=== PATIENT | female | born 1955 | race Caucasian/White ===

== ENCOUNTER → 2017-09-11 10:02 | Outpatient (CLI) | payer OTHER, SELFPAY ==
--- NOTE | 2017-09-11 10:16 | RAD_ITS ---
STUDY: X-RAY CHEST REASON FOR EXAM: Female, 62 years old. Chronic cough one year. TECHNIQUE: PA and lateral chest COMPARISON: None. FINDINGS: There is generalized pulmonary hyperlucency and hyperinflation in particular the apices in a pattern favoring the presence of underlying COPD/emphysema. Correlate smoking history. The lungs are otherwise clear. There is no infiltrate, effusion, pneumothorax or suspicious focal lesion. There is no apparent peribronchial cuffing. Normal cardiomediastinal silhouette, jai and pleural margins. No acute osseous or upper abdominal process. 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 Electronically Signed: Carlos Alvares, at 10:55 EDT Tel , Service support ,
== END ==
LOC: LAB 10:07 → RAD 10:11
PROVIDERS: Family Provider Internal Medicine; PCP Internal Medicine; Visit Provider Otolaryngology
DX: R05 Cough (principal)
CPT/HCPCS: 71046

== ENCOUNTER → 2017-10-22 07:35 | Outpatient (CLI) | payer OTHER, SELFPAY ==
--- NOTE | 2017-10-22 12:56 | PFT ---
INTRODUCTION: The patient is a 62-year-old female that presents for pulmonary function testing secondary to a diagnosis of cough. Respiratory therapy reports good patient effort. Bronchodilators were used during testing. INTERPRETATION: Forced expiration spirometry demonstrates no evidence of a large airways obstructive ventilatory defect. There was no significant response to aerosolized bronchodilators. Spirograms are of good quality and plateau normally. The respiratory flow volume loop appears normal. Body plethysmography was performed and reveals normal lung volumes. Diffusing capacity by single breath CO is within normal limits at 93% of predicted. IMPRESSION: These pulmonary function studies are essentially within normal limits. Methacholine challenge can be offered, if there is clinical suspicion for underlying asthma. Clinical correlation is recommended.
== END ==
PROVIDERS: Family Provider Internal Medicine; PCP Internal Medicine; Visit Provider Otolaryngology
DX: R05 Cough (principal)
CPT/HCPCS: 94060; 94726; 94729

== ENCOUNTER 2020-04-21 12:09 | Outpatient (RCR) | payer MEDICARE, SELFPAY ==
[2017-10-28 12:07] VITALS: BMI 27.8
[2020-04-21] MEDS: COVID-19 VACC, MRNA(PFIZER)/PF 30 MCG/0.3 ML SYRINGE IM (17:00)
[2020-05-12] MEDS: COVID-19 VACC, MRNA(PFIZER)/PF 30 MCG/0.3 ML SYRINGE IM (16:37)
== END 2020-07-18 23:59 ==
LOC: IMMUN 12:09
PROVIDERS: PCP Internal Medicine; Visit Provider Family Medicine
DX: Z23 Encounter for immunization (principal)
CPT/HCPCS: 0001A; 0002A; 91300

== ENCOUNTER → 2021-08-30 | Outpatient (CLI) | payer MEDICARE, OTHER, SELFPAY ==
--- NOTE | 2021-08-30 17:31 | STRESSREP ---
Stress Test Report Is a myocardial perfusion stress test. 66-year-old lady with a history of chest pain. Resting EKG demonstrates normal sinus rhythm with a rate of 68 bpm normal intervals are noted. The patient exercised according to the regular Len protocol for total duration of 6 minutes and 30 seconds. Patient completed 30 seconds into stage III of the Len protocol the maximum heart rate attained was 190 bpm which was 125% of max impacted heart rate the maximum workload was 8.5 metabolic equivalents. At rest there were no ST or T wave changes noted to suggest ischemia and at peak exercise upsloping ST changes were noted with did not meet the criteria for ischemia. No clinical angina was noted. The test was terminated due to fatigue. The peak blood pressure was 166/64 mmHg. Myocardial perfusion protocol. 11.2 mCi of technetium 99m sestamibi was injected at rest. The patient exercised according to regular Len protocol and at peak exercise 33.9 mCi of technetium 99m sestamibi was injected stress images were obtained stress and rest images were reconstructed and compared in the short axis vertical long and horizontal long axis. Gated images were also obtained to Perfusion SPECT analysis: Review of the stress images demonstrate normal uptake of tracer noted in all areas of the myocardium. The resting images similar demonstrate normal uptake of tracer noted in all areas of the myocardium. No areas of reversibility are noted to suggest ischemia and no previous infarct is noted. Gated SPECT analysis: The gated ejection fraction is 55% plus. Conclusion: Normal exercise myocardial perfusion stress test at a moderate workload. Preserved ejection fraction.
== END | disposition home or self-care (01) ==
LOC: CVS 06:32
PROVIDERS: PCP Internal Medicine; Referring Provider Nurse Practitioner; Visit Provider Nurse Practitioner
DX: R07.9 Chest pain, unspecified (principal)
CPT/HCPCS: 78452; 93017; A9500; A4216

== ENCOUNTER → 2021-11-15 | Outpatient (CLI) | payer MEDICARE, OTHER, SELFPAY ==
--- NOTE | 2021-11-15 08:48 | BI_ITS ---
MAMMOGRAPHY - BILATERAL DIAGNOSTIC REASON FOR EXAM: Female, 66 years old. One month history of a palpable lump in the upper aspect of the left breast. PERTINENT HISTORY: Daughter with breast cancer. Mother with breast cancer. TECHNIQUE: Digital bilateral breast hermes (3D mammographic acquisition) in the CC and MLO projections. 2-D mediolateral oblique (MLO) and craniocaudad (CC) views of both breasts were obtained. CAD: Full Field Digital Mammography with Computer Added Detection was performed. COMPARISON: Comparison is made with prior examination dated 06/29/2020. FINDINGS: Breast Composition: There are scattered areas of fibroglandular density. There are no dominant masses or suspicious calcifications. No other significant abnormalities are identified. There has been no significant change since the prior study. BI/DIAG MAMM W/CAD, BILAT IMPRESSION: Stable bilateral diagnostic mammogram. With the patient''s history of a palpable lump in the left breast, targeted ultrasound correlation is recommended. ASSESSMENT CATEGORY: BIRADS Category 0: Incomplete. Need additional imaging evaluation. A letter regarding these results will be sent to the patient by the facility within 30 days. Approximately 10% of breast cancers are not detected by mammography. A normal mammogram should not delay biopsy of a clinically suspicious abnormality. Electronically Signed: Felipe Thompson MD at 10:01 EDT ,
--- NOTE | 2021-11-15 09:04 | US_ITS ---
STUDY: ULTRASOUND BREAST - LEFT REASON FOR EXAM: Female, 66 years old. Palpable lump left breast. Prior bilateral breast reduction surgery. TECHNIQUE: Axial and longitudinal images of the LEFT breast were performed with a high resolution ultrasound transducer. # OF IMAGES: 16 COMPARISON: Comparison is made with prior mammogram done earlier in the day. FINDINGS: LEFT Breast: The lateral midportion of the left breast was examined with ultrasound. No sonographic abnormalities. The palpable abnormality most likely corresponds to the surgical scar. US/Breast Limited Unilateral IMPRESSION: No sonographic abnormality is seen. ASSESSMENT CATEGORY: BIRADS Category 1: Negative. A letter regarding these results will be sent to the patient by the facility within 30 days. Electronically Signed: Felipe Thompson MD at 14:17 EDT ,
== END | disposition home or self-care (01) ==
PROVIDERS: PCP Internal Medicine; Visit Provider Nurse Practitioner Women's Health
DX: R92.2 Inconclusive mammogram (principal); N64.4 Mastodynia; N63.20 Unspecified lump in the left breast, unspecified quadrant
CPT/HCPCS: 76642; 77062; 77066; G0279

== ENCOUNTER 2022-01-23 07:43 | Day surgery (SDC) | payer MEDICARE, OTHER, SELFPAY ==
[2022-01-23] VITALS (7 sets, daily range): BP systolic 97–135; BP diastolic 43–63; PULSE 57–69; RESP 12–18; TEMP 36.2–36.7; O2SAT 95–100; BMI 26.1
[2022-01-23] MEDS: Lactated Ringers 1,000 ML 15 ML IV (08:13)
--- NOTE | 2022-01-23 08:40 | HP.PCM_ITS ---
History and Physical Date of Admission: 01/23/22 Date of Service:? 01/11/22 MR#: [id number] Acct: [id number] Name:LUIGI SMITH Rep #: [id number] : 1955 ? ? Provider: Dr. Mary Carrasco MD Age/Sex:? 66/F ? ? Location: [facility] Status: Signed Intake Vital Signs ? 01/11/2211:41 Height 5 ft 3 in Weight: 158 lb 5 oz BMI 28.0 BP 129/75 H Blood Pressure Location Rt brachial Position Sitting Respiration 18 Pulse 69 Pulse Source Monitor Temp 96 F L Temp Source Temporal Intake Visit Reasons:?hemorrhoids Chief Complaint: Hemorrhoids Jig Borer Required: No Is patient in pain?: Yes Pain scale (1-10): 2 Allergies cimetidine [From Tagamet] Allergy (Mild, Verified 01/21/22 14:43) itchinghydrocodone [From Vicodin] Allergy (Mild, Verified 01/21/22 14:43) Itchingsulfamethoxazole [From Bactrim] Allergy (Mild, Verified 01/21/22 14:43) Rash and Itchingtrimethoprim [From Bactrim] Allergy (Mild, Verified 01/21/22 14:43) Rash and Itchingnitrofurantoin [From Macrobid] Allergy (Verified 01/21/22 14:43) Rash PFSH Medical History?(Updated 01/21/22 @ 14:59 by Cassandra Crandall) Alcohol use Allergic rhinitis Arthritis Laisha-Danlos disease Former smoker History of colon polyps History of diverticulitis History of irregular heartbeat History of stress test Hypertension Leg cramps Psoriasis Seasonal allergies TIA (transient ischemic attack) Wears glasses Surgical History?(Updated 01/21/22 @ 14:59 by Cassandra Crandall) History of back surgery History of colonoscopy History of hernia repair History of partial colectomy History of surgery on wrist History of toe surgery S/P bilateral breast reduction S/P right rotator cuff repair S/P spinal surgery Status post left foot surgery Family History? Mother Breast cancer Hypertension CVA (cerebral vascular accident)Father Heart disease Myocardial infarctionDaughter Colon cancer Primary colorectal signet ring cell carcinoma Social History? household members:? none number of children:? 2 current occupational status:? 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 No Smoking Status:? Former smoker second hand exposure:? No alcohol intake:? current alcohol intake frequency: a few times a month substance use type:? does not use diet:? low carbohydrate what type of physical activity do you participate in:? walking and weight training frequency:? 3-4 times per week seatbelt use:? always do you feel safe at home:? Yes additional social history:? single HPI HPI HPI: 66 year-old female presents due to 2 pain at her rectum possible hemorrhoids.? Patient states that she does not have really pain with bowel movements mostly afterward and also if she is in the shower and water hits that area there is at stinging pain.? Patient is scheduled for a screening colonoscopy due to family history?daughter with colon cancer-- on 01/23/2022.? Patient last colonoscopy was 5 years ago negative per patient.? Patient states that she does not feel like she can get the anal area cleaned due to the hemorrhoids, so patient does wipe this area quite a bit.? Patient states she has been having dark brown stools denies any blood in her stools.? Patient denies any epigastric pain, nausea, vomiting. ROS General General: No weight change, appetite, fatigue, colon cancer or breast cancer HEENT HEENT: No difficulty swallowing, eye injury, eye surgery, swollen glands or hoarseness Endo Endocrine: No thyroid disease, diabetes mellitus, thyroid cancer, Hair loss, heat intolerance or cold intolerance Skin Skin: No rash or changing moles Musc Musculoskeletal: No back problems, arthritis, rheumatoid arthritis, gout or joint pain Cardio Cardiovascular: No murmur, pacemaker, heart disease, atrial fibrillation, high blood pressure, heart attack, heart stent, palpitations, shortness of breat with exertion or chest pain Psych Psychiatric: No depression, anxiety or hearing voices Resp Respiratory: No shortness of breath, No sleep apnea, No cough, No COPD, No asthma, No emphysema and No wheezing Gastro Gastrointestinal: No abdominal pain, No nausea or vomiting, Yes diarrhea, No constipation, Yes blood in stool, No acid reflux, Yes hemorrhoids, No ulcers, No gallbladder problem and No black,tarry stools Yariel Hematologic: No blood thinners, No blood disorders, No bleeding, No anemia and No blood clots Neuro Neurologic: No numbness and No tingling Exam Const General: cooperative, healthy appearing and no acute distress [facility] Head: normal to inspection Resp Effort & Inspection: normal respiratory effort Cardio Rate: regular rate GI Inspection: non-distended Palpation: soft, no guarding and nontender Other: JUVENAL: Inspection patient does have some thickening of the tissues at 3:00 also at 10:00 has small breaks in the perianal mucosa.? Small internal hemorrhoids on exam no masses or gross bleeding. Skin General: no rashes or lesions noted Neuro General: patient oriented x3 Extrem General: no clubbing, cyanosis or edema Psych Affect: normal affect Assessment and Plan Assessment and Plan (1) Pain of perianal area: ?Status:?Acute Plan She does have some excoriation of her perianal area more so on the left where she does have some small breaks in the skin which I believe are the cause of her pain.? Patient does have a little bit of thickening of the tissue at 3:00 on the right question if this is just internal mucosa which has thickened over time as patient states she does wipe a lot as she feels like she can never get clean.? She also uses the wet wipes as well.? As patient put Neosporin on that area on the left with the breaks in the skin to see if that can help diarrhea and also try to be less aggressive with washing and possibly in the future an bidet may help with less wiping/irritation of the perianal tissue. Patient is scheduled for a colonoscopy due to screening due to family history of colon cancer in her daughter on January 23.? May consider perianal skin biopsy during that appointment.? Patient no further questions this time. I have discussed the above with the patient. I have offered the patient colonoscopy for evaluation. I have explained the risks/benefits of the procedure and described the procedure.? I have discussed the risks with the patient, including but not limited to:? infection, bleeding, perforation of the GI tract requiring emergency surgery, inability to complete the procedure, injury to any internal organs, complications of anesthesia, etc. - the patient understands and agrees to proceed. I have answered all the patient's questions to the patient's satisfaction and the patient has no further questions. The patient has been given instructions for the colon cleansing preparation. Mary Carrasco M.D. Pager: [phone] [facility] [address] [place] [address], [address] [place] [address] Office: [phone] Coding Level of Care Code Off vis,new,level 3 Diagnoses Pain of perianal area? K62.89 01/22/22 0942 <Electronically signed by Mary Carrasco MD> Date Mary Carrasco MD
--- NOTE | 2022-01-23 09:15 | COLBX_PTH ---
PATIENT: LUIGI PRINCE LOC: EN U#:[id number] AGE/SX: 66/F ROOM: RE01/23/[address]: Dr. Mary Carrasco MD : 1955 BED: DIS: 01/23/2022 SPEC #: [id number] RECD: 01/23/22 12:49 STATUS: NYDIA MARLA #: [id number] DIAN: 01/23/22 09:[address]: Mary Carrasco DEPT: SURGICAL PATHOLOGY RECD BY: Vee Giang ENTERED: 01/24/22 08:56 SP TYPE: COLON BX OTHR DR: Dr. Claus Magaña MD Tissues: Anal region Procedures: Surgery Specimen Level IV HEADER OPERATION: Colonoscopy ? open access (MAC), biopsy of perianal tissue PRE-OP DIAGNOSIS: Pain of perianal area TISSUE SUBMITTED: Perianal tissue punch biopsy MICROSCOPIC DIAGNOSIS Perianal tissue, punch biopsy: Consistent with polypoid fragment of skin and dermis with minimal chronic inflammation. AM:campos 01/25/2022 COMMENT This case was discussed with Dr. Carrasco on 01/25/2022. MICROSCOPIC DESCRIPTION Slides are reviewed. GROSS DESCRIPTION Received in fixative is one container labeled with the patient's name and designated perianal tissue biopsy. The specimen consists of two irregular fragments of hidalgo-pink soft tissue that in aggregate measure 0.5 x 0.2 x 0.1 cm. The specimen is totally submitted in one cassette. / SJ:campos 01/24/2022 TC:5 CPT: 02921
--- NOTE | 2022-01-23 09:15 | COLBX_PTH ---
PATIENT: LUIGI PRINCE LOC: EN U#:[id number] AGE/SX: 66/F ROOM: RE01/23/[address]: Dr. Mary Carrasco MD : 1955 BED: DIS: 01/23/2022 SPEC #: [id number] RECD: 01/23/22 12:49 STATUS: NYDIA REOdette #: [id number] DIAN: 01/23/22 09:[address]: Mary Carrasco DEPT: SURGICAL PATHOLOGY RECD BY: Vee Giang ENTERED: 01/24/22 08:56 SP TYPE: COLON BX OTHR DR: Dr. Claus Magaña MD Tissues: Anal region Procedures: Surgery Specimen Level IV HEADER OPERATION: Colonoscopy ? open access (MAC), biopsy of perianal tissue PRE-OP DIAGNOSIS: Pain of perianal area TISSUE SUBMITTED: Perianal tissue biopsy MICROSCOPIC DIAGNOSIS Perianal tissue, biopsy: Consistent with fibroepithelial polyp, mildly inflamed. AM:campos 01/25/2022 MICROSCOPIC DESCRIPTION Slides are reviewed. GROSS DESCRIPTION Received in fixative is one container labeled with the patient's name and designated perianal tissue biopsy. The specimen consists of two irregular fragments of hidalgo-pink soft tissue that in aggregate measure 0.5 x 0.2 x 0.1 cm. The specimen is totally submitted in one cassette. / SJ:campos 01/24/2022 TC:5 CPT: 27741
--- NOTE | 2022-01-23 10:13 | OP.COLON_ITS ---
Patient Name: Lea Barber Procedure Date: 01/23/2022 9:22 AM Date of : 1955 Age: 66 Procedure: Colonoscopy Indications: Screening in patient at increased risk: Colorectal cancer in child before age 60 Providers: Mary Carrasco MD Referring MD: Claus Magaña Medicines: Monitored Anesthesia Care Patient Profile: This is a 66 year old female. Last Colonoscopy: 5 years ago. Complications: No immediate complications. Procedure: Pre-Anesthesia Assessment: - Prior to the procedure, a History and Physical was performed, and patient medications and allergies were reviewed. The patient's tolerance of previous anesthesia was also reviewed. The risks and benefits of the procedure and the sedation options and risks were discussed with the patient. All questions were answered, and informed consent was obtained. Prior Anticoagulants: The patient has taken no previous anticoagulant or antiplatelet agents. ASA Grade Assessment: Per anesthesia. After reviewing the risks and benefits, the patient was deemed in satisfactory condition to undergo the procedure. After I obtained informed consent, the scope was passed under direct vision. Throughout the procedure, the patient's blood pressure, pulse, and oxygen saturations were monitored continuously. The colonoscope was introduced through the anus and advanced to the cecum, identified by appendiceal orifice and ileocecal valve. The colonoscopy was performed without difficulty. The patient tolerated the procedure well. The quality of the bowel preparation was good. Scope In: 9:37:33 AM Scope Withdrawal Time 0 hours 6 minutes 53 seconds Scope Out: 9:55:25 AM Total Procedure Duration Time 0 hours 17 minutes 52 seconds Findings: minimal thickening of the perianal tissue on the right (improved from office appt exam). Area -prepped with betadine, 3mm punch biopsy was done after lidocaine 1% 1 cc infiltrated. biopsy sent to pathology. skin closed with 3-0 chromatic suture. This was biopsied with a 3mm punch for histology. Scattered small-mouthed diverticula were found in the entire colon. The entire examined colon appeared normal on direct and retroflexion views. Impression: - Diverticulosis in the entire examined colon. - The entire examined colon is normal on direct and retroflexion views. Recommendation: - Discharge patient to home. - Resume previous diet. - Continue present medications. - Await pathology results. - Repeat colonoscopy in 5 years for screening purposes. Procedure Code(s): --- Professional --- 59947, PT, Colonoscopy, flexible; diagnostic, including collection of specimen(s) by brushing or washing, when performed (separate procedure) Diagnosis Code(s): --- Professional --- Z80.0, Family history of malignant neoplasm of digestive organs K57.30, Diverticulosis of large intestine without perforation or abscess without bleeding CPT copyright 2017 [employer]. All rights reserved. The codes documented in this report are preliminary and upon ring spinner review may be revised to meet current compliance requirements. MD Mary Leon MD 01/23/2022 10:13:09 AM This report has been signed electronically. Number of Addenda: 0 Note Initiated On: 01/23/2022 9:22 AM
--- NOTE | 2022-01-23 10:14 | OP.CCLET_ITS ---
01/23/2022 Claus Magaña [address] [place] [address] Re : Colonoscopy procedure for Lea Thomasmitt Dear Dr. Magaña This procedure was performed on Sunday, January 23, 2022. My impressions and recommendations are as follows: Impressions : - Diverticulosis in the entire examined colon. - The entire examined colon is normal on direct and retroflexion views. Recommendations : - Discharge patient to home. - Resume previous diet. - Continue present medications. - Await pathology results. - Repeat colonoscopy in 5 years for screening purposes. My findings are described in the full procedure note, which is enclosed. If I can be of further assistance, please feel free to contact me at Doctor phone number(s): , Work: . Sincerely, MD Mary Leon MD 01/23/2022 10:13:09 AM This report has been signed electronically.
== END 2022-01-23 10:53 | disposition home or self-care (01) ==
LOC: EN 07:43 → AC 07:44
PROVIDERS: PCP Internal Medicine; Referring Provider Internal Medicine; Visit Provider Surgery
PROC: 0DJD8ZZ Inspection of Lower Intestinal Tract, Via Natural or Artificial Opening Endoscopic (ICD-10-PCS; CPT 45378; principal; 2022-01-23 09:10)
DX: Z12.11 Encounter for screening for malignant neoplasm of colon (principal); K57.30 Diverticulosis of large intestine without perforation or abscess without bleeding; K64.9 Unspecified hemorrhoids; I10 Essential (primary) hypertension; Z80.0 Family history of malignant neoplasm of digestive organs; Z87.891 Personal history of nicotine dependence; Z86.73 Personal history of transient ischemic attack (TIA), and cerebral infarction without residual deficits; Z79.899 Other long term (current) drug therapy
CPT/HCPCS: 45380; 88305; J7120; J2405

== ENCOUNTER 2022-10-21 16:05 | Outpatient (CLI) | payer MEDICARE, OTHER, SELFPAY ==
[2022-10-21 16:51] LABS: Lipase 38 U/L (13-75)
== END 2022-10-21 23:59 | disposition home or self-care (01) ==
LOC: LABSPEC 16:07
PROVIDERS: PCP Internal Medicine; Referring Provider Nurse Practitioner Family; Visit Provider Nurse Practitioner Family
DX: R10.30 Lower abdominal pain, unspecified (principal)
CPT/HCPCS: 83690

== ENCOUNTER → 2022-11-20 | Outpatient (CLI) | payer MEDICARE, OTHER, SELFPAY ==
--- NOTE | 2022-11-20 12:24 | BI_ITS ---
MAMMOGRAPHY - BILATERAL SCREENING REASON FOR EXAM: Female, 67 years old. Routine annual screening examination. PERTINENT HISTORY: Mother with breast cancer. Bilateral breast reduction surgery. TECHNIQUE: Digital bilateral breast april (3D mammographic acquisition) in the CC and MLO projections. 2-D mediolateral oblique (MLO) and craniocaudad (CC) views of both breasts were obtained. CAD: Full Field Digital Mammography with Computer Added Detection was performed. COMPARISON: Comparison is made with prior study November 15, 2021. FINDINGS: Breast Composition: The breasts are almost entirely fatty. There are no dominant masses or suspicious calcifications. No other significant abnormalities are identified. There has been no significant change since the prior study. BI/SCRN MAMM (CAD)W/APRIL BILAT IMPRESSION: Stable bilateral screening mammogram. Yearly follow-up mammogram recommended. (A) ASSESSMENT CATEGORY: BIRADS Category 1: Negative. A letter regarding these results will be sent to the patient by the facility within 30 days. Approximately 10% of breast cancers are not detected by mammography. A normal mammogram should not delay biopsy of a clinically suspicious abnormality. [id number] Electronically Signed: Felipe Thompson MD at 11:04 EDT ,
== END | disposition home or self-care (01) ==
LOC: OPBI 12:24
PROVIDERS: PCP Internal Medicine; Visit Provider Nurse Practitioner Women's Health
DX: Z12.31 Encounter for screening mammogram for malignant neoplasm of breast (principal)
CPT/HCPCS: 77063; 77067

== ENCOUNTER 2023-02-06 10:45 | Emergency (ER) | payer MEDICARE, OTHER, SELFPAY ==
[2023-02-06 10:47] VITALS: BP 132/83; PULSE 81; RESP 14; TEMP 36.8; O2SAT 98; BMI 28.4
--- NOTE | 2023-02-06 11:21 | CT_ITS ---
STUDY: CT ABDOMEN AND PELVIS WITH CONTRAST - URINARY TRACT REASON FOR EXAM: Female, 67 years old. Diverticulitis RADIATION DOSAGE (If Supplied By Facility): CTDIvol = ( 16.74 ) mGy, DLP = ( 687.38 ) mGycm TECHNIQUE: IV 100mL Isovue-300 was administered. Transaxial images were obtained from the dome of the diaphragm to the symphysis pubis subsequent to intravenous contrast administration. Multiplanar coronal and sagittal images were reformatted. Individualized Dose Optimization Techniques Were Used For This CT. COMPARISON: No relevant prior comparison study available FINDINGS: The visualized lung bases are unremarkable. The visualized portions of the heart are within normal limits. There are scattered too small to characterize low-attenuation foci within the right hepatic lobe which may reflect cysts and/or hemangiomas. Normal gallbladder and extrahepatic biliary system. Normal spleen. Normal pancreas. Normal bilateral adrenal glands. Normal visualized stomach. Normal small intestine. There are multiple colonic diverticula consistent with diverticulosis. There is a moderate amount of stool throughout the colon. There are anastomotic sutures within the sigmoid colon. The appendix is visualized and appears normal. There is diffuse atherosclerotic calcification of the abdominal aorta, without a demonstrated aneurysm. No retroperitoneal adenopathy. There is a too small to characterize low-attenuation focus within the right kidney which may reflect a cyst. Normal left kidney. Normal urinary bladder. Normal abdominal wall. There are diffuse degenerative changes of the visualized lumbar spine. CT/Abdomen/Pelvis W IV Cont ONLY IMPRESSION: Moderate amount of stool throughout the colon. Colonic diverticulosis. Atherosclerosis. Electronically Signed: Mary Wild MD at 12:12 EST ,
--- NOTE | 2023-02-06 11:22 | EX.ED.DYSGE1 ---
HPI History of Present Illness Chief Complaint: Abd Pain Informant: patient Narrative Narrative: 67-year-old female presenting to the emergency room for chief complaint of left lower abdominal pain. Patient states that last week she had small amount of diarrhea followed by some constipation. She states she has been passing hard round small stool. Beginning on Akbar she had had some left lower quadrant abdominal pain. Is worse with movement. No rectal bleeding. No urinary symptoms. No vomiting or anorexia. No fevers. She states that about 20 years ago she had a partial colectomy for recurrent diverticulitis. She states that she has not had a bout since. The patient states that she has had a colonoscopy since then which demonstrated small pockets of diverticulosis. 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 She states that that has not helped the abdominal pain [facility] Medical History Alcohol use Allergic rhinitis Arthritis Laisha-Danlos disease Former smoker History of colon polyps History of diverticulitis History of irregular heartbeat History of stress test Hypertension Leg cramps Psoriasis Seasonal allergies TIA (transient ischemic attack) Wears glasses Home Medications dicyclomine 10 mg capsule 10 mg PO .PRN PRN Diarrhea 10/28/17 [History Last Taken Unknown] naproxen 500 mg tablet 500 mg PO BID 10/28/17 [History Last Taken Unknown] cyclobenzaprine 10 mg tablet 10 mg PO HS 08/10/20 [History Last Taken Unknown] gabapentin 300 mg capsule 600 mg PO TID 08/10/20 [History Last Taken Unknown] tramadol 50 mg tablet 50 mg PO BID 08/10/20 [History Last Taken Unknown] metoprolol succinate 25 mg tablet,extended release 24 hr 25 mg PO QHS 12/05/21 [History Last Taken 01/23/22] Allergy/AdvReac Type Severity Reaction Status Date / Time cimetidine [From Tagamet] Allergy Mild itching Verified 02/06/23 10:45 hydrocodone [From Vicodin] Allergy Mild Itching Verified 02/06/23 10:45 sulfamethoxazole Allergy Mild Rash and Verified 02/06/23 10:45 [From Bactrim] Itching trimethoprim [From Bactrim] Allergy Mild Rash and Verified 02/06/23 10:45 Itching nitrofurantoin Allergy Rash Verified 02/06/23 10:45 [From Macrobid] Family History Mother Breast cancer Hypertension CVA (cerebral vascular accident) Father Heart disease Myocardial infarction Daughter Colon cancer Primary colorectal signet ring cell carcinoma Surgical History History of back surgery History of colonoscopy History of hernia repair History of partial colectomy History of surgery on wrist History of toe surgery S/P bilateral breast reduction S/P right rotator cuff repair S/P spinal surgery Status post left foot surgery Social History household members: none number of children: 2 current occupational status: retired and 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 history of recent travel: No Smoking Status: Former smoker second hand exposure: No alcohol intake: current alcohol intake frequency: a few times a month substance use type: does not use diet: low carbohydrate what type of physical activity do you participate in: walking and weight training frequency: 3-4 times per week seatbelt use: always do you feel safe at home: Yes additional social history: single ROS ROS ED Constitutional Constitutional ED: Denies chills, fever(s) or weight loss Eyes Eyes: Denies change in vision or diplopia ENT ENT ED: Denies ear pain, rhinorrhea or sore throat Cardiovascular Cardiovascular: Denies chest pain, orthopnea, palpitations or racing heartbeat Respiratory/Chest Respiratory/Chest: Denies cough, dyspnea or orthopnea Gastrointestinal Gastrointestinal: Reports abdominal pain and constipation; Denies diarrhea, nausea or vomiting Genitourinary Genitourinary ED: Denies dysuria, hematuria or urinary frequency Musculoskeletal Musculoskeletal: Denies arthralgias or myalgias Integumentary Denies abscess or rash Neurologic Neurologic: Denies headache(s) or weakness Psychiatric Psychiatric: Denies anxiety, depression, suicidal ideation or suicidal thoughts Endocrine Endocrinology: Denies polydipsia, polyphagia or polyuria Allergic/Immunologic Allergic/Immunologic ED: Denies mouth swelling, tongue swelling or urticaria EXAM Physical Exam Const Vital Signs: 02/06/23 10:47 Temperature 98.2 F Temperature Source Temporal Pulse Rate 81 Respiratory Rate 14 Blood Pressure 132/83 H Blood Pressure Mean 99 Pulse Ox 98 Oxygen Delivery Method Room Air Positive well nourished and well developed General Appearance ED: well developed HEENT Reports normocephalic, head/scalp atraumatic and moist mucous membranes Eyes PERRL and EOMs intact bilaterally Neck no lymphadenopathy, supple and no JVD Resp normal respiratory effort and clear to auscultation bilaterally Cardio regular rate, regular rhythm and no murmurs GI Inspection: Negative for abdominal distention Auscultation: normoactive bowel sounds Palpation: soft and tender LLQ; Negative for guarding or rebound tenderness present Back/Spine no CVA tenderness and normal ROM Extremity normal to inspection General Extremety ED: Negative for edema General Extremity: Negative for edema Neuro oriented x3 and CN's II-XII intact bilaterally Sensorium / Orientation: alert Motor Exam: strength 5/5 throughout Psych mental status grossly normal Mood & Affect: Negative for depressed or tearful Skin no rashes or lesions noted and no wounds MDM MDM MDM Narrative Medical decision making narrative: Urinalysis negative. White count 5.6. BMP with a creatinine 1.12. CT of the abdomen pelvis was obtained. This will throughout the colon. There are some areas of diverticulosis but no definitive areas of diverticulitis or colitis. No evidence of perforation or abscess. No obvious hydronephroureter to suggest ureterolithiasis. Patient received a dose of Toradol and Zofran. I think we should use some magnesium citrate to help move the stool through the colon as she is feeling bloated and constipated. The patient and I discussed risk benefits of antibiotics. I will write her for some Augmentin. We talked about different ways to treat diverticulitis. We talked about possible etiologies other than diverticulitis. At this point we will proceed with magnesium citrate and Augmentin. Continue home medications History & Record Review Discussion w/independent historian: Patient Lab Data Attestation: I reviewed the patient's lab results. Labs: Laboratory Results - last 24 hr 02/06/23 02/06/23 11:03 11:10 WBC 5.6 RBC 4.80 Hgb 14.7 Hct 45.9 MCV 95.6 MCH 30.6 MCHC 32.0 RDW Std Deviation 47.1 H RDW Coeff of Yu 13.3 Plt Count 251 MPV 10.1 Immature Gran % (Auto) 0.200 Neut % (Auto) 70.1 H Lymph % (Auto) 20.3 Parker % (Auto) 7.5 Eos % (Auto) 1.4 Baso % (Auto) 0.5 Absolute Neuts (auto) 3.9 Absolute Lymphs (auto) 1.14 Nucleated RBC % 0 Sodium 143 Potassium 4.3 Chloride 108 H Carbon Dioxide 28.0 Anion Gap 7 BUN 15 Creatinine 1.12 H Estim Creat Clear Calc 39.22 Est GFR (MDRD) Af Amer 62 Est GFR (MDRD) Non-Af 51 L BUN/Creatinine Ratio 13.4 Glucose 91 Calcium 9.2 Urine Color Yellow Urine Clarity Sl. Cloudy Urine pH 6.5 Ur Specific [place] 1.010 Urine Protein 15 H Urine Glucose (UA) Normal Urine Ketones Negative Urine Occult Blood Negative Urine Nitrite Negative Urine Bilirubin Negative Urine Urobilinogen Normal Ur Leukocyte Esterase Negative Urine RBC 0 SEEN Urine WBC 0 SEEN Ur Squamous Epith Cells 0-5 SEEN Urine Bacteria 0 SEEN Urine Mucus 0 SEEN Radiography Diagnostic Testing: Clinical Impression(s) from Imaging Studies Abdomen/Pelvis CT 02/06/23 11:21 IMPRESSION: Moderate amount of stool throughout the colon. Colonic diverticulosis. Atherosclerosis. Electronically Signed: Mary Wild MD at 12:12 EST , Discharge Plan Triage Chief Complaint: Abd Pain ED Provider: Kevin Carter Dx/Rx/DC Orders Prescriptions: No Action naproxen 500 mg tablet 500 mg PO BID dicyclomine 10 mg capsule 10 mg PO .PRN PRN (Reason: Diarrhea) cyclobenzaprine 10 mg tablet 10 mg PO HS gabapentin 300 mg capsule 600 mg PO TID tramadol 50 mg tablet 50 mg PO BID metoprolol succinate 25 mg tablet extended release 24 hr 25 mg PO QHS Primary Care Provider: Claus Magaña Referrals: Claus Magaña MD [Primary Care Provider] -
[2023-02-06 11:31] LABS: Absolute Lymphocyte Count 1.14 X10^3/uL (0.83-4.51); Absolute Neutrophil Count 3.9 X10^3/uL (2.0-7.7); Basophil# 0.03 X10^3/uL; Basophil% 0.5 % (0-1); Eosinophil# 0.08 X10^3/uL; Eosinophils% 1.4 % (0-5); Hematocrit 45.9 % (37-47); Hemoglobin 14.7 g/dL (12.0-15.0); Lymphocyte # 1.14 X10^3/ul (0.83-4.51); Lymphocyte % 20.3 % (19-41); Mean Corpuscular Hgb 30.6 pg (27.0-32.0); Mean Corpuscular Volume 95.6 fL (81-99); Mean Platelet Vol. 10.1 fl (6.2-12.0); Monocyte# 0.42 X10^3/uL; Monocyte% 7.5 % (0-10); NRBC Flagged by Analyzer 0 % (0-5); Neutrophil # 3.94 X10^3/uL (2.7-7.7); Neutrophil % 70.1 % (47-70); Platelet Count 251 K/mm3 (150-450); RBC Distribution Width CV 13.3 % (11.6-14.6); RBC Distribution Width SD 47.1 fl (35.1-43.9); White Blood Count 5.6 K/mm3 (4.4-11.0)
[2023-02-06 11:32] LABS: Bacteria 0 SEEN /hpf (None Seen); Mucous, Urine 0 SEEN /hpf (<or=2+); Red Blood Cells-Urine 0 SEEN /hpf (0-5); White Blood Cells 0 SEEN /hpf (0-5)
[2023-02-06 11:43] LABS: Color, Urine Yellow (Yellow); Glucose, Dipstick Normal (Normal); Ketone-Dipstick Negative (Negative); Leukocyte Esterase-Dipstick Negative /ul (Negative); Nitrite-Dipstick Negative (Negative); Occult Blood-Urine Negative /ul (Negative); Protein-Dipstick 15 mg/dl (Negative); Urine Bilirubin Dipstick Negative (Negative); Urine Clarity Sl. Cloudy (Clear); Urine Urobilinogen Normal (Normal); Urine pH 6.5 (5.0 - 8.0)
[2023-02-06 11:44] LABS: Anion Gap 7 (5-15); BUN 15 mg/dL (7-18); BUN/Creat Ratio 13.4 RATIO (10-20); Calcium,Total 9.2 mg/dL (8.5-10.1); Chloride 108 mmol/L (98-107); Creatinine, Serum 1.12 mg/dL (0.55-1.02); EST Glomerular Filtration Rate 51 mL/min (>60); Est Glom Filt Rate - Afr Amer 62 mL/min (>60); Estimated Creatinine Clearance 39.22 ml/min; Glucose 91 mg/dL (74-106); Potassium 4.3 mmol/L (3.5-5.1); Sodium Level 143 mmol/L (136-145)
[2023-02-06 11:50] LABS: Squamous Epithelial Cells - UA 0-5 SEEN /hpf (5-10)
[2023-02-06] MEDS: Ketorolac 15 MG/ML Vial IV (12:36)
[2023-02-06] MEDS: Ondansetron 4 MG/2 ML Vial IV (12:37)
[2023-02-06 13:24] VITALS: BP 127/62; PULSE 76; RESP 15; O2SAT 98
== END 2023-02-06 13:25 | disposition home or self-care (01) ==
PROVIDERS: Emergency Provider Emergency Medicine; PCP Internal Medicine; Visit Provider Emergency Medicine
DX: R10.32 Left lower quadrant pain (principal); Z87.891 Personal history of nicotine dependence; Z90.49 Acquired absence of other specified parts of digestive tract; G57.92 Unspecified mononeuropathy of left lower limb; Z79.899 Other long term (current) drug therapy; Z86.73 Personal history of transient ischemic attack (TIA), and cerebral infarction without residual deficits
CPT/HCPCS: 74177; 80048; 81001; 85025; 96374; 96375; 99283; Q9967; A4216; J2405

== ENCOUNTER → 2023-03-27 | Outpatient (CLI) | payer MEDICARE, OTHER, SELFPAY ==
--- OUTSIDE RECORDS SUMMARY | 2023-03-27 07:34 | XMS RPT_ITS | CCD ---
Author Name Unknown Address [address] [place] [address] Organization [facility] Care Team Providers Care Latin Professor Name Role Phone Gómez CERRATO, Claus Briones Primary Care Provider [phone] JOSEMANUEL RODRIGUEZ Referring Unavailable GÓMEZ, CLAUS Briones Primary Care Unavailable Gómez CERRATO, Claus Briones Primary Care Provider [phone] JOSEMANUEL RODRIGUEZ Admitting Unavailable JOSEMANUEL RODRIGUEZ Attending Unavailable CLAUS MAGAÑA Primary Care Unavailable GÓMEZ, CLAUS Briones Primary Care Unavailable GÓMEZ, CLAUS Briones Referring Unavailable CLAUS MAGAÑA Attending Unavailable LUCIO KITCHEN Attending Unavailable JOSEMANUEL RODRIGUEZ Referring Unavailable CLAUS MAGAAÑ Primary Care Unavailable GÓMEZ, CLAUS Briones Primary Care Unavailable CLAUS MAGAÑA Referring Unavailable JOSEMANUEL RODRIGUEZ Attending Unavailable JOSEMANUEL RODRIGUEZ Referring Unavailable CLAUS MAGAÑA Primary Care Unavailable DEVIN HANNA Attending Unavailable JOSEMANUEL RODRIGUEZ Referring Unavailable CLAUS MAGAÑA Primary Care Unavailable DEVIN HANNA Attending Unavailable CLAUS MAGAÑA Primary Care Unavailable TEMITOPE TROTTER Referring Unavailable GÓMEZ, CLAUS Briones Primary Care Unavailable TEMITOPE TROTTER Referring Unavailable DEVIN HANNA Attending Unavailable CLAUS MAGAÑA Primary Care Unavailable TEMITOPE TROTTER Referring Unavailable MAGAÑA, CLAUS Briones Primary Care Unavailable CLAUS MAGAÑA Attending Unavailable GÓMEZ, CLAUS Briones Primary Care Unavailable MAGAÑA, CLAUS Briones Primary Care Unavailable KELLY VELAZQUEZ Referring Unavailable MAGAÑA, CLAUS Briones Primary Care Unavailable MAGAÑA, CLAUS Briones Primary Care Unavailable DANG JANE Referring Unavailable GÓMEZ, CLAUS Briones Primary Care Unavailable JOSEMANUEL RODRIGUEZ Attending Unavailable GÓMEZ, CLAUS Briones Primary Care Unavailable ROSE MARIE, TEMITOPE M Referring Unavailable JOSEMANUEL RODRIGUEZ Referring Unavailable VETOMENDY SPENCER Attending Unavailable MAGAÑA, DONAVON Primary Care Unavailable JOSEMANUEL RODRIGUEZ Referring Unavailable VETOMENDY SPENCER Attending Unavailable MAGAÑA, DONAVON Primary Care Unavailable VETOVITZ, MENDY Attending Unavailable MAGAÑA, DONAVON Primary Care Unavailable JOSEMANUEL RODRIGUEZ Attending Unavailable JOSEMANUEL RODRIGUEZ Referring Unavailable MAGAÑA, CLAUS Briones Primary Care Unavailable JOSEMANUEL RODRIGUEZ Referring Unavailable MAGAÑA, DONAVON Primary Care Unavailable MAGAÑA, DONAVON Primary Care Unavailable ANICETO BRODERICK Referring Unavailable MAGAÑA, DONAVON Primary Care Unavailable MAGAÑA, DONAVON Referring Unavailable ROSE MARIETEMITOPE Attending Unavailable MAGAÑA, DONAVON Primary Care Unavailable ROSE MARIETEMITOPE Attending Unavailable MAGAÑA, DONAVON Primary Care Unavailable ROSE MARIE, TEMITOPE M Referring Unavailable MAGAÑA, DONAVON Primary Care Unavailable ROSE MARIE, TEMITOPE M Referring Unavailable JOSEMANUEL RODRIGUEZ Referring Unavailable VETOMENDY SPENCER Attending Unavailable MAGAÑA, DONAVON Primary Care Unavailable MAGAÑA, DONAVON Primary Care Unavailable ROSE MARIE, TEMITOPE M Referring Unavailable Allergies Allergy Classification Reported Allergen(s) Allergy Type Date of Onset Reaction(s) Facility (20 sources) Cimetidine; Translations: [CIMETIDINE] Drug Allergy 10-01-2004 Unknown [facility] (20 sources) HYDROcodone; Translations: [HYDROCODONE] Drug Allergy 02-25-2001 Itching [facility] Work Phone: (20 sources) NITROFURANTOIN, MACROCRYSTALS / Nitrofurantoin, Monohydrate; Translations: [NITROFURANTOIN MONOHYD/M-CRYST] Drug Allergy 12-22-2015 Rash [facility] (20 sources) Ragweed pollen; Translations: [RAGWEED POLLEN] Drug Allergy 10-14-2018 Cough [facility] (9 sources) Acetaminophen; Translations: [ACETAMINOPHEN] Drug Allergy 08-10-2020 Itching [facility] (9 sources) Sulfamethoxazole; Translations: [SULFAMETHOXAZOLE] Drug Allergy 08-10-2020 [facility] Medications Current Medications Medication Drug Class(es) Dates Sig (Normalized) Sig (Original) acetaminophen 325 mg / oxyCODONE hydrochloride 5 mg oral tablet (7 sources) Opioid Agonist Start: 07-10-2022 End: 07-17-2022 take 1 tablet by mouth every six hours as needed for pain oxyCODONE-acetami nophen (PERCOCET) 5-325 mg tablet Indications: Acute medial meniscus tear of right knee, subsequent encounter Take 1 tablet by mouth every 6 hours as needed for pain for up to 7 days. 20 tablet 0 07/10/2022 07/17/2022 Active Completed/Discontinued Medications Medication Drug Class(es) Dates Sig (Normalized) Sig (Original) augmented betamethasone 0.5 mg/ml topical cream (20 sources) Corticosteroid Start: 03-05-2022 betamethasone dipropionate, augmented (DIPROLENE) 0.05 % cream APPLY A THIN LAYER OF CREAM TOPICALLY TO AFFECTED AREA OF THE BODY TWICE DAILY FOR 2 WEEKS NEEDED FOR FLARES. 0 03/05/2022 Active Problems Active Problems Problem Classification Problem Date Documented Da te Episodic/Chronic Chronic kidney disease (20 sources) Chronic kidney disease stage 3A ; Translations: [Stage 3a chronic kidney disease] Onset: 1 10-08-2020 Chronic Chronic kidney disease (1 source) Chronic kidney disease; Translations: [Stage 3a chronic kidney disease (HCC)] Onset: 1 Esophageal disorders (19 sources) Gastroesophageal reflux disease; Translations: [Gastro-esophageal reflux disease without esophagitis] Onset: 3 Chronic Essential hypertension (20 sources) Essential hypertension; Translations: [Essential (primary) hypertension] Onset: 0 10-11-2019 Chronic Genitourinary symptoms and ill-defined conditions (2 sources) Urgent desire to urinate; Translations: [Urgency of urination] Episodic Heart valve disorders (20 sources) Mitral valve prolapse; Translations: [Nonrheumatic mitral (valve) prolapse] Onset: 0 05-11-2009 Chronic Joint disorders and dislocations; trauma-related (1 source) Acute tear of medial meniscus of right knee; Translations: [Other tear of medial meniscus, current injury, right knee, subsequent encounter] Episodic Nonspecific chest pain (1 source) Chest pain; Translations: [Chest pain, unspecified] Episodic Other connective tissue disease (2 sources) Pain of right lower leg; Translations: [Pain in right lower leg] Episodic Other gastrointestinal disorders (20 sources) Irritable bowel syndrome; Translations: [Irritable bowel syndrome without diarrhea] Onset: 5 10-01-2004 Chronic Other gastrointestinal disorders (1 source) Mixed irritable bowel syndrome; Translations: [Irritable bowel syndrome with both constipation and diarrhea] Onset: 5 Chronic Other hereditary and degenerative nervous system conditions (8 sources) Essential tremor; Translations: [Essential tremor] Onset: 3 Chronic Other hereditary and degenerative nervous system conditions (1 source) Essential tremor; Translations: [Essential tremor] Onset: 3 Chronic Other inflammatory condition of skin (1 source) Psoriasis vulgaris; Translations: [Psoriasis vulgaris] Onset: 4 Chronic Other nervous system disorders (20 sources) Neuropathy; Translations: [Polyneuropathy, unspecified] Onset: 5 Chronic Other nervous system disorders (20 sources) Bilateral carpal tunnel syndrome; Translations: [Carpal tunnel syndrome, bilateral upper limbs] Onset: 1 04-24-2010 Chronic Other nervous system disorders (1 source) Other chronic pain; Translations: [Chronic pain of right knee] Onset: 3 Chronic Other nervous system disorders (1 source) Polyneuropathy, unspecified; Translations: [Neuropathy] Onset: 7 Chronic Other screening for suspected conditions (not mental disorders or infectious disease) (1 source) Patient encounter status; Translations: [Encounter for screening mammogram for malignant neoplasm of breast] Episodic Other skin disorders (2 sources) Mass of skin of right lower limb; Translations: [Localized swelling, mass and lump, right lower limb] Episodic Other upper respiratory infections (1 source) Viral upper respiratory tract infection; Translations: [Acute upper respiratory infection, unspecified] Episodic Past or Other Problems Problem Classification Problem Date Documented Date Episodic/Chronic Abdominal pain (2 sources) Lower abdominal pain; Translations: [Lower abdominal pain, unspecified] Onset: 10-21-2022 10-21-2022 Episodic Cardiac dysrhythmias (20 sources) Palpitations; Translations: [Palpitations] Onset: 10-11-2019 10-11-2019 Episodic Nausea and vomiting (9 sources) Postoperative nausea and vomiting; Translations: [Nausea with vomiting, unspecified] Onset: 06-24-2022 Episodic Other and unspecified benign neoplasm (20 sources) Adenomatous polyp of colon ; Translations: [Benign neoplasm of colon, unspecified] Onset: 04-08-2016 04-08-2016 Episodic Other connective tissue disease (20 sources) Muscle pain; Translations: [Myalgia, unspecified site] Onset: 10-01-2004 04-08-2016 Episodic Other connective tissue disease (20 sources) Acquired trigger finger; Translations: [Trigger finger, unspecified finger] Onset: 01-30-2017 01-30-2017 Episodic Other connective tissue disease (20 sources) Synovial cyst of right popliteal space; Translations: [Synovial cyst of popliteal space [Alonso], right knee] Onset: 06-19-2022 Episodic Other connective tissue disease (2 sources) Synovial cyst of popliteal space [Alonso], right knee; Translations: [Alonso's cyst of knee, right] Onset: 05-02-2022 Episodic Other connective tissue disease (1 source) Pain in right lower leg; Translations: [Pain in right lower leg] Onset: 05-01-2022 Episodic Other nervous system disorders (20 sources) Tremor; Translations: [Tremor, unspecified] Onset: 04-16-2022 04-16-2022 Episodic Other non-traumatic joint disorders (20 sources) Pain in right knee; Translations: [Pain in joint, lower leg] Onset: 05-02-2022 Episodic Other skin disorders (1 source) Localized swelling, mass and lump, right lower limb; Translations: [Skin lump of leg, right] Onset: 05-30-2022 Episodic Pathological fracture (20 sources) Stress fracture of tibia; Translations: [Pathological fracture, unspecified tibia and fibula, initial encounter for fracture] Onset: 06-19-2022 Episodic Residual codes; unclassified (20 sources) Memory impairment; Translations: [Other amnesia] Onset: 08-17-2020 08-17-2020 Episodic Residual codes; unclassified (1 source) Other amnesia; Translations: [Memory changes] Onset: 08-17-2020 Episodic Residual codes; unclassified (1 source) Other specified postprocedural states; Translations: [PONV (postoperative nausea and vomiting)] Onset: 06-24-2022 Episodic Screening and history of mental health and substance abuse codes (9 sources) Ex-smoker; Translations: [Personal history of nicotine dependence] Onset: 06-24-2022 Episodic Spondylosis; intervertebral disc disorders; other back problems (20 sources) Lumbar disc prolapse with radiculopathy; Translations: [Intervertebral disc disorders with radiculopathy, lumbar region] Onset: 04-20-2014 Episodic Results Test Name Value Interpretation Reference Range Facil ity Vital Signs Date Time Vital Sign Value Performing Clinician Hugh echavarria 10-21-2022 14:47-0400 Body temperature 98.6 [degF] Kelly Velazquez BIT SHARPENER.HOOK UP DRIVER Work Phone: [facility] 10-21-2022 14:47-0400 Body weight 71.76 kg Kelly Velazquez BIT SHARPENER.HOOK UP DRIVER Work Phone: [facility] 10-21-2022 14:47-0400 Diastolic blood pressure 80 mm[Hg] Kelly Velazquez BIT SHARPENER.HOOK UP DRIVER Work Phone: [facility] 10-21-2022 14:47-0400 Heart rate 82 /min Kelly Velazquez BIT SHARPENER.HOOK UP DRIVER Work Phone: [facility] 10-21-2022 14:47-0400 Respiratory rate 18 /min Kelly Velazquez BIT SHARPENER.HOOK UP DRIVER Work Phone: [facility] 10-21-2022 14:47-0400 SaO2% (BldA) [Mass fraction] 97 % Kelly Velazquez BIT SHARPENER.HOOK UP DRIVER Work Phone: [facility] 10-21-2022 14:47-0400 Systolic blood pressure 148 mm[Hg] Kelly Velazquez BIT SHARPENER.HOOK UP DRIVER Work Phone: [facility] 07-10-2022 11:15-0400 Diastolic blood pressure 73 mm[Hg] Josemanuel Rodriguez MD Work Phone: [facility] 07-10-2022 11:15-0400 Heart rate 57 /min Josemanuel Rodriguez MD Work Phone: [facility] 07-10-2022 11:15-0400 Respiratory rate 11 /min Josemanuel Rodriguez MD Work Phone: [facility] 07-10-2022 11:15-0400 SaO2% (BldA) [Mass fraction] 94 % Josemanuel Rodriguez MD Work Phone: [facility] 07-10-2022 11:15-0400 Systolic blood pressure 139 mm[Hg] Josemanuel Rodriguez MD Work Phone: [facility] 07-10-2022 10:33-0400 Body temperature 97.5 [degF] Josemanuel Rodriguez MD Work Phone: [facility] 06-24-2022 10:47-0400 Body height 162.6 cm Pacc 1 Work Phone: [facility] 06-24-2022 10:47-0400 Body temperature 97.9 [degF] Pacc 1 Work Phone: [facility] 06-24-2022 10:47-0400 Body weight 73.48 kg Pacc 1 Work Phone: [facility] 06-24-2022 10:47-0400 Diastolic blood pressure 72 mm[Hg] Pacc 1 Work Phone: [facility] 06-24-2022 10:47-0400 Heart rate 67 /min Pacc 1 Work Phone: [facility] 06-24-2022 10:47-0400 Respiratory rate 14 /min Pacc 1 Work Phone: [facility] 06-24-2022 10:47-0400 SaO2% (BldA) [Mass fraction] 96 % Pacc 1 Work Phone: [facility] 06-24-2022 10:47-0400 Systolic blood pressure 120 mm[Hg] Pacc 1 Work Phone: [facility] 05-30-2022 14:28-0400 Body weight 73.03 kg Claus Magaña MD Work Phone: [facility] 05-30-2022 14:28-0400 Diastolic blood pressure 84 mm[Hg] Claus Magaña MD Work Phone: [facility] 05-30-2022 14:28-0400 Heart rate 84 /min Claus Magaña MD Work Phone: [facility] 05-30-2022 14:28-0400 Respiratory rate 16 /min Claus Magaña MD Work Phone: [facility] 05-30-2022 14:28-0400 Systolic blood pressure 138 mm[Hg] Claus Magaña MD Work Phone: [facility] 04-23-2022 10:26-0400 Body weight 72.58 kg Temitope Older BIT SHARPENER.HOOK UP DRIVER Work Phone: [facility] 04-23-2022 10:26-0400 Diastolic blood pressure 83 mm[Hg] Temitope Older BIT SHARPENER.HOOK UP DRIVER Work Phone: [facility] 04-23-2022 10:26-0400 Heart rate 74 /min Temitope Older BIT SHARPENER.HOOK UP DRIVER Work Phone: [facility] 04-23-2022 10:26-0400 Respiratory rate 14 /min Temitope Older BIT SHARPENER.HOOK UP DRIVER Work Phone: [facility] 04-23-2022 10:26-0400 Systolic blood pressure 134 mm[Hg] Temitope Older BIT SHARPENER.HOOK UP DRIVER Work Phone: [facility] 02-12-2022 10:15-0500 Body temperature 97.3 [degF] Temitope Older BIT SHARPENER.HOOK UP DRIVER Work Phone: [facility] 02-12-2022 10:15-0500 Body weight 70.31 kg Temitope Older BIT SHARPENER.HOOK UP DRIVER Work Phone: [facility] 02-12-2022 10:15-0500 Diastolic blood pressure 74 mm[Hg] Temitope Older BIT SHARPENER.HOOK UP DRIVER Work Phone: [facility] 02-12-2022 10:15-0500 Heart rate 83 /min Temitope Older BIT SHARPENER.HOOK UP DRIVER Work Phone: [facility] 02-12-2022 10:15-0500 Respiratory rate 14 /min Temitope Older BIT SHARPENER.HOOK UP DRIVER Work Phone: [facility] 02-12-2022 10:15-0500 SaO2% (BldA) [Mass fraction] 98 % Temitope Older BIT SHARPENER.HOOK UP DRIVER Work Phone: [facility] 02-12-2022 10:15-0500 Systolic blood pressure 141 mm[Hg] Temitope Older BIT SHARPENER.HOOK UP DRIVER Work Phone: [facility] 10-17-2021 14:03-0400 Body weight 69.85 kg Claus Magaña MD Work Phone: [facility] 10-17-2021 14:03-0400 Diastolic blood pressure 78 mm[Hg] Claus Magaña MD Work Phone: [facility] 10-17-2021 14:03-0400 Heart rate 70 /min Claus Magaña MD Work Phone: [facility] 10-17-2021 14:03-0400 Respiratory rate 12 /min Claus Magaña MD Work Phone: [facility] 10-17-2021 14:03-0400 SaO2% (BldA) [Mass fraction] 99 % Claus Magaña MD Work Phone: [facility] 10-17-2021 14:03-0400 Systolic blood pressure 130 mm[Hg] Claus Magaña MD Work Phone: [facility] 07-17-2021 14:40-0400 Body weight 72.12 kg Temitope Older BIT SHARPENER.HOOK UP DRIVER Work Phone: [facility] 07-17-2021 14:40-0400 Diastolic blood pressure 78 mm[Hg] Temitope Older BIT SHARPENER.HOOK UP DRIVER Work Phone: [facility] 07-17-2021 14:40-0400 Heart rate 64 /min Temitope Older BIT SHARPENER.HOOK UP DRIVER Work Phone: [facility] 07-17-2021 14:40-0400 Respiratory rate 12 /min Temitope Older BIT SHARPENER.HOOK UP DRIVER Work Phone: [facility] 07-17-2021 14:40-0400 Systolic blood pressure 144 mm[Hg] Temitope Older BIT SHARPENER.HOOK UP DRIVER Work Phone: [facility] 06-01-2021 13:18-0400 Body weight 71.22 kg Temitope Older BIT SHARPENER.HOOK UP DRIVER Work Phone: [facility] 06-01-2021 13:18-0400 Diastolic blood pressure 82 mm[Hg] Temitope Older BIT SHARPENER.HOOK UP DRIVER Work Phone: [facility] 06-01-2021 13:18-0400 Heart rate 76 /min Temitope Older BIT SHARPENER.HOOK UP DRIVER Work Phone: [facility] 06-01-2021 13:18-0400 Respiratory rate 16 /min Temitope Older BIT SHARPENER.HOOK UP DRIVER Work Phone: [facility] 06-01-2021 13:18-0400 SaO2% (BldA) [Mass fraction] 97 % Temitope Older BIT SHARPENER.HOOK UP DRIVER Work Phone: [facility] 06-01-2021 13:18-0400 Systolic blood pressure 142 mm[Hg] Temitope Older BIT SHARPENER.HOOK UP DRIVER Work Phone: [facility] 05-27-2021 09:39-0400 Body temperature 97.39 [degF] Tomer Queen BIT SHARPENER.HOOK UP DRIVER Work Phone: [facility] 05-27-2021 09:39-0400 Body weight 73.66 kg Tomer Queen BIT SHARPENER.HOOK UP DRIVER Work Phone: [facility] 05-27-2021 09:39-0400 Diastolic blood pressure 86 mm[Hg] Tomer Bret BIT SHARPENER.HOOK UP DRIVER Work Phone: [facility] 05-27-2021 09:39-0400 Heart rate 88 /min Tomer Queen BIT SHARPENER.HOOK UP DRIVER Work Phone: [facility] 05-27-2021 09:39-0400 Respiratory rate 18 /min Tomer Queen BIT SHARPENER.HOOK UP DRIVER Work Phone: [facility] 05-27-2021 09:39-0400 SaO2% (BldA) [Mass fraction] 97 % Tomer Queen APRN.HOOK UP DRIVER Work Phone: [facility] 05-27-2021 09:39-0400 Systolic blood pressure 154 mm[Hg] Tomer King RAYNEHOOK UP DRIVER Work Phone: [facility] Encounters Encounter Date Encounter Type Care Provider Facility Start: 03-12-2023 End: 03-13-2023 ambulatory DANG JANE Facility:[facility] Start: 02-23-2023 Telephone encounter Miracle Saeed APRN.HOOK UP DRIVER Work Phone: [facility] Procedures Date Procedure Procedure Detail Performing Clinician Start: 10-21-2022 Urnls dip stick/tabl et rgnt auto w/o microscopy Miracle Saeed APRN.HOOK UP DRIVER Work Phone: Start: 10-12-2022 Lipid 1996 panel - S pako or Plasma Claus Magaña MD Work Phone: Start: 08-26-2022 End: 08-26-2022 Arthrocentesis aspir&/inj major jt/bursa w/us Lucio Kitchen MD Work Phone: Start: 05-30-2022 Dup-scan xtr veins unilateral/limited study Claus Magaña MD Work Phone: Start: 05-13-2022 Arthrocentesis aspir &/inj major jt/bursa w/o us Mendy Quinteros PA-C Work Phone: Start: 05-08-2022 Mri any jt lower ext rem w/o contrast matrl Josemanuel Rodriguez MD Work Phone: Start: 01-23-2022 Colonoscopy Claus Calvin MD Work Phone: Start: 11-15-2021 Mammography Claus Calvin MD Work Phone: Start: 10-17-2021 Adult depression scr eening assessment Claus Magaña MD Work Phone: Start: 05-27-2021 Urnls dip stick/tabl et rgnt auto w/o microscopy [facility] Start: 10-04-2020 Adult depression scr eening assessment Claus Magaña MD Work Phone: Start: 06-29-2020 Mammography Claus Calvin MD Work Phone: Start: 01-23-2017 Colonoscopy Claus Calvin MD Work Phone: Plan of Treatment Date Care Activity Detail Author Start: 10-13-2027 Lipid 1996 panel - S pako or Plasma Lipid Screening [facility] Start: 10-13-2027 Lipid panel Lipid Screening [facility] Start: 10-13-2027 LIPID SCREEN LIPID SCREEN [facility] Start: 01-23-2027 Colonoscopy COLONOSCOPY [facility] Start: 01-23-2027 COLORECTAL CANCER SCREENING COLORECTAL CANCER SCREENING [facility] Start: 01-23-2027 Screening for malign ant neoplasm of colon [facility] Start: 10-21-2025 DIABETES SCREEN DIABETES SCREEN [facility] Start: 10-21-2025 Diabetes Screening Diabetes Screenin g [facility] Start: 10-12-2025 DIABETES SCREEN DIABETES SCREEN [facility] Start: 06-24-2025 DIABETES SCREEN DIABETES SCREEN [facility] Start: 10-17-2024 DIABETES SCREEN DIABETES SCREEN [facility] Start: 12-15-2023 Screening for malign ant neoplasm of colon Sigmoidoscopy [facility] Start: 12-15-2023 SIGMOIDOSCOPY SIGMOIDOSCOPY [facility] Start: 11-21-2023 Mammography Mammogram Screening [facility] Start: 11-21-2023 Screening for malign ant neoplasm of breast Mammogram Screening [facility] Start: 10-22-2023 Complete blood count Hemoglobin/Yariel tocrit [facility] Start: 10-22-2023 Creatinine measurement Serum Creatin ine [facility] Start: 10-22-2023 HEMOGLOBIN/HEMATOCRIT HEMOGLOBIN/HEM ATOCRIT [facility] Start: 10-22-2023 SERUM CREATININE SERUM CREATININE Cl [facility] Start: 10-17-2023 ANNUAL PCP TEAM NEWS REEL CAMERAMAN MONTY DISEASE VISIT ANNUAL PCP TEAM CHRONIC DISEASE VISIT [facility] Start: 10-17-2023 BP CONTROLLED (<130/80) BP CONTROLLE D (<130/80) [facility] Start: 10-13-2023 HEMOGLOBIN/HEMATOCRIT HEMOGLOBIN/HEM ATOCRIT [facility] Start: 10-13-2023 SERUM CREATININE SERUM CREATININE Cl [facility] Start: 10-08-2023 LIPID SCREEN LIPID SCREEN [facility] Start: 10-05-2023 DIABETES SCREEN DIABETES SCREEN [facility] Start: 07-16-2023 Urine microalbumin profile [facility] Start: 06-25-2023 BP CONTROLLED (<130/80) BP CONTROLLE D (<130/80) [facility] Start: 06-25-2023 SERUM CREATININE SERUM CREATININE Cl [facility] Start: 05-31-2023 ANNUAL PCP TEAM NEWS REEL CAMERAMAN MONTY DISEASE VISIT ANNUAL PCP TEAM CHRONIC DISEASE VISIT [facility] Start: 04-24-2023 ANNUAL PCP TEAM NEWS REEL CAMERAMAN MONTY DISEASE VISIT ANNUAL PCP TEAM CHRONIC DISEASE VISIT [facility] Start: 04-17-2023 SHINGRIX VACCINE (2 of 3) SHINGRIX V ACCINE (2 of 3) [facility] Immunizations Immunization Date Immunization Notes Care Provider Fa rashidty 01-10-2023 respiratory syncytia l virus (RSV) vaccine, bivalent (ABRYSVO) Miracle Saeed APRN.HOOK UP DRIVER Work Phone: [facility] 12-28-2022 COVID-19 vaccine, ag e 12+ yr, season (MODERNA) Miracle Saeed APRN.HOOK UP DRIVER Work Phone: [facility] 12-28-2022 pneumococcal (PCV20) vaccine, 20 valent (PREVNAR 20) Miracle Saeed APRN.HOOK UP DRIVER Work Phone: [facility] 10-16-2022 influenza (HD-IIV4) vaccine, age 65+ yr, high dose, quadrivalent, PF (FLUZONE HIGH-DOSE) Kamron Hanna DO, DO Work Phone: [facility] 12-17-2021 COVID-19 booster vaccine, age 12+ yr, bivalent (DermaGen) Claus Magaña MD Work Phone: [facility] 12-17-2021 influenza, high dose seasonal, preservative-free Claus Magaña MD Work Phone: [facility] 12-13-2020 COVID-19 vaccine, ag e 12+ yr (PFIZER-BIONTECH - PURPLE TOP) Claus Magaña MD Work Phone: [facility] Work Phone: 11-12-2020 influenza, high dose seasonal, preservative-free Claus Magaña MD Work Phone: [facility] Work Phone: 05-12-2020 COVID-19 vaccine, ag e 12+ yr ([facility]) Claus Magaña MD Work Phone: [facility] Work Phone: 04-21-2020 COVID-19 vaccine, ag e 12+ yr [facility] Claus Magaña MD Work Phone: [facility] Work Phone: 12-10-2019 influenza, high dose seasonal, preservative-free Claus Magaña MD Work Phone: [facility] Work Phone: 12-10-2019 influenza, high-dose , quadrivalent vaccine (FLUZONE HIGH DOSE QUADRIVALENT) Claus Magaña MD Work Phone: [facility] Work Phone: 12-10-2019 pneumococcal polysaccharide vaccine, 23 valent Claus Magaña MD Work Phone: [facility] Work Phone: 11-17-2018 influenza, high dose seasonal, preservative-free Claus Magaña MD Work Phone: [facility] 10-14-2018 pneumococcal conjuga te vaccine, 13 valent Claus Magaña MD Work Phone: [facility] 10-27-2017 influenza, injectabl e, quadrivalent, contains preservative Claus Magaña MD Work Phone: [facility] Work Phone: 02-22-2016 influenza, seasonal, injectable Claus Magaña MD Work Phone: [facility] 02-22-2016 influenza, seasonal, injectable, preservative free Claus Magaña MD Work Phone: [facility] Work Phone: 12-23-2014 influenza, injectabl e, quadrivalent, contains preservative Claus Magaña MD Work Phone: [facility] 12-23-2014 influenza, seasonal, injectable Claus Magaña MD Work Phone: [facility] Work Phone: 11-03-2013 influenza, seasonal, injectable Claus Magaña MD Work Phone: [facility] 10-20-2013 zoster vaccine, live Claus Magaña MD Work Phone: [facility] 07-15-2013 tetanus toxoid, redu nicko diphtheria toxoid, and acellular pertussis vaccine, adsorbed Claus Magaña MD Work Phone: [facility] 12-06-2011 influenza virus vacc ine, unspecified formulation Claus Magaña MD Work Phone: [facility] 11-27-2009 influenza virus vacc ine, whole virus Claus Magaña MD Work Phone: [facility] Work Phone: 10-26-2008 influenza virus vacc ine, whole virus Claus Magaña MD Work Phone: [facility] Work Phone: 12-07-2007 influenza virus vacc ine, whole virus Claus Magaña MD Work Phone: [facility] Work Phone: Payers Date Payer Category Payer Medicare [id number] 2019 Unknown MMO MMO MEDICARE SUPPLEMENT [id number] 2019-Present [phone] [address] [place] [address] Indemnity [id number] 2019 Unknown MMO MMO MEDICARE SUPPLEMENT [id number] 2019-Present [phone] [address] [place] [address] Indemnity [id number] 2018 Medicare MEDICARE MEDICAR E A AND B [id number] 2018-Present [phone] [address] [address] [place] [address] Medicare [id number] 2018 Medicare MEDICARE MEDICAR E A AND B [id number] 2018-Present [phone] [place] [address] Medicare [id number] 2018 Medicare [id number] Social History Date Type Detail Facility Start: 04-17-2012 End: 10-17-2021 Tobacco smoking status NHIS Ex-smoker [facility] End: 02-11-1976 History of tobacco use Current smoker [facility] End: 02-11-1976 History of tobacco use Cigarette Smoker [facility] Start: 04-11-2021 End: 02-21-2023 Alcohol intake Current drinker of alcohol (finding) [facility] Start: 10-04-2020 End: 02-12-2022 History SDOH Alcohol Frequency 4 [facility] Start: 10-04-2020 End: 02-12-2022 History SDOH Alcohol Std Drinks 1 [facility] Start: 04-03-2016 History SDOH Alcohol Comment rarely [facility] Start: 10-04-2020 End: 02-12-2022 History SDOH Social Connections Phone 5 [facility] Start: 10-04-2020 End: 02-12-2022 History SDOH Social Connections Scientology 3 [facility] Start: 10-04-2020 History SDOH Physica l Activity MPS 15 [facility] Start: 10-04-2020 End: 02-12-2022 History SDOH Stress 2 [facility] Start: 08-25-2021 Education 21 [facility] Start: 1955 Sex Assigned At Female C [facility] Start: 03-12-2021 End: 05-27-2021 Exposure to SARS-CoV-2 (event) Not sure [facility] Start: 04-17-2012 End: 06-19-2022 Cigarettes smoked current (pack per day) - Reported 1.5 [facility] Start: 04-17-2012 End: 10-17-2021 Tobacco use and exposure Smokeless tobacco non-user [facility] Start: 02-12-2022 History SDOH Physica l Activity MPS 6 [facility] Start: 02-12-2022 End: 06-19-2022 Social connection and isolation panel [facility] Do you belong to any clubs or organizations such as hindu groups, unions, fraternal or athletic groups, or school groups? Yes [facility] Are you now , , , , never or living with a partner? [facility] How often to you hav e a drink containing alcohol? 2-3 time sa week [facility] How many standard dr inks containing alcohol do you have on a typical day? 1 or 2 [facility] How often do you hav e 6 or more drinks on 1 occasion? Never [facility] How hard is it for y ou to pay for the very basics like food, housing, medical care, and heating Not hard at all [facility] Do you feel stress - tense, restless, nervous, or anxious, or unable to sleep at night because your mind is troubled all the time - these days [OSQ] Not at all [facility] (I/We) worried whekenneth er (my/our) food would run out before (I/we) got money to buy more. Never true [facility] In the past 12 month s, was there a time when you were not able to pay the mortgage or rent on time? No [facility] Start: 02-05-2020 Gender identity Identifies as female gender (finding) [facility] Start: 02-05-2020 Sexual orientation Heterosexual (christopher martini) [facility] Clinical Notes 10-27-2017 to 02-23-2023 Telephone Encounter - Amber Castillo - 02/23/2023 8:24 AM ESTTelephone Encounter - Miracle Saeed APRN.CNP - 02/23/2023 8:19 AM ESTTelephone Encounter - Lexi Mitchell Aidan RN - 11/25/2022 2:05 PM EDT Note Date & Type Note Facility 02-23-2023 Miscellaneous Notes Left detailed message on a secured voicemail. Amber Castillo Please call patient notify her that her urine culture did not grow any significant growth. Please notify her if her symptoms are persistent that she needs to follow-up with primary care thank you documented in this encounter [facility] 02-21-2023 Note HNO ID: [id number] Author: UMANG FRANK PA Service: ? Author Type: Physician Temple Marker Type: Progress Notes Filed: 02/21/2023 11:56 Note Text: This note was created using VR1ter. Subjective Lea Barber is a 67 year old female. HPI 67-year-old female presents for urinary frequency, urgency, suprapubic pressure, low back pain. Patient states that she has been having urgency, suprapubic pressure, dysuria for the past week. She denies any fevers. No blood in the urine. She has history of UTIs in the past. Patient reports some low back pain. She states she injured her back around [place] time and has been seeing a chiropractor for this. No worsening pain. She states the pain radiates from her left low back towards her left leg. She states that she is already prescribed tramadol, Flexeril and gabapentin for unrelated conditions, but they do not seem to be helping her back pain. She has an appointment with orthopedics for her back next week. No bowel or bladder incontinence. No fevers. No numbness in the legs. Patient denies any abdominal pain at this time. She was seen in the ER about 2 weeks ago and had a CT completed. She states she was treated for what they thought was recurrent diverticulitis. She finished all of those antibiotics. She states that pain has not returned. She has no diarrhea. No vomiting. No fever. 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 Osteopenia 12/11/2007 Stage 3a chronic kidney disease (HCC) 10/08/2020 Ulnar neuropathy of left upper extremity 04/18/2016 PAST SURGICAL HISTORY Procedure Laterality Date ARTHRS KNE SURG W/MENISCECTOMY MED/LAT W/SHVG Right 07/10/2022 Right knee arthroscopy medial and PF chondroplasty, medial plicae excision COLECTOMY PARTIAL W/ANASTOMOSIS 05/19/2000 sigmoid colon due to diverticulitis COLONOSCOPY 10/26/2014 COLONOSCOPY FLX DX W/COLLJ SPEC WHEN PFRMD 01/23/2017 repeat in 5 years d/t fam Hx LAMINECTOMY W/O FFD > 2 VERT SEG LUMBAR 11/2014 NEUROPLASTY AND/TRANSPOS MEDIAN NRV CARPAL TUNNE Left 04/10/2016 Left carpal tunnel release NEUROPLASTY AND/TRANSPOSITION ULNAR NERVE ELBOW Left 04/10/2016 Left ulnar nerve decompression at elbow with transposition subcutaneous PAST SURGICAL HISTORY OF 06/2004 Colonoscopy PAST SURGICAL HISTORY OF Left 1993 Joint replacement in thumb PAST SURGICAL HISTORY OF Right 09/2009 Rotator Cuff Repair PAST SURGICAL HISTORY OF Bilateral 05/2009 Breast Reduction PAST SURGICAL HISTORY OF Left 2010 foot surgery, joint removed from 2nd toe due to fracture PAST SURGICAL HISTORY OF Bilateral 2012 trigger thumbs REPAIR FIRST ABDOMINAL WALL HERNIA 10/2000 Hernia repair, incisional ALLERGIES Hydrocodone, Macrobid [Nitrofurantoin Monohyd/M-Cryst], Ragweed Pollen, Tagamet [Cimetidine], Acetaminophen, and Sulfamethoxazole MEDICATIONS traMADol (ULTRAM) 50 mg tablet Take 2 tablets by mouth two times a day for 90 days. gabapentin (NEURONTIN) 300 mg capsule TAKE 2 CAPSULES TWICE A DAY AND 3 CAPSULES AT BEDTIME naproxen (NAPROSYN) 500 mg tablet Take 1 tablet by mouth twice daily with meals. Take with food. metoprolol succinate ER (TOPROL XL) 25 mg 24 hr tablet Take 1 tablet by mouth every evening. naproxen (NAPROSYN) 500 mg tablet TAKE 1 TABLET TWICE A DAY WITH MEALS/FOOD betamethasone dipropionate, augmented (DIPROLENE) 0.05 % cream APPLY A THIN LAYER OF CREAM TOPICALLY TO AFFECTED AREA OF THE BODY TWICE DAILY FOR 2 WEEKS NEEDED FOR FLARES. cyclobenzaprine (FLEXERIL) 10 mg tablet Take 1 tablet by mouth at bedtime as needed. AT BEDTIME. dicyclomine (BENTYL) 10 mg capsule Take 1 capsule by mouth before meals and at bedtime. FAMILY HISTORY Problem Relation Age of Onset Stroke Mother Hypertension Mother Diabetes Mother Breast Cancer Mother Dx in 40's Heart Father mi Hypertension Father Colon Cancer Daughter Dx at 21 other ([facility] [place]) Daughter Social History Tobacco Use Smoking status: Former Packs/day: 1.50 Years: 4.00 Additional pack years: 0.00 Total pack years: 6.00 Types: Cigarettes Quit date: 02/11/1976 Years since quittin.0 Smokeless tobacco: Never Vaping Use Vaping Use: Never used Substance Use Topics Alcohol use: Yes Comment: rarely Drug use: No Review of Systems Constitutional: Negative for chills and f (more content not included)... [facility] 02-06-2023 Note HNO ID: [id number] Author: Redd Joseph APRN.HOOK UP DRIVER Service: ? Author Type: Nurse Practitioner Type: Progress Notes Filed: 02/06/2023 10:18 AM Note Text: Nontoxic female presents urgent care chief plaint abdominal pain. Duration of symptoms ongoing for the past 3 to 4 days. Associated symptoms left lower abdominal pain worsening. Feels like she is having some flank pain. Consistent 5-6 out of 10. At times have 8-9 out of 10 sharp pain. Has noticed some change in her bowel pattern. Presents today for evaluation. Has taken OTC medications as well as her tramadol gabapentin this has not helped with the discomfort. Risk Factors history of diverticulitis and colorectal surgery. With patient stating symptoms recommend patient be seen ED for further evaluation and imaging. Patient verbalized understand agrees with plan of care. Will be seen at [facility]. Redd Joseph APRN.CNP [facility] 11-27-2022 Miscellaneous Notes Mammogram results reviewed Temitope Castellano APRN.CNP Received fax from [facility] that patients annual screening Mammogram was completed on 11/20/22. Updated in health maintenance and results scanned to patient chart for provider review. Please see at link below. Thank you. DEMETRIA [place] [facility] - 11/20/22 from [facility] [ID [id number]] documented in this encounter [facility] 11-25-2022 Miscellaneous Notes Monty, pharmacist- Agatha Sweeney. Reports gabapentin was received with 2 sets of instructions. Asking Rigoberto Linn, which set do you want them to use. Please advise Agatha pharmacist- [phone] documented in this encounter [facility] 11-25-2022 Miscellaneous Notes See refill request dated 11/23/22 documented in this encounter [facility] 10-30-2022 Miscellaneous Notes Addended by: RIZWANA CLARKE LPN on: 10/30/2022 03:39 PM Modules accepted: Orders She may need a short term supply sent to local [facility] Patient is calling back stating she spoke with the pharmacy and due to not hearing back from PCP office in regards to questions that had with script sent on 10/16 they have cancelled this script and request a new script be sent to them. Patient states she is almost out of this medication Left msg on identified vm, RX for Gabapentin was sent to [facility] mail-order pharmacy 10/16/2022, 540 capsules, 1 refills. Patient needs to check with pharmacy. Rizwana Clarke LPN Patient has been identified by name and date of : Yes Last office visit in this department: Visit date not found RX INSTRUCTIONS: Patient aware RX will be sent to pharmacy. No need to notify patient. Patient phones requesting refills as follows: Requested Prescriptions Pending Prescriptions Disp Refills gabapentin (NEURONTIN) 300 mg capsule 540 capsule 1 Sig: Take 2 capsules by mouth three times daily for 180 days. TAKE 2 CAPSULES TWICE A DAY AND 3 CAPSULES AT BEDTIME Please review and advise. Ayse Nino documented in this encounter [facility] 10-21-2022 Miscellaneous Notes CBC normal CMP with mild abnormality, but better than prior results. Lipase normal Patient aware. She will follow up with PCP documented in this encounter [facility] 10-21-2022 Note HNO ID: [id number] Author: Kelly Velazquez APRN.ASA Service: ? Author Type: Nurse Practitioner Type: Progress Notes Filed: 10/21/2022 3:51 PM Note Text: This note was created using VR1ter. Subjective Lea Barber is a 67 year old female. 67 year old female with PMH MVP, HTN, GERD, CKD, presents for illness. Acute onset yesterday. States she woke up with a headache. +lower back pain +chills. Endorses she started to feel nauseous. Lower abdominal pain. Denies sx. Denies vaginal bleeding Denies vaginal discharge. Denies emesis. Denies diarrhea Denies fever Endorses history of diverticulitis and this feels a little like it States that it was 22 years ago. Endorses it required surgery. Denies similar history occurring since. The history is provided by the patient. No high school foreign language teacher was used. Abdominal Pain This is a new problem. The current episode started yesterday. The problem occurs constantly. The problem has not changed since onset.The pain is associated with an unknown factor. The pain is located in the LLQ and RLQ. The quality of the pain is sharp and cramping. The pain is at a severity of 5/10. The pain is moderate. Associated symptoms include nausea. Pertinent negatives include anorexia, fever, belching, diarrhea, flatus, hematochezia, melena, vomiting, constipation, dysuria, frequency, hematuria, headaches, arthralgias and myalgias. Nothing aggravates the symptoms. Nothing relieves the symptoms. Past workup includes surgery. Past workup does not include GI consult, CT scan, ultrasound or barium enema. Her past medical history does not include PUD, gallstones, GERD, ulcerative colitis, Crohn's disease or irritable bowel syndrome. 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 Osteopenia 12/11/2007 Stage 3a chronic kidney disease (HCC) 10/08/2020 Ulnar neuropathy of left upper extremity 04/18/2016 PAST SURGICAL HISTORY Procedure Laterality Date ARTHRS KNE SURG W/MENISCECTOMY MED/LAT W/SHVG Right 07/10/2022 Right knee arthroscopy medial and PF chondroplasty, medial plicae excision COLECTOMY PARTIAL W/ANASTOMOSIS 05/19/2000 sigmoid colon due to diverticulitis COLONOSCOPY 10/26/2014 COLONOSCOPY FLX DX W/COLLJ SPEC WHEN PFRMD 01/23/2017 repeat in 5 years d/t fam Hx LAMINECTOMY W/O FFD > 2 VERT SEG LUMBAR 11/2014 NEUROPLASTY AND/TRANSPOS MEDIAN NRV CARPAL TUNNE Left 04/10/2016 Left carpal tunnel release NEUROPLASTY AND/TRANSPOSITION ULNAR NERVE ELBOW Left 04/10/2016 Left ulnar nerve decompression at elbow with transposition subcutaneous PAST SURGICAL HISTORY OF 06/2004 Colonoscopy PAST SURGICAL HISTORY OF Left 1993 Joint replacement in thumb PAST SURGICAL HISTORY OF Right 09/2009 Rotator Cuff Repair PAST SURGICAL HISTORY OF Bilateral 05/2009 Breast Reduction PAST SURGICAL HISTORY OF Left 2010 foot surgery, joint removed from 2nd toe due to fracture PAST SURGICAL HISTORY OF Bilateral 2012 trigger thumbs REPAIR FIRST ABDOMINAL WALL HERNIA 10/2000 Hernia repair, incisional ALLERGIES Hydrocodone, Macrobid [Nitrofurantoin Monohyd/M-Cryst], Ragweed Pollen, Tagamet [Cimetidine], Acetaminophen, and Sulfamethoxazole MEDICATIONS naproxen (NAPROSYN) 500 mg tablet Take 1 tablet by mouth twice daily with meals. Take with food. amoxicillin-clavulanic acid (AUGMENTIN) 875-125 mg per tablet Take 1 tablet by mouth twice daily for 10 days. metoprolol succinate ER (TOPROL XL) 25 mg 24 hr tablet Take 1 tablet by mouth every evening. gabapentin (NEURONTIN) 300 mg capsule Take 2 capsules by mouth three times daily for 180 days. TAKE 2 CAPSULES TWICE A DAY AND 3 CAPSULES AT BEDTIME naproxen (NAPROSYN) 500 mg tablet TAKE 1 TABLET TWICE A DAY WITH MEALS/FOOD traMADol (ULTRAM) 50 mg tablet Take 2 tablets by mouth twice daily for 90 days. Do not start before October 21, 2022. betamethasone dipropionate, augmented (DIPROLENE) 0.05 % cream APPLY A THIN LAYER OF CREAM TOPICALLY TO AFFECTED AREA OF THE BODY TWICE DAILY FOR 2 WEEKS NEEDED FOR FLARES. cyclobenzaprine (FLEXERIL) 10 mg tablet Take 1 tablet by mouth at bedtime as needed. AT BEDTIME. dicyclomine (BENTYL) 10 mg capsule Take 1 capsule by mouth before meals and at bedtime. FAMILY HISTORY Problem Relation Age of Onset Stroke Mother Hypertension Mother Diabete (more content not included)... [facility] 10-21-2022 Miscellaneous Notes [facility]. Kacie Rush RN If patient calls back I agree that she needs an appointment or [facility] to [facility] Temitope Castellano APRN.ASA Patient calling with request for antibiotic. She states she is either having a UTI or a divericulitis flare due to having symptoms of lower abdominal pain. Declined triage. Advised appointment needed. She states she is too busy for appointment . Says an antibiotic would take care of either problem. Again advised appointment or [facility] visit. She said never mind and ended call. Kacie Rush RN documented in this encounter [facility] 10-21-2022 Instructions Kelly Velazquez APRN.CNP - 10/21/2022 3:01 PM EDT ABDOMINAL PAIN GENERAL INFORMATION: Many medical conditions can cause abdominal pain. Often, the cause cannot be found. INSTRUCTIONS: 1. Your doctor did not find any evidence of a serious disease that could be causing your pain. However, you should return immediately if you develop any of the symptoms listed below. These could be signs of serious diseases that need immediate medical care. 2. You should follow up with your regular physician or with the doctor recommended to you by the emergency department. 3. Rest in bed until you feel better. 4. Take your temperature every 4 hours. 5. Do not take any medications not prescribed by the physician including laxatives and pain killers. 6. As long as you still have pain, do not eat solid foods or drink large amounts of fluids. You may take small sips of clear liquids or suck on ice. CONTACT YOUR DOCTOR OR RETURN TO THE EMERGENCY DEPARTMENT IF: 1. Your pain gets worse or concentrates in only one area. 2. You vomit blood or find blood in your stool or urine. 3. You are dizzy or faint. 4. Your abdomen becomes swollen or your bowel movements stop. 5. You have a temperature over 102 F (39 C). 6. You have trouble passing urine. 7. You feel short of breath. documented in this encounter [facility] 10-21-2022 History of Presen t illness Narrative This note was created using Mindedriter. Subjective Lea Barber is a 67 year old female. 67 year old female with PMH MVP, HTN, GERD, CKD, presents for illness. Acute onset yesterday. States she woke up with a headache. +lower back pain +chills. Endorses she started to feel nauseous. Lower abdominal pain. Denies sx. Denies vaginal bleeding Denies vaginal discharge. Denies emesis. Denies diarrhea Denies fever Endorses history of diverticulitis and this feels a little like it States that it was 22 years ago. Endorses it required surgery. Denies similar history occurring since. The history is provided by the patient. No high school foreign language teacher was used. Abdominal Pain This is a new problem. The current episode started yesterday. The problem occurs constantly. The problem has not changed since onset.The pain is associated with an unknown factor. The pain is located in the LLQ and RLQ. The quality of the pain is sharp and cramping. The pain is at a severity of 5/10. The pain is moderate. Associated symptoms include nausea. Pertinent negatives include anorexia, fever, belching, diarrhea, flatus, hematochezia, melena, vomiting, constipation, dysuria, frequency, hematuria, headaches, arthralgias and myalgias. Nothing aggravates the symptoms. Nothing relieves the symptoms. Past workup includes surgery. Past workup does not include GI consult, CT scan, ultrasound or barium enema. Her past medical history does not include PUD, gallstones, GERD, ulcerative colitis, Crohn's disease or irritable bowel syndrome. 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 Osteopenia 12/11/2007 Stage 3a chronic kidney disease (HCC) 10/08/2020 Ulnar neuropathy of left upper extremity 04/18/2016 PAST SURGICAL HISTORY Procedure Laterality Date ARTHRS KNE SURG W/MENISCECTOMY MED/LAT W/SHVG Right 07/10/2022 Right knee arthroscopy medial and PF chondroplasty, medial plicae excision COLECTOMY PARTIAL W/ANASTOMOSIS 05/19/2000 sigmoid colon due to diverticulitis COLONOSCOPY 10/26/2014 COLONOSCOPY FLX DX W/COLLJ SPEC WHEN PFRMD 01/23/2017 repeat in 5 years d/t fam Hx LAMINECTOMY W/O FFD > 2 VERT SEG LUMBAR 11/2014 NEUROPLASTY &/TRANSPOS MEDIAN NRV CARPAL TUNNE Left 04/10/2016 Left carpal tunnel release NEUROPLASTY &/TRANSPOSITION ULNAR NERVE ELBOW Left 04/10/2016 Left ulnar nerve decompression at elbow with transposition subcutaneous PAST SURGICAL HISTORY OF 06/2004 Colonoscopy PAST SURGICAL HISTORY OF Left 1993 Joint replacement in thumb PAST SURGICAL HISTORY OF Right 09/2009 Rotator Cuff Repair PAST SURGICAL HISTORY OF Bilateral 05/2009 Breast Reduction PAST SURGICAL HISTORY OF Left 2010 foot surgery, joint removed from 2nd toe due to fracture PAST SURGICAL HISTORY OF Bilateral 2012 trigger thumbs REPAIR FIRST ABDOMINAL WALL HERNIA 10/2000 Hernia repair, incisional ALLERGIES Hydrocodone, Macrobid [Nitrofurantoin Monohyd/M-Cryst], Ragweed Pollen, Tagamet [Cimetidine], Acetaminophen, and Sulfamethoxazole MEDICATIONS naproxen (NAPROSYN) 500 mg tablet Take 1 tablet by mouth twice daily with meals. Take with food. amoxicillin-clavulanic acid (AUGMENTIN) 875-125 mg per tablet Take 1 tablet by mouth twice daily for 10 days. metoprolol succinate ER (TOPROL XL) 25 mg 24 hr tablet Take 1 tablet by mouth every evening. gabapentin (NEURONTIN) 300 mg capsule Take 2 capsules by mouth three times daily for 180 days. TAKE 2 CAPSULES TWICE A DAY AND 3 CAPSULES AT BEDTIME naproxen (NAPROSYN) 500 mg tablet TAKE 1 TABLET TWICE A DAY WITH MEALS/FOOD traMADol (ULTRAM) 50 mg tablet Take 2 tablets by mouth twice daily for 90 days. Do not start before October 21, 2022. betamethasone dipropionate, augmented (DIPROLENE) 0.05 % cream APPLY A THIN LAYER OF CREAM TOPICALLY TO AFFECTED AREA OF THE BODY TWICE DAILY FOR 2 WEEKS NEEDED FOR FLARES. cyclobenzaprine (FLEXERIL) 10 mg tablet Take 1 tablet by mouth at bedtime as needed. AT BEDTIME. dicyclomine (BENTYL) 10 mg capsule Take 1 capsule by mouth before meals and at bedtime. FAMILY HISTORY Problem Relation Age of Onset Stroke Mother Hypertension Mother Diabetes Mother Breast Cancer Mother Dx in 40's Heart Father mi Hypertension Father Colon Cancer Daughter Dx at 21 other ([facility]) Daughter Social History Tobacco Use Smoking status: Former Packs/day: 1.50 Years: 4.00 Additional pack years: 0.00 Total pack years: 6.00 Types: Cigarettes Quit date: 02/11/1976 Years since quittin.7 Smokeless tobacco: Never Vaping Use Vaping Use: Never used Substance Use Topics Alcohol use: Yes Comment: rarely Drug use: No Review of Systems Constitutional: Negative for activity change, appetite change, chills and fever. Eyes: Negative for pain, discharge and itching. Respiratory: Negative for apnea, cough, choking and chest tightness. Cardiovascular: Negative for chest pain, palpitations and leg swelling. Gastrointestinal: Positive for abdominal pain and nausea. Negative for anorexia, constipation, diarrhea, flatus, hematochezia, melena and vomiting. Genitourinary: Negative for dysuria, frequency and hematuria. Musculoskeletal: Positive for back pain. Negative for arthralgias and myalgias. Skin: Negative for color change, pallor, rash and wound. Allergic/Immunologic: Negative for environmental allergies, food allergies and immunocompromised state. Neurological: Negative for dizziness, facial asymmetry and headaches. Hematological: Negative for adenopathy. Does not bruise/bleed easily. Psychiatric/Behavioral: Negative for agitation and behavioral problems. Objective BP 148/80 Pulse 82 Temp 37 C (98.6 F) Resp 18 Wt 71.8 kg (158 lb 3.2 oz) SpO2 97% BMI 27.15 kg/m Physical Exam Vitals and nursing note reviewed. Constitutional: General: She is not in acute distress. Appearance: Normal appearance. She is normal weight. She is not ill-appearing, toxic-appearing or diaphoretic. HENT: Head: Normocephalic and atraumatic. Right Ear: Ear canal and external ear normal. Left Ear: Ear canal and external ear normal. Nose: Nose normal. No congestion or rhinorrhea. Mouth/Throat: Mouth: Mucous membranes are moist. Pharynx: No oropharyngeal exudate or posterior oropharyngeal erythema. Eyes: General: Right eye: No discharge. Left eye: No discharge. Extraocular Movements: Extraocular movements intact. Conjunctiva/sclera: Conjunctivae normal. Pupils: Pupils are equal, round, and reactive to light. Cardiovascular: Rate and Rhythm: Normal rate and regular rhythm. Pulses: Normal pulses. Heart sounds: Normal heart sounds. No murmur heard. No friction rub. Pulmonary: Effort: Pulmonary effort is normal. No respiratory distress. Breath sounds: Normal breath sounds. No stridor. No wheezing, rhonchi or rales. Chest: Chest wall: No tenderness. Abdominal: General: Abdomen is flat. There is no distension. Palpations: Abdomen is soft. There is no mass. Tenderness: There is abdominal tenderness (mild lower abdominal tenderness). There is no right CVA tenderness, left CVA tenderness, guarding or rebound. Hernia: No hernia is present. Musculoskeletal: General: No swelling, tenderness, deformity or signs of injury. Normal range of motion. Cervical back: Normal range of motion and neck supple. No rigidity. Right lower leg: No edema. Left lower leg: No edema. Lymphadenopathy: Cervical: No cervical adenopathy. Skin: General: Skin is warm and dry. Capillary Refill: Capillary refill takes less than 2 seconds. Coloration: Skin is not jaundiced or pale. Findings: No bruising, erythema, lesion or rash. Neurological: General: No focal deficit present. Mental Status: She is alert and oriented to person, place, and time. Cranial Nerves: No cranial nerve deficit. Sensory: No sensory deficit. Motor: No weakness. Coordination: Coordination normal. Gait: Gait normal. Psychiatric: Mood and Affect: Mood normal. Behavior: Behavior normal. Thought Content: Thought content normal. Judgment: Judgment normal. Assessment and Plan ASSESSMENT/PLAN: 1. Lower abdominal pain, unspecified - ICD9: 789.09, ICD10: R10.30 Etiology unclear Differential Diagnosis includes GERD, Gastritis, Gall bladder colic/cholelithiasis, Diverticulitis, Appendicitis, Ovarian cyst, and Cystitis - Begin treatment with Augmentin - Labs of CBC with Diff, CMP, and Lipase Will call patient with results. Urine dip negative. Urine culture sent - [place] low residue diet - Follow up in 2 days or sooner if worsening of symptoms - UA DIP, URINE (POC) - URINE CULTURE - CBC + DIFF - COMP METABOLIC PANEL - LIPASE BLD Kelly Velazquez APRN.[employer] documented in this encounter [facility] 10-21-2022 Miscellaneous Notes [facility] pharmacy calls to state they received 90 day rx of naproxen 500mg but they will not ship out soon enough for pt. Pt will need 14 day rx sent to [facility]. Rx pending. Please review and file. George Levin LPN documented in this encounter [facility] 10-17-2022 Miscellaneous Notes CD READY FOR HEALTH AND SAFETY MANAGER AT [facility] Pt is aware.. I gave her phone number to call for the [facility] to get the other us on a disc Dr. Magaña submitter referral to [facility] per patient request. She is in need of the images. 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 XR 04/23 US 05/01 MRI 05/08 US 05/30 Call patient when they are available or let me know and I can contact the patient. Thank you, Stormy Concepcion MA documented in this encounter [facility] 10-16-2022 Note HNO ID: [id number] Author: Claus Magaña MD Service: ? Author Type: Physician Type: Progress Notes Filed: 10/16/2022 5:19 PM Note Text: This note was created using Minded[employer]. Subjective Lea Babrer is a 67 year old female. Chronic pain on chronic opioid treatment was stable. Adapted from CDC guidelines: Opioids can provide short term benefits for moderate to severe pain. Scientific evidence is lacking for benefits to treat chronic pain. Before prescribing or adjusting dose 1. Assess PAIN AND FUNCTION with validated pain scale. (PEG scale where 30% improvement from baseline is clinically significant) Q1: What number from 0-10 best describes your PAIN in the past week? (0=no pain, 10=worst you can imagine) Answer: 2 Q2: What number from 0-10 best describes how, during the past week, pain has interfered with your ENJOYMENT OF LIFE? (0=not at all, 10=complete interference) Answer: 0 Q3: What number from 0-10 best describes how, during the past week, pain has interfered with your GENERAL ACTIVITY? (0=not at all, 10=complete interference) Answer: 2 Total score=4. Previous score= 2. Consider if NON OPIOID therapies are appropriate. (NSAIDs, TCAs, SNRI, anti-convulsants, exercise or physical therapy, cognitive behavioral therapy) Yes. 3. Talk about the TREATMENT PLAN. - Annual OPIOID AGREEMENT current. Yes. - Realistic goals for pain and function discussed. Yes. Specific goals: ADLs - Benefits, side effects, and risks (e.g. Addiction, overdose) discussed. Yes. - Criteria for stopping or continuing opioid discussed. Yes. - Criteria for regular assessment every 2 to <3 months discussed. Yes. - Referral to specialist(s); 50 MED or more. N/A. - 4. Evaluate RISK of HARM or MISUSE. - Risk factors reviewed. Yes - OARRS checked. Yes - UDS ordered. No Last reported dose. - Medication interactions checked. Yes. - Concern for OPIOID USE DISORDER, aberrant behavior. No. What was more bothersome was persistent right knee pain despite right knee arthroscopy and aspiration and injection of the Alonso's cyst. She was interested in a 2nd opinion, referral with the local orthopedics group. Diclofenac did not help much, so she resumed naproxen and needed a refill She had also reduced and simplified gabapentin to 600 mg TID a few months ago, and this was working as well for neuropathy. Review of Systems Constitutional: Negative. Respiratory: Negative. Cardiovascular: Negative. Musculoskeletal: Positive for arthralgias. ACTIVE PROBLEM LIST Irritable Bowel Syndrome Myalgia Mvp (Mitral Valve Prolapse) Neuropathy Lumbar Disc Herniation With Radiculopathy Adenomatous Colon Polyp Acquired Trigger Finger Essential Hypertension Palpitations Memory Changes Stage 3a Chronic Kidney Disease (Hcc) Tremor Acute Pain of Right Knee Insufficiency Fracture of Tibia Synovial Cyst of Right Popliteal Space Gerd (Gastroesophageal Reflux Disease) Social History Tobacco Use Smoking status: Former Packs/day: 1.50 Years: 4.00 Additional pack years: 0.00 Total pack years: 6.00 Types: Cigarettes Quit date: 02/11/1976 Years since quittin.7 Smokeless tobacco: Never Vaping Use Vaping Use: Never used Substance Use Topics Alcohol use: Yes Comment: rarely Drug use: No Current Outpatient Medications Medication Sig diclofenac, EC, (VOLTAREN) 75 mg EC tablet Take 1 tablet by mouth twice daily. for pain. diclofenac sodium (VOLTAREN ORAL) Take by mouth. gabapentin (NEURONTIN) 300 mg capsule TAKE 2 CAPSULES TWICE A DAY AND 3 CAPSULES AT BEDTIME betamethasone dipropionate, augmented (DIPROLENE) 0.05 % cream APPLY A THIN LAYER OF CREAM TOPICALLY TO AFFECTED AREA OF THE BODY TWICE DAILY FOR 2 WEEKS NEEDED FOR FLARES. cyclobenzaprine (FLEXERIL) 10 mg tablet Take 1 tablet by mouth at bedtime as needed. AT BEDTIME. metoprolol succinate ER (TOPROL XL) 25 mg 24 hr tablet Take 1 tablet by mouth every evening. dicyclomine (BENTYL) 10 mg capsule Take 1 capsule by mouth before meals and at bedtime. No current facility-administered medications for this visit. Objective BP (P) 128/76 (BP Site: Left Arm, BP Position: Sitting, BP Cuff Size: Regular Adult) Pulse (P) 84 Wt (P) 70.3 kg (155 lb) BMI (P) 26.61 kg/m? Physical Exam Constitutional: General: She is not in acute distress. Appearance: She is not ill-appearing. Cardiovascular: Rate and Rhythm: Normal rate and regular rhythm. Heart sounds: No murmur heard. No gallop. Pulmonary: Effort: Pulmonary effort is normal. Breath sounds: Normal breath sounds. Abdominal: Palpations: Abdomen is soft. Tenderness: There is no abdominal tenderness. Musculoskeletal: Lumbar back: No spasms or tenderness. Right knee: Swelling present. No effusion. Normal alignment. Right lower leg: No edema. Left lower leg: No edema. Neurological: Mental Status: She is alert. Gait (more content not included)... [facility] 09-06-2022 Note HNO ID: [id number] Author: Mendy Quinteros PA-C Service: ? Author Type: Physician [place] Marker Type: Progress Notes Filed: 09/06/2022 9:10 AM Note Text: Mendy Quinteros PA-C Department of Orthopaedics Orthopaedics [address] [facility] [address] Dept: [phone] Dept September 06, 2022 CHIEF COMPLAINT: Follow Up and Knee Pain of the Right Knee and 2 weeks 4 days post visit with BP Alonso's cyst right knee (Saw Lucio Krishnas @ [facility] 08/26/22 with injection given/). ASSESSMENT: M71.21 Alonso's cyst of knee, right (primary encounter diagnosis) M84.469A Insufficiency fracture of tibia, initial encounter M25.561 Acute pain of right knee SUMMARY/PLAN: Patient presents with continued right knee pain. She is just about 2 weeks out from a right knee arthroscopy. She had a Alonso's cyst drained at [facility] a little over 2 weeks ago, she is not sure that the procedure was helpful. She continues to have knee pain especially when putting weight on the knee, pain is worse when first getting out of bed in the morning. She does admit that she has had some days where the pain feels like it is subsiding a bit but otherwise she feels things are not improving. She would like to try a right knee corticosteroid injection today, she is leaving for [facility] next week on vacation. Large Joint Arthro/Inj: R knee joint Informed Consent Consent Obtained: Verbal [place] Protocol A moment to CARE was completed. SIGN IN Sign in communication not applicable due to emergent procedure. Personnel directly involved with the procedure wore the appropriate PPE. Special Equipment: N/A Patient/Surrogate Stated/Verified: Patient name, Date of , Relevant allergies and Intended procedure TIME OUT Intended patient and procedure match the source document(s). Consent documented and matches the intended procedure. Relevant labs, photos, and/or imaging studies have been reviewed. Correct side/site marked and visible. Medications required for procedure verified. No fire risk assessment and interventions applicable. No implant(s) inserted. 09/06/2022 9:10 AM The procedure site was prepped in the usual sterile fashion. Site: R knee joint Medications: 6 mg betamethasone acetate-betamethasone sodium phosphate 6 mg/mL Anesthetics: 5 mL lidocaine (PF) 10 mg/mL (1 %) Outcome: Tolerated well, no immediate complications Post-injection instructions were reviewed with the patient and the patient voiced understanding of these instructions. SIGN OUT All instruments, equipment, possible retained foreign bodies accounted for. Ms. Lea Barber was advised as to contrast therapies and/or to take analgesics/anti-inflammatories as needed and all contraindications were reviewed. Supporting Information Below: Medications: Current Outpatient Medications Medication Sig traMADol (ULTRAM) 50 mg tablet Take 2 tablets by mouth twice daily for 90 days. diclofenac sodium (VOLTAREN ORAL) Take by mouth. gabapentin (NEURONTIN) 300 mg capsule TAKE 2 CAPSULES TWICE A DAY AND 3 CAPSULES AT BEDTIME betamethasone dipropionate, augmented (DIPROLENE) 0.05 % cream APPLY A THIN LAYER OF CREAM TOPICALLY TO AFFECTED AREA OF THE BODY TWICE DAILY FOR 2 WEEKS NEEDED FOR FLARES. cyclobenzaprine (FLEXERIL) 10 mg tablet Take 1 tablet by mouth at bedtime as needed. AT BEDTIME. metoprolol succinate ER (TOPROL XL) 25 mg 24 hr tablet Take 1 tablet by mouth every evening. dicyclomine (BENTYL) 10 mg capsule Take 1 capsule by mouth before meals and at bedtime. diclofenac, EC, (VOLTAREN) 75 mg EC tablet Take 1 tablet by mouth twice daily. for pain. No current facility-administered medications for this visit. Allergies: Hydrocodone, Macrobid [Nitrofurantoin Monohyd/M-Cryst], Ragweed Pollen, and Tagamet [Cimetidine] This note was partially generated using [employer] voice recognition system, and there may be some incorrect words, spellings, and punctuation that were not noted in checking the note before saving. Mendy Quinteros PA-C [facility] 09-06-2022 Note HNO ID: [id number] Author: Tabitha Bardales Ma Service: ? Author Type: ? Type: Progress Notes Filed: 09/06/2022 9:10 AM Note Text: Patient presents with: Right Knee - Follow Up, Knee Pain 2 weeks 4 days post visit with BP Alonso's cyst right knee: Saw Lucio Kitchen @ [facility] 08/26/22 with injection given AMB ROOMING INTAKE FLOWSHEET DATA Pain Pain Level: 4 Pain Location: Knee-Right Description: Sharp Duration Amount of Time: (Ongoing) Frequency: Intermittent Intervention/Comfort measure: Medication Patient states her alonso's cyst was drained last week at [facility]. States she was unable to bend her knee. Taking Tramadol for the pain and only takes the edge off. Injection done in May by Dr. Rodriguez did not help. Patient is asking for an injection today. [facility] 08-26-2022 Note HNO ID: [id number] Author: Lucio Kitchen MD Service: ? Author Type: Physician Type: Progress Notes Filed: 08/26/2022 6:11 PM Note Text: [facility] Office Visit Documentation Note Orthopaedics AND Sports Medicine REASON FOR VISIT / CHIEF COMPLAINT Lea Braber is here today at request of Dr. Josemanuel Rodriguez specifically for consultation of my opinion in regards to the chief complaint listed below. Correspondence will be shared today via the [employer] electronic health record or through regular mail, where applicable. CHIEF COMPLAINT: Lea Barber is a 67 year old female who presents today for a new evaluation of following complaint: Patient presents with: Right Knee - Pain HISTORY OF PRESENT ILLNESS (HPI) Patient referred for US injection RIGHT knee alonso's cyst with referral back to provider for further management. Anesthetic only per request. PHYSICAL EXAMINATION Vitals: There were no vitals taken for this visit. Body Habitus:no acute distress and alert and oriented Orientation: Normal: Oriented to person, place and time Psych: normal Sensation: sensation to light touch is grossly normal bilaterally Skin: Color, texture, turgor normal. No rashes or lesions Ortho Exam R KNEE: Mild effusion Swelling and tenderness to palpation on posterior aspect of knee 2+ DP pulse, SILT ASSESSMENT / PLAN DIAGNOSIS: (M71.21) Alonso's cyst of knee, right Plan: PROCEDURE REQUEST - CJ ULTRASOUND-GUIDED INJECTION, US KNEE-INJECTION RT (POC) CJ USE ONLY 67 y/o female receiving R knee Alonso's cyst draining and steroid injection with consult from Josemanuel Rodriguez MD. The aspiration and injection were completed as described below. Patient verbalizes understanding and agrees with the treatment plan as detailed above. Lucio Kitchen MD Sports Medicine Physician Department of Orthopaedic Surgery [facility] I,Lucio Kitchen MD, personally performed the services described in this documentation. All medical record entries made by the scribe were at my direction and in my presence. I have reviewed the chart and discharge instructions (if applicable) and agree that the record reflects my personal performance and is accurate and complete. Electronically Signed: Lucio Kitchen MD August 26, 2022 6:07 PM Attending Note: Gregorio findings confirmed. Patient examined. Discussed with the fellow and the patient. Procedure was completed by Dr. Crespo with my direct supervision. Lucio Kitchen MD By signing my name below, INay, attest that this documentation has been prepared under the direction and in the presence of Dr. Kitchen Electronically signed, Narendra Bah August 26, 2022 3:04 PM Large Joint Arthro/Inj: R Alonso Cyst Informed Consent Consent Obtained: Verbal [place] Protocol A moment to CARE was completed. SIGN IN Personnel directly involved with the procedure wore the appropriate PPE. Special Equipment: N/A Patient/Surrogate Stated/Verified: Patient name, Date of , Relevant allergies and Intended procedure TIME OUT Intended patient and procedure match the source document(s). Consent documented and matches the intended procedure. Relevant labs, photos, and/or imaging studies have been reviewed. Correct side/site marked and visible. Medications required for procedure verified. Fire risk assessed and interventions discussed. No implant(s) inserted. 08/26/2022 2:57 PM The procedure site was prepped in the usual sterile fashion. Site: R Alonso Cyst Aspirate: 20 mL serous and blood-tinged Details:Musculoskeletal ultrasound was utilized to successfully localize placement of the injection needle at the appropriate site. Ultrasound images demonstrating local vasculature and demonstrating injection of solution were saved. Medications: 40 mg triamcinolone acetonide 40 mg/mL Anesthetics: 2 mL ROPivacaine (PF) 5 mg/mL (0.5 %) Outcome: Tolerated well, no immediate complications Post-injection instructions were reviewed with the patient and the patient voiced understanding of these instructions. SIGN OUT All instruments, equipment, possible retained foreign bodies accounted for. [facility] 08-26-2022 Instructions Nay Montejo - 08/26/2022 3:23 PM EDT POST INJECTION HOME CARE Your physician has elected to inject your right knee today with Kenalog and lidocaine. Ropivacaine 0.5% is a numbing medicine that only lasts for a few hours. Kenalog is a steroid medicine that slowly over days to weeks can help with pain and inflammation. During the time between the injection and the point that the kenalog begins to work, you may have a slight worsening of your pain. This is called an injection flare. In some cases it may take up to two weeks for the kenalog to begin working. The following measures can be used to limit the severity of any possible injection flare: Use an ice bag on the affected area 3 times a day for 30 minutes at each session. No more than one time per an hour. Consider the use of over the counter anti-inflammatory medications such as Advil, or Aleve, if your medical condition allows you to take these medications. If your physician has prescribed a prescription anti-inflammatory medication then continue taking this medication, as prescribed. Do NOT take a bath, swim, or sit in a jacuzzi or hot tub for the next 48 hours. Showers are okay. If you have a history of diabetes, you should check your blood glucose levels between two and three times per day for the next three days, and adjust your insulin accordingly. Occasionally, a steroid can raise your blood sugar to dangerous levels. If you can not control your glucose at home, notify your primary care physician immediately. These measures should limit any injection flare that may occur. Should these measures not adequately control the pain please contact the office documented in this encounter [facility] 08-26-2022 History of Presen t illness Narrative Associated Order(s): Large Joint Arthro/Inj: R Alonso Cyst Post-Procedure Diagnose(s): Alonso's cyst of knee, right [facility] Office Visit Documentation Note Orthopaedics & Sports Medicine REASON FOR VISIT / CHIEF COMPLAINT Lea Barber is here today at request of Dr. Josemanuel Rodriguez specifically for consultation of my opinion in regards to the chief complaint listed below. Correspondence will be shared today via the [employer] electronic health record or through regular mail, where applicable. CHIEF COMPLAINT: Lea Barber is a 67 year old female who presents today for a new evaluation of following complaint: Patient presents with: Right Knee - Pain HISTORY OF PRESENT ILLNESS (HPI) Patient referred for US injection RIGHT knee alonso's cyst with referral back to provider for further management. Anesthetic only per request. PHYSICAL EXAMINATION Vitals: There were no vitals taken for this visit. Body Habitus:no acute distress and alert and oriented Orientation: Normal: Oriented to person, place and time Psych: normal Sensation: sensation to light touch is grossly normal bilaterally Skin: Color, texture, turgor normal. No rashes or lesions Ortho Exam R KNEE: Mild effusion Swelling and tenderness to palpation on posterior aspect of knee 2+ DP pulse, SILT ASSESSMENT / PLAN DIAGNOSIS: (M71.21) Alonso's cyst of knee, right Plan: PROCEDURE REQUEST - CJ ULTRASOUND-GUIDED INJECTION, US KNEE-INJECTION RT (POC) CJ USE ONLY 67 y/o female receiving R knee Alonso's cyst draining and steroid injection with consult from Josemanuel Rodriguez MD. The aspiration and injection were completed as described below. Patient verbalizes understanding and agrees with the treatment plan as detailed above. Lucio Kitchen MD Sports Medicine Physician Department of Orthopaedic Surgery [facility] I,Lucio Kitchen MD, personally performed the services described in this documentation. All medical record entries made by the scribe were at my direction and in my presence. I have reviewed the chart and discharge instructions (if applicable) and agree that the record reflects my personal performance and is accurate and complete. Electronically Signed: Lucio Kitchen MD August 26, 2022 6:07 PM Attending Note: Gregorio findings confirmed. Patient examined. Discussed with the fellow and the patient. Procedure was completed by Dr. Crespo with my direct supervision. Lucio Kitchen MD By signing my name below, I, Nay Montejo, attest that this documentation has been prepared under the direction and in the presence of Dr. Kitchen Electronically signed, Nay Nikia Narendra August 26, 2022 3:04 PM Large Joint Arthro/Inj: R Alonso Cyst Informed Consent Consent Obtained: Verbal [place] Protocol A moment to CARE was completed. SIGN IN Personnel directly involved with the procedure wore the appropriate PPE. Special Equipment: N/A Patient/Surrogate Stated/Verified: Patient name, Date of , Relevant allergies and Intended procedure TIME OUT Intended patient and procedure match the source document(s). Consent documented and matches the intended procedure. Relevant labs, photos, and/or imaging studies have been reviewed. Correct side/site marked and visible. Medications required for procedure verified. Fire risk assessed and interventions discussed. No implant(s) inserted. 08/26/2022 2:57 PM The procedure site was prepped in the usual sterile fashion. Site: R Alonso Cyst Aspirate: 20 mL serous and blood-tinged Details:Musculoskeletal ultrasound was utilized to successfully localize placement of the injection needle at the appropriate site. Ultrasound images demonstrating local vasculature and demonstrating injection of solution were saved. Medications: 40 mg triamcinolone acetonide 40 mg/mL Anesthetics: 2 mL ROPivacaine (PF) 5 mg/mL (0.5 %) Outcome: Tolerated well, no immediate complications Post-injection instructions were reviewed with the patient and the patient voiced understanding of these instructions. SIGN OUT All instruments, equipment, possible retained foreign bodies accounted for. documented in this encounter [facility] 08-19-2022 Note HNO ID: [id number] Author: Josemanuel Rodriguez MD Service: ? Author Type: Physician Type: Progress Notes Filed: 09/23/2022 5:03 PM Note Text: Josemanuel Rodriguez MD Department of Orthopaedics Orthopaedics [address] [facility] [address] Dept: [phone] Dept August 19, 2022 CHIEF COMPLAINT: Established Patient and Post Op of the Right Knee. HPI Patient is 6 weeks 4 days post op right knee arthroscopic medial menisectomy. Medial and PF chondroplasties and medial plicae excision. Patient states the knee does not feel any better. She reports the knee feels warm and she can feel a cyst behind the knee which makes it hard to bend. She has vacation to the beach scheduled in September and is concerned about the amount of walking she will need to do. 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 The unfortunate reality is that her knee may be further along with OA and still symptomatic from her insufficiency fracture which wouldn't improve immediately after knee scope. She has had an US showing a alonso's cyst. We'll get her an US guided aspiration, however I still believe this is related to OA. Needless to say, she is frustrated, and in many ways still doesn't understand why her knee defervesced. Exam: Healed incisions. Palpable Alonso's cyst. Good ROM post op. Imaging: deferred Supporting Information Below: Medications: Current Outpatient Medications Medication Sig diclofenac, EC, (VOLTAREN) 75 mg EC tablet Take 1 tablet by mouth twice daily. for pain. traMADol (ULTRAM) 50 mg tablet Take 2 tablets by mouth twice daily for 90 days. gabapentin (NEURONTIN) 300 mg capsule TAKE 2 CAPSULES TWICE A DAY AND 3 CAPSULES AT BEDTIME cyclobenzaprine (FLEXERIL) 10 mg tablet Take 1 tablet by mouth at bedtime as needed. AT BEDTIME. metoprolol succinate ER (TOPROL XL) 25 mg 24 hr tablet Take 1 tablet by mouth every evening. diclofenac sodium (VOLTAREN ORAL) Take by mouth. (Patient not taking: Reported on 07/30/2022) betamethasone dipropionate, augmented (DIPROLENE) 0.05 % cream APPLY A THIN LAYER OF CREAM TOPICALLY TO AFFECTED AREA OF THE BODY TWICE DAILY FOR 2 WEEKS NEEDED FOR FLARES. dicyclomine (BENTYL) 10 mg capsule Take 1 capsule by mouth before meals and at bedtime. (Patient not taking: No sig reported) No current facility-administered medications for this visit. Allergies: Hydrocodone, Macrobid [Nitrofurantoin Monohyd/M-Cryst], Ragweed Pollen, and Tagamet [Cimetidine] Josemanuel Rodriguez MD [facility] 07-30-2022 Note HNO ID: [id number] Author: Mendy Quinteros PA-C Service: ? Author Type: Physician Temple Marker Type: Progress Notes Filed: 07/30/2022 4:28 PM Note Text: Mendy Quinteros PA-C Department of Orthopaedics Orthopaedics [address] [place] [address] Dept: [phone] July 30, 2022 CHIEF COMPLAINT: Post Op, Knee Pain, and Swelling of the Right Knee. ASSESSMENT: M84.469A Insufficiency fracture of tibia, initial encounter (primary encounter diagnosis) M71.21 Synovial cyst of right popliteal space SUMMARY/PLAN: Patient presents for an intermediate postop, she is just about 3 weeks status post right knee arthroscopy. Initially was doing very well but started having some increased swelling and pain in the posterior aspect of the right knee. We did try an oral steroid taper which was not beneficial and caused the patient to be emotional . She has been taking naproxen, icing, elevating and offloading her weight. She is very frustrated and feels as though she should already be back to work at this time. She has a Alonso's cyst, we discussed trying some Voltaren instead of the naproxen every found to be more helpful in the past. Would like her to try some gentle compression, she was provided with an Gerson wrap. We will have her follow-up as planned. Exam: Incision sites are well-healed, there is a mild to moderate right knee joint effusion and a palpable Alonso's cyst. Patient's motion is limited by the cyst. The calf is nontender and soft on palpation. Imaging: Deferred today Ms. Lea aBrber was advised as to contrast therapies and/or to take analgesics/anti-inflammatories as needed and all contraindications were reviewed. Supporting Information Below: Medications: Current Outpatient Medications Medication Sig traMADol (ULTRAM) 50 mg tablet Take 2 tablets by mouth twice daily for 90 days. gabapentin (NEURONTIN) 300 mg capsule TAKE 2 CAPSULES TWICE A DAY AND 3 CAPSULES AT BEDTIME betamethasone dipropionate, augmented (DIPROLENE) 0.05 % cream APPLY A THIN LAYER OF CREAM TOPICALLY TO AFFECTED AREA OF THE BODY TWICE DAILY FOR 2 WEEKS NEEDED FOR FLARES. cyclobenzaprine (FLEXERIL) 10 mg tablet Take 1 tablet by mouth at bedtime as needed. AT BEDTIME. metoprolol succinate ER (TOPROL XL) 25 mg 24 hr tablet Take 1 tablet by mouth every evening. diclofenac, EC, (VOLTAREN) 75 mg EC tablet Take 1 tablet by mouth twice daily. for pain. diclofenac sodium (VOLTAREN ORAL) Take by mouth. (Patient not taking: Reported on 07/30/2022) dicyclomine (BENTYL) 10 mg capsule Take 1 capsule by mouth before meals and at bedtime. (Patient not taking: No sig reported) No current facility-administered medications for this visit. Allergies: Hydrocodone, Macrobid [Nitrofurantoin Monohyd/M-Cryst], Ragweed Pollen, and Tagamet [Cimetidine] This note was partially generated using [employer] voice recognition system, and there may be some incorrect words, spellings, and punctuation that were not noted in checking the note before saving. Mendy Quinteros PA-C [facility] 07-30-2022 History of Presen t illness Narrative Mendy Quinteros PA-C Department of Orthopaedics Orthopaedics [address] [place] [id number] Dept: [phone] July 30, 2022 CHIEF COMPLAINT: Post Op, Knee Pain, and Swelling of the Right Knee. ASSESSMENT: M84.469A Insufficiency fracture of tibia, initial encounter (primary encounter diagnosis) M71.21 Synovial cyst of right popliteal space SUMMARY/PLAN: Patient presents for an intermediate postop, she is just about 3 weeks status post right knee arthroscopy. Initially was doing very well but started having some increased swelling and pain in the posterior aspect of the right knee. We did try an oral steroid taper which was not beneficial and caused the patient to be emotional . She has been taking naproxen, icing, elevating and offloading her weight. She is very frustrated and feels as though she should already be back to work at this time. She has a Alonso's cyst, we discussed trying some Voltaren instead of the naproxen every found to be more helpful in the past. Would like her to try some gentle compression, she was provided with an Gerson wrap. We will have her follow-up as planned. Exam: Incision sites are well-healed, there is a mild to moderate right knee joint effusion and a palpable Alonso's cyst. Patient's motion is limited by the cyst. The calf is nontender and soft on palpation. Imaging: Deferred today Ms. Lea Barber was advised as to contrast therapies and/or to take analgesics/anti-inflammatories as needed and all contraindications were reviewed. Supporting Information Below: Medications: Current Outpatient Medications Medication Sig traMADol (ULTRAM) 50 mg tablet Take 2 tablets by mouth twice daily for 90 days. gabapentin (NEURONTIN) 300 mg capsule TAKE 2 CAPSULES TWICE A DAY AND 3 CAPSULES AT BEDTIME betamethasone dipropionate, augmented (DIPROLENE) 0.05 % cream APPLY A THIN LAYER OF CREAM TOPICALLY TO AFFECTED AREA OF THE BODY TWICE DAILY FOR 2 WEEKS NEEDED FOR FLARES. cyclobenzaprine (FLEXERIL) 10 mg tablet Take 1 tablet by mouth at bedtime as needed. AT BEDTIME. metoprolol succinate ER (TOPROL XL) 25 mg 24 hr tablet Take 1 tablet by mouth every evening. diclofenac, EC, (VOLTAREN) 75 mg EC tablet Take 1 tablet by mouth twice daily. for pain. diclofenac sodium (VOLTAREN ORAL) Take by mouth. (Patient not taking: Reported on 07/30/2022) dicyclomine (BENTYL) 10 mg capsule Take 1 capsule by mouth before meals and at bedtime. (Patient not taking: No sig reported) No current facility-administered medications for this visit. Allergies: Hydrocodone, Macrobid [Nitrofurantoin Monohyd/M-Cryst], Ragweed Pollen, and Tagamet [Cimetidine] This note was partially generated using [employer] voice recognition system, and there may be some incorrect words, spellings, and punctuation that were not noted in checking the note before saving. Mendy Quinteros PA-C documented in this encounter [facility] 07-30-2022 Miscellaneous Notes Spoke to pt , she is scheduled for today 07/30/22 at 3:30 documented in this encounter [facility] 07-22-2022 Note HNO ID: [id number] Author: Mendy Quinteros PA-C Service: ? Author Type: Physician Temple Marker Type: Progress Notes Filed: 07/22/2022 9:20 AM Note Text: Mendy Quinteros PA-C Department of Orthopaedics Orthopaedics [address] [facility] [address] Dept: [phone] Dept July 22, 2022 CHIEF COMPLAINT: Post Op of the Right Knee and 1 week 5 days post op right knee arthroscopy (medial and PF chondroplasty, medial plicae excison). ASSESSMENT: M25.561 Acute pain of right knee (primary encounter diagnosis) SUMMARY/PLAN: Patient presents 1 week and 5 days status post right knee arthroscopy with medial and patellofemoral chondroplasty. She is doing well, still having some 5 out of 10 aching pain especially with weightbearing. She tells me initially after surgery she was doing much better, now having medial pain with weightbearing. We discussed continuing to work on gentle range of motion and continuing activities as tolerated. We also discussed scar massage. She will follow-up in 1 month as planned. Exam: Incision sites are all well approximated, there is minimal edema of the knee and no ecchymosis is noted. Patient has full extension of the knee with flexion to 130 degrees. Imaging: Deferred today. Ms. Lae Barber was advised as to contrast therapies and/or to take analgesics/anti-inflammatories as needed and all contraindications were reviewed. Supporting Information Below: Medications: Current Outpatient Medications Medication Sig traMADol (ULTRAM) 50 mg tablet Take 2 tablets by mouth twice daily for 90 days. diclofenac sodium (VOLTAREN ORAL) Take by mouth. gabapentin (NEURONTIN) 300 mg capsule TAKE 2 CAPSULES TWICE A DAY AND 3 CAPSULES AT BEDTIME betamethasone dipropionate, augmented (DIPROLENE) 0.05 % cream APPLY A THIN LAYER OF CREAM TOPICALLY TO AFFECTED AREA OF THE BODY TWICE DAILY FOR 2 WEEKS NEEDED FOR FLARES. cyclobenzaprine (FLEXERIL) 10 mg tablet Take 1 tablet by mouth at bedtime as needed. AT BEDTIME. metoprolol succinate ER (TOPROL XL) 25 mg 24 hr tablet Take 1 tablet by mouth every evening. dicyclomine (BENTYL) 10 mg capsule Take 1 capsule by mouth before meals and at bedtime. (Patient not taking: Reported on 07/22/2022) No current facility-administered medications for this visit. Allergies: Hydrocodone, Macrobid [Nitrofurantoin Monohyd/M-Cryst], Ragweed Pollen, and Tagamet [Cimetidine] This note was partially generated using [employer] voice recognition system, and there may be some incorrect words, spellings, and punctuation that were not noted in checking the note before saving. Mendy Quinteros PA-C [facility] 07-22-2022 Note HNO ID: [id number] Author: Tabitha Bardales Ma Service: ? Author Type: ? Type: Progress Notes Filed: 07/22/2022 9:20 AM Note Text: Patient presents with: Right Knee - Post Op 1 week 5 days post op right knee arthroscopy: medial and PF chondroplasty, medial plicae excison AMB ROOMING INTAKE FLOWSHEET DATA Pain Pain Level: 3 Pain Location: Knee-Right Description: Sharp Duration Amount of Time: (Post op) Frequency: Intermittent (Occurs with weight bearing) Intervention/Comfort measure: Medication Patient states she is having pain with weight bearing. States it started yesterday. After surgery she only had pain in the mornings. No redness or drainage at portal sites. Taking Gabapentin and Tramadol for the pain she takes for her back and only helps take the edge off. [facility] 07-16-2022 Miscellaneous Notes Patient has been identified by name and date of : Yes Patient phones for refill(s): Requested Prescriptions Pending Prescriptions Disp Refills traMADol (ULTRAM) 50 mg tablet 42 tablet 0 Sig: Take 2 tablets by mouth three times daily as needed for pain for up to 7 days. Date of last office visit in primary care: 05/30/2022 6 month follow-up: 10/16/2022 Last 2 Encounter Wt Readings: Date: Wt: 06/24/2022 73.5 kg (162 lb) 05/30/2022 73 kg (161 lb) Previous labs/tests for medication: Not applicable Please advise. Thank you. Rizwana Clarke LPN Patient has been identified by name and date of : Yes Last office visit in this department: 05/30/2022 RX INSTRUCTIONS: Patient aware RX will be sent to pharmacy. No need to notify patient. Patient phones requesting refills as follows: Requested Prescriptions Pending Prescriptions Disp Refills traMADol (ULTRAM) 50 mg tablet 42 tablet 0 Sig: Take 2 tablets by mouth three times daily as needed for pain for up to 7 days. Please review and advise. Kajal Lynne documented in this encounter [facility] 07-10-2022 Note HNO ID: [id number] Author: Beverly Romero APRN.SENIOR RESEARCH ENGINEER Service: Anesthesiology Author Type: Nurse Special Deputy Sheriff Type: Anesthesia Procedure Notes Filed: 07/10/2022 9:45 AM Note Text: ANESTHESIOLOGY PROCEDURE NOTE Airway General Information Procedure Start Time/Medication Administration: 07/10/2022 9:35 AM Patient location during procedure: OR Timeout Performed Pre-procedure: timeout performed Consent Obtained: Yes Patient identity confirmed: arm band and patient Staffing SENIOR RESEARCH ENGINEER: Beverly Romero APRN.SENIOR RESEARCH ENGINEER Performed by: DONNIE Indications and Patient Condition Indications for airway management: anesthesia Preoxygenated: yes anesthesia circuit Patient position: sniffing Method: asleep Cricoid Pressure: No Manual In-Line Stabilization: No Difficult Mask: No Final Airway Details Final airway type: supraglottic airway Number of attempts at approach: 1 Ventilation between attempts: none Final Supraglottic Airway: i-gel Size 4 Seal Adequate: yes Failed airway: no Unrecognized esophageal intubation: no Airway not difficult SIGNATURE: Beverly Romero APRN.SENIOR RESEARCH ENGINEER PATIENT NAME: Lea Barber DATE: July 10, 2022 TIME: 9:44 AM CSN: [id number] [facility] 07-10-2022 Surgical operatio n note OPERATIVE/PROCEDURE REPORT LOG ID: [id number] Surgery/Procedure Date: 07/10/2022 Incision/Procedure Start Time: 9:49 AM Incision Close/Procedure End Time: 10:19 AM Surgeon(s)/Proceduralist(s) and Temple Marker(s): Surgeon(s) and Role: * Josemanuel Rodriguez MD - Primary Physician Temple Marker: Mendy Quinteros PA-C Registered Nurse Health And Safety Manager: Lulú Duran RN Procedure(s): right knee arthroscopic medial meniscectomy, medial and patellofemoral chondroplasty; medial plicae excision. Anesthesia: General with Intraarticular analgesia. OPERATIVE INDICATIONS: This is a pleasant 67 year old year-old female, who had an injury to the knee causing mechanical symptoms, recurrent swelling and pain. Patient attempted conservative management with activity modification, medications, and an MRI reported a meniscus tear medially, some diffuse OA and a small tibial sided insufficiency fracture. I discussed with her multiple options including the risks, benefits, alternatives, and potential complications involving surgery and she wished to pursue surgical intervention. Procedure Details: On 07/10/2022, the patient was clearly identified in the preoperative area and marked accordingly on the right knee by myself. She received 2g of Ancef in the IV within 1 hour incision or tourniquet. Patient was taken to the operative suite and placed in the supine position. Anesthesia assumed care of the head and neck for the remainder of the case and began a general anesthetic. All other bony landmarks were appropriately padded in standard fashion. The well lower extremity was placed in a semi-lithotomy position, again with neurovascular bundles appropriately padded. The surgical lower extremity had a well-padded upper thigh tourniquet placed with Webril padding and set at 250 mmHg, but not yet inflated. After a betadine swab, the patient was provided a intra-articular injection with 25 mL of 0.5% ropivacaine plain and 2 mg of morphine sulfate at the superior lateral knee joint. Patient was then placed in a well-padded arthroscopic leg arnold. Patient was sterilely prepped and draped in standard fashion. Appropriate time-out was conducted and all in the room were in agreement, signed consent form was on the chart and images were available for viewing. The lower extremity was then exsanguinated with an Esmarch bandage and the tourniquet was applied at 250 mmHg. Next, the portal incisions were injected with 1% lidocaine plain and 0.5% ropivacaine for total of 10 mL. A stab incision was then made with an #11 blade at the inferolateral, parapatellar area and I entered into the joint atraumatically with 1 pass with blunt trocar and camera. A stab incision was made at the superomedial joint for placement of an outflow cannulae. Arthroscopic diagnostic exam was completed that showed Grade II chondrosis on the undersurface of the both medial and lateral patellar facets as well as grade III in the trochlea. I came down in the medial and lateral gutters, which were free of any debris. I entered into the medial joint line and under spinal needle identification, made my standard working portal at the inferomedial, parapatellar tendon location. I entered in with a hooked probe and explored the joint. The medial distal femoral condyle was showing Grade II chondrosis. The medial tibial plateau surface appeared with Grade II chondrosis. The ACL and PCL were found to be intact and rather zhou. The lateral joint line showed Pristine cartilage of the lateral distal femoral condyle. The lateral tibial plateau surface appeared with Pristine cartilage. I next identified a tear of the medial meniscus; characterized as medial, degenerative , complex, and posterior. I worked my way with both arthroscopic biter tools as well as the 4.5mm resector shaver and made a stable rim in the meniscus, without any fragments or flaps noted. Again, the entire meniscus was taken to a stable base without any further concerns. I did an appropriate chondroplasty of the medial and patellofemoral compartment(s) to smoothen out any areas of fibrillation and smaller flaps which appeared unstable. I then explored the three compartments one last time for any loose debris and suction irrigated. The arthroscopic fluid was suctioned out through the outflow cannula and the arthroscopic portals were closed with 4-0 monocryl suture in buried fashion. Steri-Strips were applied to all 3 incision sites. Xeroform gauze, sterile 4 x 4 gauze, ABD and a thigh-high CHAD hose was applied for final bandage. Tourniquet was taken down. There were no complications during the procedure. The patient was safely awoken and transferred to the Postanesthetic Care Unit in stable condition. Pre-Op/Pre-Procedure Diagnosis: right knee, medial meniscus tear, medial and patellofemoral chondrosis. Post-Op/Post-Procedure Diagnosis: same Estimated Blood Loss: None. Specimens: None Implantable Devices: None Drains: None Complications: None I performed the entire procedure. SIGNATURE: Josemanuel Rodriguez MD PATIENT NAME: Lea Barber DATE: July 10, 2022 TIME: 10:50 AM PAGER/CONTACT #: documented in this encounter [facility] 07-05-2022 Note HNO ID: [id number] Author: Devin Hanna PT Service: ? Author Type: Physical Therapist Type: Progress Notes Filed: 07/05/2022 3:06 PM Note Text: Episode Visit Count: 4 Therapist That Will Accept/Oversee The Plan Of Care: Devin Hanna Start of Care Date: 06/19/22 Onset Date: 04/20/22 Plan of Care Certification Date: 06/19/22 Next Certification Due Date: 08/19/22 REHABILITATION AND SPORTS THERAPY PHYSICAL THERAPY DISCONTINUANCE OF CARE PLAN OF CARE UPDATE: Assessment: Lea Barber is discontinued from Physical Therapy services due to maximal benefit.. Patient was seen for 4 visits from Start of Care Date: 06/19/22 to 07/05/2022 and treatment included: Therapeutic exercise and Self-longterm management. Patient has not made progress with therapy and is opting for surgery. Goals updated on 07/04/2022. Goals for Episode of Care: created on 06/19/22 through 07/20/22 [place] in home exercise program. Met Patient will decrease pain rating by 2 points to meet minimal clinical important difference for numeric pain rating scale. Not met Patient will demonstrate increase in RLE strength to 5/5 during manual muscle testing in order to improve function for home management tasks, leisure / recreation skills, moderate to heavy functional tasks, and prior functional tasks. Not met Perform stairs and hills with decreased report of symptoms/pain in 6 Weeks. Not met Perform all ADLs without pain. Not met SUBJECTIVE: Patient Reason for Visit: Pt continues to have severe pain that is not improving. She was initially seeing progress, but that has ceased. Function remains painful and limited. Pain: Pain Pain Level: 6 Pain Location: Knee - Right Description: Sharp, Sore, Throbbing Frequency: Continuous PROMIS Scales Higher is Better 06/28/2022 Phys Func - Score 39 (moderate dysfunction) Phys Func - Percentile 14 % Self-Eff Symptom - Score 46 (Average) Self-Eff Symptom - Percentile 34 % T-scores: mean of general population = 50. 5 points is clinically meaningfully difference Percentiles provide an indication of how the patient's score ranks in relation to the general population. Higher percentile rankings indicate better function/quality of life. 50th percentile is the average of the general population and indicates half of respondents had a worse score. OBJECTIVE MEASURES WITH LEVEL OF FUNCTION: LE AROM R Knee Extension: -3 Degrees R Knee Flexion: 133 Degrees LE Strength R LE Strength: 4/5 grossly TREATMENT: Therapeutic Exercise: 1: Seated scifit stepper x 6 minutes, seat #11 (sunjective taken at this time) 2: SLR 3x10 3: Heel slides in gentle, pain free ROM 3x10 4: Clamshells 3x10 5: SL hip abduction 3x10 Skilled Intervention: Patient was educated in proper exercise technique and purpose for exercises. Skilled judgment was provided in selection of appropriate interventions. Provided written instruction for home exercise program to facilitate proper performance and compliance. Correct performance of therapeutic exercises was facilitated with verbal, visual, and tactile cuing. Billing Therapeutic Exercise Treatment Minutes: 25 Total Treatment Time Minutes (timed/untimed): [address] [facility] 06-28-2022 Note HNO ID: [id number] Author: Devin Hanna PT Service: ? Author Type: Physical Therapist Type: Progress Notes Filed: 06/28/2022 10:49 AM Note Text: Episode Visit Count: 3 Therapist That Will Accept/Oversee The Plan Of Care: Devin Hanna Start of Care Date: 06/19/22 Onset Date: 04/20/22 Plan of Care Certification Date: 06/19/22 Next Certification Due Date: 08/19/22 Patient Identified by Name and Date of : Yes REHABILITATION AND SPORTS THERAPY PHYSICAL THERAPY TREATMENT NOTE ASSESSMENT: Lea Barber tolerated the session with fatigue and expected muscle soreness. She demonstrated improvements in R knee flexion compared to last session. The patient will continue to benefit from ongoing skilled physical therapy to progress toward set goals. PLAN FOR NEXT VISIT: Continue with gentle ROM exercises SUBJECTIVE: Patient Reason for Visit: Pt reports that she has instances when her knee is feeling better, but then one wrong step and the pain is back. Pt stats now having difficulty sleeping and doesn't know where to put her leg. Pain: Pain Pain Level: 2 Pain Location: Knee - Right Description: Sharp, Aching, Throbbing Frequency: Continuous Post Treatment Pain Post Treatment Pain Level: No Change Post Treatment Pain Location: Knee - Right OBJECTIVE MEASURES WITH LEVEL OF FUNCTION: LE AROM R Knee Flexion: 134 Degrees TREATMENT: Therapeutic Exercise: 1: Seated scifit stepper x 6 minutes, seat #11. (subjective collected) 2: SLR 3x10 3: Heel slides in gentle, pain free ROM 3x10 4: Clamshells 3x10 5: SL hip abduction 3x10 6: Seated heel slides 2x10 Skilled Intervention: Patient was educated in proper exercise technique and purpose for exercises. Skilled judgment was provided in selection of appropriate interventions. Correct performance of therapeutic exercises was facilitated with verbal and visual cuing. Self-Shelter Management: 1: Education on using pillows with sleeping to decrease tension on medial knee Skilled Intervention: Skilled judgment in the selection of proper modification for activity of daily living/home management based on clinical presentation, deficits, and needs. Billing Therapeutic Exercise Treatment Minutes: 38 Self-Care/Home Management Treatment Minutes: 2 Total Treatment Time Minutes (timed/untimed): 40 Felicia Chawla, HEDIS ABSTRACTOR Devin Hanna, PT [facility] 06-26-2022 Note HNO ID: [id number] Author: Devin Hanna PT Service: ? Author Type: Physical Therapist Type: Progress Notes Filed: 06/26/2022 12:12 PM Note Text: Episode Visit Count: 2 Therapist That Will Accept/Oversee The Plan Of Care: Devin Hanna Start of Care Date: 06/19/22 Onset Date: 04/20/22 Plan of Care Certification Date: 06/19/22 Next Certification Due Date: 08/19/22 REHABILITATION AND SPORTS THERAPY PHYSICAL THERAPY TREATMENT NOTE ASSESSMENT: Lea Barber tolerated the session with no change in symptoms. She demonstrated difficulty with walking, standing, and any WB activities. The patient will continue to benefit from ongoing skilled physical therapy to progress toward set goals. PLAN FOR NEXT VISIT: Continue with exercises with less joint forces SUBJECTIVE: Patient Reason for Visit: Pt is miserable today. Notes about Friday of last week she woke up with intense pain and it has stayed ever since. Pain: Pain Pain Level: 8 Pain Location: Knee - Right Description: Sharp, Aching, Throbbing Frequency: Continuous OBJECTIVE MEASURES WITH LEVEL OF FUNCTION: LE AROM R Knee Extension: -3 Degrees R Knee Flexion: 132 Degrees TREATMENT: Therapeutic Exercise: 1: SLR 3x10 2: SL hip abduction 3x10 3: Heel slides in gentle, pain free ROM 3x10 4: Clamshells 3x10 5: SKC 3x30 sec on R Skilled Intervention: Patient was educated in proper exercise technique and purpose for exercises. Skilled judgment was provided in selection of appropriate interventions. Provided written instruction for home exercise program to facilitate proper performance and compliance. Correct performance of therapeutic exercises was facilitated with verbal, visual, and tactile cuing. Self-Shelter Management: 1: Reviewed imaging and discussed implications for rehab and conservative measures. Also discussed activity modifications to help decrease pain and symptoms Skilled Intervention: Skilled judgment in the selection of proper modification for activity of daily living/home management based on clinical presentation, deficits, and needs. Reviewed patient specific diagnosis in relation to activities of daily living/home management. Activity progression based on professional judgement. Billing Therapeutic Exercise Treatment Minutes: 20 Self-Care/Home Management Treatment Minutes: 25 Total Treatment Time Minutes (timed/untimed): [address] [facility] documented as of this encounter (statuses as of 10/18/2022) [facility]05-15-2023 History of Past illness Narrative* Problem Noted Date Diagnosed Date Resolved Date Former smoker 06/24/2022 10/16/2022 Last Assessment & Plan: Assessment: 0.5ppd/5 years, denies asthma or COPD Essential tremor 06/24/2022 10/16/2022 Last Assessment & Plan: Assessment: on rx PONV (postoperative nausea and vomiting) 06/24/2022 10/16/2022 Last Assessment & Plan: Assessment: hx Acute right-sided low back p ain without sciatica 07/30/2021 09/11/2021 Elevated blood pressure reading 10/27/2017 01/17/2020 Kidney insufficiency 04/24/2017 022 Ulnar neuropathy of left upper extremity 04/18/2016 10/27/2017 Left carpal tunnel syndrome 04/18/2016 10/27/2017 Pain of left hip joint 11/17/201504/08 Chronic bilateral low back p ain with right-sided sciatica 11/17/2015 04/24/2017 Chronic pain syndrome 07/08/20152017 Chronic midline low back pain 07/08/2015 04/24/2017 History of lumbar laminectomy 06/26/2015 04/08/2016 Hip pain 05/25/2014 11/17/2015 Low back pain 05/25/2014 11/17/2015 Mononeuritis of unspecified site 04/01/2014 04/08/2016 Enthesopathy of hip region 04/01/2014 0 04/08/2016 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 Cyst of breast, left, diffuse fibrocystic 03/09/2013 04/24/2017 Left leg paresthesias 12/07/20112016 Carpal tunnel syndrome on both sides 04/24/2010 06/24/2022 Meralgia paraesthetica 04/24/201004/08 Diverticulitis of colon (wit hout mention of hemorrhage) 10/01/2004 04/08/2016 Arthropathy, unspecified, site unspecified 10/01/2004 06/07/2015 Neuralgia, neuritis, and rad iculitis, unspecified 06/07/2015 Family history of malignant neoplasm of gastrointestinal tract 04/08/2016 Overview: daughter Macromastia 05/04/2013 documented as of this encounter (statuses as of 10/21/2022) [facility]05-15-2023 History of Past illness Narrative* Problem Noted Date Diagnosed Date Resolved Date Former smoker 06/24/2022 10/16/2022 Last Assessment & Plan: Assessment: 0.5ppd/5 years, denies asthma or COPD Essential tremor 06/24/2022 10/16/2022 Last Assessment & Plan: Assessment: on rx PONV (postoperative nausea and vomiting) 06/24/2022 10/16/2022 Last Assessment & Plan: Assessment: hx Acute right-sided low back p ain without sciatica 07/30/2021 09/11/2021 Elevated blood pressure reading 10/27/2017 01/17/2020 Kidney insufficiency 04/24/2017 022 Ulnar neuropathy of left upper extremity 04/18/2016 10/27/2017 Left carpal tunnel syndrome 04/18/2016 10/27/2017 Pain of left hip joint 11/17/201504/08 Chronic bilateral low back p ain with right-sided sciatica 11/17/2015 04/24/2017 Chronic pain syndrome 07/08/20152017 Chronic midline low back pain 07/08/2015 04/24/2017 History of lumbar laminectomy 06/26/2015 04/08/2016 Hip pain 05/25/2014 11/17/2015 Low back pain 05/25/2014 11/17/2015 Mononeuritis of unspecified site 04/01/2014 04/08/2016 Enthesopathy of hip region 04/01/2014 0 04/08/2016 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 Cyst of breast, left, diffuse fibrocystic 03/09/2013 04/24/2017 Left leg paresthesias 12/07/20112016 Carpal tunnel syndrome on both sides 04/24/2010 06/24/2022 Meralgia paraesthetica 04/24/201004/08 Diverticulitis of colon (wit hout mention of hemorrhage) 10/01/2004 04/08/2016 Arthropathy, unspecified, site unspecified 10/01/2004 06/07/2015 Neuralgia, neuritis, and rad iculitis, unspecified 06/07/2015 Family history of malignant neoplasm of gastrointestinal tract 04/08/2016 Overview: daughter Macromastia 05/04/2013 documented as of this encounter (statuses as of 10/22/2022) [facility]05-15-2023 History of Past illness Narrative* Problem Noted Date Diagnosed Date Resolved Date Former smoker 06/24/2022 10/16/2022 Last Assessment & Plan: Assessment: 0.5ppd/5 years, denies asthma or COPD Essential tremor 06/24/2022 10/16/2022 Last Assessment & Plan: Assessment: on rx PONV (postoperative nausea and vomiting) 06/24/2022 10/16/2022 Last Assessment & Plan: Assessment: hx Acute right-sided low back p ain without sciatica 07/30/2021 09/11/2021 Elevated blood pressure reading 10/27/2017 01/17/2020 Kidney insufficiency 04/24/2017 022 Ulnar neuropathy of left upper extremity 04/18/2016 10/27/2017 Left carpal tunnel syndrome 04/18/2016 10/27/2017 Pain of left hip joint 11/17/201504/08 Chronic bilateral low back p ain with right-sided sciatica 11/17/2015 04/24/2017 Chronic pain syndrome 07/08/20152017 Chronic midline low back pain 07/08/2015 04/24/2017 History of lumbar laminectomy 06/26/2015 04/08/2016 Hip pain 05/25/2014 11/17/2015 Low back pain 05/25/2014 11/17/2015 Mononeuritis of unspecified site 04/01/2014 04/08/2016 Enthesopathy of hip region 04/01/2014 0 04/08/2016 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 Cyst of breast, left, diffuse fibrocystic 03/09/2013 04/24/2017 Left leg paresthesias 12/07/20112016 Carpal tunnel syndrome on both sides 04/24/2010 06/24/2022 Meralgia paraesthetica 04/24/201004/08 Diverticulitis of colon (wit hout mention of hemorrhage) 10/01/2004 04/08/2016 Arthropathy, unspecified, site unspecified 10/01/2004 06/07/2015 Neuralgia, neuritis, and rad iculitis, unspecified 06/07/2015 Family history of malignant neoplasm of gastrointestinal tract 04/08/2016 Overview: daughter Macromastia 05/04/2013 documented as of this encounter (statuses as of 10/22/2022) [facility]05-15-20[facility] History of Past illness Narrative* Problem Noted Date Diagnosed Date Resolved Date Former smoker 06/24/2022 10/16/2022 Last Assessment & Plan: Assessment: 0.5ppd/5 years, denies asthma or COPD Essential tremor 06/24/2022 10/16/2022 Last Assessment & Plan: Assessment: on rx PONV (postoperative nausea and vomiting) 06/24/2022 10/16/2022 Last Assessment & Plan: Assessment: hx Acute right-sided low back p ain without sciatica 07/30/2021 09/11/2021 Elevated blood pressure reading 10/27/2017 01/17/2020 Kidney insufficiency 04/24/2017 022 Ulnar neuropathy of left upper extremity 04/18/2016 10/27/2017 Left carpal tunnel syndrome 04/18/2016 10/27/2017 Pain of left hip joint 11/17/201504/08 Chronic bilateral low back p ain with right-sided sciatica 11/17/2015 04/24/2017 Chronic pain syndrome 07/08/20152017 Chronic midline low back pain 07/08/2015 04/24/2017 History of lumbar laminectomy 06/26/2015 04/08/2016 Hip pain 05/25/2014 11/17/2015 Low back pain 05/25/2014 11/17/2015 Mononeuritis of unspecified site 04/01/2014 04/08/2016 Enthesopathy of hip region 04/01/2014 0 04/08/2016 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 Cyst of breast, left, diffuse fibrocystic 03/09/2013 04/24/2017 Left leg paresthesias 12/07/20112016 Carpal tunnel syndrome on both sides 04/24/2010 06/24/2022 Meralgia paraesthetica 04/24/201004/08 Diverticulitis of colon (wit hout mention of hemorrhage) 10/01/2004 04/08/2016 Arthropathy, unspecified, site unspecified 10/01/2004 06/07/2015 Neuralgia, neuritis, and rad iculitis, unspecified 06/07/2015 Family history of malignant neoplasm of gastrointestinal tract 04/08/2016 Overview: daughter Macromastia 05/04/2013 documented as of this encounter (statuses as of 10/22/2022) [facility]05-15-[facility] History of Past illness Narrative* Problem Noted Date Diagnosed Date Resolved Date Former smoker 06/24/2022 10/16/2022 Last Assessment & Plan: Assessment: 0.5ppd/5 years, denies asthma or COPD Essential tremor 06/24/2022 10/16/2022 Last Assessment & Plan: Assessment: on rx PONV (postoperative nausea and vomiting) 06/24/2022 10/16/2022 Last Assessment & Plan: Assessment: hx Acute right-sided low back p ain without sciatica 07/30/2021 09/11/2021 Elevated blood pressure reading 10/27/2017 01/17/2020 Kidney insufficiency 04/24/2017 022 Ulnar neuropathy of left upper extremity 04/18/2016 10/27/2017 Left carpal tunnel syndrome 04/18/2016 10/27/2017 Pain of left hip joint 11/17/201504/08 Chronic bilateral low back p ain with right-sided sciatica 11/17/2015 04/24/2017 Chronic pain syndrome 07/08/20152017 Chronic midline low back pain 07/08/2015 04/24/2017 History of lumbar laminectomy 06/26/2015 04/08/2016 Hip pain 05/25/2014 11/17/2015 Low back pain 05/25/2014 11/17/2015 Mononeuritis of unspecified site 04/01/2014 04/08/2016 Enthesopathy of hip region 04/01/2014 0 04/08/2016 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 Cyst of breast, left, diffuse fibrocystic 03/09/2013 04/24/2017 Left leg paresthesias 12/07/20112016 Carpal tunnel syndrome on both sides 04/24/2010 06/24/2022 Meralgia paraesthetica 04/24/201004/08 Diverticulitis of colon (wit hout mention of hemorrhage) 10/01/2004 04/08/2016 Arthropathy, unspecified, site unspecified 10/01/2004 06/07/2015 Neuralgia, neuritis, and rad iculitis, unspecified 06/07/2015 Family history of malignant neoplasm of gastrointestinal tract 04/08/2016 Overview: daughter Macromastia 05/04/2013 documented as of this encounter (statuses as of 10/30/2022) [facility]05-[facility] History of Past illness Narrative* Problem Noted Date Diagnosed Date Resolved Date Former smoker 06/24/2022 10/16/2022 Last Assessment & Plan: Assessment: 0.5ppd/5 years, denies asthma or COPD Essential tremor 06/24/2022 10/16/2022 Last Assessment & Plan: Assessment: on rx PONV (postoperative nausea and vomiting) 06/24/2022 10/16/2022 Last Assessment & Plan: Assessment: hx Acute right-sided low back p ain without sciatica 07/30/2021 09/11/2021 Elevated blood pressure reading 10/27/2017 01/17/2020 Kidney insufficiency 04/24/2017 022 Ulnar neuropathy of left upper extremity 04/18/2016 10/27/2017 Left carpal tunnel syndrome 04/18/2016 10/27/2017 Pain of left hip joint 11/17/201504/08 Chronic bilateral low back p ain with right-sided sciatica 11/17/2015 04/24/2017 Chronic pain syndrome 07/08/20152017 Chronic midline low back pain 07/08/2015 04/24/2017 History of lumbar laminectomy 06/26/2015 04/08/2016 Hip pain 05/25/2014 11/17/2015 Low back pain 05/25/2014 11/17/2015 Mononeuritis of unspecified site 04/01/2014 04/08/2016 Enthesopathy of hip region 04/01/2014 0 04/08/2016 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 Cyst of breast, left, diffuse fibrocystic 03/09/2013 04/24/2017 Left leg paresthesias 12/07/20112016 Carpal tunnel syndrome on both sides 04/24/2010 06/24/2022 Meralgia paraesthetica 04/24/201004/08 Diverticulitis of colon (wit hout mention of hemorrhage) 10/01/2004 04/08/2016 Arthropathy, unspecified, site unspecified 10/01/2004 06/07/2015 Neuralgia, neuritis, and rad iculitis, unspecified 06/07/2015 Family history of malignant neoplasm of gastrointestinal tract 04/08/2016 Overview: daughter Macromastia 05/04/2013 documented as of this encounter (statuses as of 11/25/2022) [facility]05-[facility] History of Past illness Narrative* Problem Noted Date Diagnosed Date Resolved Date Former smoker 06/24/2022 10/16/2022 Last Assessment & Plan: Assessment: 0.5ppd/5 years, denies asthma or COPD Essential tremor 06/24/2022 10/16/2022 Last Assessment & Plan: Assessment: on rx PONV (postoperative nausea and vomiting) 06/24/2022 10/16/2022 Last Assessment & Plan: Assessment: hx Acute right-sided low back p ain without sciatica 07/30/2021 09/11/2021 Elevated blood pressure reading 10/27/2017 01/17/2020 Kidney insufficiency 04/24/2017 022 Ulnar neuropathy of left upper extremity 04/18/2016 10/27/2017 Left carpal tunnel syndrome 04/18/2016 10/27/2017 Pain of left hip joint 11/17/201504/08 Chronic bilateral low back p ain with right-sided sciatica 11/17/2015 04/24/2017 Chronic pain syndrome 07/08/20152017 Chronic midline low back pain 07/08/2015 04/24/2017 History of lumbar laminectomy 06/26/2015 04/08/2016 Hip pain 05/25/2014 11/17/2015 Low back pain 05/25/2014 11/17/2015 Mononeuritis of unspecified site 04/01/2014 04/08/2016 Enthesopathy of hip region 04/01/2014 0 04/08/2016 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 Cyst of breast, left, diffuse fibrocystic 03/09/2013 04/24/2017 Left leg paresthesias 12/07/20112016 Carpal tunnel syndrome on both sides 04/24/2010 06/24/2022 Meralgia paraesthetica 04/24/201004/08 Diverticulitis of colon (wit hout mention of hemorrhage) 10/01/2004 04/08/2016 Arthropathy, unspecified, site unspecified 10/01/2004 06/07/2015 Neuralgia, neuritis, and rad iculitis, unspecified 06/07/2015 Family history of malignant neoplasm of gastrointestinal tract 04/08/2016 Overview: daughter Macromastia 05/04/2013 documented as of this encounter (statuses as of 11/26/2022) [facility]05-[facility] History of Past illness Narrative* Problem Noted Date Diagnosed Date Resolved Date Former smoker 06/24/2022 10/16/2022 Last Assessment & Plan: Assessment: 0.5ppd/5 years, denies asthma or COPD Essential tremor 06/24/2022 10/16/2022 Last Assessment & Plan: Assessment: on rx PONV (postoperative nausea and vomiting) 06/24/2022 10/16/2022 Last Assessment & Plan: Assessment: hx Acute right-sided low back p ain without sciatica 07/30/2021 09/11/2021 Elevated blood pressure reading 10/27/2017 01/17/2020 Kidney insufficiency 04/24/2017 022 Ulnar neuropathy of left upper extremity 04/18/2016 10/27/2017 Left carpal tunnel syndrome 04/18/2016 10/27/2017 Pain of left hip joint 11/17/201504/08 Chronic bilateral low back p ain with right-sided sciatica 11/17/2015 04/24/2017 Chronic pain syndrome 07/08/20152017 Chronic midline low back pain 07/08/2015 04/24/2017 History of lumbar laminectomy 06/26/2015 04/08/2016 Hip pain 05/25/2014 11/17/2015 Low back pain 05/25/2014 11/17/2015 Mononeuritis of unspecified site 04/01/2014 04/08/2016 Enthesopathy of hip region 04/01/2014 0 04/08/2016 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 Cyst of breast, left, diffuse fibrocystic 03/09/2013 04/24/2017 Left leg paresthesias 12/07/20112016 Carpal tunnel syndrome on both sides 04/24/2010 06/24/2022 Meralgia paraesthetica 04/24/201004/08 Diverticulitis of colon (wit hout mention of hemorrhage) 10/01/2004 04/08/2016 Arthropathy, unspecified, site unspecified 10/01/2004 06/07/2015 Neuralgia, neuritis, and rad iculitis, unspecified 06/07/2015 Family history of malignant neoplasm of gastrointestinal tract 04/08/2016 Overview: daughter Macromastia 05/04/2013 documented as of this encounter (statuses as of 11/27/2022) [facility]05-[facility] History of Past illness Narrative* Problem Noted Date Diagnosed Date Resolved Date Former smoker 06/24/2022 10/16/2022 Last Assessment & Plan: Assessment: 0.5ppd/5 years, denies asthma or COPD Essential tremor 06/24/2022 10/16/2022 Last Assessment & Plan: Assessment: on rx PONV (postoperative nausea and vomiting) 06/24/2022 10/16/2022 Last Assessment & Plan: Assessment: hx Acute right-sided low back p ain without sciatica 07/30/2021 09/11/2021 Elevated blood pressure reading 10/27/2017 01/17/2020 Kidney insufficiency 04/24/2017 022 Ulnar neuropathy of left upper extremity 04/18/2016 10/27/2017 Left carpal tunnel syndrome 04/18/2016 10/27/2017 Pain of left hip joint 11/17/201504/08 Chronic bilateral low back p ain with right-sided sciatica 11/17/2015 04/24/2017 Chronic pain syndrome 07/08/20152017 Chronic midline low back pain 07/08/2015 04/24/2017 History of lumbar laminectomy 06/26/2015 04/08/2016 Hip pain 05/25/2014 11/17/2015 Low back pain 05/25/2014 11/17/2015 Mononeuritis of unspecified site 04/01/2014 04/08/2016 Enthesopathy of hip region 04/01/2014 0 04/08/2016 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 Cyst of breast, left, diffuse fibrocystic 03/09/2013 04/24/2017 Left leg paresthesias 12/07/20112016 Carpal tunnel syndrome on both sides 04/24/2010 06/24/2022 Meralgia paraesthetica 04/24/201004/08 Diverticulitis of colon (wit hout mention of hemorrhage) 10/01/2004 04/08/2016 Arthropathy, unspecified, site unspecified 10/01/2004 06/07/2015 Neuralgia, neuritis, and rad iculitis, unspecified 06/07/2015 Family history of malignant neoplasm of gastrointestinal tract 04/08/2016 Overview: daughter Macromastia 05/04/2013 documented as of this encounter (statuses as of 02/23/2023) [facility]05-[facility]23 History and physical note* Aniceto Broderick APRN.[employer] - 06/24/2022 10:56 AM EDT HISTORY AND PHYSICAL EXAMINATION SERVICE DATE: 06/24/2022 SERVICE TIME: 11:26 AM PRIMARY CARE PHYSICIAN: Claus Magaña MD REASON FOR VISIT: Lea Barber is a 67 year old female who is scheduled for Procedure(s): ARTHROSCOPY KNEE MENISCECTOMY MEDIAL OR LATERAL (Right) at the request of Dr. Josemanuel Rodriguez for consultation. My final recommendation will be communicated back to the requesting physician by way of shared medical record or letter. Subjective The patient has the following: ACTIVE PROBLEM LIST Irritable Bowel Syndrome Myalgia Mvp (Mitral Valve Prolapse) Neuropathy Lumbar Disc Herniation With Radiculopathy Adenomatous Colon Polyp Acquired Trigger Finger Essential Hypertension Palpitations Memory Changes Stage 3a Chronic Kidney Disease (Hcc) Tremor Acute Pain of Right Knee Insufficiency Fracture of Tibia Synovial Cyst of Right Popliteal Space Gerd (Gastroesophageal Reflux Disease) Former Smoker Essential Tremor Ponv (Postoperative Nausea and Vomiting) COVID-19 Immunization Status COVID-19 VACCINE (Series Information) Completed 12/17/2021 Imm Admin: COVID-19 booster vaccine, age 12+ yr, bivalent (DermaGen) 10/17/2021 Postponed until 10/17/2022 by Mode Bolden Ma (Declined at this time) 12/13/2020 Imm Admin: COVID-19 vaccine, age 12+ yr (PFIZER-BIONTECH - PURPLE TOP) Only the first 3 history entries have been loaded, but more history exists. CHIEF COMPLAINT: Pre-op exam HPI: Lea Barber is a 67 year old seen for PAC due to scheduled above surgery because of rightknee pain. 06/11/2011, Dr. Josemanuel Rodriguez HPI Patient here for follow up right knee pain. Patient states she is continuing to have knee pain. Feels her knee pain is better. Patient is concerned she is not going to be able to mow her lawn due to being on a [place] When she walks her dog she has to walk up the hill. Taking Voltaren for the pain. Wears the Reaction knee brace when walking long distances. REVIEW OF SYSTEMS: General: No weight loss, malaise or fevers. Neurological: +essential tremor. No history of TIA's, stroke, DIGITAL PERFORMANCE ANALYST tumor, impaired sensorium, hemiplegia, paraplegia or quadraplegia. No neurological symptoms or problems. Respiratory: +former smoker. No history of current cough or dyspnea, or pneumonia in the past 6 weeks. No history of respiratory/pulmonary symptoms or problems. Cardiovascular: Positive for: arrhythmia (+palpitations, on rx) and hypertension Negative for: atrial fibrillation, CAD, chest pain, CHF, congenital heart defect, DVT/PE, hyperlipidemia, recent DC, murmur/valvular heart disease, open heart surgery and valve surgery. GI: Positive for: GERD (otc rx as needed), irritable bowel syndrome and history of polyps Negative for: abdominal pain, dysphagia, hepatitis, inflammatory bowel disease, liver disease, nausea, pancreatitis, vomiting and ETOH >2 drinks/day. : Positive for: renal failure. Patient's renal failure is chronic. Negative for: urinary incontinence, nephrolithiasis and urinary tract infection. MEDICAL REGISTRAR: Negative for abnormal vaginal bleeding, abnormal vaginal discharge. Endocrine: No history of diabetes. Has not taken steroids within the past 30 days. No history of endocrinological symptoms or problems. Hematology: No history of bleeding or clotting disorder. Patient is not taking anti-coagulation or platelet medications. No history of hematological symptoms or problems. Oncology: No history of CA metastasis, chemo within 30 days, or radiotherapy within 90 days. No history of oncological symptoms or problems. Psych: No history of psychiatric symptoms or problems. Musculoskeletal: See HPI. Skin: +hx psorasis rx as needed PAST MEDICAL HISTORY Diagnosis Date Adenomatous colon polyp 04/08/2016 Arthropathy, unspecified, site unspecified 10/01/2004 Chronic bilateral low back pain with right-sided sciatica 11/17/2015 Constipation Cyst of breast, left, diffuse fibrocystic 03/09/2013 Diverticulitis of colon (without mention of hemorrhage)(562.11) 10/01/2004 Laisha-Danlos disease 06/29/2013 Family history of malignant neoplasm of gastrointestinal tract daughter Irritable bowel syndrome 10/01/2004 Meralgia paraesthetica 04/24/2010 MVP (mitral valve prolapse) 08/2010 echo wnl Myalgia and myositis, unspecified 10/01/2004 Neuropathy 03/28/2014 Left leg neuritis. Osteopenia 12/11/2007 Stage 3a chronic kidney disease (HCC) 10/08/2020 Ulnar neuropathy of left upper extremity 04/18/2016 PAST SURGICAL HISTORY Procedure Laterality Date COLECTOMY PARTIAL W/ANASTOMOSIS 05/19/2000 sigmoid colon due to diverticulitis COLONOSCOPY 10/26/2014 COLONOSCOPY FLX DX W/COLLJ SPEC WHEN PFRMD 01/23/2017 repeat in 5 years d/t fam Hx LAMINECTOMY W/O FFD > 2 VERT SEG LUMBAR 11/2014 NEUROPLASTY &/TRANSPOS MEDIAN NRV CARPAL TUNNE Left 04/10/2016 Left carpal tunnel release NEUROPLASTY &/TRANSPOSITION ULNAR NERVE ELBOW Left 04/10/2016 Left ulnar nerve decompression at elbow with transposition subcutaneous PAST SURGICAL HISTORY OF 06/2004 Colonoscopy PAST SURGICAL HISTORY OF Left 1993 Joint replacement in thumb PAST SURGICAL HISTORY OF Right 09/2009 Rotator Cuff Repair PAST SURGICAL HISTORY OF Bilateral 05/2009 Breast Reduction PAST SURGICAL HISTORY OF Left 2010 foot surgery, joint removed from 2nd toe due to fracture PAST SURGICAL HISTORY OF Bilateral 2012 trigger thumbs REPAIR FIRST ABDOMINAL WALL HERNIA 10/2000 Hernia repair, incisional FAMILY HISTORY Problem Relation Age of Onset Stroke Mother Hypertension Mother Diabetes Mother Breast Cancer Mother Dx in 40's Heart Father mi Hypertension Father Colon Cancer D[facility] at 21 [facility] Daughter Social History Tobacco Use Smoking status: Former Packs/day: 1.50 Years: 4.00 Pack years: 6.00 Types: Cigarettes Quit date: 02/11/1976 Years since quittin.3 Smokeless tobacco: Never Vaping Use Vaping Use: Never used Substance Use Topics Alcohol use: Yes Comment: rarely Drug use: No Prior to Admission medications as of 06/24/22 1118 Medication Sig Last Dose Taking diclofenac, EC, (VOLTAREN) 75 mg EC tablet Take 1 tablet by mouth twice daily. for pain. Taking Yes betamethasone dipropionate, augmented (DIPROLENE) 0.05 % cream APPLY A THIN LAYER OF CREAM TOPICALLY TO AFFECTED AREA OF THE BODY TWICE DAILY FOR 2 WEEKS NEEDED FOR FLARES. Taking Yes traMADol (ULTRAM) 50 mg tablet Take 2 tablets by mouth twice daily for 90 days. Taking Yes cyclobenzaprine (FLEXERIL) 10 mg tablet Take 1 tablet by mouth at bedtime as needed. AT BEDTIME. Taking Yes metoprolol succinate ER (TOPROL XL) 25 mg 24 hr tablet Take 1 tablet by mouth every evening. TakingYes gabapentin (NEURONTIN) 300 mg capsule TAKE 2 CAPSULES TWICE A DAY AND 3 CAPSULES AT BEDTIME Yes dicyclomine (BENTYL) 10 mg capsule Take 1 capsule by mouth before meals and at bedtime. Patient taking differently: Take 10 mg by mouth before meals and at bedtime. Patient taking PRN Taking Yes traMADol (ULTRAM) 50 mg tablet Take 2 tablets by mouth three times daily as needed for pain for up to 7 days. No medication comments found. ALLERGIES Allergen Reactions Hydrocodone Itching Macrobid [Nitrofura* Rash Drug rash scalp, face, hands, intense pruritis. Ragweed Pollen Cough Tagamet [Cimetidine] Unknown Objective PHYSICAL EXAM: General: alert and oriented (x3) and healthy appearance. Pertinent negatives noted - not distressed. Skin: normal color, no rash or lesions. HEENT: EOM intact and pupils equal round. Pertinent negatives noted - no carotid bruit. Cardiovascular: regular rate and rhythm, normal S1 and S2, no rub, murmurs, or gallop. Respiratory: normal breath sounds, no wheezes or crackles. No chest wall deformity or tenderness. Abdomen: soft. Pertinent negatives noted - not tender. Extremities: no deformity, no edema or tenderness, no joint swelling or clubbing. Neurological: normal cognition and motor skills. Gait normal. No weakness or sensory deficit. PAIN ASSESSMENT: Pain Pain Level: 7 Pain Location: Knee-Right Description: Sharp, Aching Duration Amount of Time: 4 Duration Units: Months Frequency: Continuous Intervention/Comfort measure: Cold, Medication (physical therapy, brace) VITALS: BP 120/72 Pulse 67 Temp (Src) 97.9 (Temporal) Resp 14 Ht 5' 4 (1.63m) Wt 162 lb (73.5kg) SpO2 96% BMI 27.79 kg/(m^2). Diagnostic tests reviewed for today's visit: Lab Value Units Date High Low HB No results within date range. HCT No results within date range. WBC No results within date range. PLT No results within date range. NA No results within date range. K No results within date range. GLUC No results within date range. BUN No results within date range. CREAT No results within date range. PTSEC No results within date range. INR No results within date range. APTT No results within date range. ALT No results within date range. AST No results within date range. TBILI No results within date range. TSH No results within date range. Lab Value Units Date High Low HCGQT No results within date range. UHCG No results within date range. HCG, BODY* No results within date range. Lab Value Units Date High Low ABORHD No results within date range. ABSCREEN No results within date range. No results found for: HBA1C Recent Results (from the past 8760 hour(s)) ECG COMPLETE Collection Time: 07/17/21 3:09 PM Result Value Ventricular Rate 60 Atrial Rate 60 P-R Interval 176 QRS Duration 78 QT Interval 440 QTC Calculation (Bazett) 440 Calculated P [place] -4 Calculated R [place] 9 Calculated T [place] 17 Impression NORMAL SINUS RHYTHM LOW VOLTAGE QRS, CONSIDER PULMONARY DISEASE, PERICARDIAL EFFUSION, OR NORMAL VARIANT , AGE UNDETERMINED ABNORMAL ECG No results found for this or any previous visit (from the past 63683 hour(s)). Assessment Patient has the following medical conditions which may affect jimy-operative course: IRRITABLE COLON Assessment: rx as needed MVP (Mitral Valve Prolapse) Assessment: hx 2010 Echo on file no mention of MVP but does have 1+ MR CONCLUSIONS: - The left ventricle is normal in size. Left ventricular systolic function is normal. EF = 65 5% (visual est.) - The right ventricle is normal in size. Right ventricular systolic function is normal. - Normal diastolic function. - Mildly thickened mitral valve leaflets with 1+ MR. No MVP. - Trivial-1+ TR. RVSP 21mmHg. - No valvular stenosis. - Trivial PI. - There is no previous echo for comparison. Neuropathy (HCC) Assessment: left left distal peroneal/tibial neuropathy, controlled on rx Lumbar disc herniation with radiculopathy Assessment: rx as needed Palpitations Assessment: controlled on rx, asymptomatic currently, PCP managing Essential hypertension Assessment: controlled on rx Last 14 BP Last 14 Encounter BP Readings: Date: BP: 06/24/2022 120/72 05/30/2022 138/84 04/23/2022 134/83 04/16/2022 134/84 02/12/2022 141/74 10/17/2021 130/78 07/17/2021 144/78 06/01/2021 142/82 05/27/2021 154/86 04/11/2021 151/78 08/17/2020 134/80 07/17/2020 124/82 05/14/2020 132/82 05/11/2020 140/88 Memory changes Assessment: pt denies any acute issues, A&Ox3, answered all questions appropriately Stage 3a chronic kidney disease (HCC) Assessment: hx, new labs pending Creatinine Date Value Ref Range Status 10/17/2021 1.00 (H) 0.58 - 0.96 mg/dL Final 10/04/2020 0.99 (H) 0.58 - 0.96 mg/dL Final 01/17/2020 1.00 (H) 0.58 - 0.96 mg/dL Final 10/07/2018 1.08 (H) 0.58 - 0.96 mg/dL Final GERD (gastroesophageal reflux disease) Assessment: otc rx as needed Former smoker Assessment: 0.5ppd/5 years, denies asthma or COPD Essential tremor Assessment: on rx PONV (postoperative nausea and vomiting) Assessment: hx Beckman Activity Status Index: METS: Climb a flight of stairs or walk up a hill (5.50 METs) DASI Score: 5.5 Patient denies any chest pain or undue shortness of breath with the above physical activity. Clinical Frailty Scale: 3. Well, with treated comorbid disease STOP-Bang Score: Has or is being treated for high blood pressure Patient over 50 years old Denies snoring loudly Denies feeling tired, fatigued, or sleepy during the daytime Has not been observed to stop breathing or choking/gasping during sleep BMI less than or equal to 35 kg/m^2 Does not have a large neck Non-male patient STOP-Bang Score: 2 [id number] Score: Age: 65-74 Sex: female CHF history: No Hypertension history: Yes Stroke/TIA/thromboembolism history: No Vascular disease history: No Diabetes history: No [id number] Score: 3 ARISCAT Score: Age: 51-80 Preoperative SpO2: >=96% Respiratory infection in the last month: No Preoperative anemia: Yes Surgical incision: peripheral Duration of surgery: <2 hrs Emergency procedure: No ARISCAT Score: 14 ASA Class: 3 ANESTHESIA FINDINGS: Intubation History: No history of difficult intubation Significant Anesthesia Considerations: potential postop nausea/vomiting Airway History: No history of difficult airway I - PHYSICAL EVALUATION AIRWAY Patient intubated: No. Tracheostomy tube not present Mallampati: II. TM distance: >3 FB. Neck ROM: full ROM without neurological symptoms. Mouth opening: adequate. Short neck: no. Thick neck: no Garcia present: no Lip Bite Test: II Microretrognathia/Micronagthia/Recessed Chin: No DENTAL Dental findings: teeth intact. Additional comments: Crowns/back. II - ANESTHESIA PLAN ASA Score: 3 Anesthetic Plan: other Anesthetic plan additional comments: *PACC/TCI - anesthesia choice. Beta Sudhir Monitoring Plan Post Procedure Analgesic Plan Informed Consent Anesthetic risks, benefits, alternatives, personnel and consent discussed: yes. Patient / Responsible Libertarian agrees to proceed: yes Patient / Surrogate agrees to blood products: blood products not planned Discussed the possibility of lip / dental damage: yes Prepared for Surgery: optimally prepared for surgery. CONSULTS: Patient does not require consults for optimization at this time Planned Anesthetic: other anesthesia choice The Following Tests/Procedures Have Been Initiated: Orders Placed This Encounter >BMP Standing Status: Future Number of Occurrences: 1 Standing Expiration Date: 08/24/2022 Instructions Given to Patient: Instructions located in the after visit summary. Patient given verbal and written preop instructions and voices comprehension and compliance. SIGNATURE: Aniceto Broderick APRN.CNP PATIENT NAME: Lea Barber DATE: June 24, 2022 TIME: 10:56 AM PAGER/CONTACT #: documented in [facility] Instructions* Patient Instructions* Aniceto Broderick APRN.CNP - 06/24/2022 10:55 AM EDT PATIENT PREOPERATIVE INSTRUCTIONS Josemanuel Rodriguez MD has scheduled you for your procedure at this surgery center: [facility]: [phone] -- [address] [address]. Please read below carefully for your personalized instructions. Dietary Restrictions: - No solid food after midnight. - You may have 12 ounces of clear liquids (water, clear juices such as apple juice or gatorade, carbonated beverages, clear tea, black coffee, jello) until 2 hours before scheduled arrival at facility. No red/purple coloring and no creamer/sugar Medications: Unless instructed differently below, stay on all of your medications until your surgery. Approved medications to take the morning of surgery with a sip of water: gabapentin (NEURONTIN), metoprolol tartrate, (LOPRESSOR) If you start any new medications after today's visit, please contact the surgeon's office. Blood Thinning Medications: - Stop NSAIDS (Ibuprofen, Advil, Aleve, Motrin, Celebrex, Mobic, Diclofenac etc.) 7 days before surgery, as directed by your surgeon. - Stop Aspirin 7 days before surgery, as directed by your surgeon. - Stop Vitamin E, ALL multi-vitamins, herbals and dietary supplements 7 days before surgery. - You may take Tylenol (Acetaminophen) or any of your pain medications that do not contain aspirin or NSAIDS as needed. Important Reminders: - Candy, mints, gum and tobacco products are NOT permitted the morning of surgery. - Hearing aids, dentures and glasses may be worn the morning of surgery. - NO jewelry, body piercings, makeup, hairpins or contacts are to be worn the day of surgery. If you develop symptoms such as a fever, cold, or flu, or have other changes to your health within TWO DAYS of scheduled surgery or the morning of surgery, please contact the surgery center above. Personal Belongings: -Please have photo ID and insurance cards. -If you do not have a copy of advance directives on file with us, please bring a copy with you on the day of surgery. - Leave ALL valuables and money at home or with family members. For Outpatient Procedures: - YOU MUST HAVE A RESPONSIBLE COMPUTER APPLICATION DEVELOPER TAKE YOU HOME. A CANNERY TENDER ENGINEER OR CRIMP SETTER CANNOT BE MADE A RESPONSIBLE COMPUTER APPLICATION DEVELOPER. - We recommend that a responsible person stays with you overnight to take care of you. - You cannot stay in a hotel alone after outpatient surgery. You will not be permitted to have yoursurgery, if you do not have someone to take care of you. Arrival Time for Surgery: - The Surgery Center or hospital where you are having surgery will call the afternoon before surgery (or Friday for Friday surgery) with a scheduled arrival time. - If you have not heard by 4 pm, please contact the surgery center above. Please be aware that emergency situations arise, which may delay or change your surgical time. If this happens, we will notify you as soon as possible and regret any inconvenience. If you already have an Advance Directive, please fax a copy to [phone] or email to for it to be added to your chart. If you do not have an Advance Directive, you can find the appropriate form and more information at [email or web address]. We recommend that youcomplete the Advance Directive form found on the website and bring it with you the day of your surgery. It can be witnessed and scanned into your chart that day. Aniceto Broderick APRN.CNP documented in this encounterS[facility] NoteHNO ID: [id number] Author: Devin Hanna PT Service: ? Author Type: Physical Therapist Type: Progress Notes Filed: 06/20/2022 1:03 PM Note Text: Episode Visit Count: 1 Therapist That Will Accept/Oversee The Plan Of Care: Devin Hanna Start of Care Date: 06/19/22 Onset Date: 04/29/21 Plan of Care Certification Date: 06/19/22 Next Certification Due Date: 08/19/22 Patient Identified by Name and Date of : Yes REHABILITATION AND SPORTS THERAPY PHYSICAL THERAPY EVALUATION PLAN OF CARE: Assessment: Lea Barber presents with chief complaint of R knee pain that interferes with standing, sitting, rising from a chair, walking, stair negotiation, bending, heavy exertion, lifting, physical activities, recreational activities, working . She presents with impairments in ADL's, overall function, strength, symptom management, and tissue tenderness. Patient did not complete the PROMIS? (Patient Reported Outcome Measures Information System). Prognosis for therapy is Good due to: current objective clinical presentation, good overall health status, positive past response to therapy, good support system/ coping skills . She will benefit from skilled therapy services to meet the goals established for this plan of care as noted below. Goals for Episode of Care: created on 06/19/22 through 07/20/22 Yancey in home exercise program. Patient will decrease pain rating by 2 points to meet minimal clinical important difference for numeric pain rating scale. Patient will demonstrate increase in RLE strength to 5/5 during manual muscle testing in order to improve function for home management tasks, leisure / recreation skills, moderate to heavy functional tasks, and prior functional tasks. Perform stairs and hills with decreased report of symptoms/pain in 6 weeks. Perform all ADLs without pain. Planned Interventions, Frequency, and Duration: Current Frequency: 2x/week Duration: 4 weeks Total Number of Visits Planned: 8 Planned Treatment Interventions: Therapeutic exercise (26169), Neuromuscular re-education (91376), Manual therapy (01427), Therapeutic activities (12373), Self-longterm management (01740), Patient/Family/Caregiver Education, Body Mechanics Training PLAN FOR NEXT VISIT: Knee and hip strengthening. may try gentle motion on scifit or bike Patient demonstrates good understanding of plan of care and treatment. The above goals and plan of care were discussed and agreed upon by patient/family. SUBJECTIVE: Lea Barber is a 67 year old female seen today for R knee pain for 2 months now. She was stepping down into her garage and had a terrible sharp pain shoot through her knee that left her unable to bear weight for a bit after. Knee had been irritated prior to that, but that pain has now left her mostly off work for a month. Sensations of instability, but reports no episodes of giivng way so far. Functional Limitations: standing, sitting, rising from a chair, walking, stair negotiation, bending, heavy exertion, lifting, physical activities, recreational activities, working Prior Level of Function: Independent without limitations Intake Information: Prescription present Pain: Pain Pain Level: 5 Pain Location: Knee - Right Description: Aching, Sore, Tightness Frequency: Intermittent Post Treatment Pain Post Treatment Pain Level: No Change PROMIS Scales T-scores: mean of general population = 50. 5 points is clinically meaningfully difference Percentiles provide an indication of how the patient's score ranks in relation to the general population. Higher percentile rankings indicate better function/quality of life. 50th percentile is the average of the general population and indicates half of respondents had a worse score. OBJECTIVE MEASURES WITH LEVEL OF FUNCTION: LE AROM R Knee Extension: 3 Degrees R Knee Flexion: 145 Degrees L Knee Extension: 6 Degrees L Knee Flexion: 150 Degrees Special Tests - Knee Knee Special Tests: Donna's Test, Valgus stress at 0 degrees, Valgus stress at 30 degrees, Varus stress at 0 degrees, Varus stress at 30 degrees Donna's Test: Right Positive Valgus stress at 0 degrees: Right Negative (pain) Valgus stress at 30 degrees: Right Negative (pain) Varus stress at 0 degrees: Right Negative (pain) Varus stress at 30 degrees: Right Negative (pain) Education: Education Learning/educational needs: Home exercise program, Plan of Care, Changes in Plan of Care, Body Mechanics TREATMENT: PT Treatment Interventions: Therapeutic Exercise Evaluation Therapeutic Exercise: 1: *Heel slides in sitting or lying 3x10 2: *Gastroc stretch 3x30 sec on R 3: *SLR 3x20 4: *SL hip abduction 3x20 5: *Prone hip extension 3x20 6: *STS 3x20 from chair Skilled Intervention: Patient was educated in proper exercise technique and purpose for exercises. Skilled judgment was provided in selection of approp (more content not included)...[facility]05-11-2023 History of Present illness Narrative* Devin Hanna, PT - 06/20/2022 12:56 PM EDT Episode Visit Count: 1 Therapist That Will Accept/Oversee The Plan Of Care: Devin Hanna Start of Care Date: 06/19/22 Onset Date: 04/29/21 Plan of Care Certification Date: 06/19/22 Next Certification Due Date: 08/19/22 Patient Identified by Name and Date of : Yes REHABILITATION AND SPORTS THERAPY PHYSICAL THERAPY EVALUATION PLAN OF CARE: Assessment: Lea Barber presents with chief complaint of R knee pain that interferes with standing, sitting, rising from a chair, walking, stair negotiation, bending, heavy exertion, lifting, physical activities, recreational activities, working . She presents with impairments in ADL's, overall function, strength, symptom management, and tissue tenderness. Patient did not complete the PROMIS(Patient Reported Outcome Measures Information System). Prognosis for therapy is Good due to: current objective clinical presentation, good overall health status, positive past response to therapy, good support system/ coping skills . She will benefit from skilled therapy services to meet the goals established for this plan of care as noted below. Goals for Episode of Care: created on 06/19/22 through 07/20/22 Yancey in home exercise program. Patient will decrease pain rating by 2 points to meet minimal clinical important difference for numeric pain rating scale. Patient will demonstrate increase in RLE strength to 5/5 during manual muscle testing in order to improve function for home management tasks, leisure / recreation skills, moderate to heavy functionaltasks, and prior functional tasks. Perform stairs and hills with decreased report of symptoms/pain in 6 weeks. Perform all ADLs without pain. Planned Interventions, Frequency, and Duration: Current Frequency: 2x/week Duration: 4 weeks Total Number of Visits Planned: 8 Planned Treatment Interventions: Therapeutic exercise (12681), Neuromuscular re- education (68930), Manual therapy (52594), Therapeutic activities (19858), Self- longterm management (10463), Patient/Family/Caregiver Education, Body Mechanics Training PLAN FOR NEXT VISIT: Knee and hip strengthening. may try gentle motion on scifit or bike Patient demonstrates good understanding of plan of care and treatment. The above goals and plan of care were discussed and agreed upon by patient/family. SUBJECTIVE: Lea Barber is a 67 year old female seen today for R knee pain for 2 months now. She was stepping down into her garage and had a terrible sharp pain shoot through her knee that left her unable to bear weight for a bit after. Knee had been irritated prior to that, but that pain has now left her mostly off work for a month. Sensations of instability, but reports no episodes of giivng way so far. Functional Limitations: standing, sitting, rising from a chair, walking, stair negotiation, bending, heavy exertion, lifting, physical activities, recreational activities, working Prior Level of Function: Independent without limitations Intake Information: Prescription present Pain: Pain Pain Level: 5 Pain Location: Knee - Right Description: Aching, Sore, Tightness Frequency: Intermittent Post Treatment Pain Post Treatment Pain Level: No Change PROMIS Scales T-scores: mean of general population = 50. 5 points is clinically meaningfully difference Percentiles provide an indication of how the patient's score ranks in relation to the general population. Higher percentile rankings indicate better function/quality of life. 50th percentile is the average of the general population and indicates half of respondents had a worse score. OBJECTIVE MEASURES WITH LEVEL OF FUNCTION: LE AROM R Knee Extension: 3 Degrees R Knee Flexion: 145 Degrees L Knee Extension: 6 Degrees L Knee Flexion: 150 Degrees Special Tests - Knee Knee Special Tests: Donna's Test, Valgus stress at 0 degrees, Valgus stress at 30 degrees, Varusstress at 0 degrees, Varus stress at 30 degrees Donna's Test: Right Positive Valgus stress at 0 degrees: Right Negative (pain) Valgus stress at 30 degrees: Right Negative (pain) Varus stress at 0 degrees: Right Negative (pain) Varus stress at 30 degrees: Right Negative (pain) Education: Education Learning/educational needs: Home exercise program, Plan of Care, Changes in Plan of Care, Body Mechanics TREATMENT: PT Treatment Interventions: Therapeutic Exercise Evaluation Therapeutic Exercise: 1: *Heel slides in sitting or lying 3x10 2: *Gastroc stretch 3x30 sec on R 3: *SLR 3x20 4: *SL hip abduction 3x20 5: *Prone hip extension 3x20 6: *STS 3x20 from chair Skilled Intervention: Patient was educated in proper exercise technique and purpose for exercises. Skilled judgment was provided in selection of appropriate interventions. Provided written instruction for home exercise program to facilitate proper performance and compliance. Correct performance of therapeutic exercises was facilitated with verbal, visual, and tactile cuing. Billing * Evaluation Low Complexity: 1 Unit Therapeutic Exercise Treatment Minutes: 25 Total Treatment Time Minutes (timed/untimed): 48 Devin Hanna PT [facility] NoteHNO ID: [id number] Author: Josemanuel Rodriguez MD Service: ? Author Type: Physician Type: Progress Notes Filed: 07/11/2022 9:30 AM Note Text: Josemanuel Rodriguez MD Department of Orthopaedics Orthopaedics [address] [facility] [address] Dept: [phone] Dept June 10, 2022 CHIEF COMPLAINT: Follow Up and Knee Pain of the Right Knee and 4 weeks post visit Right knee pain with Mendy (With injection given/) HPI Patient here for follow up right knee pain. Patient states she is continuing to have knee pain. Feels her knee pain is better. Patient is concerned she is not going to be able to mow her lawn due to being on a [place] When she walks her dog she has to walk up the hill. Taking Voltaren for the pain. Wears the Reaction knee brace when walking long distances. ASSESSMENT: M25.561 Acute pain of right knee (primary encounter diagnosis) M84.469A Insufficiency fracture of tibia, initial encounter M71.21 Synovial cyst of right popliteal space PLAN: We will get her in with some physical therapy. We may have to consider arthroscopic intervention if she continues to have trouble. Ms. Lea Barber was advised as to contrast therapies and/or to take analgesics/anti-inflammatories as needed and all contraindications were reviewed. OBJECTIVE: Ms. Lea Barber is a pleasant 67 year old in no apparent distress. Gen:There were no vitals taken for this visit. nl development, non obese, no deformities ENT: Normocephalic, normal hearing, moist mucosa CV: Pulses:DP/PT= 2+ and symmetric, capillary refill < 2 secs, no peripheral edema/varicosities Skin: no rash, bruising or lesions. Good turgor. Psych: cooperative and appropriate, alert and oriented x 3, good mood and affect. Musculoskeletal: She remains with popliteal fullness. Tender to palpation along the medial joint line and proximal tibia tenderness. Motion is 5-120 degrees. Imaging: IMPRESSION: 1. Extensive complex tearing is present throughout the posterior horn of the medial meniscus including a large radial tear thought to be full-thickness in nature and high-grade partial tearing at the root ligament attachment. 2. Small subcortical insufficiency fracture at the medial tibial plateau. 3. Tricompartmental degenerative change, most pronounced at the medial compartment and at the inferior trochlear groove. 4. Alonso's cyst. 5. Mild quadriceps tendinosis. Nurse Prn: BRISA Transcribe Date/Time: May 09 2022 7:13A Dictated by : МАРИЯ CEDENO MD This examination was interpreted and the report reviewed and electronically signed by: МАРИЯ CEDENO MD on May 09 2022 7:23AM EST Results-Findings * * *Final Report* * * DATE OF EXAM: May 08 2022 4:50PM LDM 0213 - MRI KNEE WO IVCON RT / PROCEDURE REASON: multiple diagnoses * * * * Physician Interpretation * * * * EXAM TITLE: MRI KNEE WO IVCON RT DATE:05/08/2022 COMPARISON: Radiograph 04/23/2022 CLINICAL INDICATION/HISTORY: Right knee pain TECHNIQUE: MRI of the knee performed as per routine protocol. FINDINGS: There is extensive tearing throughout the posterior horn of the medial meniscus. This includes a large radial tear which appears to extend through the entire AP thickness of the posterior horn. Tearing continues both medially and laterally from the radial tear with a high-grade partial tear far laterally at the root ligament attachment as seen on sagittal images 17 and 18. There is also posterior meniscal capsular separation. There is no tear of the lateral meniscus. The collateral and cruciate ligaments are intact. Normal patellar tendon. There is mild quadriceps tendinosis. There is severe loss of articular cartilage throughout the medial compartment. Regions of exposed bone are present, most pronounced at the tibial plateau. There is mild marginal osteophytosis. There is also full-thickness cartilaginous loss at the inferior portion of the trochlear groove with exposed bone. There is cortical irregularity and subcortical degenerative change. There is moderate chondral loss throughout the remainder of the compartment. Regions of full-thickness fissuring are seen at the patella. There is moderate loss of cartilage at the lateral compartment of the knee. As seen on sagittal image 22 and coronal image 17, there appears to be a very small subcortical insufficiency fracture at the medial tibial plateau. No joint effusion. 9 cm Alonso's cyst. Supporting Subjective Information Below: Past Surgical History: PAST SURGICAL HISTORY Procedure Laterality Date COLECTOMY PARTIAL W/ANASTOMOSIS 05/19/2000 sigmoid colon due to diverticulitis COLONOSCOPY 10/26/2014 COLONOSCOPY FLX DX W/COLLJ SPEC WHEN PFRMD 01/23/2017 repeat in 5 years d/t fam Hx LAMINECTOMY W/O FFD > 2 VERT SEG LUMBAR 11/2014 NEUROPLASTY AND/TRANSPOS MEDIAN NRV CARPAL TUNNE Left (more content not included)...[facility]05-01-2023 History of Present illness Narrative* Josemanuel Rodriguez MD - 06/10/2022 8:53 AM EDT Josemanuel Rodriguez MD Department of Orthopaedics Orthopaedics [address] [facility] [address] Dept: [phone] Dept June 10, 2022 CHIEF COMPLAINT: Follow Up and Knee Pain of the Right Knee and 4 weeks post visit Right knee pain with Mendy (With injection given/) HPI Patient here for follow up right knee pain. Patient states she is continuing to have knee pain. Feels her knee pain is better. Patient is concerned she is not going to be able to mow her lawn due to being [place] a [place] When she walks her dog she has to walk up the hill. Taking Voltaren for the pain. Wears the Reaction knee brace when walking long distances. ASSESSMENT: M25.561 Acute pain of right knee (primary encounter diagnosis) M84.469A Insufficiency fracture of tibia, initial encounter M71.21 Synovial cyst of right popliteal space PLAN: We will get her in with some physical therapy. We may have to consider arthroscopic intervention ifshe continues to have trouble. Ms. Lea Barber was advised as to contrast therapies and/or to take analgesics/anti-inflammatories as needed and all contraindications were reviewed. OBJECTIVE: Ms. Lea Barber is a pleasant 67 year old in no apparent distress. Gen:There were no vitals taken for this visit. nl development, non obese, no deformities ENT: Normocephalic, normal hearing, moist mucosa CV: Pulses:DP/PT= 2+ and symmetric, capillary refill < 2 secs, no peripheral edema/varicosities Skin: no rash, bruising or lesions. Good turgor. Psych: cooperative and appropriate, alert and oriented x 3, good mood and affect. Musculoskeletal: She remains with popliteal fullness. Tender to palpation along the medial joint line and proximal tibia tenderness. Motion is 5-120 degrees. Imaging: IMPRESSION: 1. Extensive complex tearing is present throughout the posterior horn of the medial meniscus including a large radial tear thought to be full-thickness in nature and high-grade partial tearing at the root ligament attachment. 2. Small subcortical insufficiency fracture at the medial tibial plateau. 3. Tricompartmental degenerative change, most pronounced at the medial compartment and at the inferior trochlear groove. 4. Alonso's cyst. 5. Mild quadriceps tendinosis. Nurse Prn: BRISA Transcribe Date/Time: May 09 2022 7:13A Dictated by : МАРИЯ CEDENO MD This examination was interpreted and the report reviewed and electronically signed by: МАРИЯ CEDENO MD on May 09 2022 7:23AM EST Results-Findings * * *Final Report* * * DATE OF EXAM: May 08 2022 4:50PM LDM 0213 - MRI KNEE WO IVCON RT / PROCEDURE REASON: multiple diagnoses * * * * Physician Interpretation * * * * EXAM TITLE: MRI KNEE WO IVCON RT DATE:05/08/2022 COMPARISON: Radiograph 04/23/2022 CLINICAL INDICATION/HISTORY: Right knee pain TECHNIQUE: MRI of the knee performed as per routine protocol. FINDINGS: There is extensive tearing throughout the posterior horn of the medial meniscus. This includes a large radial tear which appears to extend through the entire AP thickness of the posterior horn. Tearing continues both medially and laterally from the radial tear with a high-grade partial tear far laterally at the root ligament attachment as seen on sagittal images 17 and 18. There is also posterior meniscal capsular separation. There is no tear of the lateral meniscus. The collateral and cruciate ligaments are intact. Normal patellar tendon. There is mild quadriceps tendinosis. There is severe loss of articular cartilage throughout the medial compartment. Regions of exposed bone are present, most pronounced at the tibial plateau. There is mild marginal osteophytosis. There is also full-thickness cartilaginous loss at the inferior portion of the trochlear groove with exposed bone. There is cortical irregularity and subcortical degenerative change. There is moderate chondral loss throughout the remainder of the compartment. Regions of full-thickness fissuring are seen at the patella. There is moderate loss of cartilage at the lateral compartment of the knee. As seen on sagittal image 22 and coronal image 17, there appears to be a very small subcortical insufficiency fracture at the medial tibial plateau. No joint effusion. 9 cm Alonso's cyst. Supporting Subjective Information Below: Past Surgical History: PAST SURGICAL HISTORY Procedure Laterality Date COLECTOMY PARTIAL W/ANASTOMOSIS 05/19/2000 sigmoid colon due to diverticulitis COLONOSCOPY 10/26/2014 COLONOSCOPY FLX DX W/COLLJ SPEC WHEN PFRMD 01/23/2017 repeat in 5 years d/t fam Hx LAMINECTOMY W/O FFD > 2 VERT SEG LUMBAR 11/2014 NEUROPLASTY &/TRANSPOS MEDIAN NRV CARPAL TUNNE Left 04/10/2016 Left carpal tunnel release NEUROPLASTY &/TRANSPOSITION ULNAR NERVE ELBOW Left 04/10/2016 Left ulnar nerve decompression at elbow with transposition subcutaneous PAST SURGICAL HISTORY OF 06/2004 Colonoscopy PAST SURGICAL HISTORY OF Left 1993 Joint replacement in thumb PAST SURGICAL HISTORY OF Right 09/2009 Rotator Cuff Repair PAST SURGICAL HISTORY OF Bilateral 05/2009 Breast Reduction PAST SURGICAL HISTORY OF Left 2010 foot surgery, joint removed from 2nd toe due to fracture PAST SURGICAL HISTORY OF Bilateral 2012 trigger thumbs REPAIR FIRST ABDOMINAL WALL HERNIA 10/2000 Hernia repair, incisional Medications: Current Outpatient Medications Medication Sig traMADol (ULTRAM) 50 mg tablet Take 2 tablets by mouth three times daily as needed for pain for up to 7 days. diclofenac, EC, (VOLTAREN) 75 mg EC tablet Take 1 tablet by mouth twice daily. for pain. betamethasone dipropionate, augmented (DIPROLENE) 0.05 % cream APPLY A THIN LAYER OF CREAM TOPICALLY TO AFFECTED AREA OF THE BODY TWICE DAILY FOR 2 WEEKS NEEDED FOR FLARES. cyclobenzaprine (FLEXERIL) 10 mg tablet Take 1 tablet by mouth at bedtime as needed. AT BEDTIME. metoprolol succinate ER (TOPROL XL) 25 mg 24 hr tablet Take 1 tablet by mouth every evening. gabapentin (NEURONTIN) 300 mg capsule TAKE 2 CAPSULES TWICE A DAY AND 3 CAPSULES AT BEDTIME traMADol (ULTRAM) 50 mg tablet Take 2 tablets by mouth twice daily for 90 days. dicyclomine (BENTYL) 10 mg capsule Take 1 capsule by mouth before meals and at bedtime. (Patient taking differently: Take 10 mg by mouth before meals and at bedtime. Patient taking PRN) No current facility-administered medications for this visit. Allergies: Hydrocodone, Macrobid [Nitrofurantoin Monohyd/M-Cryst], Ragweed Pollen, and Tagamet [Cimetidine] ROS: General (negative for fatigue, malaise, weight loss/gain) HEENT (negative for headache, earache, recent vision changes, sinus pain, sore throat) Respiratory (no recent shortness of breath, hemoptysis) CV (negative for chest tightness, palpitations) Musculoskeletal (see HPI) Psych (no depression, anxiety) Josemanuel Rodriguez MD [facility] Miscellaneous Notes* Telephone Encounter - Mendy Quinteros PA-C - 06/10/2022 8:34 AM EDT Office notes completed. * Telephone Encounter - Tabitha Bardales Ma - 06/06/2022 4:49 PM EDT Please complete and close note. Danae from [facility] completed for billing. documented in this [facility]04-28-2023 Miscellaneous Notes* Result Encounter Note - Claus Magaña MD - 06/07/2022 9:58 AM EDT Negative for DVT. Patient was notified. documented in this [facility]23 NoteHNO ID: [id number] Author: Claus Magaña MD Service: ? Author Type: Physician Type: Progress Notes Filed: 05/30/2022 4:34 PM Note Text: This note was created using Hailo. Subjective Lea Barber is a 67 year old female. She noted a lump of her right calf this afternoon. She had been dealing with right knee pain and had been applying a brace. She was concerned about a DVT, before she flies to [place] in a few hours, and she had to drive out in 45 minutes. She had no prior history of DVT. Review of Systems Constitutional: Negative for fatigue and fever. Respiratory: Negative for shortness of breath. Cardiovascular: Negative for chest pain and leg swelling. ACTIVE PROBLEM LIST Irritable Bowel Syndrome Myalgia Mvp (Mitral Valve Prolapse) Carpal Tunnel Syndrome On Both Sides Neuropathy Lumbar Disc Herniation With Radiculopathy Adenomatous Colon Polyp Acquired Trigger Finger Essential Hypertension Palpitations Memory Changes Stage 3a Chronic Kidney Disease (Hcc) Tremor Current Outpatient Medications Medication Sig traMADol (ULTRAM) 50 mg tablet Take 2 tablets by mouth three times daily as needed for pain for up to 7 days. diclofenac, EC, (VOLTAREN) 75 mg EC tablet Take 1 tablet by mouth twice daily. for pain. betamethasone dipropionate, augmented (DIPROLENE) 0.05 % cream APPLY A THIN LAYER OF CREAM TOPICALLY TO AFFECTED AREA OF THE BODY TWICE DAILY FOR 2 WEEKS NEEDED FOR FLARES. traMADol (ULTRAM) 50 mg tablet Take 2 tablets by mouth twice daily for 90 days. cyclobenzaprine (FLEXERIL) 10 mg tablet Take 1 tablet by mouth at bedtime as needed. AT BEDTIME. metoprolol succinate ER (TOPROL XL) 25 mg 24 hr tablet Take 1 tablet by mouth every evening. gabapentin (NEURONTIN) 300 mg capsule TAKE 2 CAPSULES TWICE A DAY AND 3 CAPSULES AT BEDTIME dicyclomine (BENTYL) 10 mg capsule Take 1 capsule by mouth before meals and at bedtime. (Patient taking differently: Take 10 mg by mouth before meals and at bedtime. Patient taking PRN) No current facility-administered medications for this visit. Objective BP 138/84 (BP Site: Left Arm, BP Position: Sitting, BP Cuff Size: Large Adult) Pulse 84 Resp 16 Wt 73 kg (161 lb) BMI 28.75 kg/m? Physical Exam Constitutional: General: She is not in acute distress. Cardiovascular: Rate and Rhythm: Normal rate. Pulmonary: Effort: Pulmonary effort is normal. Musculoskeletal: Right lower leg: Swelling and tenderness present. No edema. Left lower leg: No edema. Comments: Medial calf swelling mild bruising, mild tenderness, Lisa's positive. Neurological: Mental Status: She is alert. Assessment and Plan 1. Skin lump of leg, right - ICD9: 782.2, ICD10: R22.41 STAT. Further recommendations with result. - US DVT LOWER RIGHT - US LEG VEIN DVT [facility] LAB-- Result negative. Patient discharged from vascular lab. Claus Magaña [facility]04-20-2023 History of Present illness Narrative* Claus Magaña MD - 05/30/2022 2:45 PM EDT This note was created using Mindedriter. Subjective Lea Barber is a 67 year old female. She noted a lump of her right calf this afternoon. She had been dealing with right knee pain and had been applying a brace. She was concerned about a DVT, before she flies to [place] in a few hours, and she had to drive out in 45 minutes. She had no prior history of DVT. Review of Systems Constitutional: Negative for fatigue and fever. Respiratory: Negative for shortness of breath. Cardiovascular: Negative for chest pain and leg swelling. ACTIVE PROBLEM LIST Irritable Bowel Syndrome Myalgia Mvp (Mitral Valve Prolapse) Carpal Tunnel Syndrome On Both Sides Neuropathy Lumbar Disc Herniation With Radiculopathy Adenomatous Colon Polyp Acquired Trigger Finger Essential Hypertension Palpitations Memory Changes Stage 3a Chronic Kidney Disease (Hcc) Tremor Current Outpatient Medications Medication Sig traMADol (ULTRAM) 50 mg tablet Take 2 tablets by mouth three times daily as needed for pain for up to 7 days. diclofenac, EC, (VOLTAREN) 75 mg EC tablet Take 1 tablet by mouth twice daily. for pain. betamethasone dipropionate, augmented (DIPROLENE) 0.05 % cream APPLY A THIN LAYER OF CREAM TOPICALLY TO AFFECTED AREA OF THE BODY TWICE DAILY FOR 2 WEEKS NEEDED FOR FLARES. traMADol (ULTRAM) 50 mg tablet Take 2 tablets by mouth twice daily for 90 days. cyclobenzaprine (FLEXERIL) 10 mg tablet Take 1 tablet by mouth at bedtime as needed. AT BEDTIME. metoprolol succinate ER (TOPROL XL) 25 mg 24 hr tablet Take 1 tablet by mouth every evening. gabapentin (NEURONTIN) 300 mg capsule TAKE 2 CAPSULES TWICE A DAY AND 3 CAPSULES AT BEDTIME dicyclomine (BENTYL) 10 mg capsule Take 1 capsule by mouth before meals and at bedtime. (Patient taking differently: Take 10 mg by mouth before meals and at bedtime. Patient taking PRN) No current facility-administered medications for this visit. Objective BP 138/84 (BP Site: Left Arm, BP Position: Sitting, BP Cuff Size: Large Adult) Pulse 84 Resp 16 Wt 73 kg (161 lb) BMI 28.75 kg/m Physical Exam Constitutional: General: She is not in acute distress. Cardiovascular: Rate and Rhythm: Normal rate. Pulmonary: Effort: Pulmonary effort is normal. Musculoskeletal: Right lower leg: Swelling and tenderness present. No edema. Left lower leg: No edema. Comments: Medial calf swelling mild bruising, mild tenderness, Lisa's positive. Neurological: Mental Status: She is alert. Assessment and Plan 1. Skin lump of leg, right - ICD9: 782.2, ICD10: R22.41 STAT. Further recommendations with result. - US DVT LOWER RIGHT - US LEG VEIN DVT [facility]-- Result negative. Patient discharged from vascular lab. Claus Magaña MD documented in this [facility]23 NoteHNO ID: [id number] Author: Mendy Quinteros PA-C Service: ? Author Type: Physician Temple Marker Type: Progress Notes Filed: 05/13/2022 2:51 PM Note Text: Large Joint Arthro/Inj: R knee joint Informed Consent Consent Obtained: Verbal [place] Protocol A moment to CARE was completed. SIGN IN Sign in communication not applicable due to emergent procedure. Personnel directly involved with the procedure wore the appropriate PPE. Special Equipment: N/A Patient/Surrogate Stated/Verified: Patient name, Date of , Relevant allergies and Intended procedure TIME OUT Intended patient and procedure match the source document(s). Consent documented and matches the intended procedure. Relevant labs, photos, and/or imaging studies have been reviewed. Correct side/site marked and visible. Medications required for procedure verified. No fire risk assessment and interventions applicable. No implant(s) inserted. 05/13/2022 2:22 PM The procedure site was prepped in the usual sterile fashion. Site: R knee joint Medications: 6 mg betamethasone acetate-betamethasone sodium phosphate 6 mg/mL Anesthetics: 5 mL lidocaine (PF) 10 mg/mL (1 %) Outcome: Tolerated well, no immediate complications Post-injection instructions were reviewed with the patient and the patient voiced understanding of these instructions.[facility]04-03-2023 NoteHNO ID: [id number] Author: Amarilys Kraft RN Service: ? Author Type: ? Type: Progress Notes Filed: 05/13/2022 2:51 PM Note Text: AMB ROOMING INTAKE FLOWSHEET DATA Pain Pain Level: 5 Pain Location: Knee-Right Description: Dull, Aching, Sharp Duration Amount of Time: 1 Duration Units: Months Frequency: Intermittent Intervention/Comfort measure: Medication, Reposition, Relaxation, Other: See comment (reaction brace, naproxen) Patient presents with: Right Knee - Follow Up, Knee Pain Patient is here to follow up on R knee pain. Requesting cortisone injection.[facility]04[facility] History of Present illness Narrative* Mendy Quinteros PA-C - 05/13/2022 2:21 PM EDTAssociated Order(s): Large Joint Arthro/Inj: R knee joint Post-Procedure Diagnose(s): Synovial cyst of right popliteal space Large Joint Arthro/Inj: R knee joint Informed Consent Consent Obtained: Verbal [place] Protocol A moment to CARE was completed. SIGN IN Sign in communication not applicable due to emergent procedure. Personnel directly involved with the procedure wore the appropriate PPE. Special Equipment: N/A Patient/Surrogate Stated/Verified: Patient name, Date of , Relevant allergies and Intended procedure TIME OUT Intended patient and procedure match the source document(s). Consent documented and matches the intended procedure. Relevant labs, photos, and/or imaging studies have been reviewed. Correct side/site marked and visible. Medications required for procedure verified. No fire risk assessment and interventions applicable. No implant(s) inserted. 05/13/2022 2:22 PM The procedure site was prepped in the usual sterile fashion. Site: R knee joint Medications: 6 mg betamethasone acetate-betamethasone sodium phosphate 6 mg/mL Anesthetics: 5 mL lidocaine (PF) 10 mg/mL (1 %) Outcome: Tolerated well, no immediate complications Post-injection instructions were reviewed with the patient and the patient voiced understanding of these instructions. * Amarilys Kraft RN - 05/13/2022 1:54 PM EDT AMB ROOMING INTAKE FLOWSHEET DATA Pain Pain Level: 5 Pain Location: Knee-Right Description: Dull, Aching, Sharp Duration Amount of Time: 1 Duration Units: Months Frequency: Intermittent Intervention/Comfort measure: Medication, Reposition, Relaxation, Other: See comment (reaction brace, naproxen) Patient presents with: Right Knee - Follow Up, Knee Pain Patient is here to follow up on R knee pain. Requesting cortisone injection. documented in this [facility]03[facility]23 Miscellaneous Notes* Telephone Encounter - Michelle Rodriguez Ma - 05/10/2022 2:15 PM EDT I spoke to patient on the phone. Appointment changed to Friday at 2 pm. documented in this encounterS[facility]03-[facility]-2023 Miscellaneous Notes* Telephone Encounter - Michelle Rodriguez Ma - 05/10/2022 1:38 PM EDT I called and spoke with patient. Message from Dr. Rodriguez given. Patient wants 1st available appointment. Patient has been scheduled for injection with Mendy Quinteros PA-C on 05/17/2022 at 9 am. 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 All of this likely was present, but the new injury made the situation worse. This cannot be fixed before her trip, but she can certainly get a cortisone injection prior to her trip that might be helpful. After that, if her knee isn't feeling better with normal modalities/treament options, we would haveto discuss a knee arthroscopy procedure to see if that is something she feels necessary. * Telephone Encounter - Stormy Concepcion - 05/09/2022 8:39 AM EDT Pt calling for results of MRI done yesterday at [place]. She is still in a lot of pain. She is tearful. States she has had a trip planned for a long time the week of May 30 and was very hopeful something could be done prior to that due to the pain. Please review and advise. Stormy Concepcion MA documented in this encounterShelby [facility]03-29-2023 NoteHNO ID: [id number] Author: RT Sabino(R) Service: ? Author Type: Technologist Type: Progress Notes Filed: 05/08/2022 4:32 PM Note Text: Radiology Service Progress Note PATIENT NAME: Lea Barber DATE OF SERVICE: May 08, 2022 TIME: 4:31 PM PATIENT IDENTITY VERIFICATION COMPLETED USING TWO (2) IDENTIFIERS: Name and Date of confirmed by patient verbally. FALL SCREENING: Has the patient had 2 falls in the last year or 1 fall with injury or currently using an Ambulatory Assistive Device (Walker, Cane, Wheelchair, Crutches, etc.)? No PATIENT GENDER DATA: Female. status: status: NO. PATIENT RELEVANT IMPLANT DATA REVIEWED: Not Applicable RADIOLOGY DEPARTMENT: MR; Exam(s) Completed: Lower MSK: Knee, right PERIPHERAL IV DATA: Not applicable SIGNED BY: RT Sabino(R) May 08, 2022 4:31 [facility]03-29-2023 History of Present illness Narrative* RT Sabino(R) - 05/08/2022 4:30 PM EDT Radiology Service Progress Note PATIENT NAME: Lea Barber DATE OF SERVICE: May 08, 2022 TIME: 4:31 PM PATIENT IDENTITY VERIFICATION COMPLETED USING TWO (2) IDENTIFIERS: Name and Date of confirmedby patient verbally. FALL SCREENING: Has the patient had 2 falls in the last year or 1 fall with injury or currently using an Ambulatory Assistive Device (Walker, Cane, Wheelchair, Crutches, etc.)? No PATIENT GENDER DATA: Female. status: status: NO. PATIENT RELEVANT IMPLANT DATA REVIEWED: Not Applicable RADIOLOGY DEPARTMENT: MR; Exam(s) Completed: Lower MSK: Knee, right PERIPHERAL IV DATA: Not applicable SIGNED BY: RT Sabino(R) May 08, 2022 4:31 PM documented in this encounterShelby [facility] Hospital03-28-2023 Miscellaneous Notes* Telephone Encounter - Mode Bolden Ma - 05/07/2022 3:34 PM EDT Patient notified, verbalized understanding. Mode Bolden Ma * Telephone Encounter - Temitope Castellano APRN.CNP - 05/07/2022 3:05 PM EDT PDMP website checked and validated. All prescriptions have been APPROPRIATELY filled. No suspiciousactivity was identified. 05/07/2022 by Temitope Castellano APRN.CNP * Telephone Encounter - Soo Lal Pss - 05/07/2022 9:11 AM EDT Patient is calling in today stating that the knee pain is not getting any better and wanted to see if another prescription for pain medication can be sent to pharmacy; at least a few days until she gets her MRI. [facility] in [place]. Contact patient at [phone]. Ms. alarcon documented in this encounterShelby [facility] Hospital2023 NoteHNO ID: [id number] Author: Michelle Rodriguez Ma Service: ? Author Type: ? Type: Progress Notes Filed: 06/09/2022 9:27 PM Note Text: PT ASSESSMENT - CASTING ROOM [facility] presents for Application of brace. Applied m/l reaction knee brace to Right knee. Patient electronically signed Jose LONG. Patient has been instructed in Care and proper application of brace. Michelle Rodriguez [facility]2023 NoteHNO ID: [id number] Author: Josemanuel Rodriguez MD Service: ? Author Type: Physician Type: Progress Notes Filed: 06/09/2022 9:27 PM Note Text: Josemanuel Rodriguez MD Department of Orthopaedics Orthopaedics [address] [facility] [address] Dept: [phone] Dept May 02, 2022 CHIEF COMPLAINT: New and Pain of the Right Knee HPI Patient here today for right knee pain x 2 weeks. States pain started after using exercise bands. 1 week ago she went to take out the trash and stepped down 1 step into her garage and felt sharp shooting pain. She laid on the jordan of her car and cried. She contacted PCP office and was seen . She had x-ray and ultrasound completed at [facility]. 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 She has been using crutches when out of her home. ASSESSMENT: M84.469A Insufficiency fracture of tibia, initial encounter (primary encounter diagnosis) M71.21 Synovial cyst of right popliteal space M25.561 Acute pain of right knee PLAN: Though she does appear to have some very minor arthritic changes on the knee, the degree of her discomfort and the rapid downward course of the knee has been concerned about possibly an insufficiency fracture. Certainly there is a possibility of a meniscus tear, however I would not think she would be having this much level of discomfort with just a simple meniscus. Thus I would like to get an MRI to evaluate the bony structures. We will also get her into a protective brace. FOLLOW UP INSTRUCTIONS: After imaging Ms. Lea Barber was advised as to contrast therapies and/or to take analgesics/anti-inflammatories as needed and all contraindications were reviewed. OBJECTIVE: Ms. Lea Barber is a pleasant 67 year old in no apparent distress. Gen:There were no vitals taken for this visit. nl development, non obese, no deformities ENT: Normocephalic, normal hearing, moist mucosa CV: Pulses:DP/PT= 2+ and symmetric, capillary refill < 2 secs, no peripheral edema/varicosities Skin: no rash, bruising or lesions. Good turgor. Psych: cooperative and appropriate, alert and oriented x 3, good mood and affect. Musculoskeletal: Large Alonso's cyst palpated. She has limited motion lacking 20 degrees and 120 degrees of flexion limited secondary to some swelling and pain. She has medial sided joint space tenderness both over the proximal tibia and in the location of the meniscus. She has a painful Donna's without any mechanical click. She has a positiveThesally's. Neurovascular exam is intact through the lower extremity. IMAGING: IMPRESSION: No acute radiographic abnormalities seen in the right knee. Nurse Prn: PSCB Transcribe Date/Time: Apr 23 2022 11:32A Dictated by : CHER HOUSE MD This examination was interpreted and the report reviewed and electronically signed by: CHER HOUSE MD on Apr 23 2022 11:33AM EST Results-Findings * * *Final Report* * * DATE OF EXAM: Apr 23 2022 11:28AM WOX 5203 - XR KNEE 4V AP/PA BOTH+LAT/ALETA RT / PROCEDURE REASON: Acute pain of right knee * * * * Physician Interpretation * * * * EXAM TITLE: XR KNEE 4V AP/PA BOTH+LAT/ALETA RT EXAM DATE/TIME: 04/23/2022 11:28 AM COMPARISON: None. CLINICAL INDICATION/HISTORY: Acute knee pain. TECHNIQUE: AP/PA, lateral and sunrise views of the right knee are presented. FINDINGS: No acute fractures or subluxations are noted. No obvious osteophyte formation. The joint spaces are well preserved. There is no evidence of joint effusion. The mineralization of the bones is normal. There is no significant soft tissue swelling. 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 Osteopenia 12/11/2007 Stage 3a chronic kidney disease (HCC) 10/08/2020 Ulnar neuropathy of left upper extremity 04/18/2016 Past Surgical History: PAST SURGICAL HISTORY Procedure Laterality Date COLECTOMY PARTIAL W/ANASTOMOSIS 05/19/2000 sigmoid colon due to diverticulitis COLONOSCOPY 10/26/2014 COLONOSCOPY FLX DX W/COLLJ SPEC WHEN PFRMD 01/23/2017 repeat in 5 years d/t fam Hx LAMINECTOMY W/O FFD > 2 VERT SEG LUMBAR 11/2014 NEUROPLASTY AND/TRANSPOS MEDIAN NRV CARPAL TUNNE Left 04/10/2016 Left carpal tunnel release NEUROPLASTY AN (more content not included)...[facility] 05-02-2022 History of Present illness Narrative* Michelle Rodriguez Ma - 05/02/2022 4:36 PM EDT PT ASSESSMENT - CASTING ROOM Lea presents for Application of brace. Applied m/l reaction knee brace to Right knee. Patient electronically signed Jose LONG. Patient has been instructed in Care and proper application of brace. Michelle Rodriguez Ma * Josemanuel Rodriguez MD - 05/02/2022 3:32 PM EDT Josemanuel Rodriguez MD Department of Orthopaedics Orthopaedics [address] [facility] [address] Dept: [phone] Dept May 02, 2022 CHIEF COMPLAINT: New and Pain of the Right Knee HPI Patient here today for right knee pain x 2 weeks. States pain started after using exercise bands. 1 week ago she went to take out the trash and stepped down 1 step into her garage and felt sharp shooting pain. She laid on the jordan of her car and cried. She contacted PCP office and was seen . She had x-ray and ultrasound completed at [facility]. 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 She has been using crutches when out of her home. ASSESSMENT: M84.469A Insufficiency fracture of tibia, initial encounter (primary encounter diagnosis) M71.21 Synovial cyst of right popliteal space M25.561 Acute pain of right knee PLAN: Though she does appear to have some very minor arthritic changes on the knee, the degree of her discomfort and the rapid downward course of the knee has been concerned about possibly an insufficiencyfracture. Certainly there is a possibility of a meniscus tear, however I would not think she would be having this much level of discomfort with just a simple meniscus. Thus I would like to get an MRIto evaluate the bony structures. We will also get her into a protective brace. FOLLOW UP INSTRUCTIONS: After imaging Ms. Lea Barber was advised as to contrast therapies and/or to take analgesics/anti-inflammatories as needed and all contraindications were reviewed. OBJECTIVE: Ms. Lea Barber is a pleasant 67 year old in no apparent distress. Gen:There were no vitals taken for this visit. nl development, non obese, no deformities ENT: Normocephalic, normal hearing, moist mucosa CV: Pulses:DP/PT= 2+ and symmetric, capillary refill < 2 secs, no peripheral edema/varicosities Skin: no rash, bruising or lesions. Good turgor. Psych: cooperative and appropriate, alert and oriented x 3, good mood and affect. Musculoskeletal: Large Alonso's cyst palpated. She has limited motion lacking 20 degrees and 120 degrees of flexion limited secondary to some swelling and pain. She has medial sided joint space tenderness both over the proximal tibia and in the location of the meniscus. She has a painful Donna's without any mechanical click. She has a positiveThesally's. Neurovascular exam is intact through the lower extremity. IMAGING: IMPRESSION: No acute radiographic abnormalities seen in the right knee. [facility] Pr[facility] Transcribe Date/Time: Apr 23 2022 11:32A Dictated by : CHER HOUSE MD This examination was interpreted and the report reviewed and electronically signed by: CHER HOUSE MD on Apr 23 2022 11:33AM EST Results-Findings * * *Final Report* * * DATE OF EXAM: Apr 23 2022 11:28AM WOX 5203 - XR KNEE 4V AP/PA BOTH+LAT/ALETA RT / PROCEDURE REASON: Acute pain of right knee * * * * Physician Interpretation * * * * EXAM TITLE: XR KNEE 4V AP/PA BOTH+LAT/ALETA RT EXAM DATE/TIME: 04/23/2022 11:28 AM COMPARISON: None. CLINICAL INDICATION/HISTORY: Acute knee pain. TECHNIQUE: AP/PA, lateral and sunrise views of the right knee are presented. FINDINGS: No acute fractures or subluxations are noted. No obvious osteophyte formation. The joint spaces are well preserved. There is no evidence of joint effusion. The mineralization of the bones is normal. There is no significant soft tissue swelling. 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 Osteopenia 12/11/2007 Stage 3a chronic kidney disease (HCC) 10/08/2020 Ulnar neuropathy of left upper extremity 04/18/2016 Past Surgical History: PAST SURGICAL HISTORY Procedure Laterality Date COLECTOMY PARTIAL W/ANASTOMOSIS 05/19/2000 sigmoid colon due to diverticulitis COLONOSCOPY 10/26/2014 COLONOSCOPY FLX DX W/COLLJ SPEC WHEN PFRMD 01/23/2017 repeat in 5 years d/t fam Hx LAMINECTOMY W/O FFD > 2 VERT SEG LUMBAR 11/2014 NEUROPLASTY &/TRANSPOS MEDIAN NRV CARPAL TUNNE Left 04/10/2016 Left carpal tunnel release NEUROPLASTY &/TRANSPOSITION ULNAR NERVE ELBOW Left 04/10/2016 Left ulnar nerve decompression at elbow with transposition subcutaneous PAST SURGICAL HISTORY OF 06/2004 Colonoscopy PAST SURGICAL HISTORY OF Left 1993 Joint replacement in thumb PAST SURGICAL HISTORY OF Right 09/2009 Rotator Cuff Repair PAST SURGICAL HISTORY OF Bilateral 05/2009 Breast Reduction PAST SURGICAL HISTORY OF Left 2010 foot surgery, joint removed from 2nd toe due to fracture PAST SURGICAL HISTORY OF Bilateral 2012 trigger thumbs REPAIR FIRST ABDOMINAL WALL HERNIA 10/2000 Hernia repair, incisional Family History: FAMILY HISTORY Problem Relation Age of Onset Stroke Mother Hypertension Mother Diabetes Mother Breast Cancer Mother Dx in 40's Heart Father mi Hypertension Father Colon Cancer Daughter Dx at 21 other ([facility]) Daughter Social History: Social History Tobacco Use Smoking status: Former Packs/day: 1.50 Years: 4.00 Pack years: 6.00 Types: Cigarettes Quit date: 02/11/1976 Years since quittin.2 Smokeless tobacco: Never Vaping Use Vaping Use: Never used Substance Use Topics Alcohol use: Yes Comment: rarely Drug use: No Medications: Current Outpatient Medications Medication Sig oxyCODONE-acetaminophen (PERCOCET) 5-325 mg tablet Take 1 tablet by mouth every 8 hours as needed for pain for up to 3 days. betamethasone dipropionate, augmented (DIPROLENE) 0.05 % cream APPLY A THIN LAYER OF CREAM TOPICALLY TO AFFECTED AREA OF THE BODY TWICE DAILY FOR 2 WEEKS NEEDED FOR FLARES. cyclobenzaprine (FLEXERIL) 10 mg tablet Take 1 tablet by mouth at bedtime as needed. AT BEDTIME. naproxen (NAPROSYN) 500 mg tablet TAKE 1 TABLET TWICE A DAY WITH MEALS/FOOD metoprolol succinate ER (TOPROL XL) 25 mg 24 hr tablet Take 1 tablet by mouth every evening. gabapentin (NEURONTIN) 300 mg capsule TAKE 2 CAPSULES TWICE A DAY AND 3 CAPSULES AT BEDTIME traMADol (ULTRAM) 50 mg tablet Take 2 tablets by mouth twice daily for 90 days. (Patient not taking: Reported on 05/02/2022) dicyclomine (BENTYL) 10 mg capsule Take 1 capsule by mouth before meals and at bedtime. (Patient taking differently: Take 10 mg by mouth before meals and at bedtime. Patient taking PRN ) No current facility-administered medications for this visit. Allergies: Hydrocodone, Macrobid [Nitrofurantoin Monohyd/M-Cryst], Ragweed Pollen, and Tagamet [Cimetidine] ROS: General (negative for fatigue, malaise, weight loss/gain) HEENT (negative for headache, earache, recent vision changes, sinus pain, sore throat) Respiratory (no recent shortness of breath, hemoptysis) CV (negative for chest tightness, palpitations) Musculoskeletal (see HPI) Psych (no depression, anxiety) REFERRING PHYSICIAN: Consultation requested by Temitope Castellano for an opinion regarding knee pain. My final recommendations will be communicated back to the requesting physician by way of shared Medical record or letter to requesting physician via US mail. Temitope Castellano [address] [facility] [id number] Claus Magaña MD [address] [facility] [id number] Josemanuel Rodriguez MD documented in this encounterShelby [facility] Hospital03-22-2023 Miscellaneous Notes* Telephone Encounter - Mode Bolden Ma - 05/01/2022 11:17 AM EDT Patient notified, verbalized understanding. * Telephone Encounter - Temitope Castellano APRN.CNP - 05/01/2022 7:48 AM EDT PDMP website checked and validated. All prescriptions have been APPROPRIATELY filled. No suspiciousactivity was identified. 05/01/2022 by Temitope Castellano APRN.CNP * Telephone Encounter - Mode Bolden Ma - 04/30/2022 4:06 PM EDT TC to Radiology dept. Spoke with PSS. Patient has been scheduled for tomorrow 05/01/2022 @ 4:00 pm. Patient notified and advised to check for any instructions pertaining to this visit under appointments in her mychart.. * Telephone Encounter - Kajal Lynne - 04/30/2022 3:51 PM EDT Nothing avaible here until May 10. [facility] is booking out just as far. Pt doesn't want to drive far. Could we fax order to [facility] or what would her other options be? Please advise pt. * Telephone Encounter - Mode Bolden Ma - 04/30/2022 3:34 PM EDT Patient notified, verbalized understanding and transferred to schedulers. Patient states that she would like to try something stronger than Tramadol - please send to [facility] * Telephone Encounter - Temitope Castellano APRN.CNP - 04/30/2022 3:05 PM EDT Recommend checking stat ultrasound to rule out DVT, okay to do tomorrow. I can give her something stronger than Tramadol for the pain if she would like Temitope Castellano APRN.CNP * Telephone Encounter - Viky Crocker LPN - 04/30/2022 2:54 PM EDT Pt had appt 04/23 for right knee pain. Pt reports her knee hurts worse now. Pt reports on 04/26 she went to take her trash out into the garage and stepped down wrong with right leg and pain shot up through knee. Pt reports pain is an 8 when walking. Pt reports she has been laying around on getting upwhen she has to. Pt reports she cannot use crutches because left leg has neuropathy and it is not secure enough to put weight on it. Pt is asking what she can do next. Viky Crocker LPN documented in this encounterShelby [facility] Hospital03-14-2023 NoteHNO ID: [id number] Author: RT Jam(R) Service: ? Author Type: Rehabilitation Consultant Type: Progress Notes Filed: 04/23/2022 11:28 AM Note Text: Radiology Service Progress Note PATIENT NAME: Lea Barber DATE OF SERVICE: April 23, 2022 TIME: 11:08 AM PATIENT IDENTITY VERIFICATION COMPLETED USING TWO (2) IDENTIFIERS: Name and Date of confirmed by patient verbally. FALL SCREENING: Has the patient had 2 falls in the last year or 1 fall with injury or currently using an Ambulatory Assistive Device (Walker, Cane, Wheelchair, Crutches, etc.)? No PATIENT GENDER DATA: Female. status: : No status: NO. PATIENT RELEVANT IMPLANT DATA REVIEWED: Yes RADIOLOGY DEPARTMENT: General X-ray: Exam(s) Completed: Lower Extremity X-Ray(s): Knee, AP / Lat / Tunne / Merchant Right PERIPHERAL IV DATA: Not applicable SIGNED BY: RT Jam(R) April 23, 2022 11:08 [facility]03-14-2023 NoteHNO ID: [id number] Author: Temitope Castellano APRN.ASA Service: ? Author Type: Nurse Practitioner Type: Progress Notes Filed: 04/23/2022 11:24 AM Note Text: CC: Patient presents with: RIGHT KNEE PAIN X 5 DAYS HPI Lea Barber is a 67 year old female who presents today for right knee pain starting about five days ago after doing her usual daily leg stretching exercises with bands. Located: behind the knee and now also medial side. Described as constant sharp pain except when she is sitting. Aggravated by: any weight bearing Denies swelling/redness Knee popping or clicking with movement? No Knee locking or feel like is giving-out? 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 Osteopenia 12/11/2007 Stage 3a chronic kidney disease (HCC) 10/08/2020 Ulnar neuropathy of left upper extremity 04/18/2016 PAST SURGICAL HISTORY Procedure Laterality Date COLECTOMY PARTIAL W/ANASTOMOSIS 05/19/2000 sigmoid colon due to diverticulitis COLONOSCOPY 10/26/2014 COLONOSCOPY FLX DX W/COLLJ SPEC WHEN PFRMD 01/23/2017 repeat in 5 years d/t fam Hx LAMINECTOMY W/O FFD > 2 VERT SEG LUMBAR 11/2014 NEUROPLASTY AND/TRANSPOS MEDIAN NRV CARPAL TUNNE Left 04/10/2016 Left carpal tunnel release NEUROPLASTY AND/TRANSPOSITION ULNAR NERVE ELBOW Left 04/10/2016 Left ulnar nerve decompression at elbow with transposition subcutaneous PAST SURGICAL HISTORY OF 06/2004 Colonoscopy PAST SURGICAL HISTORY OF Left 1993 Joint replacement in thumb PAST SURGICAL HISTORY OF Right 09/2009 Rotator Cuff Repair PAST SURGICAL HISTORY OF Bilateral 05/2009 Breast Reduction PAST SURGICAL HISTORY OF Left 2010 foot surgery, joint removed from 2nd toe due to fracture PAST SURGICAL HISTORY OF Bilateral 2012 trigger thumbs REPAIR FIRST ABDOMINAL WALL HERNIA 10/2000 Hernia repair, incisional ALLERGIES Hydrocodone, Macrobid [Nitrofurantoin Monohyd/M-Cryst], Ragweed Pollen, and Tagamet [Cimetidine] MEDICATIONS betamethasone dipropionate, augmented (DIPROLENE) 0.05 % cream APPLY A THIN LAYER OF CREAM TOPICALLY TO AFFECTED AREA OF THE BODY TWICE DAILY FOR 2 WEEKS NEEDED FOR FLARES. traMADol (ULTRAM) 50 mg tablet Take 2 tablets by mouth twice daily for 90 days. cyclobenzaprine (FLEXERIL) 10 mg tablet Take 1 tablet by mouth at bedtime as needed. AT BEDTIME. naproxen (NAPROSYN) 500 mg tablet TAKE 1 TABLET TWICE A DAY WITH MEALS/FOOD metoprolol succinate ER (TOPROL XL) 25 mg 24 hr tablet Take 1 tablet by mouth every evening. gabapentin (NEURONTIN) 300 mg capsule TAKE 2 CAPSULES TWICE A DAY AND 3 CAPSULES AT BEDTIME dicyclomine (BENTYL) 10 mg capsule Take 1 capsule by mouth before meals and at bedtime. (Patient taking differently: Take 10 mg by mouth before meals and at bedtime. Patient taking PRN ) FAMILY HISTORY Problem Relation Age of Onset Stroke Mother Hypertension Mother Diabetes Mother Breast Cancer Mother Dx in 40's Heart Father mi Hypertension Father Colon Cancer Daughter Dx at 21 other ([facility]) Daughter Social History Tobacco Use Smoking status: Former Packs/day: 1.50 Years: 4.00 Pack years: 6.00 Types: Cigarettes Quit date: 02/11/1976 Years since quittin.2 Smokeless tobacco: Never Vaping Use Vaping Use: Never used Substance Use Topics Alcohol use: Yes Comment: rarely Drug use: No PHYSICAL EXAM BP 134/83 Pulse 74 Resp 14 Wt 72.6 kg (160 lb) BMI 28.57 kg/m? General Appearance: well appearing, in no acute distress, alert Musculoskeletal: Right knee- No swelling, redness of bruising. Tenderness with palpation of entire anterior and posterior knee. Flexion:Limitation: No, Pain:Yes; Extension:Limitation:No, Pain:No. Laxity: No Lower extremities: no edema in LE bilaterally, good distal pulses. Muscle strength- 5/5 bilaterally ASSESSMENT/PLAN: 1. Acute pain of right knee - ICD9: 719.46, ICD10: M25.561 Differentials include osteoarthritis, muscle strain, tendinopathy - XR KNEE GENERAL 4V AP BOTH/PA BOTH/LAT/MERC RIGHT - increase Naproxen to three times a day with meals x 1 week. Can also use topical Voltaren OTC - cont (more content not included)...[facility]03-14-2023 Miscellaneous Notes* Telephone Encounter - Rizwana Clarke LPN - 04/23/2022 12:03 PM EDT Patient notified, verbalized understanding. Rizwana Clarke LPN * Telephone Encounter - Rizwana Clarke LPN - 04/23/2022 12:02 PM EDT ----- Message from Temitope Castellano APRN.CNP sent at 04/23/2022 11:40 AM EDT ----- Please let the patient know the x-ray of her knee was normal and no signs of osteoarthritis. Pain likely due to tendon or muscle strain. documented in this encounterS[facility]23 Instructions* Patient Instructions* Temitope Castellano APRN.CNP - 04/23/2022 10:47 AM EDT Recommend neoprene knee sleeve for compression Increase Naproxen to three times a day with meals for one week only. Continue with ice, can alternate with heat. Can also try a topical medication called Voltaren gel, follow package directions. Use crutches to limit weight bearing activity for the next few days. documented in this encounterShel[facility]03-14-[facility]23 History of Present illness Narrative* Temitope Castellano APRN.CNP - 04/23/2022 10:34 AM EDT CC: Patient presents with: RIGHT KNEE PAIN X 5 DAYS HPI Lea Barber is a 67 year old female who presents today for right knee pain starting about fivedays ago after doing her usual daily leg stretching exercises with bands. Located: behind the knee and now also medial side. Described as constant sharp pain except when sheis sitting. Aggravated by: any weight bearing Denies swelling/redness Knee popping or clicking with movement? No Knee locking or feel like is giving-out? 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 Osteopenia 12/11/2007 Stage 3a chronic kidney disease (HCC) 10/08/2020 Ulnar neuropathy of left upper extremity 04/18/2016 PAST SURGICAL HISTORY Procedure Laterality Date COLECTOMY PARTIAL W/ANASTOMOSIS 05/19/2000 sigmoid colon due to diverticulitis COLONOSCOPY 10/26/2014 COLONOSCOPY FLX DX W/COLLJ SPEC WHEN PFRMD 01/23/2017 repeat in 5 years d/t fam Hx LAMINECTOMY W/O FFD > 2 VERT SEG LUMBAR 11/2014 NEUROPLASTY &/TRANSPOS MEDIAN NRV CARPAL TUNNE Left 04/10/2016 Left carpal tunnel release NEUROPLASTY &/TRANSPOSITION ULNAR NERVE ELBOW Left 04/10/2016 Left ulnar nerve decompression at elbow with transposition subcutaneous PAST SURGICAL HISTORY OF 06/2004 Colonoscopy PAST SURGICAL HISTORY OF Left 1993 Joint replacement in thumb PAST SURGICAL HISTORY OF Right 09/2009 Rotator Cuff Repair PAST SURGICAL HISTORY OF Bilateral 05/2009 Breast Reduction PAST SURGICAL HISTORY OF Left 2010 foot surgery, joint removed from 2nd toe due to fracture PAST SURGICAL HISTORY OF Bilateral 2012 trigger thumbs REPAIR FIRST ABDOMINAL WALL HERNIA 10/2000 Hernia repair, incisional ALLERGIES Hydrocodone, Macrobid [Nitrofurantoin Monohyd/M-Cryst], Ragweed Pollen, and Tagamet [Cimetidine] MEDICATIONS betamethasone dipropionate, augmented (DIPROLENE) 0.05 % cream APPLY A THIN LAYER OF CREAM TOPICALLY TO AFFECTED AREA OF THE BODY TWICE DAILY FOR 2 WEEKS NEEDED FOR FLARES. traMADol (ULTRAM) 50 mg tablet Take 2 tablets by mouth twice daily for 90 days. cyclobenzaprine (FLEXERIL) 10 mg tablet Take 1 tablet by mouth at bedtime as needed. AT BEDTIME. naproxen (NAPROSYN) 500 mg tablet TAKE 1 TABLET TWICE A DAY WITH MEALS/FOOD metoprolol succinate ER (TOPROL XL) 25 mg 24 hr tablet Take 1 tablet by mouth every evening. gabapentin (NEURONTIN) 300 mg capsule TAKE 2 CAPSULES TWICE A DAY AND 3 CAPSULES AT BEDTIME dicyclomine (BENTYL) 10 mg capsule Take 1 capsule by mouth before meals and at bedtime. (Patient taking differently: Take 10 mg by mouth before meals and at bedtime. Patient taking PRN ) FAMILY HISTORY Problem Relation Age of Onset Stroke Mother Hypertension Mother Diabetes Mother Breast Cancer Mother Dx in 40's Heart Father mi Hypertension Father Colon Cancer Daughter Dx at 21 other ([facility]) Daughter Social History Tobacco Use Smoking status: Former Packs/day: 1.50 Years: 4.00 Pack years: 6.00 Types: Cigarettes Quit date: 02/11/1976 Years since quittin.2 Smokeless tobacco: Never Vaping Use Vaping Use: Never used Substance Use Topics Alcohol use: Yes Comment: rarely Drug use: No PHYSICAL EXAM BP 134/83 Pulse 74 Resp 14 Wt 72.6 kg (160 lb) BMI 28.57 kg/m General Appearance: well appearing, in no acute distress, alert Musculoskeletal: Right knee- No swelling, redness of bruising. Tenderness with palpation of entire anterior and posterior knee. Flexion:Limitation: No, Pain:Yes; Extension:Limitation:No, Pain:No. Laxity: No Lower extremities: no edema in LE bilaterally, good distal pulses. Muscle strength- 5/5 bilaterally ASSESSMENT/PLAN: 1. Acute pain of right knee - ICD9: 719.46, ICD10: M25.561 Differentials include osteoarthritis, muscle strain, tendinopathy - XR KNEE GENERAL 4V AP BOTH/PA BOTH/LAT/MERC RIGHT - increase Naproxen to three times a day with meals x 1 week. Can also use topical Voltaren OTC - continue with ice and heat - wear knee sleeve and limit weight bearing on the right for a few days. Given crutches. - reviewed gentle stretching exercises - follow-up in 1-2 weeks if no improvement or sooner if worsening Prescription instructions reviewed with patient as applicable. Potential red flag symptoms discussed with the patient. Reviewed appropriate action plan to take if red flag symptoms occur. Patient agreeable to treatment plan. Temitope Castellano APRN.CNP documented in this encounterS[facility]03-07-[facility]23 NoteHNO ID: [id number] Author: Temitope Castellano APRN.CNP Service: ? Author Type: Nurse Practitioner Type: Progress Notes Filed: 04/16/2022 11:15 AM Note Text: urinCC: Patient presents with: F/U 6 months HPI Lea Barber is a 67 year old female who presents today for above. Patient reports concerns about intermittent tremors, sometimes just the hands but occasionally her entire body. These have been present for years, gradually worsening. Does not affect gait or ADL's. HTN-Medication changes:No Taking all medications as prescribed: Yes Side effects: No Home BP's: No Reports chronic, intermittent palpitations that are stable Denies: headache, chest pain, dyspnea, and peripheral edema. Last 3 Encounter BP Readings: Date: BP: 04/16/2022 134/84 02/12/2022 141/74 10/17/2021 130/78 IBS: occasional diarrhea and cramping, takes Bentyl as needed with complete relief. PAIN ASSESSMENT DOCUMENTATION TOOL (PADT TM) She is taking Tramadol and Gabapentin along with Flexeril and Naproxen as needed for chronic pain secondary to neuropathy. Symptoms are manageable with medication regimen. Is the amount of pain relief you are now obtaining from your current pain reliever(s) enough to make a real difference in your life? yes Activities of Daily Living since the patient's last assessment 1. Physical functioning. same 2. Family relationships. same 3. Social relationships. same 4. Mood. same 5. Sleep patterns. same 6. Overall functioning. same Adverse Events 1. Is patient experiencing any side effects from current pain reliever? 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 Osteopenia 12/11/2007 Stage 3a chronic kidney disease (HCC) 10/08/2020 Ulnar neuropathy of left upper extremity 04/18/2016 PAST SURGICAL HISTORY Procedure Laterality Date COLECTOMY PARTIAL W/ANASTOMOSIS 05/19/2000 sigmoid colon due to diverticulitis COLONOSCOPY 10/26/2014 COLONOSCOPY FLX DX W/COLLJ SPEC WHEN PFRMD 01/23/2017 repeat in 5 years d/t fam Hx LAMINECTOMY W/O FFD > 2 VERT SEG LUMBAR 11/2014 NEUROPLASTY AND/TRANSPOS MEDIAN NRV CARPAL TUNNE Left 04/10/2016 Left carpal tunnel release NEUROPLASTY AND/TRANSPOSITION ULNAR NERVE ELBOW Left 04/10/2016 Left ulnar nerve decompression at elbow with transposition subcutaneous PAST SURGICAL HISTORY OF 06/2004 Colonoscopy PAST SURGICAL HISTORY OF Left 1993 Joint replacement in thumb PAST SURGICAL HISTORY OF Right 09/2009 Rotator Cuff Repair PAST SURGICAL HISTORY OF Bilateral 05/2009 Breast Reduction PAST SURGICAL HISTORY OF Left 2010 foot surgery, joint removed from 2nd toe due to fracture PAST SURGICAL HISTORY OF Bilateral 2012 trigger thumbs REPAIR FIRST ABDOMINAL WALL HERNIA 10/2000 Hernia repair, incisional ALLERGIES Hydrocodone, Macrobid [Nitrofurantoin Monohyd/M-Cryst], Ragweed Pollen, and Tagamet [Cimetidine] MEDICATIONS betamethasone dipropionate, augmented (DIPROLENE) 0.05 % cream APPLY A THIN LAYER OF CREAM TOPICALLY TO AFFECTED AREA OF THE BODY TWICE DAILY FOR 2 WEEKS NEEDED FOR FLARES. cyclobenzaprine (FLEXERIL) 10 mg tablet Take 1 tablet by mouth at bedtime as needed. AT BEDTIME. naproxen (NAPROSYN) 500 mg tablet TAKE 1 TABLET TWICE A DAY WITH MEALS/FOOD traMADol (ULTRAM) 50 mg tablet Take 2 tablets by mouth twice daily for 90 days. gabapentin (NEURONTIN) 300 mg capsule TAKE 2 CAPSULES TWICE A DAY AND 3 CAPSULES AT BEDTIME metoprolol succinate ER (TOPROL XL) 25 mg 24 hr tablet Take 1 tablet by mouth every evening. pumpkin seed extract-soy germ (AZO BLADDER CONTROL) 300 mg cap Take by mouth. DULoxetine (CYMBALTA) 20 mg capsule Take 1 capsule by mouth once daily. gabapentin (NEURONTIN) 300 mg capsule TAKE 2 CAPSULES TWICE A DAY AND 3 CAPSULES AT BEDTIME dicyclomine (BENTYL) 10 mg capsule Take 1 capsule by mouth before meals and at bedtime. (Patient taking differently: Take 10 mg by mouth before meals and at bedtime. Patient taking PRN ) FAMILY HISTORY Problem Relation Age of Onset Stroke Mother Hypertension Mother Diabetes Mother Breast Cancer Mother Dx in 40's Heart Father mi Hypertension Father Co (more content not included)...[facility]01-03-[facility]23 Miscellaneous Notes* Telephone Encounter - Rizwana Clarke LPN - 02/12/2022 3:57 PM EST Patient has been identified by name and date of : Yes Patient phones for refill(s): Requested Prescriptions Pending Prescriptions Disp Refills naproxen (NAPROSYN) 500 mg tablet 180 tablet 1 Sig: TAKE 1 TABLET TWICE A DAY WITH MEALS/FOOD Date of last office visit in primary care: 02/12/2022 6 month follow-up: 04/16/2022 Last 2 Encounter Wt Readings: Date: Wt: 02/12/2022 70.3 kg (155 lb) 10/17/2021 69.9 kg (154 lb) Previous labs/tests for medication: Not applicable Please advise. Thank you. Rizwana Clarke LPN documented in this encounterShel[facility]01-03-2023 Instructions* Patient Instructions* Temitope Castellano APRN.CNP - 02/12/2022 10:31 AM EST Mucinex DM extended release 12 hour, follow package directions Run a cool mist humidifier in your bedroom on high with the door closed. This is a natural way to decongest, and it helps lessen scratchy throats, nasal stuffiness and coughs. General information: * Green or yellow color does not mean you need an antibiotic; secretions can be green or yellow with viruses, such as the common cold * The average cold lasts 6-12 days. Follow-up in 3 to 5 days if symptoms persist or sooner if worsen documented in this encounterShel[facility]01-03-2023 History of Present illness Narrative* Temitope Castellano APRN.CNP - 02/12/2022 10:18 AM EST CC: Patient presents with: ear pain , cough, drainage HPI: Lea Barber is a 66 year old female who presents to the office with above complaint Symptoms began five days ago and include: Fever (?100.4F): No or Chills: Yes Cough: Yes Shortness of breath: No or Difficulty breathing: No Fatigue: No Muscle aches: No Headache: Yes New loss of smell or taste: No Sore throat: Yes Nasal congestion: Yes or Rhinorrhea: Yes Nausea: No or Vomiting: No Diarrhea: No Other Associated symptoms: both ears tickle and maxillary sinus pressure. OTC meds/remedies that patient has tried: Vicks chest rub, Advil cold and sinus. Exposures: Sick contacts? unsure Family or close contacts with confirmed/probable COVID-19 in last 14 days? No COVID vaccine: yes and influenza The ROS is otherwise negative. The patient's pmh, medications, allergies, and past visits are reviewed. PHYSICAL EXAM: BP 141/74 Pulse 83 Temp 36.3 C (97.3 F) (Temporal) Resp 14 Wt 70.3 kg (155 lb) SpO2 98% BMI 27.68 kg/m General appearance: tired/ill appearing, alert, cooperative, pleasant, in no acute distress Head: Normocephalic Eyes: conjunctiva pink and moist, no icterus, sclera white, non-injected Ears: Right ear: External ear/canal- Normal, TM - clear with good landmarks. Left ear: External ear/canal- Normal, TM - clear with good landmarks Nose: mucosa erythematous and swollen. Oropharynx:No erythema, exudates or tonsillar hypertrophy. Neck:supple and no adenopathy Heart: Negative. RRR without obvious murmur, gallop, or rubs. No ectopy. Lungs: clear to auscultation, without rales or wheeze, good air exchange ASSESSMENT/PLAN: 1. Viral URI with cough - ICD9: 465.9, ICD10: J06.9 Patient declined COVID/influenza testing - Discussed viral etiology and rationale for treatment. - Symptomatic treatment with prn analgesia - Supportive care with fluids and rest - The patient may also use OTC cough and cold meds as needed. - Follow up in 3-5 days if symptoms persist or sooner if worsening of symptoms Prescription instructions reviewed with patient as applicable. Potential red flag symptoms discussed with the patient. Reviewed appropriate action plan to take if red flag symptoms occur. Patient agreeable to treatment plan. Temitope Castellano APRN.ASA documented in this encounterShelby [facility]01-03-2023 Miscellaneous Notes* Telephone Encounter - Rizwana Clarke LPN - 02/12/2022 8:58 AM EST Patient scheduled for VV today. Rizwana Clarke LPN * Telephone Encounter - Clarisse Barber - 02/12/2022 8:48 AM EST Lea Barber is calling Claus Magaña MD today with concern regarding cough, ear pain, nasal drainage Patient has been identified by name and birthdate. Duration of symptoms: 5 days Person calling: self Call patient at: on cell [phone] (home) [phone] (cell) Was an appointment scheduled: No Closing statement: Symptom Call: Thank you for calling [facility], your call is very important. A nurse will call in approximately 2-4 hours during business hours. If this is an emergency, please contact 911. Clarisse Barber documented in this encounterShelby [facility]11-30-2022 Miscellaneous Notes* Telephone Encounter - Temitope Castellano APRN.CNP - 01/09/2022 10:20 AM EST PDMP website checked and validated. All prescriptions have been APPROPRIATELY filled. No suspiciousactivity was identified. 01/09/2022 by Temitope Castellano APRN.CNP * Telephone Encounter - Rizwana Clarke LPN - 01/09/2022 9:36 AM EST Patient has been identified by name and date of : Yes Patient phones for refill(s): Requested Prescriptions Pending Prescriptions Disp Refills traMADol (ULTRAM) 50 mg tablet 120 tablet 2 Sig: Take 2 tablets by mouth twice daily for 90 days. Date of last office visit in primary care: 10/17/2021 6 month follow-up: 04/16/2022 Last 2 Encounter Wt Readings: Date: Wt: 10/17/2021 69.9 kg (154 lb) 07/17/2021 72.1 kg (159 lb) Previous labs/tests for medication: Not applicable Please advise. Thank you. Rizwana Clarke LPN * Telephone Encounter - Roxane Ramirez - 01/09/2022 9:35 AM EST Patient has been identified by name and date of : Yes Last office visit in this department: 10/17/2021 RX INSTRUCTIONS: Patient aware RX will be sent to pharmacy. No need to notify patient. Patient phones requesting refills as follows: Requested Prescriptions Pending Prescriptions Disp Refills traMADol (ULTRAM) 50 mg tablet 120 tablet 2 Sig: Take 2 tablets by mouth twice daily for 90 days. Please review and advise. Roxane Ramirez documented in this encounterShelby [facility] Hospital11-07-2022 Miscellaneous Notes* Telephone Encounter - Esthela Bazan LPN - 12/17/2021 1:01 PM EST PATIENT NOTIFIED OF SAME. * Telephone Encounter - Rizwana Aida Tricia ARTIS - 12/17/2021 12:29 PM EST Patient has been identified by name and date of : Yes Patient phones for refill(s): Requested Prescriptions Pending Prescriptions Disp Refills gabapentin (NEURONTIN) 300 mg capsule 30 capsule 0 Sig: TAKE 2 CAPSULES TWICE A DAY AND 3 CAPSULES AT BEDTIME Date of last office visit in primary care: 10/17/2021 6 month follow-up: 04/16/2022 Last 2 Encounter Wt Readings: Date: Wt: 10/17/2021 69.9 kg (154 lb) 07/17/2021 72.1 kg (159 lb) Previous labs/tests for medication: Not applicable Please advise. Thank you. Rizwana Clarke LPN * Telephone Encounter - Alyce Boyd Pss - 12/17/2021 11:34 AM EST Patient has been identified by name and date of : Yes Requested Prescriptions Pending Prescriptions Disp Refills gabapentin (NEURONTIN) 300 mg capsule 30 capsule 0 Sig: TAKE 2 CAPSULES TWICE A DAY AND 3 CAPSULES AT BEDTIME RX INSTRUCTIONS: Per Patient, she only needs a short term supply to [facility]. She requested 30 pills, stated she only takes 6 pills per day. She is out of medication and the mail order pharmacy told her about 5 days to arrive. Patient requesting a call when RX is approved and sent to the pharmacy. Please call patient at: [phone] Alyce Boyd Pss documented in this encounterShelby [facility] Hospital09-07-2022 Instructions* Patient Instructions* Claus Magaña MD - 10/17/2021 2:54 PM EDT Recombinant shingles vaccine (Shingrix) is recommended; 2 doses 2-6 months apart. Please read information, check with your insurance, and schedule vaccination at your local pharmacy. A prescription is not required. If you are certain you have coverage to receive this vaccine in the office, we can schedule this for you. documented in this encounterShelby [facility] Hospital09-07-2022 History of Present illness Narrative* Claus Magaña MD - 10/17/2021 2:45 PM EDT This note was created using Mindedriter. Subjective Patient presents with: F/U 6 months Lea Barber is a 66 year old female. She was doing well. Neuropathy and low back pain were controlled. She was on correction tramadol and naproxen. Tramadol use was consistent, and we updated heropioid agreement today. Hypertension was fair. She was seen recently for chest pains which have resolved and her stress test was negative. Review of Systems Constitutional: Negative. Respiratory: Negative. Cardiovascular: Negative. Gastrointestinal: Negative. Musculoskeletal: See HPI ACTIVE PROBLEM LIST Irritable Bowel Syndrome Myalgia Mvp (Mitral Valve Prolapse) Carpal Tunnel Syndrome On Both Sides Neuropathy Lumbar Disc Herniation With Radiculopathy Adenomatous Colon Polyp Acquired Trigger Finger Essential Hypertension Palpitations Memory Changes Stage 3a Chronic Kidney Disease (Hcc) Social History Tobacco Use Smoking status: Former Packs/day: 1.50 Years: 4.00 Pack years: 6.00 Types: Cigarettes Quit date: 02/11/1976 Years since quittin.7 Smokeless tobacco: Never Vaping Use Vaping Use: Never used Substance Use Topics Alcohol use: Yes Comment: rarely Drug use: No Current Outpatient Medications Medication Sig traMADol (ULTRAM) 50 mg tablet Take 2 tablets by mouth twice daily for 90 days. naproxen (NAPROSYN) 500 mg tablet TAKE 1 TABLET TWICE A DAY WITH MEALS/FOOD pumpkin seed extract-soy germ (AZO BLADDER CONTROL) 300 mg cap Take by mouth. DULoxetine (CYMBALTA) 20 mg capsule Take 1 capsule by mouth once daily. gabapentin (NEURONTIN) 300 mg capsule TAKE 2 CAPSULES TWICE A DAY AND 3 CAPSULES AT BEDTIME cyclobenzaprine (FLEXERIL) 10 mg tablet Take 1 tablet by mouth at bedtime as needed. AT BEDTIME. metoprolol succinate ER (TOPROL XL) 25 mg 24 hr tablet Take 1 tablet by mouth every evening. dicyclomine (BENTYL) 10 mg capsule Take 1 capsule by mouth before meals and at bedtime. (Patient taking differently: Take 10 mg by mouth before meals and at bedtime. Patient taking PRN ) No current facility-administered medications for this visit. Objective BP 130/78 Pulse 70 Resp 12 Wt 69.9 kg (154 lb) SpO2 99% BMI 27.50 kg/m Physical Exam Constitutional: Appearance: Normal appearance. Cardiovascular: Rate and Rhythm: Normal rate and regular rhythm. Heart sounds: No murmur heard. Pulmonary: Breath sounds: Normal breath sounds. Musculoskeletal: Right lower leg: No edema. Left lower leg: No edema. Neurological: General: No focal deficit present. Mental Status: She is alert. Gait: Gait normal. Psychiatric: Mood and Affect: Mood normal. Assessment and Plan 1. Lumbar disc herniation with radiculopathy - ICD9: 722.10, 724.4, ICD10: M51.16 (primary diagnosis) Stable on termite technician tramadol. Use consistent. 2. Essential hypertension - ICD9: 401.9, ICD10: I10 - good control - Continue current medication(s) - Recommended regular aerobic exercise. - Discussed need and benefit for weight loss. - Goal of BP <130/80 - METOPROLOL SUCCINATE ER 25 MG TABLET,EXTENDED RELEASE 24 HR - CBC - COMP METABOLIC PANEL 3. Palpitations - ICD9: 785.1, ICD10: R00.2 Controlled. - METOPROLOL SUCCINATE ER 25 MG TABLET,EXTENDED RELEASE 24 HR 4. Neuropathy - ICD9: 355.9, ICD10: G62.9 Left leg pain controlled. Opioid agreement reviewed and updated. Claus Magaña MD documented in this encounterShelby [facility] Hospital08-29-2022 Miscellaneous Notes* Telephone Encounter - Temitope Castellano APRN.CNP - 10/08/2021 4:17 PM EDT PDMP website checked and validated. All prescriptions have been APPROPRIATELY filled. No suspiciousactivity was identified. 10/08/2021 by Temitope Castellano APRN.CNP * Telephone Encounter - Rizwana Clarke LPN - 10/08/2021 3:51 PM EDT Patient has been identified by name and date of : Yes Patient phones for refill(s): Requested Prescriptions Pending Prescriptions Disp Refills traMADol (ULTRAM) 50 mg tablet 120 tablet 2 Sig: Take 2 tablets by mouth twice daily for 90 days. Date of last office visit in primary care: 07/17/2021 6 month follow-up: 10/17/2021 Last 2 Encounter Wt Readings: Date: Wt: 07/17/2021 72.1 kg (159 lb) 06/01/2021 71.2 kg (157 lb) Previous labs/tests for medication: Not applicable Please advise. Thank you. Rizwana Clarke LPN * Telephone Encounter - Rachael Graham Pss - 10/08/2021 3:50 PM EDT Patient has been identified by name and date of : Yes Requested Prescriptions Pending Prescriptions Disp Refills traMADol (ULTRAM) 50 mg tablet 120 tablet 2 Sig: Take 2 tablets by mouth twice daily for 90 days. RX INSTRUCTIONS: Patient aware RX will be sent to pharmacy. No need to nofity patient. Controlled medication - must be call in. Rachael Graham Pss [facility] Miscellaneous Notes* Telephone Encounter - Viky Crocker LPN - 08/21/2021 3:25 PM EDT Pt notified of message below. Pt aware [facility] scheduling will contact her for appt. Viky Crocker LPN * Telephone Encounter - Mode Bolden Ma - 08/21/2021 3:05 PM EDT Unable to reach patient - Left message to call office. 08/21/2021 3:05 PM Spoke with [facility] - they are able to do stress test next week if approved by insurance - order and patient information faxed to [facility] , they will contact patient to schedule. Please notified patient if returns call. * Telephone Encounter - Temitope Castellano APRN.CNP - 08/21/2021 1:50 PM EDT Patient not scheduled for stress test until September, please see if she can have done sooner. If not here than possibly [facility] or Ashley Castellano APRN.CNP documented in this encounterS[facility] History of Past illness Narrative* Problem Noted Date Resolved Date Acute right-sided low back pain without sciatica 07/30/2021 09/11/2021 Elevated blood pressure reading 10/27/2017 01/17/2020 Kidney insufficiency 04/24/2017 04/11/2021 Ulnar neuropathy of left upper extremity 017 10/27/2017 Left carpal tunnel syndrome 04/18/201610/11 Pain of left hip joint 11/17/2015 7 Chronic bilateral low back pain with right-sided sciatica 11/17/2015 04/24/2017 Chronic pain syndrome 07/08/2015 04/24/2017 Chronic midline low back pain 07/08/2015 History of lumbar laminectomy 06/26/2015 Hip pain 05/25/2014 11/17/2015 Low back pain 05/25/2014 11/17/2015 Mononeuritis of unspecified site 04/01/2014 04/08/2016 Enthesopathy of hip region 04/01/201404/08 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 04/25/2017 Cyst of breast, left, diffuse fibrocystic 201304/24/2017 Left leg paresthesias 12/07/2011 04/08/2016 Meralgia paraesthetica 04/24/2010 7 Diverticulitis of colon (without mention of hemo rrhage) 10/01/2004 04/08/2016 Arthropathy, unspecified, site unspecified 10/0106/07/2015 Neuralgia, neuritis, and radiculitis, unspecifie d 06/07/2015 Family history of malignant neoplasm of gastrointestinal tract 04/08/2016 Overview: daughter Macromastia 05/04/2013 documented as of this encounter (statuses as of 10/08/2021) [facility] of Past illness Narrative* Problem Noted Date Resolved Date Acute right-sided low back pain without sciatica 07/30/2021 09/11/2021 Elevated blood pressure reading 10/27/2017 01/17/2020 Kidney insufficiency 04/24/2017 04/11/2021 Ulnar neuropathy of left upper extremity 017 10/27/2017 Left carpal tunnel syndrome 04/18/201610/11 Pain of left hip joint 11/17/2015 7 Chronic bilateral low back pain with right-sided sciatica 11/17/2015 04/24/2017 Chronic pain syndrome 07/08/2015 04/24/2017 Chronic midline low back pain 07/08/2015 History of lumbar laminectomy 06/26/2015 Hip pain 05/25/2014 11/17/2015 Low back pain 05/25/2014 11/17/2015 Mononeuritis of unspecified site 04/01/2014 04/08/2016 Enthesopathy of hip region 04/01/201404/08 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 04/25/2017 Cyst of breast, left, diffuse fibrocystic 201304/24/2017 Left leg paresthesias 12/07/2011 04/08/2016 Meralgia paraesthetica 04/24/2010 7 Diverticulitis of colon (without mention of hemo rrhage) 10/01/2004 04/08/2016 Arthropathy, unspecified, site unspecified 10/0106/07/2015 Neuralgia, neuritis, and radiculitis, unspecifie d 06/07/2015 Family history of malignant neoplasm of gastrointestinal tract 04/08/2016 Overview: daughter Macromastia 05/04/2013 documented as of this encounter (statuses as of 10/18/2021) [facility] of Past illness Narrative* Problem Noted Date Resolved Date Acute right-sided low back pain without sciatica 07/30/2021 09/11/2021 Elevated blood pressure reading 10/27/2017 01/17/2020 Kidney insufficiency 04/24/2017 04/11/2021 Ulnar neuropathy of left upper extremity 017 10/27/2017 Left carpal tunnel syndrome 04/18/201610/11 Pain of left hip joint 11/17/2015 7 Chronic bilateral low back pain with right-sided sciatica 11/17/2015 04/24/2017 Chronic pain syndrome 07/08/2015 04/24/2017 Chronic midline low back pain 07/08/2015 History of lumbar laminectomy 06/26/2015 Hip pain 05/25/2014 11/17/2015 Low back pain 05/25/2014 11/17/2015 Mononeuritis of unspecified site 04/01/2014 04/08/2016 Enthesopathy of hip region 04/01/201404/08 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 04/25/2017 Cyst of breast, left, diffuse fibrocystic 201304/24/2017 Left leg paresthesias 12/07/2011 04/08/2016 Meralgia paraesthetica 04/24/2010 7 Diverticulitis of colon (without mention of hemo rrhage) 10/01/2004 04/08/2016 Arthropathy, unspecified, site unspecified 10/0106/07/2015 Neuralgia, neuritis, and radiculitis, unspecifie d 06/07/2015 Family history of malignant neoplasm of gastrointestinal tract 04/08/2016 Overview: daughter Wilver 05/04/2013 documented as of this encounter (statuses as of 12/17/2021) [facility] illness Narrative* Problem Noted Date Resolved Date Acute right-sided low back pain without sciatica 07/30/2021 09/11/2021 Elevated blood pressure reading 10/27/2017 01/17/2020 Kidney insufficiency 04/24/2017 04/11/2021 Ulnar neuropathy of left upper extremity 017 10/27/2017 Left carpal tunnel syndrome 04/18/201610/11 Pain of left hip joint 11/17/2015 7 Chronic bilateral low back pain with right-sided sciatica 11/17/2015 04/24/2017 Chronic pain syndrome 07/08/2015 04/24/2017 Chronic midline low back pain 07/08/2015 History of lumbar laminectomy 06/26/2015 Hip pain 05/25/2014 11/17/2015 Low back pain 05/25/2014 11/17/2015 Mononeuritis of unspecified site 04/01/2014 04/08/2016 Enthesopathy of hip region 04/01/201404/08 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 04/25/2017 Cyst of breast, left, diffuse fibrocystic 201304/24/2017 Left leg paresthesias 12/07/2011 04/08/2016 Meralgia paraesthetica 04/24/2010 7 Diverticulitis of colon (without mention of hemo rrhage) 10/01/2004 04/08/2016 Arthropathy, unspecified, site unspecified 10/0106/07/2015 Neuralgia, neuritis, and radiculitis, unspecifie d 06/07/2015 Family history of malignant neoplasm of gastrointestinal tract 04/08/2016 Overview: daughter Wilver 05/04/2013 documented as of this encounter (statuses as of 01/09/2022) [facility] Narrative* Problem Noted Date Resolved Date Acute right-sided low back pain without sciatica 07/30/2021 09/11/2021 Elevated blood pressure reading 10/27/2017 01/17/2020 Kidney insufficiency 04/24/2017 04/11/2021 Ulnar neuropathy of left upper extremity 017 10/27/2017 Left carpal tunnel syndrome 04/18/201610/11 Pain of left hip joint 11/17/2015 7 Chronic bilateral low back pain with right-sided sciatica 11/17/2015 04/24/2017 Chronic pain syndrome 07/08/2015 04/24/2017 Chronic midline low back pain 07/08/2015 History of lumbar laminectomy 06/26/2015 Hip pain 05/25/2014 11/17/2015 Low back pain 05/25/2014 11/17/2015 Mononeuritis of unspecified site 04/01/2014 04/08/2016 Enthesopathy of hip region 04/01/201404/08 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 04/25/2017 Cyst of breast, left, diffuse fibrocystic 201304/24/2017 Left leg paresthesias 12/07/2011 04/08/2016 Meralgia paraesthetica 04/24/2010 7 Diverticulitis of colon (without mention of hemo rrhage) 10/01/2004 04/08/2016 Arthropathy, unspecified, site unspecified 10/0106/07/2015 Neuralgia, neuritis, and radiculitis, unspecifie d 06/07/2015 Family history of malignant neoplasm of gastrointestinal tract 04/08/2016 Overview: daughter Macromastia 05/04/2013 documented as of this encounter (statuses as of 02/14/2022) [facility] Narrative* Problem Noted Date Resolved Date Acute right-sided low back pain without sciatica 07/30/2021 09/11/2021 Elevated blood pressure reading 10/27/2017 01/17/2020 Kidney insufficiency 04/24/2017 04/11/2021 Ulnar neuropathy of left upper extremity 017 10/27/2017 Left carpal tunnel syndrome 04/18/201610/11 Pain of left hip joint 11/17/2015 7 Chronic bilateral low back pain with right-sided sciatica 11/17/2015 04/24/2017 Chronic pain syndrome 07/08/2015 04/24/2017 Chronic midline low back pain 07/08/2015 History of lumbar laminectomy 06/26/2015 Hip pain 05/25/2014 11/17/2015 Low back pain 05/25/2014 11/17/2015 Mononeuritis of unspecified site 04/01/2014 04/08/2016 Enthesopathy of hip region 04/01/201404/08 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 04/25/2017 Cyst of breast, left, diffuse fibrocystic 201304/24/2017 Left leg paresthesias 12/07/2011 04/08/2016 Meralgia paraesthetica 04/24/2010 7 Diverticulitis of colon (without mention of hemo rrhage) 10/01/2004 04/08/2016 Arthropathy, unspecified, site unspecified 10/0106/07/2015 Neuralgia, neuritis, and radiculitis, unspecifie d 06/07/2015 Family history of malignant neoplasm of gastrointestinal tract 04/08/2016 Overview: daughter Macromastia 05/04/2013 documented as of this encounter (statuses as of 02/14/2022) [facility] Narrative* Problem Noted Date Resolved Date Acute right-sided low back pain without sciatica 07/30/2021 09/11/2021 Elevated blood pressure reading 10/27/2017 01/17/2020 Kidney insufficiency 04/24/2017 04/11/2021 Ulnar neuropathy of left upper extremity 017 10/27/2017 Left carpal tunnel syndrome 04/18/201610/11 Pain of left hip joint 11/17/2015 7 Chronic bilateral low back pain with right-sided sciatica 11/17/2015 04/24/2017 Chronic pain syndrome 07/08/2015 04/24/2017 Chronic midline low back pain 07/08/2015 History of lumbar laminectomy 06/26/2015 Hip pain 05/25/2014 11/17/2015 Low back pain 05/25/2014 11/17/2015 Mononeuritis of unspecified site 04/01/2014 04/08/2016 Enthesopathy of hip region 04/01/201404/08 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 04/25/2017 Cyst of breast, left, diffuse fibrocystic 201304/24/2017 Left leg paresthesias 12/07/2011 04/08/2016 Meralgia paraesthetica 04/24/2010 7 Diverticulitis of colon (without mention of hemo rrhage) 10/01/2004 04/08/2016 Arthropathy, unspecified, site unspecified 10/0106/07/2015 Neuralgia, neuritis, and radiculitis, unspecifie d 06/07/2015 Family history of malignant neoplasm of gastrointestinal tract 04/08/2016 Overview: daughter Macromastia 05/04/2013 documented as of this encounter (statuses as of 02/16/2022) [facility] Narrative* Problem Noted Date Resolved Date Acute right-sided low back pain without sciatica 07/30/2021 09/11/2021 Elevated blood pressure reading 10/27/2017 01/17/2020 Kidney insufficiency 04/24/2017 04/11/2021 Ulnar neuropathy of left upper extremity 017 10/27/2017 Left carpal tunnel syndrome 04/18/201610/11 Pain of left hip joint 11/17/2015 7 Chronic bilateral low back pain with right-sided sciatica 11/17/2015 04/24/2017 Chronic pain syndrome 07/08/2015 04/24/2017 Chronic midline low back pain 07/08/2015 History of lumbar laminectomy 06/26/2015 Hip pain 05/25/2014 11/17/2015 Low back pain 05/25/2014 11/17/2015 Mononeuritis of unspecified site 04/01/2014 04/08/2016 Enthesopathy of hip region 04/01/201404/08 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 04/25/2017 Cyst of breast, left, diffuse fibrocystic 201304/24/2017 Left leg paresthesias 12/07/2011 04/08/2016 Meralgia paraesthetica 04/24/2010 7 Diverticulitis of colon (without mention of hemo rrhage) 10/01/2004 04/08/2016 Arthropathy, unspecified, site unspecified 10/0106/07/2015 Neuralgia, neuritis, and radiculitis, unspecifie d 06/07/2015 Family history of malignant neoplasm of gastrointestinal tract 04/08/2016 Overview: daughter Macromastia 05/04/2013 documented as of this encounter (statuses as of 04/23/2022) [facility] Narrative* Problem Noted Date Resolved Date Acute right-sided low back pain without sciatica 07/30/2021 09/11/2021 Elevated blood pressure reading 10/27/2017 01/17/2020 Kidney insufficiency 04/24/2017 04/11/2021 Ulnar neuropathy of left upper extremity 017 10/27/2017 Left carpal tunnel syndrome 04/18/201610/11 Pain of left hip joint 11/17/2015 7 Chronic bilateral low back pain with right-sided sciatica 11/17/2015 04/24/2017 Chronic pain syndrome 07/08/2015 04/24/2017 Chronic midline low back pain 07/08/2015 History of lumbar laminectomy 06/26/2015 Hip pain 05/25/2014 11/17/2015 Low back pain 05/25/2014 11/17/2015 Mononeuritis of unspecified site 04/01/2014 04/08/2016 Enthesopathy of hip region 04/01/201404/08 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 04/25/2017 Cyst of breast, left, diffuse fibrocystic 201304/24/2017 Left leg paresthesias 12/07/2011 04/08/2016 Meralgia paraesthetica 04/24/2010 7 Diverticulitis of colon (without mention of hemo rrhage) 10/01/2004 04/08/2016 Arthropathy, unspecified, site unspecified 10/0106/07/2015 Neuralgia, neuritis, and radiculitis, unspecifie d 06/07/2015 Family history of malignant neoplasm of gastrointestinal tract 04/08/2016 Overview: daughter Macromastia 05/04/2013 documented as of this encounter (statuses as of 04/23/2022) [facility] Narrative* Problem Noted Date Resolved Date Acute right-sided low back pain without sciatica 07/30/2021 09/11/2021 Elevated blood pressure reading 10/27/2017 01/17/2020 Kidney insufficiency 04/24/2017 04/11/2021 Ulnar neuropathy of left upper extremity 017 10/27/2017 Left carpal tunnel syndrome 04/18/201610/11 Pain of left hip joint 11/17/2015 7 Chronic bilateral low back pain with right-sided sciatica 11/17/2015 04/24/2017 Chronic pain syndrome 07/08/2015 04/24/2017 Chronic midline low back pain 07/08/2015 History of lumbar laminectomy 06/26/2015 Hip pain 05/25/2014 11/17/2015 Low back pain 05/25/2014 11/17/2015 Mononeuritis of unspecified site 04/01/2014 04/08/2016 Enthesopathy of hip region 04/01/201404/08 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 04/25/2017 Cyst of breast, left, diffuse fibrocystic 201304/24/2017 Left leg paresthesias 12/07/2011 04/08/2016 Meralgia paraesthetica 04/24/2010 7 Diverticulitis of colon (without mention of hemo rrhage) 10/01/2004 04/08/2016 Arthropathy, unspecified, site unspecified 10/0106/07/2015 Neuralgia, neuritis, and radiculitis, unspecifie d 06/07/2015 Family history of malignant neoplasm of gastrointestinal tract 04/08/2016 Overview: daughter Wilver 05/04/2013 documented as of this encounter (statuses as of 05/01/2022) [facility] Narrative* Problem Noted Date Resolved Date Acute right-sided low back pain without sciatica 07/30/2021 09/11/2021 Elevated blood pressure reading 10/27/2017 01/17/2020 Kidney insufficiency 04/24/2017 04/11/2021 Ulnar neuropathy of left upper extremity 017 10/27/2017 Left carpal tunnel syndrome 04/18/201610/11 Pain of left hip joint 11/17/2015 7 Chronic bilateral low back pain with right-sided sciatica 11/17/2015 04/24/2017 Chronic pain syndrome 07/08/2015 04/24/2017 Chronic midline low back pain 07/08/2015 History of lumbar laminectomy 06/26/2015 Hip pain 05/25/2014 11/17/2015 Low back pain 05/25/2014 11/17/2015 Mononeuritis of unspecified site 04/01/2014 04/08/2016 Enthesopathy of hip region 04/01/201404/08 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 04/25/2017 Cyst of breast, left, diffuse fibrocystic 201304/24/2017 Left leg paresthesias 12/07/2011 04/08/2016 Meralgia paraesthetica 04/24/2010 7 Diverticulitis of colon (without mention of hemo rrhage) 10/01/2004 04/08/2016 Arthropathy, unspecified, site unspecified 10/0106/07/2015 Neuralgia, neuritis, and radiculitis, unspecifie d 06/07/2015 Family history of malignant neoplasm of gastrointestinal tract 04/08/2016 Overview: daughter Wilver 05/04/2013 documented as of this encounter (statuses as of 05/07/2022) [facility] Narrative* Problem Noted Date Resolved Date Acute right-sided low back pain without sciatica 07/30/2021 09/11/2021 Elevated blood pressure reading 10/27/2017 01/17/2020 Kidney insufficiency 04/24/2017 04/11/2021 Ulnar neuropathy of left upper extremity 017 10/27/2017 Left carpal tunnel syndrome 04/18/201610/11 Pain of left hip joint 11/17/2015 7 Chronic bilateral low back pain with right-sided sciatica 11/17/2015 04/24/2017 Chronic pain syndrome 07/08/2015 04/24/2017 Chronic midline low back pain 07/08/2015 History of lumbar laminectomy 06/26/2015 Hip pain 05/25/2014 11/17/2015 Low back pain 05/25/2014 11/17/2015 Mononeuritis of unspecified site 04/01/2014 04/08/2016 Enthesopathy of hip region 04/01/201404/08 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 04/25/2017 Cyst of breast, left, diffuse fibrocystic 201304/24/2017 Left leg paresthesias 12/07/2011 04/08/2016 Meralgia paraesthetica 04/24/2010 7 Diverticulitis of colon (without mention of hemo rrhage) 10/01/2004 04/08/2016 Arthropathy, unspecified, site unspecified 10/0106/07/2015 Neuralgia, neuritis, and radiculitis, unspecifie d 06/07/2015 Family history of malignant neoplasm of gastrointestinal tract 04/08/2016 Overview: daughter Macromastia 05/04/2013 documented as of this encounter (statuses as of 05/09/2022) [facility] Narrative* Problem Noted Date Resolved Date Acute right-sided low back pain without sciatica 07/30/2021 09/11/2021 Elevated blood pressure reading 10/27/2017 01/17/2020 Kidney insufficiency 04/24/2017 04/11/2021 Ulnar neuropathy of left upper extremity 017 10/27/2017 Left carpal tunnel syndrome 04/18/201610/11 Pain of left hip joint 11/17/2015 7 Chronic bilateral low back pain with right-sided sciatica 11/17/2015 04/24/2017 Chronic pain syndrome 07/08/2015 04/24/2017 Chronic midline low back pain 07/08/2015 History of lumbar laminectomy 06/26/2015 Hip pain 05/25/2014 11/17/2015 Low back pain 05/25/2014 11/17/2015 Mononeuritis of unspecified site 04/01/2014 04/08/2016 Enthesopathy of hip region 04/01/201404/08 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 04/25/2017 Cyst of breast, left, diffuse fibrocystic 201304/24/2017 Left leg paresthesias 12/07/2011 04/08/2016 Meralgia paraesthetica 04/24/2010 7 Diverticulitis of colon (without mention of hemo rrhage) 10/01/2004 04/08/2016 Arthropathy, unspecified, site unspecified 10/0106/07/2015 Neuralgia, neuritis, and radiculitis, unspecifie d 06/07/2015 Family history of malignant neoplasm of gastrointestinal tract 04/08/2016 Overview: daughter Macromastia 05/04/2013 documented as of this encounter (statuses as of 05/10/2022) [facility] Narrative* Problem Noted Date Resolved Date Acute right-sided low back pain without sciatica 07/30/2021 09/11/2021 Elevated blood pressure reading 10/27/2017 01/17/2020 Kidney insufficiency 04/24/2017 04/11/2021 Ulnar neuropathy of left upper extremity 017 10/27/2017 Left carpal tunnel syndrome 04/18/201610/11 Pain of left hip joint 11/17/2015 7 Chronic bilateral low back pain with right-sided sciatica 11/17/2015 04/24/2017 Chronic pain syndrome 07/08/2015 04/24/2017 Chronic midline low back pain 07/08/2015 History of lumbar laminectomy 06/26/2015 Hip pain 05/25/2014 11/17/2015 Low back pain 05/25/2014 11/17/2015 Mononeuritis of unspecified site 04/01/2014 04/08/2016 Enthesopathy of hip region 04/01/201404/08 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 04/25/2017 Cyst of breast, left, diffuse fibrocystic 201304/24/2017 Left leg paresthesias 12/07/2011 04/08/2016 Meralgia paraesthetica 04/24/2010 7 Diverticulitis of colon (without mention of hemo rrhage) 10/01/2004 04/08/2016 Arthropathy, unspecified, site unspecified 10/0106/07/2015 Neuralgia, neuritis, and radiculitis, unspecifie d 06/07/2015 Family history of malignant neoplasm of gastrointestinal tract 04/08/2016 Overview: daughter Macromastia 05/04/2013 documented as of this encounter (statuses as of 05/14/2022) [facility] Narrative* Problem Noted Date Resolved Date Acute right-sided low back pain without sciatica 07/30/2021 09/11/2021 Elevated blood pressure reading 10/27/2017 01/17/2020 Kidney insufficiency 04/24/2017 04/11/2021 Ulnar neuropathy of left upper extremity 017 10/27/2017 Left carpal tunnel syndrome 04/18/201610/11 Pain of left hip joint 11/17/2015 7 Chronic bilateral low back pain with right-sided sciatica 11/17/2015 04/24/2017 Chronic pain syndrome 07/08/2015 04/24/2017 Chronic midline low back pain 07/08/2015 History of lumbar laminectomy 06/26/2015 Hip pain 05/25/2014 11/17/2015 Low back pain 05/25/2014 11/17/2015 Mononeuritis of unspecified site 04/01/2014 04/08/2016 Enthesopathy of hip region 04/01/201404/08 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 04/25/2017 Cyst of breast, left, diffuse fibrocystic 201304/24/2017 Left leg paresthesias 12/07/2011 04/08/2016 Meralgia paraesthetica 04/24/2010 7 Diverticulitis of colon (without mention of hemo rrhage) 10/01/2004 04/08/2016 Arthropathy, unspecified, site unspecified 10/0106/07/2015 Neuralgia, neuritis, and radiculitis, unspecifie d 06/07/2015 Family history of malignant neoplasm of gastrointestinal tract 04/08/2016 Overview: daughter Macromastia 05/04/2013 documented as of this encounter (statuses as of 05/31/2022) [facility] Narrative* Problem Noted Date Resolved Date Acute right-sided low back pain without sciatica 07/30/2021 09/11/2021 Elevated blood pressure reading 10/27/2017 01/17/2020 Kidney insufficiency 04/24/2017 04/11/2021 Ulnar neuropathy of left upper extremity 017 10/27/2017 Left carpal tunnel syndrome 04/18/201610/11 Pain of left hip joint 11/17/2015 7 Chronic bilateral low back pain with right-sided sciatica 11/17/2015 04/24/2017 Chronic pain syndrome 07/08/2015 04/24/2017 Chronic midline low back pain 07/08/2015 History of lumbar laminectomy 06/26/2015 Hip pain 05/25/2014 11/17/2015 Low back pain 05/25/2014 11/17/2015 Mononeuritis of unspecified site 04/01/2014 04/08/2016 Enthesopathy of hip region 04/01/201404/08 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 04/25/2017 Cyst of breast, left, diffuse fibrocystic 201304/24/2017 Left leg paresthesias 12/07/2011 04/08/2016 Meralgia paraesthetica 04/24/2010 7 Diverticulitis of colon (without mention of hemo rrhage) 10/01/2004 04/08/2016 Arthropathy, unspecified, site unspecified 10/0106/07/2015 Neuralgia, neuritis, and radiculitis, unspecifie d 06/07/2015 Family history of malignant neoplasm of gastrointestinal tract 04/08/2016 Overview: daughter Macromastia 05/04/2013 documented as of this encounter (statuses as of 06/10/2022) [facility] Narrative* Problem Noted Date Resolved Date Acute right-sided low back pain without sciatica 07/30/2021 09/11/2021 Elevated blood pressure reading 10/27/2017 01/17/2020 Kidney insufficiency 04/24/2017 04/11/2021 Ulnar neuropathy of left upper extremity 017 10/27/2017 Left carpal tunnel syndrome 04/18/201610/11 Pain of left hip joint 11/17/2015 7 Chronic bilateral low back pain with right-sided sciatica 11/17/2015 04/24/2017 Chronic pain syndrome 07/08/2015 04/24/2017 Chronic midline low back pain 07/08/2015 History of lumbar laminectomy 06/26/2015 Hip pain 05/25/2014 11/17/2015 Low back pain 05/25/2014 11/17/2015 Mononeuritis of unspecified site 04/01/2014 04/08/2016 Enthesopathy of hip region 04/01/201404/08 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 04/25/2017 Cyst of breast, left, diffuse fibrocystic 201304/24/2017 Left leg paresthesias 12/07/2011 04/08/2016 Meralgia paraesthetica 04/24/2010 7 Diverticulitis of colon (without mention of hemo rrhage) 10/01/2004 04/08/2016 Arthropathy, unspecified, site unspecified 10/0106/07/2015 Neuralgia, neuritis, and radiculitis, unspecifie d 06/07/2015 Family history of malignant neoplasm of gastrointestinal tract 04/08/2016 Overview: daughter Wilver 05/04/2013 documented as of this encounter (statuses as of 06/10/2022) [facility] of Past illness Narrative* Problem Noted Date Resolved Date Acute right-sided low back pain without sciatica 07/30/2021 09/11/2021 Elevated blood pressure reading 10/27/2017 01/17/2020 Kidney insufficiency 04/24/2017 04/11/2021 Ulnar neuropathy of left upper extremity 017 10/27/2017 Left carpal tunnel syndrome 04/18/201610/11 Pain of left hip joint 11/17/2015 7 Chronic bilateral low back pain with right-sided sciatica 11/17/2015 04/24/2017 Chronic pain syndrome 07/08/2015 04/24/2017 Chronic midline low back pain 07/08/2015 History of lumbar laminectomy 06/26/2015 Hip pain 05/25/2014 11/17/2015 Low back pain 05/25/2014 11/17/2015 Mononeuritis of unspecified site 04/01/2014 04/08/2016 Enthesopathy of hip region 04/01/201404/08 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 04/25/2017 Cyst of breast, left, diffuse fibrocystic 201304/24/2017 Left leg paresthesias 12/07/2011 04/08/2016 Meralgia paraesthetica 04/24/2010 7 Diverticulitis of colon (without mention of hemo rrhage) 10/01/2004 04/08/2016 Arthropathy, unspecified, site unspecified 10/0106/07/2015 Neuralgia, neuritis, and radiculitis, unspecifie d 06/07/2015 Family history of malignant neoplasm of gastrointestinal tract 04/08/2016 Overview: daughter Wilver 05/04/2013 documented as of this encounter (statuses as of 06/16/2022) [facility] History of Past illness Narrative* Problem Noted Date Resolved Date Acute right-sided low back pain without sciatica 07/30/2021 09/11/2021 Elevated blood pressure reading 10/27/2017 01/17/2020 Kidney insufficiency 04/24/2017 04/11/2021 Ulnar neuropathy of left upper extremity 017 10/27/2017 Left carpal tunnel syndrome 04/18/201610/11 Pain of left hip joint 11/17/2015 7 Chronic bilateral low back pain with right-sided sciatica 11/17/2015 04/24/2017 Chronic pain syndrome 07/08/2015 04/24/2017 Chronic midline low back pain 07/08/2015 History of lumbar laminectomy 06/26/2015 Hip pain 05/25/2014 11/17/2015 Low back pain 05/25/2014 11/17/2015 Mononeuritis of unspecified site 04/01/2014 04/08/2016 Enthesopathy of hip region 04/01/201404/08 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 04/25/2017 Cyst of breast, left, diffuse fibrocystic 201304/24/2017 Left leg paresthesias 12/07/2011 04/08/2016 Meralgia paraesthetica 04/24/2010 7 Diverticulitis of colon (without mention of hemo rrhage) 10/01/2004 04/08/2016 Arthropathy, unspecified, site unspecified 10/0106/07/2015 Neuralgia, neuritis, and radiculitis, unspecifie d 06/07/2015 Family history of malignant neoplasm of gastrointestinal tract 04/08/2016 Overview: daughter Macromastia 05/04/2013 documented as of this encounter (statuses as of 06/20/2022) [facility] History of Past illness Narrative* Problem Noted Date Resolved Date Acute right-sided low back pain without sciatica 07/30/2021 09/11/2021 Elevated blood pressure reading 10/27/2017 01/17/2020 Kidney insufficiency 04/24/2017 04/11/2021 Ulnar neuropathy of left upper extremity 017 10/27/2017 Left carpal tunnel syndrome 04/18/201610/11 Pain of left hip joint 11/17/2015 7 Chronic bilateral low back pain with right-sided sciatica 11/17/2015 04/24/2017 Chronic pain syndrome 07/08/2015 04/24/2017 Chronic midline low back pain 07/08/2015 History of lumbar laminectomy 06/26/2015 Hip pain 05/25/2014 11/17/2015 Low back pain 05/25/2014 11/17/2015 Mononeuritis of unspecified site 04/01/2014 04/08/2016 Enthesopathy of hip region 04/01/201404/08 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 04/25/2017 Cyst of breast, left, diffuse fibrocystic 201304/24/2017 Left leg paresthesias 12/07/2011 04/08/2016 Carpal tunnel syndrome on both sides 04/24/2010 06/24/2022 Meralgia paraesthetica 04/24/2010 7 Diverticulitis of colon (without mention of hemo rrhage) 10/01/2004 04/08/2016 Arthropathy, unspecified, site unspecified 10/0106/07/2015 Neuralgia, neuritis, and radiculitis, unspecifie d 06/07/2015 Family history of malignant neoplasm of gastrointestinal tract 04/08/2016 Overview: daughter Macromastia 05/04/2013 documented as of this encounter (statuses as of 06/24/2022) [facility] History of Past illness Narrative* Problem Noted Date Resolved Date Acute right-sided low back pain without sciatica 07/30/2021 09/11/2021 Elevated blood pressure reading 10/27/2017 01/17/2020 Kidney insufficiency 04/24/2017 04/11/2021 Ulnar neuropathy of left upper extremity 017 10/27/2017 Left carpal tunnel syndrome 04/18/201610/11 Pain of left hip joint 11/17/2015 7 Chronic bilateral low back pain with right-sided sciatica 11/17/2015 04/24/2017 Chronic pain syndrome 07/08/2015 04/24/2017 Chronic midline low back pain 07/08/2015 History of lumbar laminectomy 06/26/2015 Hip pain 05/25/2014 11/17/2015 Low back pain 05/25/2014 11/17/2015 Mononeuritis of unspecified site 04/01/2014 04/08/2016 Enthesopathy of hip region 04/01/201404/08 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 04/25/2017 Cyst of breast, left, diffuse fibrocystic 201304/24/2017 Left leg paresthesias 12/07/2011 04/08/2016 Carpal tunnel syndrome on both sides 04/24/2010 06/24/2022 Meralgia paraesthetica 04/24/2010 7 Diverticulitis of colon (without mention of hemo rrhage) 10/01/2004 04/08/2016 Arthropathy, unspecified, site unspecified 10/0106/07/2015 Neuralgia, neuritis, and radiculitis, unspecifie d 06/07/2015 Family history of malignant neoplasm of gastrointestinal tract 04/08/2016 Overview: daughter Macromastia 05/04/2013 documented as of this encounter (statuses as of 07/11/2022) [facility] History of Past illness Narrative* Problem Noted Date Resolved Date Acute right-sided low back pain without sciatica 07/30/2021 09/11/2021 Elevated blood pressure reading 10/27/2017 01/17/2020 Kidney insufficiency 04/24/2017 04/11/2021 Ulnar neuropathy of left upper extremity 017 10/27/2017 Left carpal tunnel syndrome 04/18/201610/11 Pain of left hip joint 11/17/2015 7 Chronic bilateral low back pain with right-sided sciatica 11/17/2015 04/24/2017 Chronic pain syndrome 07/08/2015 04/24/2017 Chronic midline low back pain 07/08/2015 History of lumbar laminectomy 06/26/2015 Hip pain 05/25/2014 11/17/2015 Low back pain 05/25/2014 11/17/2015 Mononeuritis of unspecified site 04/01/2014 04/08/2016 Enthesopathy of hip region 04/01/201404/08 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 04/25/2017 Cyst of breast, left, diffuse fibrocystic 201304/24/2017 Left leg paresthesias 12/07/2011 04/08/2016 Carpal tunnel syndrome on both sides 04/24/2010 06/24/2022 Meralgia paraesthetica 04/24/2010 7 Diverticulitis of colon (without mention of hemo rrhage) 10/01/2004 04/08/2016 Arthropathy, unspecified, site unspecified 10/0106/07/2015 Neuralgia, neuritis, and radiculitis, unspecifie d 06/07/2015 Family history of malignant neoplasm of gastrointestinal tract 04/08/2016 Overview: daughter Macromastia 05/04/2013 documented as of this encounter (statuses as of 07/11/2022) [facility] History of Past illness Narrative* Problem Noted Date Resolved Date Acute right-sided low back pain without sciatica 07/30/2021 09/11/2021 Elevated blood pressure reading 10/27/2017 01/17/2020 Kidney insufficiency 04/24/2017 04/11/2021 Ulnar neuropathy of left upper extremity 017 10/27/2017 Left carpal tunnel syndrome 04/18/201610/11 Pain of left hip joint 11/17/2015 7 Chronic bilateral low back pain with right-sided sciatica 11/17/2015 04/24/2017 Chronic pain syndrome 07/08/2015 04/24/2017 Chronic midline low back pain 07/08/2015 History of lumbar laminectomy 06/26/2015 Hip pain 05/25/2014 11/17/2015 Low back pain 05/25/2014 11/17/2015 Mononeuritis of unspecified site 04/01/2014 04/08/2016 Enthesopathy of hip region 04/01/201404/08 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 04/25/2017 Cyst of breast, left, diffuse fibrocystic 201304/24/2017 Left leg paresthesias 12/07/2011 04/08/2016 Carpal tunnel syndrome on both sides 04/24/2010 06/24/2022 Meralgia paraesthetica 04/24/2010 7 Diverticulitis of colon (without mention of hemo rrhage) 10/01/2004 04/08/2016 Arthropathy, unspecified, site unspecified 10/0106/07/2015 Neuralgia, neuritis, and radiculitis, unspecifie d 06/07/2015 Family history of malignant neoplasm of gastrointestinal tract 04/08/2016 Overview: daughter Macromastia 05/04/2013 documented as of this encounter (statuses as of 07/17/2022) [facility] History of Past illness Narrative* Problem Noted Date Resolved Date Acute right-sided low back pain without sciatica 07/30/2021 09/11/2021 Elevated blood pressure reading 10/27/2017 01/17/2020 Kidney insufficiency 04/24/2017 04/11/2021 Ulnar neuropathy of left upper extremity 017 10/27/2017 Left carpal tunnel syndrome 04/18/201610/11 Pain of left hip joint 11/17/2015 7 Chronic bilateral low back pain with right-sided sciatica 11/17/2015 04/24/2017 Chronic pain syndrome 07/08/2015 04/24/2017 Chronic midline low back pain 07/08/2015 History of lumbar laminectomy 06/26/2015 Hip pain 05/25/2014 11/17/2015 Low back pain 05/25/2014 11/17/2015 Mononeuritis of unspecified site 04/01/2014 04/08/2016 Enthesopathy of hip region 04/01/201404/08 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 04/25/2017 Cyst of breast, left, diffuse fibrocystic 201304/24/2017 Left leg paresthesias 12/07/2011 04/08/2016 Carpal tunnel syndrome on both sides 04/24/2010 06/24/2022 Meralgia paraesthetica 04/24/2010 7 Diverticulitis of colon (without mention of hemo rrhage) 10/01/2004 04/08/2016 Arthropathy, unspecified, site unspecified 10/0106/07/2015 Neuralgia, neuritis, and radiculitis, unspecifie d 06/07/2015 Family history of malignant neoplasm of gastrointestinal tract 04/08/2016 Overview: daughter Macromastia 05/04/2013 documented as of this encounter (statuses as of 07/30/2022) [facility] History of Past illness Narrative* Problem Noted Date Resolved Date Acute right-sided low back pain without sciatica 07/30/2021 09/11/2021 Elevated blood pressure reading 10/27/2017 01/17/2020 Kidney insufficiency 04/24/2017 04/11/2021 Ulnar neuropathy of left upper extremity 017 10/27/2017 Left carpal tunnel syndrome 04/18/201610/11 Pain of left hip joint 11/17/2015 7 Chronic bilateral low back pain with right-sided sciatica 11/17/2015 04/24/2017 Chronic pain syndrome 07/08/2015 04/24/2017 Chronic midline low back pain 07/08/2015 History of lumbar laminectomy 06/26/2015 Hip pain 05/25/2014 11/17/2015 Low back pain 05/25/2014 11/17/2015 Mononeuritis of unspecified site 04/01/2014 04/08/2016 Enthesopathy of hip region 04/01/201404/08 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 04/25/2017 Cyst of breast, left, diffuse fibrocystic 201304/24/2017 Left leg paresthesias 12/07/2011 04/08/2016 Carpal tunnel syndrome on both sides 04/24/2010 06/24/2022 Meralgia paraesthetica 04/24/2010 7 Diverticulitis of colon (without mention of hemo rrhage) 10/01/2004 04/08/2016 Arthropathy, unspecified, site unspecified 10/0106/07/2015 Neuralgia, neuritis, and radiculitis, unspecifie d 06/07/2015 Family history of malignant neoplasm of gastrointestinal tract 04/08/2016 Overview: daughter Bentleyastmatt 05/04/2013 documented as of this encounter (statuses as of 07/31/2022) [facility] History of Past illness Narrative* Problem Noted Date Diagnosed Date Resolved Date Acute right-sided low back p ain without sciatica 07/30/2021 09/11/2021 Elevated blood pressure reading 10/27/2017 01/17/2020 Kidney insufficiency 04/24/2017 022 Ulnar neuropathy of left upper extremity 04/18/2016 10/27/2017 Left carpal tunnel syndrome 04/18/2016 10/27/2017 Pain of left hip joint 11/17/201504/08 Chronic bilateral low back p ain with right-sided sciatica 11/17/2015 04/24/2017 Chronic pain syndrome 07/08/20152017 Chronic midline low back pain 07/08/2015 04/24/2017 History of lumbar laminectomy 06/26/2015 04/08/2016 Hip pain 05/25/2014 11/17/2015 Low back pain 05/25/2014 11/17/2015 Mononeuritis of unspecified site 04/01/2014 04/08/2016 Enthesopathy of hip region 04/01/2014 0 04/08/2016 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 Cyst of breast, left, diffuse fibrocystic 03/09/2013 04/24/2017 Left leg paresthesias 12/07/20112016 Carpal tunnel syndrome on both sides 04/24/2010 06/24/2022 Meralgia paraesthetica 04/24/201004/08 Diverticulitis of colon (wit hout mention of hemorrhage) 10/01/2004 04/08/2016 Arthropathy, unspecified, site unspecified 10/01/2004 06/07/2015 Neuralgia, neuritis, and rad iculitis, unspecified 06/07/2015 Family history of malignant neoplasm of gastrointestinal tract 04/08/2016 Overview: daughter Wilver 05/04/2013 documented as of this encounter (statuses as of 08/27/2022) [facility] History of Present illness Narrative* Demetrice Gong, PT - 07/30/2021 11:59 AM EDT Episode Visit Count: 1 Therapist That Will Oversee The Plan Of Care: Demetrice Gong PT Start of Care Date: 07/30/21 Onset Date: 04/29/21 Plan of Care Certification Date: 07/30/21 Next Certification Due Date: 09/10/21 Patient Identified by Name and Date of : Yes REHABILITATION AND SPORTS THERAPY PHYSICAL THERAPY EVALUATION PLAN OF CARE: Assessment: Lea Barber presents with diagnosis of right low back pain that interferes with walking in the community;lifting;physical activities . She presents with impairments in ADL's, independence in exercise and overall function. . Prognosis for therapy is Good due to: current objective clinical presentation . She will benefit from skilled therapy services to meet the goals established for this plan of care as noted below. Classification Low Back Pain Subgroup Classification: Specific exercise subgroup: recommended visits 8. Specific Exercies Subgroup Classification based on: directional preference (flexion bias) Goals for Episode of Care: created on 07/30/21 through 09/10/21 Independent in home exercises. Patient will decrease pain to 2/10 in the morning to allow patient to improve ambulation and standing tolerance for ADLs. Stand / Walk without pain/symptoms. increasing Patient will be able to tolerate work activities for 3 jhours without increased symptoms. Knowledgeable regarding prophylaxis. Patient will increase strength of core to 4+/5 to allow for improve ability to complete ADLs. Patient Goals: alleviate pain Planned Interventions, Frequency, and Duration: Current Frequency: 1x/week Duration: 4 weeks Total Number of Visits Planned: 4 Planned Treatment Interventions: Therapeutic exercise (42338);Manual therapy (56297);Self-care homemanagement (65236);Patient/Family/Caregiver Education;Body Mechanics Training PLAN FOR NEXT VISIT: Will assess response to flexion bias exs. Advance core strenthening Patient demonstrates good understanding of plan of care and treatment. The above goals and plan of care were discussed and agreed upon by patient/family. SUBJECTIVE: Lea Barber is a 66 year old female seen today for Pt notes that she had back surgery about 10 years ago for herniated disc. Has been working out for a couple of years. Pain is on right side of low back low and goes into buttock Pain worse in the morning. 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 Recreation / Current Exercise: 3x/week Hobbies / Interests: pickleball , walking Home Environment Patient Lives With: Self/Alone Intake Information: Prescription present Previous Treatment: Exercises per physician;Self prescribed exercises Red Flags Vertebral Fracture Red Flags: Female Spine History Symptoms Location at Onset: Back Symptoms Since Onset: Unchanging Pain is Worse Always: AM;Standing Pain is Better Always: On the Move Sleeping Position: Side lying left Sleep Affected by Pain: Not affected by pain Pain: Pain Pain Level: 3 (09/19) Pain Location: Low Back/Lumbar Spine - Right Description: Sharp Frequency: Intermittent Post Treatment Pain Post Treatment Pain Level: No Change Post Treatment Pain Location: Low Back/Lumbar Spine - Right Post Treatment Pain Description: Sharp PROMIS Scales Higher is Better 11/20/2015 08/06/2019 10/04/2020 GH Physical - Score - 50.8 57.7 (Very Good) GH Physical - Percentile 15 % 53 % 78 % GH Mental - Score - 50.8 59 (Excellent) GH Mental - Percentile 53 % 53 % 82 % T-scores: mean of general population = 50. 5 points is clinically meaningfully difference Percentiles provide an indication of how the patient's score ranks in relation to the general population. Higher percentile rankings indicate better function/quality of life. 50th percentile is the average of the general population and indicates half of respondents had a worse score. T-scores: mean of general population = 50. 5 points is clinically meaningfully difference Percentiles provide an indication of how the patient's score ranks in relation to the general population. Higher percentile rankings indicate better function/quality of life. 50th percentile is the average of the general population and indicates half of respondents had a worse score. OBJECTIVE MEASURES WITH LEVEL OF FUNCTION: Posture / Alignment Posture: Hip asymmetry Hip asymmetry comment: left iliac crest high Sitting Posture: Good Spine Observations R Lumbar Spine Palpation Tenderness: PSIS (posterior superior iliac spine) Lumbar Spine AROM Lumbar Flexion: Normal;Decreased pain Lumbar Extension: Minimal limitation;End range pain Lumbar R Side-Bend: Normal Lumbar L Side-Bend: Normal Static Testing - Lumbar Lumbar Static Pretest Symptoms: (SKC supine right with no pain during) LE Flexibility Flexibility: Hamstring Flexibility R Hamstring Flexibility: 80 L Hamstring Flexibility: 80 LE Strength Trunk Strength: 4/5 R Hip Flexion (L2): 5/5 R Knee Extension (L3): 5/5 R Knee Flexion: 5/5 R Ankle Dorsiflexion (L4): 5/5 L Hip Flexion (L2): 5/5 L Knee Extension (L3): 5/5 L Knee Flexion: 5/5 L Ankle Dorsiflexion (L4): 5/5 Functional Strength Functional Strength: Pain with standing extended periods of time Special Tests - Hip and Spine Hip and Spine Special Tests: SLR Test;KETAN Test;SI Tests SLR Test: Right Negative SI Compression Test: Right Positive Supine to Long Sit Test : righ short both positions Gait Weight Bearing Status: FWB Education: Education Learning Preferences: Demonstration;Explanation;Performance;Printed Materials Barriers: None Learning/educational needs: Home exercise program;Plan of Care Education Provided: Yes, see treatment interventions for education provided Education Provided To: Patient Education Mode/Type: Demonstration;Explanation/Discussion;Literature/Printed Materials;Performance Response to Education/Teach Back: States/Identifies;Return Demonstration TREATMENT: PT Treatment Interventions: Therapeutic Exercise;Self-Shelter Management Evaluation Therapeutic Exercise: 1: SKC right 10 sec hold x5 2: TA 1x10 3: TA iwth arm lifts 1x10 4: TA with bent knee fall outs 1x10 5: TA with marches 1x10 Skilled Intervention: Patient was educated in proper exercise technique and purpose for exercises. Skilled judgment was provided in selection of appropriate interventions. Provided written instruction for home exercise program to facilitate proper performance and compliance. Correct performance of therapeutic exercises was facilitated with verbal and visual cuing. Patient education as noted. Self-Shelter Management: 1: education on taking frequent breaks from standing to including walking or sitting to do SKC . Also education on trial of pillow between the knees for sleeping on left side. Skilled Intervention: Skilled judgment in the selection of proper modification for activity of daily living/home management based on clinical presentation, deficits, and needs. Educated the patient regarding recommendations and provided written instruction to facilitate compliance. Home Exercise Program Assigned: 1: as outlined above Billing * Evaluation Low Complexity: 1 Unit Therapeutic Exercise Treatment Minutes: 20 Self-Care/Home Management Treatment Minutes: 10 Total Treatment Time Minutes (timed/untimed): 45 Demetrice Gong PT [facility] of Present illness Narrative* Temitope Older, BIT SHARPENER.HOOK UP DRIVER - 07/17/2021 3:01 PM EDT CC: Patient presents with: follow up - back pain HPI Lea Barber is a 66 year old female who presents today for above. Initially presented with back pain on 06/01 that began about 6 months ago. Urine testing was negative. X-ray lumbar spine showing lumbar dextroscoliosis and degenerative changes. She had declined treatment with prednisone and has been taking NSAID's and doing home exercises given to her at last appointment. There has been little to no improvement in back pain. Aggravated by gardening and inactivity and alleviated by exercise. No new or worsening symptoms associated with back pain. Her other concern today is chest pain x 10 days. Location: anterior chest Quality: pressure/pressing and tightness Radiates: none Pain is triggered/aggravated by: nothing she is aware of. Associated symptoms are SOB with chest pain only. Denies: exertional, palpitations, diaphoresis, numbness, tingling, dizziness, nausea/vomiting, releived by rest, inspiratory pain. Patient's cardiac risk factors are postmenopausal female not on hormone replacement therapy. Last EKG was 2016 Cardiac testing history: Echo: normal and holter monitor REVIEW OF SYSTEMS General: no fevers, no chills, no night sweats, no change in energy and no significant changes in weight Respiratory: no cough, no wheezing, no shortness of breath, no hemoptysis Cardiovascular: no PND, no orthopnea, no swelling and no decrease in exercise tolerance GI: No heartburn or reflux symptoms Psych: no anxiety or increase in stress PAST MEDICAL HISTORY Diagnosis Date Adenomatous colon polyp 04/08/2016 Arthropathy, unspecified, site unspecified 10/01/2004 Chronic bilateral low back pain with right-sided sciatica 11/17/2015 Constipation Cyst of breast, left, diffuse fibrocystic 03/09/2013 Diverticulitis of colon (without mention of hemorrhage)(562.11) 10/01/2004 Laisha-Danlos disease 06/29/2013 Family history of malignant neoplasm of gastrointestinal tract daughter Irritable bowel syndrome 10/01/2004 Meralgia paraesthetica 04/24/2010 MVP (mitral valve prolapse) 08/2010 echo wnl Myalgia and myositis, unspecified 10/01/2004 Neuropathy 03/28/2014 Left leg neuritis. Osteopenia 12/11/2007 Stage 3a chronic kidney disease (HCC) 10/08/2020 Ulnar neuropathy of left upper extremity 04/18/2016 PAST SURGICAL HISTORY Procedure Laterality Date COLECTOMY PARTIAL W/ANASTOMOSIS 05/19/2000 sigmoid colon due to diverticulitis COLONOSCOPY 10/26/2014 COLONOSCOPY FLX DX W/COLLJ SPEC WHEN PFRMD 01/23/2017 repeat in 5 years d/t fam Hx LAMINECTOMY W/O FFD > 2 VERT SEG LUMBAR 11/2014 NEUROPLASTY &/TRANSPOS MEDIAN NRV CARPAL TUNNE Left 04/10/2016 Left carpal tunnel release NEUROPLASTY &/TRANSPOSITION ULNAR NERVE ELBOW Left 04/10/2016 Left ulnar nerve decompression at elbow with transposition subcutaneous PAST SURGICAL HISTORY OF 06/2004 Colonoscopy PAST SURGICAL HISTORY OF Left 1993 Joint replacement in thumb PAST SURGICAL HISTORY OF Right 09/2009 Rotator Cuff Repair PAST SURGICAL HISTORY OF Bilateral 05/2009 Breast Reduction PAST SURGICAL HISTORY OF Left 2010 foot surgery, joint removed from 2nd toe due to fracture PAST SURGICAL HISTORY OF Bilateral 2012 trigger thumbs REPAIR FIRST ABDOMINAL WALL HERNIA 10/2000 Hernia repair, incisional ALLERGIES Hydrocodone, Macrobid [Nitrofurantoin Monohyd/M-Cryst], Ragweed Pollen, and Tagamet [Cimetidine] MEDICATIONS traMADol (ULTRAM) 50 mg tablet Take 2 tablets by mouth twice daily for 90 days. pumpkin seed extract-soy germ (AZO BLADDER CONTROL) 300 mg cap Take by mouth. DULoxetine (CYMBALTA) 20 mg capsule Take 1 capsule by mouth once daily. gabapentin (NEURONTIN) 300 mg capsule TAKE 2 CAPSULES TWICE A DAY AND 3 CAPSULES AT BEDTIME cyclobenzaprine (FLEXERIL) 10 mg tablet Take 1 tablet by mouth at bedtime as needed. AT BEDTIME. naproxen (NAPROSYN) 500 mg tablet TAKE 1 TABLET TWICE A DAY WITH MEALS/FOOD metoprolol succinate ER (TOPROL XL) 25 mg 24 hr tablet Take 1 tablet by mouth every evening. dicyclomine (BENTYL) 10 mg capsule Take 1 capsule by mouth before meals and at bedtime. FAMILY HISTORY Problem Relation Age of Onset Stroke Mother Hypertension Mother Diabetes Mother Breast Cancer Mother Dx in 40's Heart Father mi Hypertension Father Colon Cancer D[facility] at 21 [facility] Daughter Social History Tobacco Use Smoking status: Former Smoker Packs/day: 1.50 Years: 4.00 Pack years: 6.00 Types: Cigarettes Quit date: 02/11/1976 Years since quittin.4 Smokeless tobacco: Never Used Vaping Use Vaping Use: Never used Substance Use Topics Alcohol use: Yes Comment: rarely Drug use: No PHYSICAL EXAM BP 144/78 Pulse 64 Resp 12 Wt 72.1 kg (159 lb) BMI 28.39 kg/m General Appearance: well appearing, in no acute distress, alert Pysch: affect is anxious Lungs: Lungs clear to auscultation. No wheezing, rhonchi, rales. Heart: RRR without murmur, gallop, or rubs. No ectopy Musculoskeletal: no chest wall tenderness, pain is not reproducible Health maintenance reviewed with patient: BP CONTROLLED (<130/80) Never done SHINGRIX VACCINE(2 of 3) due on 12/15/2013 COVID-19 VACCINE(4 - Booster for Pfizer series) due on 04/12/2021 MAMMOGRAM due on 06/29/2021 SERUM CREATININE due on 10/04/2021 HEMOGLOBIN/HEMATOCRIT due on 10/04/2021 DEPRESSION SCREENING due on 10/04/2021 COLORECTAL CANCER SCREENING due on 01/23/2022 ANNUAL PCP TEAM CHRONIC DISEASE VISIT due on 06/01/2022 DTAP,TDAP,TD(2 - Td or Tdap) due on 07/16/2023 DIABETES SCREEN due on 10/05/2023 LIPID SCREEN due on 10/08/2023 BONE DENSITY Completed INFLUENZA Completed PNEUMOCOCCAL: 65+ Completed HEPATITIS C SCREENING Addressed ADVANCE DIRECTIVE DISCUSSION Discontinued DATA REVIEWED: most recent cardiac testing ASSESSMENT/PLAN: 1. Chest pain, unspecified type - ICD9: 786.50, ICD10: R07.9 (primary diagnosis) Atypical chest pain in low risk patient, symptoms are not consistent with cardiac ischemia due to nonexertional nature of symptoms. Etiology unclear - ECG COMPLETE normal sinus rhythm, septal infarct age undetermined; no significant changes from previous EKG Further evaluation with: - NM CARDIAC PERF STRESS/EXERCISE - XR CHEST 2V FRONTAL/LAT Follow-up pending results 2. Acute right-sided low back pain without sciatica - ICD9: 724.2, ICD10: M54.50 Persistent low back pain. No alarm symptoms or exam findings. - CONSULT TO PHYSICAL THERAPY Prescription instructions reviewed with patient as applicable. Potential red flag symptoms discussed with the patient. Reviewed appropriate action plan to take if red flag symptoms occur. Patient agreeable to treatment plan. Temitope Castellano APRN.CNP documented in this encounterS[facility]06-[facility]22 Miscellaneous Notes* Telephone Encounter - Temitope Castellano APRN.CNP - 07/13/2021 9:06 AM EDT PDMP website checked and validated. All prescriptions have been APPROPRIATELY filled. No suspiciousactivity was identified. 07/13/2021 by Temitope Castellano APRN.CNP * Telephone Encounter - Rizwana Clarke LPN - 07/11/2021 4:18 PM EDT Patient has been identified by name and date of : Yes Patient phones for refill(s): Pending Prescriptions Disp Refills TRAMADOL 50 MG TABLET 120 tablet 2 Sig: Take 2 tablets by mouth twice daily for 90 days. [place] Class: C-IV ZAK: No Date of last office visit in primary care: 06/01/2021 Appt: 07/17/2021 Last 2 Encounter Wt Readings: Date: Wt: 06/01/2021 71.2 kg (157 lb) 05/27/2021 73.7 kg (162 lb 6.4 oz) Previous labs/tests for medication: Not applicable Please advise. Thank you. Rizwana Clarke LPN * Telephone Encounter - Roxane Nino - 07/11/2021 3:58 PM EDT Patient is nearly out. Did not realize script was . * Telephone Encounter - Roxane Nino - 07/11/2021 3:58 PM EDT Pharmacy verified in [facility] Patient has been identified by name and date of : Yes Patient aware RX will be sent to pharmacy. No need to notify patient. Patient phones for refill(s): Pending Prescriptions Disp Refills TRAMADOL 50 MG TABLET 120 tablet 2 Sig: Take 2 tablets by mouth twice daily for 90 days. [place] Class: C-IV ZAK: No Date of last office visit : 06/01/2021 Date of next office visit : 07/17/2021 Last 2 Encounter Wt Readings: Date: Wt: 06/01/2021 71.2 kg (157 lb) 05/27/2021 73.7 kg (162 lb 6.4 oz) Please advise. Roxane Nino documented in this encounterShelby [facility]04-22-2022 History of Present illness Narrative* Temitope Castellano APRN.HOOK UP DRIVER - 06/01/2021 1:40 PM EDT CC: Patient presents with: UC follow up HPI Lea Barber is a 66 year old female who presents today for above. Patient was seen in urgent care on 05/27 for one week history of dysuria, urgency, frequency, pressure. Urine dip positive for nitrites and she was treated presumptively with Keflex. Urine culture wasnegative. Today patient reports urinary symptoms have mostly resolved. Her main concern today is low back pain x 2-3 months. Located in lower lumbar region on the right without radiation. Described as sharp Cause: The back pain is not related to a known injury. Pain is aggravated by standing, walking and first thing in the morning. Denies: weakness, numbness, tingling, morning stiffness, leg pain, leg weakness, loss of bowel or bladder control, foot drop and gait disturbance Treatments tried: NSAIDs, massage and exercise with temporary relief. Past medical history is significant for lumbar disc herniation with radiculopathy and lumbar laminectomy in 2014. 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 Osteopenia 12/11/2007 Stage 3a chronic kidney disease (HCC) 10/08/2020 Ulnar neuropathy of left upper extremity 04/18/2016 PAST SURGICAL HISTORY Procedure Laterality Date COLECTOMY PARTIAL W/ANASTOMOSIS 05/19/2000 sigmoid colon due to diverticulitis COLONOSCOPY 10/26/2014 COLONOSCOPY FLX DX W/COLLJ SPEC WHEN PFRMD 01/23/2017 repeat in 5 years d/t fam Hx LAMINECTOMY W/O FFD > 2 VERT SEG LUMBAR 11/2014 NEUROPLASTY &/TRANSPOS MEDIAN NRV CARPAL TUNNE Left 04/10/2016 Left carpal tunnel release NEUROPLASTY &/TRANSPOSITION ULNAR NERVE ELBOW Left 04/10/2016 Left ulnar nerve decompression at elbow with transposition subcutaneous PAST SURGICAL HISTORY OF 06/2004 Colonoscopy PAST SURGICAL HISTORY OF Left 1993 Joint replacement in thumb PAST SURGICAL HISTORY OF Right 09/2009 Rotator Cuff Repair PAST SURGICAL HISTORY OF Bilateral 05/2009 Breast Reduction PAST SURGICAL HISTORY OF Left 2010 foot surgery, joint removed from 2nd toe due to fracture PAST SURGICAL HISTORY OF Bilateral 2012 trigger thumbs REPAIR FIRST ABDOMINAL WALL HERNIA 10/2000 Hernia repair, incisional ALLERGIES Hydrocodone, Macrobid [Nitrofurantoin Monohyd/M-Cryst], Ragweed Pollen, and Tagamet [Cimetidine] MEDICATIONS pumpkin seed extract-soy germ (AZO BLADDER CONTROL) 300 mg cap Take by mouth. cephALEXin (KEFLEX) 500 mg capsule Take 1 capsule by mouth twice daily for 7 days. DULoxetine (CYMBALTA) 20 mg capsule Take 1 capsule by mouth once daily. gabapentin (NEURONTIN) 300 mg capsule TAKE 2 CAPSULES TWICE A DAY AND 3 CAPSULES AT BEDTIME traMADol (ULTRAM) 50 mg tablet Take 2 tablets by mouth twice daily for 90 days. cyclobenzaprine (FLEXERIL) 10 mg tablet Take 1 tablet by mouth at bedtime as needed. AT BEDTIME. naproxen (NAPROSYN) 500 mg tablet TAKE 1 TABLET TWICE A DAY WITH MEALS/FOOD metoprolol succinate ER (TOPROL XL) 25 mg 24 hr tablet Take 1 tablet by mouth every evening. dicyclomine (BENTYL) 10 mg capsule Take 1 capsule by mouth before meals and at bedtime. FAMILY HISTORY Problem Relation Age of Onset Stroke Mother Hypertension Mother Diabetes Mother Breast Cancer Mother Dx in 40's Heart Father mi Hypertension Father Colon Cancer Daughter Dx at 21 other ([facility]) Daughter Social History Tobacco Use Smoking status: Former Smoker Packs/day: 1.50 Years: 4.00 Pack years: 6.00 Types: Cigarettes Quit date: 02/11/1976 Years since quittin.3 Smokeless tobacco: Never Used Vaping Use Vaping Use: Never used Substance Use Topics Alcohol use: Yes Comment: rarely Drug use: No PHYSICAL EXAM BP 142/82 Pulse 76 Resp 16 Wt 71.2 kg (157 lb) SpO2 97% BMI 28.03 kg/m General Appearance: well appearing, in no acute distress, alert Back: Normal to inspection. Moderate tenderness right lumbar paraspinals. No spinal tenderness. ROM: Full but painful. Gait normal. Lungs: Lungs clear to auscultation. No wheezing, rhonchi, rales. Heart: RRR without murmur, gallop, or rubs. No ectopy ASSESSMENT/PLAN: 1. Acute right-sided low back pain without sciatica - ICD9: 724.2, ICD10: M54.50 (primary diagnosis) No alarm symptoms or exam findings. Symptomatic treatment with: NSAID's and topical medications. Patient declined prescription for prednisone/Medrol Given handout from [email or web address] for spine rehab exercises Also discussed non-medication measures with ice, heat, stretching; see patient instructions Follow-up: 4 weeks if symptoms persist or sooner if worsening - XR LUMBAR GENERAL 3V AP/LAT/L5-S1 today 2. Dysuria - ICD9: 788.1, ICD10: R30.0 Symptoms resolving. Follow-up if persist or worsen Prescription instructions reviewed with patient as applicable. Potential red flag symptoms discussed with the patient. Reviewed appropriate action plan to take if red flag symptoms occur. Patient agreeable to treatment plan. Temitope Castellano APRN.CNP documented in this encounterShelby [facility]04-22-2022 Nurse Note* Mdoe Bolden Ma - 06/01/2021 1:20 PM EDT 06/01/2021: Home BP Cuff Validated. Home BP: 160/92 Office BP: 142/82 documented in this encounterShelby [facility] Hospital04-18-2022 Miscellaneous Notes* Telephone Encounter - Amber Castillo - 05/28/2021 5:32 PM EDT Patient given results and verbalized understanding of instructions given. Amber Castillo * Telephone Encounter - Olga Nickerson PA-C - 05/28/2021 2:35 PM EDT Let patient know her urine culture did not show an infection. Recommend following up with PCP if symptoms are not improving. documented in this encounterShelby [facility] Hospital04-17-2022 History of Present illness Narrative* Tomer Queen APRN.CNP - 05/27/2021 10:18 AM EDT Subjective HPI HPI Lea Barber is a 66 year old female who presents today for CC of bladder pressure, urgency, burning, frequency. This started 1 week ago. Has tried otc medication with relief/azo. Symptoms are worsened by nothing. Risk factors hx of uti. bilat low back pain with intermittent radiation/tingling of lower legs. Hx of surgery on left leg, resulted in chronic pain/tingling. Takes naproxen, tramadol, neurontin for pain. 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 Osteopenia 12/11/2007 Stage 3a chronic kidney disease (HCC) 10/08/2020 Ulnar neuropathy of left upper extremity 04/18/2016 PAST SURGICAL HISTORY Procedure Laterality Date COLECTOMY PARTIAL W/ANASTOMOSIS 05/19/2000 sigmoid colon due to diverticulitis COLONOSCOPY 10/26/2014 COLONOSCOPY FLX DX W/COLLJ SPEC WHEN PFRMD 01/23/2017 repeat in 5 years d/t fam Hx LAMINECTOMY W/O FFD > 2 VERT SEG LUMBAR 11/2014 NEUROPLASTY &/TRANSPOS MEDIAN NRV CARPAL TUNNE Left 04/10/2016 Left carpal tunnel release NEUROPLASTY &/TRANSPOSITION ULNAR NERVE ELBOW Left 04/10/2016 Left ulnar nerve decompression at elbow with transposition subcutaneous PAST SURGICAL HISTORY OF 06/2004 Colonoscopy PAST SURGICAL HISTORY OF Left 1993 Joint replacement in thumb PAST SURGICAL HISTORY OF Right 09/2009 Rotator Cuff Repair PAST SURGICAL HISTORY OF Bilateral 05/2009 Breast Reduction PAST SURGICAL HISTORY OF Left 2010 foot surgery, joint removed from 2nd toe due to fracture PAST SURGICAL HISTORY OF Bilateral 2012 trigger thumbs REPAIR FIRST ABDOMINAL WALL HERNIA 10/2000 Hernia repair, incisional ALLERGIES Hydrocodone, Macrobid [Nitrofurantoin Monohyd/M-Cryst], Ragweed Pollen, and Tagamet [Cimetidine] MEDICATIONS pumpkin seed extract-soy germ (AZO BLADDER CONTROL) 300 mg cap Take by mouth. DULoxetine (CYMBALTA) 20 mg capsule Take 1 capsule by mouth once daily. gabapentin (NEURONTIN) 300 mg capsule TAKE 2 CAPSULES TWICE A DAY AND 3 CAPSULES AT BEDTIME traMADol (ULTRAM) 50 mg tablet Take 2 tablets by mouth twice daily for 90 days. cyclobenzaprine (FLEXERIL) 10 mg tablet Take 1 tablet by mouth at bedtime as needed. AT BEDTIME. naproxen (NAPROSYN) 500 mg tablet TAKE 1 TABLET TWICE A DAY WITH MEALS/FOOD metoprolol succinate ER (TOPROL XL) 25 mg 24 hr tablet Take 1 tablet by mouth every evening. cephALEXin (KEFLEX) 500 mg capsule Take 1 capsule by mouth twice daily for 7 days. dicyclomine (BENTYL) 10 mg capsule Take 1 capsule by mouth before meals and at bedtime. FAMILY HISTORY Problem Relation Age of Onset Stroke Mother Hypertension Mother Diabetes Mother Breast Cancer Mother Dx in 40's Heart Father mi Hypertension Father Colon Cancer Daughter Dx at 21 other ([facility] [place] [facility]) Daughter Social History Tobacco Use Smoking status: Former Smoker Packs/day: 1.50 Years: 4.00 Pack years: 6.00 Types: Cigarettes Quit date: 02/11/1976 Years since quittin.3 Smokeless tobacco: Never Used Vaping Use Vaping Use: Never used Substance Use Topics Alcohol use: Yes Comment: rarely Drug use: No Review of Systems Constitutional: Negative for chills, fever and weight loss. Respiratory: Negative for cough, shortness of breath and wheezing. Cardiovascular: Negative for chest pain and palpitations. Gastrointestinal: Positive for constipation and diarrhea. Negative for abdominal pain, blood in stool, heartburn, melena, nausea and vomiting. Genitourinary: Positive for dysuria, frequency and urgency. Negative for flank pain and hematuria. Musculoskeletal: Positive for back pain. Objective Blood pressure 154/86, pulse 88, temperature 36.3 C (97.4 F), resp. rate 18, weight 73.7 kg (162 lb6.4 oz), SpO2 97 %. bp recheck manual by provider 170/90. Physical Exam Constitutional: General: She is not in acute distress. Appearance: Normal appearance. She is not toxic-appearing. Cardiovascular: Rate and Rhythm: Normal rate and regular rhythm. Heart sounds: Normal heart sounds. Pulmonary: Effort: Pulmonary effort is normal. Breath sounds: Normal breath sounds. Abdominal: General: Bowel sounds are normal. Palpations: Abdomen is soft. There is no hepatomegaly or splenomegaly. Tenderness: There is abdominal tenderness in the suprapubic area. Skin: General: Skin is warm and dry. Neurological: Deep Tendon Reflexes: Reflex Scores: Patellar reflexes are 1+ on the right side and 1+ on the left side. ASSESSMENT/PLAN: 1. Urgency of urination - ICD9: 788.63, ICD10: R39.15 (primary diagnosis) Nitrates on ua. Treat with cephalexin today Call only if culture negative or atb needs changed. - UA DIP, URINE (POC) - CEPHALEXIN 500 MG CAPSULE 2. Back pain, unspecified back location, unspecified back pain laterality, unspecified chronicity -ICD9: 724.5, ICD10: M54.9 Chronic issues, will schedule recheck with pcp -If you experience chest pain/shortness of breath go to ER bp elevated today, will schedule recheck with [facility]. Reports bp normal at home. Advised to bring cuff in to be calibrated. Agrees to plan Tomer Queen APRN.CNP documented in this encounterShelby [facility] Hospital03-29-2022 Miscellaneous Notes* Telephone Encounter - Claus Magaña MD - 05/08/2021 9:57 AM EDT Patient's request for medication is as follows Signed Prescriptions Disp Refills DULoxetine (CYMBALTA) 20 mg capsule 30 capsule 0 Sig: Take 1 capsule by mouth once daily. ZAK: No Authorizing Provider: CLAUS MAGAÑA gabapentin (NEURONTIN) 300 mg capsule 630 capsule 3 Sig: TAKE 2 CAPSULES TWICE A DAY AND 3 CAPSULES AT BEDTIME ZAK: No Authorizing Provider: CLAUS MAGAÑA Order entered - please phone pharmacy and notify patient. Claus Magaña MD * Telephone Encounter - Rizwana Clarke LPN - 05/07/2021 4:37 PM EDT Patient was weaning off, but hurt her back while working out at the gym. Did not seek medical attention, knows it has helped in the past. Back is better, starting to wean off again. Rizwana Clarke LPN * Telephone Encounter - Temitope Castellano APRN.CNP - 05/07/2021 4:24 PM EDT Patient was weaning off Cymbalta per 01/09/21 phone encounter? Temitope Castellano APRN.CNP * Telephone Encounter - Mode Bolden Ma - 05/07/2021 4:21 PM EDT AMADOR: 04/11/2021 NOV: 10/17/2021 * Telephone Encounter - Tarsha Weaver - 05/07/2021 3:52 PM EDT Patient has been identified by name and date of : Yes Pending Prescriptions Disp Refills DULOXETINE 20 MG CAPSULE,DELAYED RELEASE 30 capsule 0 Sig: Take 1 capsule by mouth once daily. ZAK: No GABAPENTIN 300 MG CAPSULE 630 capsule 2 Sig: TAKE 2 CAPSULES TWICE A DAY AND 3 CAPSULES AT BEDTIME ZAK: No RX INSTRUCTIONS: Patient aware RX will be sent to pharmacy. No need to notify patient. Tarsha Weaver documented in this encounterShelby [facility] Hospital09-17-2018 History of Past illness Narrative* Problem Noted Date Resolved Date Elevated blood pressure reading 10/27/2017 01/17/2020 Kidney insufficiency 04/24/2017 04/11/2021 Ulnar neuropathy of left upper extremity 017 10/27/2017 Left carpal tunnel syndrome 04/18/201610/11 Pain of left hip joint 11/17/2015 7 Chronic bilateral low back pain with right-sided sciatica 11/17/2015 04/24/2017 Chronic pain syndrome 07/08/2015 04/24/2017 Chronic midline low back pain 07/08/2015 History of lumbar laminectomy 06/26/2015 Hip pain 05/25/2014 11/17/2015 Low back pain 05/25/2014 11/17/2015 Mononeuritis of unspecified site 04/01/2014 04/08/2016 Enthesopathy of hip region 04/01/201404/08 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 04/25/2017 Cyst of breast, left, diffuse fibrocystic 201304/24/2017 Left leg paresthesias 12/07/2011 04/08/2016 Meralgia paraesthetica 04/24/2010 7 Diverticulitis of colon (without mention of hemo rrhage) 10/01/2004 04/08/2016 Arthropathy, unspecified, site unspecified 10/0106/07/2015 Neuralgia, neuritis, and radiculitis, unspecifie d 06/07/2015 Family history of malignant neoplasm of gastrointestinal tract 04/08/2016 Overview: daughter Macromastia 05/04/2013 documented as of this encounter (statuses as of 05/08/2021) [facility] of Past illness Narrative* Problem Noted Date Resolved Date Elevated blood pressure reading 10/27/2017 01/17/2020 Kidney insufficiency 04/24/2017 04/11/2021 Ulnar neuropathy of left upper extremity 017 10/27/2017 Left carpal tunnel syndrome 04/18/201610/11 Pain of left hip joint 11/17/2015 7 Chronic bilateral low back pain with right-sided sciatica 11/17/2015 04/24/2017 Chronic pain syndrome 07/08/2015 04/24/2017 Chronic midline low back pain 07/08/2015 History of lumbar laminectomy 06/26/2015 Hip pain 05/25/2014 11/17/2015 Low back pain 05/25/2014 11/17/2015 Mononeuritis of unspecified site 04/01/2014 04/08/2016 Enthesopathy of hip region 04/01/201404/08 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 04/25/2017 Cyst of breast, left, diffuse fibrocystic 201304/24/2017 Left leg paresthesias 12/07/2011 04/08/2016 Meralgia paraesthetica 04/24/2010 7 Diverticulitis of colon (without mention of hemo rrhage) 10/01/2004 04/08/2016 Arthropathy, unspecified, site unspecified 10/0106/07/2015 Neuralgia, neuritis, and radiculitis, unspecifie d 06/07/2015 Family history of malignant neoplasm of gastrointestinal tract 04/08/2016 Overview: daughter Macromastia 05/04/2013 documented as of this encounter (statuses as of 05/27/2021) [facility] of Past illness Narrative* Problem Noted Date Resolved Date Elevated blood pressure reading 10/27/2017 01/17/2020 Kidney insufficiency 04/24/2017 04/11/2021 Ulnar neuropathy of left upper extremity 017 10/27/2017 Left carpal tunnel syndrome 04/18/201610/11 Pain of left hip joint 11/17/2015 7 Chronic bilateral low back pain with right-sided sciatica 11/17/2015 04/24/2017 Chronic pain syndrome 07/08/2015 04/24/2017 Chronic midline low back pain 07/08/2015 History of lumbar laminectomy 06/26/2015 Hip pain 05/25/2014 11/17/2015 Low back pain 05/25/2014 11/17/2015 Mononeuritis of unspecified site 04/01/2014 04/08/2016 Enthesopathy of hip region 04/01/201404/08 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 04/25/2017 Cyst of breast, left, diffuse fibrocystic 201304/24/2017 Left leg paresthesias 12/07/2011 04/08/2016 Meralgia paraesthetica 04/24/2010 7 Diverticulitis of colon (without mention of hemo rrhage) 10/01/2004 04/08/2016 Arthropathy, unspecified, site unspecified 10/0106/07/2015 Neuralgia, neuritis, and radiculitis, unspecifie d 06/07/2015 Family history of malignant neoplasm of gastrointestinal tract 04/08/2016 Overview: daughter Bentleyastia 05/04/2013 documented as of this encounter (statuses as of 05/28/2021) [facility] illness Narrative* Problem Noted Date Resolved Date Elevated blood pressure reading 10/27/2017 01/17/2020 Kidney insufficiency 04/24/2017 04/11/2021 Ulnar neuropathy of left upper extremity 017 10/27/2017 Left carpal tunnel syndrome 04/18/201610/11 Pain of left hip joint 11/17/2015 7 Chronic bilateral low back pain with right-sided sciatica 11/17/2015 04/24/2017 Chronic pain syndrome 07/08/2015 04/24/2017 Chronic midline low back pain 07/08/2015 History of lumbar laminectomy 06/26/2015 Hip pain 05/25/2014 11/17/2015 Low back pain 05/25/2014 11/17/2015 Mononeuritis of unspecified site 04/01/2014 04/08/2016 Enthesopathy of hip region 04/01/201404/08 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 04/25/2017 Cyst of breast, left, diffuse fibrocystic 201304/24/2017 Left leg paresthesias 12/07/2011 04/08/2016 Meralgia paraesthetica 04/24/2010 7 Diverticulitis of colon (without mention of hemo rrhage) 10/01/2004 04/08/2016 Arthropathy, unspecified, site unspecified 10/0106/07/2015 Neuralgia, neuritis, and radiculitis, unspecifie d 06/07/2015 Family history of malignant neoplasm of gastrointestinal tract 04/08/2016 Overview: daughter Macromastia 05/04/2013 documented as of this encounter (statuses as of 06/01/2021) [facility] of [facility] illness Narrative* Problem Noted Date Resolved Date Elevated blood pressure reading 10/27/2017 01/17/2020 Kidney insufficiency 04/24/2017 04/11/2021 Ulnar neuropathy of left upper extremity 017 10/27/2017 Left carpal tunnel syndrome 04/18/201610/11 Pain of left hip joint 11/17/2015 7 Chronic bilateral low back pain with right-sided sciatica 11/17/2015 04/24/2017 Chronic pain syndrome 07/08/2015 04/24/2017 Chronic midline low back pain 07/08/2015 History of lumbar laminectomy 06/26/2015 Hip pain 05/25/2014 11/17/2015 Low back pain 05/25/2014 11/17/2015 Mononeuritis of unspecified site 04/01/2014 04/08/2016 Enthesopathy of hip region 04/01/201404/08 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 04/25/2017 Cyst of breast, left, diffuse fibrocystic 201304/24/2017 Left leg paresthesias 12/07/2011 04/08/2016 Meralgia paraesthetica 04/24/2010 7 Diverticulitis of colon (without mention of hemo rrhage) 10/01/2004 04/08/2016 Arthropathy, unspecified, site unspecified 10/0106/07/2015 Neuralgia, neuritis, and radiculitis, unspecifie d 06/07/2015 Family history of malignant neoplasm of gastrointestinal tract 04/08/2016 Overview: daughter Macromastia 05/04/2013 documented as of this encounter (statuses as of 07/13/2021) [facility] History of Past illness Narrative* Problem Noted Date Resolved Date Elevated blood pressure reading 10/27/2017 01/17/2020 Kidney insufficiency 04/24/2017 04/11/2021 Ulnar neuropathy of left upper extremity 017 10/27/2017 Left carpal tunnel syndrome 04/18/201610/11 Pain of left hip joint 11/17/2015 7 Chronic bilateral low back pain with right-sided sciatica 11/17/2015 04/24/2017 Chronic pain syndrome 07/08/2015 04/24/2017 Chronic midline low back pain 07/08/2015 History of lumbar laminectomy 06/26/2015 Hip pain 05/25/2014 11/17/2015 Low back pain 05/25/2014 11/17/2015 Mononeuritis of unspecified site 04/01/2014 04/08/2016 Enthesopathy of hip region 04/01/201404/08 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 04/25/2017 Cyst of breast, left, diffuse fibrocystic 201304/24/2017 Left leg paresthesias 12/07/2011 04/08/2016 Meralgia paraesthetica 04/24/2010 7 Diverticulitis of colon (without mention of hemo rrhage) 10/01/2004 04/08/2016 Arthropathy, unspecified, site unspecified 10/0106/07/2015 Neuralgia, neuritis, and radiculitis, unspecifie d 06/07/2015 Family history of malignant neoplasm of gastrointestinal tract 04/08/2016 Overview: daughter Macromastia 05/04/2013 documented as of this encounter (statuses as of 07/18/2021) [facility] History of Past illness Narrative* Problem Noted Date Resolved Date Elevated blood pressure reading 10/27/2017 01/17/2020 Kidney insufficiency 04/24/2017 04/11/2021 Ulnar neuropathy of left upper extremity 017 10/27/2017 Left carpal tunnel syndrome 04/18/201610/11 Pain of left hip joint 11/17/2015 7 Chronic bilateral low back pain with right-sided sciatica 11/17/2015 04/24/2017 Chronic pain syndrome 07/08/2015 04/24/2017 Chronic midline low back pain 07/08/2015 History of lumbar laminectomy 06/26/2015 Hip pain 05/25/2014 11/17/2015 Low back pain 05/25/2014 11/17/2015 Mononeuritis of unspecified site 04/01/2014 04/08/2016 Enthesopathy of hip region 04/01/201404/08 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 04/25/2017 Cyst of breast, left, diffuse fibrocystic 201304/24/2017 Left leg paresthesias 12/07/2011 04/08/2016 Meralgia paraesthetica 04/24/2010 7 Diverticulitis of colon (without mention of hemo rrhage) 10/01/2004 04/08/2016 Arthropathy, unspecified, site unspecified 10/0106/07/2015 Neuralgia, neuritis, and radiculitis, unspecifie d 06/07/2015 Family history of malignant neoplasm of gastrointestinal tract 04/08/2016 Overview: daughter Macromastia 05/04/2013 documented as of this encounter (statuses as of 07/30/2021) [facility] History of Past illness Narrative* Problem Noted Date Resolved Date Elevated blood pressure reading 10/27/2017 01/17/2020 Kidney insufficiency 04/24/2017 04/11/2021 Ulnar neuropathy of left upper extremity 017 10/27/2017 Left carpal tunnel syndrome 04/18/201610/11 Pain of left hip joint 11/17/2015 7 Chronic bilateral low back pain with right-sided sciatica 11/17/2015 04/24/2017 Chronic pain syndrome 07/08/2015 04/24/2017 Chronic midline low back pain 07/08/2015 History of lumbar laminectomy 06/26/2015 Hip pain 05/25/2014 11/17/2015 Low back pain 05/25/2014 11/17/2015 Mononeuritis of unspecified site 04/01/2014 04/08/2016 Enthesopathy of hip region 04/01/201404/08 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 04/25/2017 Cyst of breast, left, diffuse fibrocystic 201304/24/2017 Left leg paresthesias 12/07/2011 04/08/2016 Meralgia paraesthetica 04/24/2010 7 Diverticulitis of colon (without mention of hemo rrhage) 10/01/2004 04/08/2016 Arthropathy, unspecified, site unspecified 10/0106/07/2015 Neuralgia, neuritis, and radiculitis, unspecifie d 06/07/2015 Family history of malignant neoplasm of gastrointestinal tract 04/08/2016 Overview: daughter Macromastia 05/04/2013 documented as of this encounter (statuses as of 08/06/2021) [facility] History of Past illness Narrative* Problem Noted Date Resolved Date Elevated blood pressure reading 10/27/2017 01/17/2020 Kidney insufficiency 04/24/2017 04/11/2021 Ulnar neuropathy of left upper extremity 017 10/27/2017 Left carpal tunnel syndrome 04/18/201610/11 Pain of left hip joint 11/17/2015 7 Chronic bilateral low back pain with right-sided sciatica 11/17/2015 04/24/2017 Chronic pain syndrome 07/08/2015 04/24/2017 Chronic midline low back pain 07/08/2015 History of lumbar laminectomy 06/26/2015 Hip pain 05/25/2014 11/17/2015 Low back pain 05/25/2014 11/17/2015 Mononeuritis of unspecified site 04/01/2014 04/08/2016 Enthesopathy of hip region 04/01/201404/08 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 04/25/2017 Cyst of breast, left, diffuse fibrocystic 201304/24/2017 Left leg paresthesias 12/07/2011 04/08/2016 Meralgia paraesthetica 04/24/2010 7 Diverticulitis of colon (without mention of hemo rrhage) 10/01/2004 04/08/2016 Arthropathy, unspecified, site unspecified 10/0106/07/2015 Neuralgia, neuritis, and radiculitis, unspecifie d 06/07/2015 Family history of malignant neoplasm of gastrointestinal tract 04/08/2016 Overview: daughter Macromastia 05/04/2013 documented as of this encounter (statuses as of 08/21/2021) [facility] Diagnosis 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 Neuropathy Mononeuritis of unspecified site [facility] Diagnosis Urgency of urination- Primary Back pain, unspecified back location, unspecified back pain laterality, unspecified chronicity [facility] Diagnosis Acute right-sided low back pain without sciatica- Primary Dysuria [facility]* Diagnosis 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 Neuropathy Mononeuritis of unspecified site [facility] Diagnosis Chest pain, unspecified type- Primary Acute right-sided low back pain without sciatica [facility] Diagnosis Acute right-sided low back pain without sciatica [facility]* Diagnosis Encounter for screening mammogram for breast cancer [facility] Diagnosis 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 Neuropathy Mononeuritis of unspecified site [facility] Diagnosis Lumbar disc herniation with radiculopathy- Primary Displacement of lumbar intervertebral disc without myelopathy Essential hypertension Unspecified essential hypertension Palpitations Neuropathy Mononeuritis of unspecified site [facility]* Diagnosis Neuropathy Mononeuritis of unspecified site [facility] Diagnosis Viral URI with cough- Primary Acute upper respiratory infections of unspecified site [facility] Diagnosis Acute pain of right knee- Primary [facility] Diagnosis Pain in right lower leg- Primary [facility] Diagnosis Pain in right lower leg [facility] Diagnosis Synovial cyst of right popliteal space- Primary Synovial cyst of popliteal space Acute pain of right knee Insufficiency fracture of tibia, initial encounter [facility] Diagnosis Skin lump of leg, right- Primary [facility] Diagnosis Insufficiency fracture of tibia, initial encounter- Primary Synovial cyst of right popliteal space Synovial cyst of popliteal space Acute pain of right knee [facility] Diagnosis Skin lump of leg, right Insufficiency fracture of fibula, initial encounter Chronic pain of right knee [facility] Diagnosis Acute pain of right knee- Primary Insufficiency fracture of tibia with routine healing, subsequent encounter Synovial cyst of right popliteal space Synovial cyst of popliteal space Insufficiency fracture of fibula, initial encounter Chronic pain of right knee [facility] Diagnosis Pre-operative examination- Primary Preoperative examination, unspecified Irritable bowel syndrome with both constipation and diarrhea MVP (mitral valve prolapse) Mitral valve disorders Neuropathy Mononeuritis of unspecified site 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 Palpitations Essential hypertension Unspecified essential hypertension Memory changes Memory loss Stage 3a chronic kidney disease (HCC) Gastroesophageal reflux disease, unspecified whether esophagitis present Former smoker Personal history of tobacco use, presenting hazards to health Essential tremor Essential and other specified forms of tremor PONV (postoperative nausea and vomiting) Nausea with vomiting Insufficiency fracture of fibula, initial encounter Chronic pain of right knee [facility] Diagnosis Acute medial meniscus tear of right knee, subsequent encounter- Primary [facility] Diagnosis Acute pain of right knee- Primary Insufficiency fracture of tibia, initial encounter Synovial cyst of right popliteal space Synovial cyst of popliteal space [facility] Diagnosis Acute knee pain, unspecified laterality 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 Neuropathy Mononeuritis of unspecified site [facility] Diagnosis Insufficiency fracture of tibia, initial encounter- Primary Synovial cyst of right popliteal space Synovial cyst of popliteal space [facility] Diagnosis Alonso's cyst of knee, right [facility] Diagnosis Lower abdominal pain, unspecified- Primary [facility]* Diagnosis Neuropathy Mononeuritis of unspecified site [facility] Diagnosis Neuropathy Mononeuritis of unspecified site documented in this encounter [facility] for referral (narrative)* Diagnostic Procedure Only (Routine) - Closed Specialty Diagnoses / Procedures Referred By Contac t Referred To Contact XR IMAGING Diagnoses Acute right-sided low back pain without sciatica Procedures XR LUMBAR GENERAL 3V AP/LAT/L5-S1 RADEX SPINE LUMBOSACRAL 2/3 VIEWS Temitope Castellano APRN.HOOK UP DRIVER [address] [place] [address] Xr Imaging Referral ID Status Reason Start Date Expiration Date V isits Requested Visits Authorized [id number] Closed Auto-Generate d Referral 06/01/2021 07/01/2022 1 1 [facility] for referral (narrative)* Diagnostic Procedure Only (Routine) - Authorized Specialty Diagnoses / Procedures Referred By Contac t Referred To Contact MOLECULAR [facility] FUNCTIONAL IMAGING Diagnoses Chest pain, unspecified type Procedures NM CARDIAC PERF STRESS/EXERCISE MYOCARDIAL SPECT MULTIPLE STUDIES Temitope Castellano APRN.[employer] [address] [place] [address] Molecular & Functional Imaging [address] [id number] Referral ID Status Reason Start Date Expiration Date Visits Requested Visits Authorized [id number] Authorized Auto-Generat ed Referral 07/17/2021 08/16/2022 1 1 * Outpatient Procedure (Routine) - Closed Specialty Diagnoses / Procedures Referred By Contac t Referred To Contact [facility] Diagnoses Chest pain, unspecified type Procedures ECG COMPLETE ECG ROUTINE ECG W/LEAST 12 LDS W/I&R Temitope Castellano APRN.H[employer] UP DRIVER [address] [place] [address] [facility] [place] [address] [place] [address] Referral ID Status Reason Start Date Expiration Date V isits Requested Visits Authorized [id number] Closed Auto-Generate d Referral 07/17/2021 07/17/2022 1 1 * Physical Therapy (Routine) - Authorized Specialty Diagnoses / Procedures Referred By Contac t Referred To Contact [facility] Diagnoses Acute right-sided low back pain without sciatica Procedures CONSULT TO PHYSICAL THERAPY PHYSICAL THERAPY EVALUATION HIGH COMPLEX 45 MINS Temitope Castellano APRN.CNP [address] [place] [address] [facility] [place] [address] [place] [address] Referral ID Status Reason Start Date Expiration Date Visits Requested Visits Authorized [id number] Authorized PCP Requested Referral Auto-Generate d Referral 07/17/2021 07/17/2022 99 99 [facility] for referral (narrative)* Diagnostic Procedure Only (Routine) - Pending Review Specialty Diagnoses / Procedures Referred By Contac t Referred To Contact BR IMAGING Diagnoses Encounter for screening mammogram for breast cancer Procedures MINNA SCREENING SCREENING MAMMOGRAPHY BI 2-VIEW BREAST INC CAD Claus Magaña MD [address] [place] [address] [facility] [address] [place] [address] Referral ID Status Reason Start Date Expiration Date Visits Requested Visits Authorized [id number] Pending Review Auto-Generat ed Referral 08/01/2021 08/31/2022 1 1 [facility] for referral (narrative)* Diagnostic Procedure Only (Urgent) - Closed Specialty Diagnoses / Procedures Referred By Contac t Referred To Contact XR IMAGING Diagnoses Acute pain of right knee Procedures XR KNEE GENERAL 4V AP BOTH/PA BOTH/LAT/MERC RIGHT RADIOLOGIC EXAM KNEE COMPLETE 4/MORE VIEWS Temitope Castellano APRN.[employer] [address] [place] [address] Xr Imaging Referral ID Status Reason Start Date Expiration Date V isits Requested Visits Authorized [id number] Closed Auto-Generate d Referral 04/23/2022 05/23/2023 1 1 [facility] for referral (narrative)* Outpatient Procedure (Urgent) - Authorized Specialty Diagnoses / Procedures Referred By Contac t Referred To Contact [facility] Diagnoses Pain in right lower leg Procedures US LEG VEIN DVT UNL VAS LAB DUP-SCAN XTR VEINS UNILATERAL/LIMITED STUDY Temitope Castellano APRN.CNP [address] [place] [address] [facility] [address] [address] Referral ID Status Reason Start Date Expiration Date Visits Requested Visits Authorized [id number] Authorized Auto-Generat ed Referral 04/30/2022 04/30/2023 1 1 [facility] for referral (narrative)* Outpatient Procedure (Urgent) - Closed Specialty Diagnoses / Procedures Referred By Contac t Referred To Contact [facility] Diagnoses Skin lump of leg, right Procedures US LEG VEIN DVT UNL VAS LAB DUP-SCAN XTR VEINS UNILATERAL/LIMITED STUDY Claus Magaña MD [address] [place] [address] [facility] [place] [address] Referral ID Status Reason Start Date Expiration Date V isits Requested Visits Authorized [id number] Closed Auto-Generate d Referral 05/30/2022 05/30/2023 1 1 [facility] for visit Narrative* Outpatient Procedure (Urgent) - Closed Specialty Diagnoses / Procedures Referred By Contac t Referred To Contact [facility] Diagnoses Skin lump of leg, right Procedures US LEG VEIN DVT UNL VAS LAB DUP-SCAN XTR VEINS UNILATERAL/LIMITED STUDY Claus Magaña MD [address] [place] [address] [facility] [place] [address] [facility] [place] [address] Referral ID Status Reason Start Date Expiration Date V isits Requested Visits Authorized [id number] Closed Auto-Generate d Referral 05/30/2022 05/30/2023 1 1 [facility] Summary Purpose Family History No Family History Records FoundNo Family History Records FoundNo Family History Records FoundNo Family History Records Found Advance Directives No Advanced Directives Records FoundDocuments on File Type Date Recorded 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 Advance Directive(s) 12/14/2018 7:28 AM Advance Directive(s) 01/23/2017 10:25 AM Documents on File Type Date Recorded 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 Advance Directive(s) 12/14/2018 7:28 AM Advance Directive(s) 01/23/2017 10:25 AM Medications Administered Section Inactive Administered Medications - up to 3 most recent administrations Medication Order MAR Action Action Date Dose Rate Site betamethasone acetate-betamethasone sodium phosphate 6 mg injection (CELESTONE) 6 mg, Injection - FOR ORTHO USE ONLY, ONE TIME INJECTION, 1 dose, Starting on Fri05/13/22 at 1422, Until Fri05/13/22 at 1422 Given 05/13/2022 2:22 PM EDT 6 mg Kne e, Right lidocaine (PF) 10 mg/mL (1 %) 5 mL injection (XYLOCAINE) 5 mL, Injection - FOR ORTHO USE ONLY, ONE TIME INJECTION, 1 dose, Starting on Fri05/13/22 at 1422, Until Fri05/13/22 at 1422 Given 05/13/2022 2:22 PM EDT 5 mL Kne e, Right Inactive Administered Medications - up to 3 most recent administrations Medication Order MAR Action Action Date Dose Rate Site acetaminophen 500-1,000 mg tab(s) (TYLENOL) 500-1,000 mg, ORAL, PRE-OP ONCE, 1 dose, On Fri07/10/22 at 0800, If ordered PRN for pain, patient/guardian may elect to receive this medication for higher pain levels INSTEAD of the opioid, if preferred: Yes, Preprocedure Given 07/10/2022 8:39 AM EDT 1,000 mg fentaNYL 50 mcg/mL 50 mcg injection (SUBLIMAZE) 50 mcg, INTRAVENOUS, EVERY 10 MINUTES NEEDED, 4 doses, Starting on Fri07/10/22 at 1038, Until Jocelynn 07/11/22 at 0303, FIRST LINE THERAPY for mild, moderate, or severe pain, USE FOR MILD PAIN ONLY IF PATIENT IS UNABLE TO TOLERATE ORAL THERAPY, Recovery or Phase I (only) HYDROmorphone 0.2 mg injection (DILAUDID) 0.2 mg, INTRAVENOUS, EVERY 5 MINUTES NEEDED, 5 doses, Starting on Fri07/10/22 at 1038, Until Jocelynn 07/11/22 at 0303, SECOND LINE THERAPY for mild, moderate, or severe pain, USE FOR MILD PAIN ONLY IF PATIENT IS UNABLE TO TOLERATE ORAL THERAPY, Recovery or Phase I (only) lactated ringers iv infusion 5-30 mL/hr, INTRAVENOUS, CONTINUOUS, Starting on Fri07/10/22 at 0800, Until Fri07/10/22 at 1033, Preprocedure New Bag/Syringe/Bottle 07/10/2022 9:28 AM EDT Inactive Administered Medications - up to 3 most recent administrations Medication Order MAR Action Action Date Dose Rate Site ROPivacaine (PF) 5 mg/mL (0.5 %) 2 mL injection (NAROPIN) 2 mL, Injection - FOR ORTHO USE ONLY, ONE TIME INJECTION, 1 dose, Starting on Fri08/26/22 at 1457, Until Fri08/26/22 at 1457 Given 08/26/2022 2:57 PM EDT 2 mL Knee, Right triamcinolone acetonide 40 mg injection (KeNALog 40) 40 mg, Injection - FOR ORTHO USE ONLY, ONE TIME INJECTION, 1 dose, Starting on Fri08/26/22 at 1457, Until Fri08/26/22 at 1457 Given 08/26/2022 2:57 PM EDT 40 mg Knee, Right Reason for Referral Specialty Diagnoses / Procedures Referred By Javed ramirez Referred To Contact MR IMAGING Diagnoses Synovial cyst of right popliteal space Acute pain of right knee Insufficiency fracture of tibia, initial encounter Procedures MRI KNEE WO IVCON RIGHT MRI ANY JT LOWER EXTREM W/O CONTRAST MATRL Josemanuel Rodriguez MD [address] [place] [address] Mr Imaging Referral ID Status Reason Start Date Expiration Date V isits Requested Visits Authorized [id number] Closed Auto-Generate d Referral 05/02/2022 06/01/2023 1 1 Specialty Diagnoses / Procedures Referred By Contac t Referred To Contact [facility] Diagnoses Acute pain of right knee Insufficiency fracture of tibia with routine healing, subsequent encounter Synovial cyst of right popliteal space Procedures PT REHAB FOLLOW UP ORDER THERAPEUTIC EXERCISES RE, EA 15 MIN. Devin Hanna, AFSHAN [facility] [place] [address] [place] [address] Referral ID Status Reason Start Date Expiration Date Visits Requested Visits Authorized [id number] Pending Review PCP Requested Referral Auto-Generate d Referral 06/19/2022 09/17/2022 1 1 Specialty Diagnoses / Procedures Referred By Contac t Referred To Contact [facility] Diagnoses Acute pain of right knee Insufficiency fracture of tibia, initial encounter Synovial cyst of right popliteal space Procedures CONSULT TO PHYSICAL THERAPY PHYSICAL THERAPY EVALUATION HIGH COMPLEX 45 MINS Josemanuel Rodriguez MD [address] [place] [address] [facility] [address] [address] Referral ID Status Reason Start Date Expiration Date Visits Requested Visits Authorized [id number] Authorized PCP Requested Referral Auto-Generate d Referral 06/10/2022 06/10/2023 99 99 Additional Source Comments INFORMATION SOURCE (unrecogn ized section and content) DATE CREATED AUTHOR AUTHOR'S ORGANIZ ATION 05/13/2022 [facility] DATE CREATED AUTHOR AUTHOR'S ORGANIZ ATION 07/19/2022 [facility] DATE CREATED AUTHOR AUTHOR'S ORGANIZ ATION 03/16/2023 [facility] Source Comments (unrecognize d section and content) In the event this informatio n is protected by the Federal Confidentiality of Alcohol and Drug Abuse Patient Records regulations: The Federal rules restrict any use of the information to criminally investigate or prosecute any alcohol or drug abuse patient.[facility] the event this information is protected by the Federal Confidentiality of Alcohol and Drug Abuse Patient Records regulations: The Federal rules restrict any use of the information to criminally investigate or prosecute any alcohol or drug abuse patient.[facility] the event this information is protected by the Federal Confidentiality of Alcohol and Drug Abuse Patient Records regulations: The Federal rules restrict any use of the information to criminally investigate or prosecute any alcohol or drug abuse patient.[facility] the event this information is protected by the Federal Confidentiality of Alcohol and Drug Abuse Patient Records regulations: The Federal rules restrict any use of the information to criminally investigate or prosecute any alcohol or drug abuse patient.[facility] the event this information is protected by the Federal Confidentiality of Alcohol and Drug Abuse Patient Records regulations: The Federal rules restrict any use of the information to criminally investigate or prosecute any alcohol or drug abuse patient.[facility] the event this information is protected by the Federal Confidentiality of Alcohol and Drug Abuse Patient Records regulations: The Federal rules restrict any use of the information to criminally investigate or prosecute any alcohol or drug abuse patient.[facility] the event this information is protected by the Federal Confidentiality of Alcohol and Drug Abuse Patient Records regulations: The Federal rules restrict any use of the information to criminally investigate or prosecute any alcohol or drug abuse patient.[facility] the event this information is protected by the Federal Confidentiality of Alcohol and Drug Abuse Patient Records regulations: The Federal rules restrict any use of the information to criminally investigate or prosecute any alcohol or drug abuse patient.[facility] HospitalIn the event this information is protected by the Federal Confidentiality of Alcohol and Drug Abuse Patient Records regulations: The Federal rules restrict any use of the information to criminally investigate or prosecute any alcohol or drug abuse patient.[facility] HospitalIn the event this information is protected by the Federal Confidentiality of Alcohol and Drug Abuse Patient Records regulations: The Federal rules restrict any use of the information to criminally investigate or prosecute any alcohol or drug abuse patient.[facility] HospitalIn the event this information is protected by the Federal Confidentiality of Alcohol and Drug Abuse Patient Records regulations: The Federal rules restrict any use of the information to criminally investigate or prosecute any alcohol or drug abuse patient.[facility] HospitalIn the event this information is protected by the Federal Confidentiality of Alcohol and Drug Abuse Patient Records regulations: The Federal rules restrict any use of the information to criminally investigate or prosecute any alcohol or drug abuse patient.[facility] HospitalIn the event this information is protected by the Federal Confidentiality of Alcohol and Drug Abuse Patient Records regulations: The Federal rules restrict any use of the information to criminally investigate or prosecute any alcohol or drug abuse patient.[facility] HospitalIn the event this information is protected by the Federal Confidentiality of Alcohol and Drug Abuse Patient Records regulations: The Federal rules restrict any use of the information to criminally investigate or prosecute any alcohol or drug abuse patient.[facility] HospitalIn the event this information is protected by the Federal Confidentiality of Alcohol and Drug Abuse Patient Records regulations: The Federal rules restrict any use of the information to criminally investigate or prosecute any alcohol or drug abuse patient.[facility] HospitalIn the event this information is protected by the Federal Confidentiality of Alcohol and Drug Abuse Patient Records regulations: The Federal rules restrict any use of the information to criminally investigate or prosecute any alcohol or drug abuse patient.[facility] HospitalIn the event this information is protected by the Federal Confidentiality of Alcohol and Drug Abuse Patient Records regulations: The Federal rules restrict any use of the information to criminally investigate or prosecute any alcohol or drug abuse patient.[facility] HospitalIn the event this information is protected by the Federal Confidentiality of Alcohol and Drug Abuse Patient Records regulations: The Federal rules restrict any use of the information to criminally investigate or prosecute any alcohol or drug abuse patient.[facility] HospitalIn the event this information is protected by the Federal Confidentiality of Alcohol and Drug Abuse Patient Records regulations: The Federal rules restrict any use of the information to criminally investigate or prosecute any alcohol or drug abuse patient.[facility] HospitalIn the event this information is protected by the Federal Confidentiality of Alcohol and Drug Abuse Patient Records regulations: The Federal rules restrict any use of the information to criminally investigate or prosecute any alcohol or drug abuse patient.[facility] HospitalIn the event this information is protected by the Federal Confidentiality of Alcohol and Drug Abuse Patient Records regulations: The Federal rules restrict any use of the information to criminally investigate or prosecute any alcohol or drug abuse patient.[facility] HospitalIn the event this information is protected by the Federal Confidentiality of Alcohol and Drug Abuse Patient Records regulations: The Federal rules restrict any use of the information to criminally investigate or prosecute any alcohol or drug abuse patient.[facility] HospitalIn the event this information is protected by the Federal Confidentiality of Alcohol and Drug Abuse Patient Records regulations: The Federal rules restrict any use of the information to criminally investigate or prosecute any alcohol or drug abuse patient.[facility] HospitalIn the event this information is protected by the Federal Confidentiality of Alcohol and Drug Abuse Patient Records regulations: The Federal rules restrict any use of the information to criminally investigate or prosecute any alcohol or drug abuse patient.[facility] HospitalIn the event this information is protected by the Federal Confidentiality of Alcohol and Drug Abuse Patient Records regulations: The Federal rules restrict any use of the information to criminally investigate or prosecute any alcohol or drug abuse patient.[facility] HospitalIn the event this information is protected by the Federal Confidentiality of Alcohol and Drug Abuse Patient Records regulations: The Federal rules restrict any use of the information to criminally investigate or prosecute any alcohol or drug abuse patient.[facility] HospitalIn the event this information is protected by the Federal Confidentiality of Alcohol and Drug Abuse Patient Records regulations: The Federal rules restrict any use of the information to criminally investigate or prosecute any alcohol or drug abuse patient.[facility] HospitalIn the event this information is protected by the Federal Confidentiality of Alcohol and Drug Abuse Patient Records regulations: The Federal rules restrict any use of the information to criminally investigate or prosecute any alcohol or drug abuse patient.[facility] HospitalIn the event this information is protected by the Federal Confidentiality of Alcohol and Drug Abuse Patient Records regulations: The Federal rules restrict any use of the information to criminally investigate or prosecute any alcohol or drug abuse patient.[facility] HospitalIn the event this information is protected by the Federal Confidentiality of Alcohol and Drug Abuse Patient Records regulations: The Federal rules restrict any use of the information to criminally investigate or prosecute any alcohol or drug abuse patient.[facility] HospitalIn the event this information is protected by the Federal Confidentiality of Alcohol and Drug Abuse Patient Records regulations: The Federal rules restrict any use of the information to criminally investigate or prosecute any alcohol or drug abuse patient.[facility] HospitalIn the event this information is protected by the Federal Confidentiality of Alcohol and Drug Abuse Patient Records regulations: The Federal rules restrict any use of the information to criminally investigate or prosecute any alcohol or drug abuse patient.[facility] HospitalIn the event this information is protected by the Federal Confidentiality of Alcohol and Drug Abuse Patient Records regulations: The Federal rules restrict any use of the information to criminally investigate or prosecute any alcohol or drug abuse patient.[facility] HospitalIn the event this information is protected by the Federal Confidentiality of Alcohol and Drug Abuse Patient Records regulations: The Federal rules restrict any use of the information to criminally investigate or prosecute any alcohol or drug abuse patient.[facility] HospitalIn the event this information is protected by the Federal Confidentiality of Alcohol and Drug Abuse Patient Records regulations: The Federal rules restrict any use of the information to criminally investigate or prosecute any alcohol or drug abuse patient.[facility] HospitalIn the event this information is protected by the Federal Confidentiality of Alcohol and Drug Abuse Patient Records regulations: The Federal rules restrict any use of the information to criminally investigate or prosecute any alcohol or drug abuse patient.[facility] HospitalIn the event this information is protected by the Federal Confidentiality of Alcohol and Drug Abuse Patient Records regulations: The Federal rules restrict any use of the information to criminally investigate or prosecute any alcohol or drug abuse patient.[facility] HospitalIn the event this information is protected by the Federal Confidentiality of Alcohol and Drug Abuse Patient Records regulations: The Federal rules restrict any use of the information to criminally investigate or prosecute any alcohol or drug abuse patient.[facility] HospitalIn the event this information is protected by the Federal Confidentiality of Alcohol and Drug Abuse Patient Records regulations: The Federal rules restrict any use of the information to criminally investigate or prosecute any alcohol or drug abuse patient.[facility] HospitalIn the event this information is protected by the Federal Confidentiality of Alcohol and Drug Abuse Patient Records regulations: The Federal rules restrict any use of the information to criminally investigate or prosecute any alcohol or drug abuse patient.[facility] HospitalIn the event this information is protected by the Federal Confidentiality of Alcohol and Drug Abuse Patient Records regulations: The Federal rules restrict any use of the information to criminally investigate or prosecute any alcohol or drug abuse patient.[facility] HospitalIn the event this information is protected by the Federal Confidentiality of Alcohol and Drug Abuse Patient Records regulations: The Federal rules restrict any use of the information to criminally investigate or prosecute any alcohol or drug abuse patient.[facility] HospitalIn the event this information is protected by the Federal Confidentiality of Alcohol and Drug Abuse Patient Records regulations: The Federal rules restrict any use of the information to criminally investigate or prosecute any alcohol or drug abuse patient.[facility] HospitalIn the event this information is protected by the Federal Confidentiality of Alcohol and Drug Abuse Patient Records regulations: The Federal rules restrict any use of the information to criminally investigate or prosecute any alcohol or drug abuse patient.[facility] HospitalIn the event this information is protected by the Federal Confidentiality of Alcohol and Drug Abuse Patient Records regulations: The Federal rules restrict any use of the information to criminally investigate or prosecute any alcohol or drug abuse patient.[facility] HospitalIn the event this information is protected by the Federal Confidentiality of Alcohol and Drug Abuse Patient Records regulations: The Federal rules restrict any use of the information to criminally investigate or prosecute any alcohol or drug abuse patient.[facility] Reason for Visit (unrecogniz ed section and content) Reason Comments Urinary Frequency lower back pain onse t x1 week prior x2 AZO AM Reason Comments Results Reason Comments UC follow up Reason Onset Date Comments Refill Request 07/11/2021 Reason Comments follow up - back pain Reason Comments PT Eval Patient Education Specialty Diagnoses / Procedures Referred By Contac t Referred To Contact [facility] Diagnoses Acute right-sided low back pain without sciatica Procedures CONSULT TO PHYSICAL THERAPY PHYSICAL THERAPY EVALUATION HIGH COMPLEX 45 MINS Older, Temitope, AMY.HOOK UP DR[address] [place] [address] [facility] [address] [place] [address] Referral ID Status Reason Start Date Expiration Date Visits Requested Visits Authorized [id number] Authorized PCP Requested Referral Auto-Generate d Referral 07/17/2021 07/17/2022 99 99 Reason Comments Appointment Reason Onset Date Comments Refill Request 10/08/2021 Reason Comments F/U 6 months Reason Onset Date Comments Refill Request 12/17/2021 Reason Comments Refill Request Reason Onset Date Comments cough, ear pain, nasal drainage 02/12/2022 Reason Comments ear pain , cough, drainage Reason Onset Date Comments Refill Request 02/12/2022 Reason Comments RIGHT KNEE PAIN X 5 DAYS Reason Comments Knee Pain Reason Comments Medication Request Specialty Diagnoses / Procedures Referred By Contac t Referred To Contact [facility] Diagnoses Synovial cyst of right popliteal space Acute pain of right knee Insufficiency fracture of tibia, initial encounter Procedures MRI KNEE WO IVCON RIGHT MRI ANY JT LOWER EXTREM W/O CONTRAST MATRL Josemanuel Rodriguez MD [address] [place] [address] Mr Imaging Referral ID Status Reason Start Date Expiration Date V isits Requested Visits Authorized [id number] Closed Auto-Generate d Referral 05/02/2022 06/01/2023 1 1 Reason Comments Follow Up Knee Pain Reason Comments Mass Reason Comments New Pain Specialty Diagnoses / Procedures Referred By Contac t Referred To Contact Orthopedics Diagnoses Synovial cyst of right popliteal space Acute pain of right knee Procedures CONSULT TO ORTHOPAEDICS OFFICE/OUTPATIENT NEW HIGH MDM 60-74 MINUTES Older, Temitope, BIT SHARPENER.[employer] [place] [address] Referral ID Status Reason Start Date Expiration Date V isits Requested Visits Authorized [id number] Closed PCP Requested Referral 05/01/2022 05/01/2023 1 1 Reason Comments Complete office notes Reason Comments PT Eval Specialty Diagnoses / Procedures Referred By Contac t Referred To Contact [facility] Diagnoses Acute pain of right knee Insufficiency fracture of tibia, initial encounter Synovial cyst of right popliteal space Procedures CONSULT TO PHYSICAL THERAPY PHYSICAL THERAPY EVALUATION HIGH COMPLEX 45 MINS Josemanuel Rodriguez MD [address] [place] [address] [facility] [address] [place] [address] Referral ID Status Reason Start Date Expiration Date Visits Requested Visits Authorized [id number] Authorized PCP Requested Referral Auto-Generate d Referral 06/10/2022 06/10/2023 99 99 Reason Comments Consult Reason Comments Follow Up Knee Pain 4 weeks post visit Right knee pain with Mendy With injection given Reason Onset Date Comments Refill Request 07/16/2022 Reason Comments Post Op Knee Pain Swelling Reason Comments Pain Reason Comments Abdominal Pain Lower abd and lower back pain x2 days, unsure if UTI or diverticulitis Reason Onset Date Comments Refill Request 10/30/2022 Reason Comments Medication Problem Care Teams (unrecognized sec tion and content) Latin Professor Relationship Specialty Start Date End Date Claus Magaña MD [address] [place] [address] PCP - General Internal Medicine 04/18/16 Latin Professor Relationship Specialty Start Date End Date Claus Magaña MD [address] [place] [address] PCP - General Internal Medicine 04/18/16 Latin Professor Relationship Specialty Start Date End Date Claus Magaña MD [address] [place] [address] PCP - General Internal Medicine 04/18/16 Latin Professor Relationship Specialty Start Date End Date Claus Magaña MD [address] [place] [address] PCP - General Internal Medicine 04/18/16 Latin Professor Relationship Specialty Start Date End Date Claus Magaña MD [address] [place] [address] PCP - General Internal Medicine 04/18/16 Latin Professor Relationship Specialty Start Date End Date Claus Magaña MD [address] [place] [address] PCP - General Internal Medicine 04/18/16 Latin Professor Relationship Specialty Start Date End Date Claus Magaña MD [address] [place] [address] PCP - General Internal Medicine 04/18/16 Latin Professor Relationship Specialty Start Date End Date Claus Magaña MD [address] [place] [address] PCP - General Internal Medicine 04/18/16 Latin Professor Relationship Specialty Start Date End Date Claus Magaña MD [address] [place] [address] PCP - General Internal Medicine 04/18/16 Latin Professor Relationship Specialty Start Date End Date Claus Magaña MD [address] [place] [address] PCP - General Internal Medicine 04/18/16 Latin Professor Relationship Specialty Start Date End Date Claus Magaña MD [address] [place] [address] PCP - General Internal Medicine 04/18/16 Latin Professor Relationship Specialty Start Date End Date Claus Magaña MD [address] [place] [address] PCP - General Internal Medicine 04/18/16 Latin Professor Relationship Specialty Start Date End Date Claus Magaña MD [address] [place] [address] PCP - General Internal Medicine 04/18/16 Latin Professor Relationship Specialty Start Date End Date Claus Magaña MD [address] [place] [address] PCP - General Internal Medicine 04/18/16 Latin Professor Relationship Specialty Start Date End Date Claus Magaña MD [address] [place] [address] PCP - General Internal Medicine 04/18/16 Latin Professor Relationship Specialty Start Date End Date Claus Magaña MD [address] [place] [address] PCP - General Internal Medicine 04/18/16 Latin Professor Relationship Specialty Start Date End Date Cluas Magaña MD [address] [place] [address] PCP - General Internal Medicine 04/18/16 Latin Professor Relationship Specialty Start Date End Date Claus Magaña MD [address] [place] [address] PCP - General Internal Medicine 04/18/16 Latin Professor Relationship Specialty Start Date End Date Claus Magaña MD [address] [place] [address] PCP - General Internal Medicine 04/18/16 Latin Professor Relationship Specialty Start Date End Date Claus Magaña MD [address] [place] [address] PCP - General Internal Medicine 04/18/16 Latin Professor Relationship Specialty Start Date End Date Claus Magaña MD [address] [place] [address] PCP - General Internal Medicine 04/18/16 Latin Professor Relationship Specialty Start Date End Date Claus Magaña MD [address] [place] [address] PCP - General Internal Medicine 04/18/16 Latin Professor Relationship Specialty Start Date End Date Claus Magaña MD [address] [place] [address] PCP - General Internal Medicine 04/18/16 Latin Professor Relationship Specialty Start Date End Date Claus Magaña MD [address] [place] [address] PCP - General Internal Medicine 04/18/16 Latin Professor Relationship Specialty Start Date End Date Claus Magaña MD [address] [place] [address] PCP - General Internal Medicine 04/18/16 Latin Professor Relationship Specialty Start Date End Date Claus Magaña MD [address] [place] [address] PCP - General Internal Medicine 04/18/16 Latin Professor Relationship Specialty Start Date End Date Claus Magaña MD [address] [place] [address] PCP - General Internal Medicine 04/18/16 Latin Professor Relationship Specialty Start Date End Date Claus Magaña MD [address] [place] [address] PCP - General Internal Medicine 04/18/16 Latin Professor Relationship Specialty Start Date End Date Claus Magaña MD [address] [place] [address] PCP - General Internal Medicine 04/18/16 Latin Professor Relationship Specialty Start Date End Date Claus Magaña MD [address] [place] [address] PCP - General Internal Medicine 04/18/16 Latin Professor Relationship Specialty Start Date End Date Claus Magaña MD [address] [place] [address] PCP - General Internal Medicine 04/18/16 Scheduled Active and Recently Administ ered Medications (unrecognized section and content) Continuous Medication Order 07/08/2022 07/09/2022 07/10/2022 lactated ringers iv infusion (CANCELED) 5-30 mL/hr, INTRAVENOUS, CONTINUOUS, Starting on Fri07/10/22 at 0800, Until Fri07/10/22 at 1033, Preprocedure 0804 (New Bag/Syring e/Bottle - Provider: Sommer Martinez RN)09 (Stopped - Provider: Beverly Romero APRN.CRNA - Comment: Switch to gravity)0928 (New Bag/Syringe/Bottle - Provider: Beverly Romero APRN.CRNA)1027 (Infusion Complete - Provider: Beverly Romero APRN.CRNA) lactated ringers iv infusion 50 mL/hr, INTRAVENOUS, CONTINUOUS, Starting on Fri07/10/22 at 1100, Until Jocelynn 07/11/22 at 0303, Recovery or Phase I (only) 1100 (Due) PRN Medication Order 07/08/2022 07/09/2022 07/10/2022 fentaNYL 50 mcg/mL 50 mcg injection (SUBLIMAZE) 50 mcg, INTRAVENOUS, EVERY 10 MINUTES NEEDED, 4 doses, Starting on Fri07/10/22 at 1038, Until Jocelynn 07/11/22 at 0303, FIRST LINE THERAPY for mild, moderate, or severe pain, USE FOR MILD PAIN ONLY IF PATIENT IS UNABLE TO TOLERATE ORAL THERAPY, Recovery or Phase I (only) HYDROmorphone 0.2 mg injection (DILAUDID) 0.2 mg, INTRAVENOUS, EVERY 5 MINUTES NEEDED, 5 doses, Starting on Fri07/10/22 at 1038, Until Jocelynn 07/11/22 at 0303, SECOND LINE THERAPY for mild, moderate, or severe pain, USE FOR MILD PAIN ONLY IF PATIENT IS UNABLE TO TOLERATE ORAL THERAPY, Recovery or Phase I (only) lidocaine (PF) 20 mg/mL (2 %) 5 mL, ROPivacaine (PF) 5 mL (CANCELED) X (OR/PROCEDURE) PRN, Starting on Fri07/10/22 at 1003, Until Fri07/10/22 at 1034, Intraprocedure 1003 (Given - Provid er: Josemanuel Rodriguez MD) lidocaine (PF) 20 mg/mL (2 %) 5 mL, triamcinolone acetonide 1 mL (CANCELED) X (OR/PROCEDURE) PRN, Starting on Fri07/10/22 at 1007, Until Fri07/10/22 at 1034, Intraprocedure 1007 (Given - Provid er: Josemanuel Rodriguez MD) morphine 2 mg, ROPivacaine (PF) 20 mL (CANCELED) X (OR/PROCEDURE) PRN, Starting on Fri07/10/22 at 1000, Until Fri07/10/22 at 1034, Intraprocedure 1000 (Given - Provid er: Josemanuel Rodriguez MD) NaCl 0.9% irrigation bag (CANCELED) X (OR/PROCEDURE) PRN, Starting on Fri07/10/22 at 1016, Until Fri07/10/22 at 1034, Intraprocedure 1016 (Given - Provid er: Sujey Basurto RN) ondansetron (PF) 4 mg injection (ZOFRAN)(Linked Group 2) 4 mg, INTRAVENOUS, EVERY 6 HOURS NEEDED, Starting on Fri07/10/22 at 1038, Until Jocelynn 07/11/22 at 0303, Nausea/Vomiting - First Line - Parenteral, Shivering, EVERY 6 HOURS NEEDED Give IV push over 2 minutes. Use when patient unable to take medications by mouth., Recovery or Phase I (only) ondansetron orally disintegrating 4 mg tab(s) (ZOFRAN ODT)(Linked Group 2) 4 mg, ORAL, EVERY 6 HOURS NEEDED, Starting on Fri07/10/22 at 1038, Until Jocelynn 07/11/22 at 0303, Nausea/Vomiting - First Line - Enteral, EVERY 6 HOURS NEEDED Use when patient able to take medications by mouth. Place tablet on tongue and allow to dissolve; do not chew. Open packaging using dry hands; do not push tablet through packaging., Recovery or Phase I (only) oxyCODONE IR 5 mg tab(s) (ROXICODONE) (COMPLETED) 5 mg, ORAL, NEEDED, 1 dose, Starting on Fri07/10/22 at 1038, Until Discontinued, Moderate Pain (4-6) - Enteral, Recovery or Phase I (only) 1130 (Given - Provid er: Elaina Mitchell RN) scopolamine 1 mg over 3 days 1 Patch (TRANSDERM-SCOP)(Linked Group 1) 1 Patch, TRANSDERMAL, Administer over 24 Hours, NEEDED, 1 dose, Starting on Fri07/10/22 at 1038, Until Jocelynn 07/11/22 at 0303, Nausea/Vomiting - Second Line - Topical, Allow 4 hours to achieve onset Apply patch behind ear. Each time a new patch is needed it should be placed behind the alternate ear from the previous patch. Remove old patch. Each 1.5 mg patch delivers 1 mg of scopolamine over 3 days., Recovery or Phase I (only) Linked Groups Order Group 1: scopolamine 1 mg over 3 days 1 Patch (TRANSDERM-SCOP)Jump to med 1 Patch, TRANSDERMAL, Administer over 24 Hours, NEEDED, 1 dose, Starting on Fri07/10/22 at 1038, Until Jocelynn 07/11/22 at 0303, Nausea/Vomiting - Second Line - Topical
Allow 4 hours to achieve onset Apply patch behind ear. Each time a new patch is needed it should be placed behind the alternate ear from the previous patch. Remove old patch. Each 1.5 mg patch delivers 1 mg of scopolamine over 3 days.
Recovery or Phase I (only) And scopolamine - VERIFY patchJump to med EVERY 8 HOURS, Recovery or Phase I (only)
THIS IS USED ONLY TO DOCUMENT THAT THE PATCH IS VERIFIED ON OR OFF PER ORDER. Use Patch On or Patch Off action.
And scopolamine - REMOVE PATCHJump to med ONCE, Recovery or Phase I (only)
THIS IS USED ONLY TO DOCUMENT PATCH REMOVAL. Use Remvd Patch action.
Group 2: ondansetron orally disintegrating 4 mg tab(s) (ZOFRAN ODT)Jump to med 4 mg, ORAL, EVERY 6 HOURS NEEDED, Starting on Fri07/10/22 at 1038, Until Jocelynn 07/11/22 at 0303, Nausea/Vomiting - First Line - Enteral
EVERY 6 HOURS NEEDED Use when patient able to take medications by mouth. Place tablet on tongue and allow to dissolve; do not chew. Open packaging using dry hands; do not push tablet through packaging.
Recovery or Phase I (only) Or ondansetron (PF) 4 mg injection (ZOFRAN)Jump to med 4 mg, INTRAVENOUS, EVERY 6 HOURS NEEDED, Starting on 07/10/22 at 1038, Until Jocelynn 07/11/22 at 0303, Nausea/Vomiting - First Line - Parenteral, Shivering
EVERY 6 HOURS NEEDED Give IV push over 2 minutes. Use when patient unable to take medications by mouth.
Recovery or Phase I (only) FOR RECORDS PERTAINING TO PATIENTS WHO ARE OR HAVE BEEN ENROLLED IN A CHEMICAL DEPENDENCY/SUBSTANCEABUSE PROGRAM, SOME INFORMATION MAY BE OMITTED. This clinical summary was aggregated from multiple sources. Caution should be exercised in using it in the provision of clinical care. This summary normalizes information from multiple sources, and as a consequence, information in this document may materially change the coding, format and clinical context of patient data. In addition, data may be omitted in some cases. CLINICAL DECISIONS SHOULD BE BASED ON THE PRIMARY CLINICAL RECORDS. [facility]. provides no warranty or guarantee of the accuracy or completeness of information in this document.
--- NOTE | 2023-03-27 07:35 | EKG12_ITS ---
Test Reason : PREOP Blood Pressure : / mmHG Vent. Rate : 063 BPM Atrial Rate : 063 BPM P-R Int : 186 ms QRS Dur : 070 ms QT Int : 398 ms P-R-T Axes : 057 -27 024 degrees QTc Int : 407 ms Normal sinus rhythm Biatrial enlargement Cannot rule out Septal infarct , age undetermined Abnormal ECG Confirmed by Connor Haddad ([id number]), social media editor ENEDINA LONDON ([id number]) on 03/28/2023 9:27:33 AM Referred By: Connor Adorno Confirmed By:Connor Haddad
--- NOTE | 2023-03-27 07:35 | CT_ITS ---
CT RIGHT LOWER EXTREMITY WITH 3-D IMAGING CLINICAL INDICATION: PAIN/PREOP TECHNIQUE: Axial CT images of the right lower extremity (including right hip, right knee, and right ankle) was performed without IV contrast material. Coronal and sagittal reformats were provided. RADIATION DOSAGE (If Supplied By Facility): CTDIvol = ( 18.76 ) mGy, DLP = ( 1401.68 ) mGycm COMPARISON: No relevant prior comparison study available. FINDINGS: Bones: Normal right hip joint. There is severe degenerative arthrosis of the right medial femorotibial compartment with joint space narrowing, marginal osteophyte formation, and subchondral sclerosis/cyst formation. There are possible subchondral stress fractures of the medial femoral condyle and medial tibial plateau. There is mild osteoarthritic spur formation of the patellofemoral and lateral femorotibial compartments of the right knee. There is a plantar calcaneal spur. Osseous structures are intact without evidence of fracture or dislocation. No lytic or blastic osseous masses. Soft Tissues: There is a small right knee joint effusion. There is a popliteal cyst behind the right knee, spanning a craniocaudal distance of approximately 11 cm. The deep soft tissue structures are unremarkable. The superficial soft tissues are unremarkable without evidence of edema, hematoma, or foreign body. 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 Small right knee joint effusion with 11 cm popliteal cyst. Electronically Signed: Osvaldo Ramachandran MD at 8:58 EST ,
== END | disposition home or self-care (01) ==
PROVIDERS: PCP Internal Medicine; Referring Provider Orthopaedic Surgery; Visit Provider Orthopaedic Surgery
DX: M17.11 Unilateral primary osteoarthritis, right knee (principal); G89.29 Other chronic pain
CPT/HCPCS: 73700; 93005

== ENCOUNTER 2023-04-21 15:35 | Observation (INO) | payer MEDICARE, OTHER, SELFPAY ==
[2023-03-27 08:40] LABS: Absolute Neutrophil Count 3.8 X10^3/uL (2.0-7.7); Basophil# 0.05 X10^3/uL; Basophil% 0.8 % (0-1); Eosinophils% 1.6 % (0-5); Hematocrit 42.5 % (37-47); Hemoglobin 13.7 g/dL (12.0-15.0); Lymphocyte % 28.1 % (19-41); Mean Corp Hgb Conc 32.2 g/dL (32-36); Mean Corpuscular Hgb 30.4 pg (27.0-32.0); Mean Corpuscular Volume 94.2 fL (81-99); Mean Platelet Vol. 10.3 fl (6.2-12.0); Monocyte# 0.63 X10^3/uL; Monocyte% 9.8 % (0-10); NRBC Flagged by Analyzer 0 % (0-5); Neutrophil # 3.81 X10^3/uL (2.7-7.7); Neutrophil % 59.4 % (47-70); Platelet Count 296 K/mm3 (150-450); RBC Distribution Width CV 13.5 % (11.6-14.6); RBC Distribution Width SD 46.8 fl (35.1-43.9); Red Blood Count 4.51 M/mm3 (4.2-5.4); White Blood Count 6.4 K/mm3 (4.4-11.0)
[2023-03-27 09:00] LABS: International Normalized Ratio 1.1; Prothrombin Time (Protime)PT. 13.7 SECONDS (11.7-14.9)
[2023-03-27 09:01] LABS: Partial Thromboplast Time 32.1 Seconds (24.1-36.2)
[2023-03-27 09:22] LABS: Hemoglobin A1c 5.6 % (3.8-5.6)
[2023-03-27 09:27] LABS: Anion Gap 3 (5-15); BUN 13 mg/dL (7-18); BUN/Creat Ratio 10.2 RATIO (10-20); Calcium,Total 9.3 mg/dL (8.5-10.1); Chloride 110 mmol/L (98-107); Creatinine, Serum 1.27 mg/dL (0.55-1.02); EST Glomerular Filtration Rate 44 mL/min (>60); Est Glom Filt Rate - Afr Amer 54 mL/min (>60); Glucose 96 mg/dL (74-106); Potassium 4.4 mmol/L (3.5-5.1); Sodium Level 143 mmol/L (136-145)
[2023-03-27 09:29] LABS: AST(SGOT) 25 U/L (15-37); Alanine Aminotransfer ALT/SGPT 22 U/L (13-56); Albumin, Serum 3.8 g/dL (3.2-5.0); Alkaline Phosphatase 98 U/L (45-117); Bilirubin, Direct 0.12 mg/dL (0.00-0.30); Globulin 3.5 g/dL (2.2-4.2); Magnesium 2.5 mg/dL (1.6-2.6); Protein, Total 7.3 g/dL (6.4-8.2)
[2023-04-21] VITALS (14 sets, daily range): BP systolic 90–137; BP diastolic 42–76; PULSE 71–83; RESP 16–18; TEMP 36.3–36.7; O2SAT 93–99; BMI 29.2; BMI 29.3
--- OUTSIDE RECORDS SUMMARY | 2023-04-21 05:46 | XMS RPT_ITS | CCD ---
Author Name Unknown Address [id number] [place] [address] Organization [facility] Care Team Providers Care Cargo Service Supervisor Name Role Phone Gómez CERRATO, Claus Briones Primary Care Provider [phone] JOSEMANUEL RODRIGUEZ Referring Unavailable GÓMEZ, CLAUS Briones Primary Care Unavailable Gómez CERRATO, Claus Briones Primary Care Provider [phone] JOSEMANUEL RODRIGUEZ Admitting Unavailable JOSEMANUEL RODRIGUEZ Attending Unavailable GÓMEZ, CLAUS Briones Primary Care Unavailable MAGAÑA, CLAUS Briones Primary Care Unavailable TEMITOPE TROTTER Attending Unavailable GÓMEZ, CLAUS Briones Primary Care Unavailable MAGAÑA, CLAUS Briones Attending Unavailable GÓMEZ, CLAUS Briones Primary Care Unavailable MAGAÑA, CLAUS Briones Primary Care Unavailable JOSEMANUEL RODRIGUEZ Referring Unavailable MENDY CUELLAR Attending Unavailable GÓMEZ, CLAUS Briones Primary Care Unavailable TEMITOPE TROTTER Referring Unavailable DEVIN HANNA Attending Unavailable GÓMEZ, CLAUS Briones Primary Care Unavailable JOSEMANUEL RODRIGUEZ Attending Unavailable JOSEMANUEL RODRIGUEZ Referring Unavailable KELLY VELAZQUEZ Referring Unavailable MAGAÑA, CLAUS Briones Primary Care Unavailable MAGAÑA, DONAVON Primary Care Unavailable MAGAÑA, CLAUS Briones Primary Care Unavailable DANG JANE Referring Unavailable MENDY CUELLAR Attending Unavailable GÓMEZ, DONAVON Primary Care Unavailable MAGAÑA, DONAVON Primary Care Unavailable JOSEMANUEL RODRIGUEZ Attending Unavailable JOSEMANUEL RODRIGUEZ Referring Unavailable MAGAÑA, DONAVON Primary Care Unavailable JOSEMANUEL RODRIGUEZ Referring Unavailable LUCIO KITCHEN Attending Unavailable MAGAÑA, DONAVON Primary Care Unavailable JOSEMANUEL RODRIGUEZ Referring Unavailable ANICETO BRODERICK Referring Unavailable MAGAÑA, DONAVON Primary Care Unavailable MAGAÑA, DONAVON Primary Care Unavailable MENDY CUELLAR Attending Unavailable JOSEMANUEL RODRIGUEZ Referring Unavailable ROSE MARIE, NAZ M Attending Unavailable MAGAÑA, DONAVON Primary Care Unavailable ROSE MARIE, TEMITOPE M Referring Unavailable MAGAÑA, DONAVON Primary Care Unavailable ROSE MARIE, TEMITOPE M Referring Unavailable MAGAÑA, DONAVON Primary Care Unavailable JOSEMANUEL RODRIGUEZ Attending Unavailable ROSE MARIE, TEMITOPE Elliott Referring Unavailable MAGAÑA, DONAVON Primary Care Unavailable ROSE MARIE, TEMITOPE M Referring Unavailable MAGAÑA, DONAVON Primary Care Unavailable MAGAÑA, DONAVON Primary Care Unavailable JOSEMANUEL RODRIGUEZ Referring Unavailable DEVIN HANNA Attending Unavailable ROSE MARIE, TEMITOPE Elliott Referring Unavailable MAGAÑA, DONAVON Primary Care Unavailable DEVIN HANNA Attending Unavailable ROSE MARIE, TEMITOPE Elliott Referring Unavailable MAGAÑA, DONAVON Primary Care Unavailable MAGAÑA, DONAVON Primary Care Unavailable MAGAÑA, DONAVON Referring Unavailable MAGAÑA, DONAVON Attending Unavailable MAGAÑA, DONAVON Primary Care Unavailable YANETHTOMENDY SPENCER Attending Unavailable MAGAÑA, DONAVON Primary Care Unavailable JOSEMANUEL RODRIGUEZ Referring Unavailable MAGAÑA, DONAVON Attending Unavailable MAGAÑA, DONAVON Primary Care Unavailable MAGAÑA, DONAVON Primary Care Unavailable MAGAÑA, DONAVON Referring Unavailable Allergies Allergy Classification Reported Allergen(s) Allergy Type Date of Onset Reaction(s) Facility (20 sources) Cimetidine; Translations: [CIMETIDINE] Drug Allergy 10-01-2004 Unknown [facility] (20 sources) HYDROcodone; Translations: [HYDROCODONE] Drug Allergy 02-25-2001 [facility] Work Phone: (20 sources) NITROFURANTOIN, MACROCRYSTALS / Nitrofurantoin, Monohydrate; Translations: [NITROFURANTOIN MONOHYD/M-CRYST] Drug Allergy 12-22-2015 Rash [facility] (20 sources) Ragweed pollen; Translations: [RAGWEED POLLEN] Drug Allergy 10-14-2018 Cough [facility] (14 sources) Acetaminophen; Translations: [ACETAMINOPHEN] Drug Allergy 08-10-2020 Itching [facility] (14 sources) Sulfamethoxazole; Translations: [SULFAMETHOXAZOLE] Drug Allergy 08-10-2020 Rash [facility] Medications Current Medications Medication Drug Class(es) Dates [...] kidney disease (HCC)] Onset: 1 Esophageal disorders (20 sources) Gastroesophageal reflux disease; Translations: [Gastro-esophageal reflux [...] conditions (not mental disorders or infectious disease) (2 sources) Patient encounter status; Translations: [Encounter for screening [...] of popliteal space [Alonso], right knee; Translations: [Alosno's cyst of knee, right] Onset: 05-02-2022 Episodic Other connective tissue disease (1 source) Pain in right lower leg; Translations: [Pain in right lower leg] Onset: 05-01-2022 Episodic Other nervous system disorders (20 sources) Tremor; Translations: [Tremor, unspecified] Onset: 04-16-2022 04-16-2022 Episodic Other non-traumatic joint disorders (20 sources) Pain in right knee; Translations: [Pain in joint, lower leg] Onset: 04-23-2022 Episodic Other skin disorders (1 source) Localized [...] Date Time Vital Sign Value Performing Clinician Faci lity 04-16-2023 10:39-0500 Body temperature 98.49 [degF] Claus Magaña MD Work Phone: [facility] 04-16-2023 10:39-0500 Body weight 75.21 kg Claus Magaña MD Work Phone: [facility] 04-16-2023 10:39-0500 Diastolic blood pressure 78 mm[Hg] Claus Magaña MD Work Phone: [facility] 04-16-2023 10:39-0500 Heart rate 72 /min Claus Magaña MD Work Phone: [facility] 04-16-2023 10:39-0500 Respiratory rate 18 /min Claus Magaña MD Work Phone: [facility] 04-16-2023 10:39-0500 Systolic blood pressure 128 mm[Hg] Claus Magaña MD Work Phone: [facility] 04-02-2023 09:48-0500 Diastolic blood pressure 82 mm[Hg] Temitope Rose Marie 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 Work Phone: [facility] 04-02-2023 09:48-0500 Systolic blood pressure 136 mm[Hg] Temitope Rose Marie 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 Work Phone: [facility] 04-02-2023 09:26-0500 Body height 157 cm Temitope Rose Marie 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 Work Phone: [facility] 04-02-2023 09:26-0500 Body weight 73.48 kg Temitope Rose Marie 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 Work Phone: [facility] 04-02-2023 09:26-0500 Heart rate 74 /min Temitope Rose Marie 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 Work Phone: [facility] 04-02-2023 09:26-0500 Respiratory rate 16 /min Temitope Ros Emarie 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 Work Phone: [facility] 04-02-2023 09:26-0500 SaO2% (BldA) [Mass fraction] 99 % Temitope Rose Marie 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 Work Phone: [facility] 10-21-2022 14:47-0400 Body temperature 98.6 [degF] Kelly Velazquez 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 Work Phone: [facility] 10-21-2022 14:47-0400 Body weight 71.76 kg Kelly Velazquez 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 Work Phone: [facility] 10-21-2022 14:47-0400 Diastolic blood pressure 80 mm[Hg] Kelly Velazquez 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 Work Phone: [facility] 10-21-2022 14:47-0400 Heart rate 82 /min Kelly Velazquez 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 Work Phone: [facility] 10-21-2022 14:47-0400 Respiratory rate 18 /min Kelly Velazquez 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 Work Phone: [facility] 10-21-2022 14:47-0400 SaO2% (BldA) [Mass fraction] 97 % Kelly Velazquez 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 Work Phone: [facility] 10-21-2022 14:47-0400 Systolic blood pressure 148 mm[Hg] Kelly Velazquez 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 Work Phone: [facility] 07-10-2022 11:15-0400 Diastolic blood pressure 73 mm[Hg] Josemanuel Rodriguez MD Work Phone: [facility] 07-10-2022 11:15-0400 Heart rate 57 /min Josemanuel Rodriguez MD Work Phone: [facility] 07-10-2022 11:15-0400 Respiratory rate 11 /min Josemanuel Rodriguez MD Work Phone: [facility] 07-10-2022 11:15-0400 SaO2% (BldA) [Mass fraction] 94 % Josemanuel Rodriguez MD Work Phone: [facility] 07-10-2022 11:15-0400 Systolic blood pressure 139 mm[Hg] Josemanuel Rodriguez MD Work Phone: [facility] 07-10-2022 10:33-0400 Body temperature 97.5 [degF] Josemanuel Rodriguez MD Work Phone: [facility] 06-24-2022 10:47-0400 Body height 162.6 cm Pacc 1 Work Phone: [facility] 06-24-2022 10:47-0400 Body temperature 97.9 [degF] Pacc 1 Work Phone: [facility] 06-24-2022 10:47-0400 Body weight 73.48 kg Pacc 1 Work Phone: [facility] 06-24-2022 10:47-0400 Diastolic blood pressure 72 mm[Hg] Pacc 1 Work Phone: [facility] 06-24-2022 10:47-0400 Heart rate 67 /min Pacc 1 Work Phone: [facility] 06-24-2022 10:47-0400 Respiratory rate 14 /min Pacc 1 Work Phone: [facility] 06-24-2022 10:47-0400 SaO2% (BldA) [Mass fraction] 96 % Pacc 1 Work Phone: [facility] 06-24-2022 10:47-0400 Systolic blood pressure 120 mm[Hg] Pacc 1 Work Phone: [facility] 05-30-2022 14:28-0400 Body weight 73.03 kg Claus Magaña MD Work Phone: [facility] 05-30-2022 14:28-0400 Diastolic blood pressure 84 mm[Hg] Claus Magaña MD Work Phone: [facility] 05-30-2022 14:28-0400 Heart rate 84 /min Claus Magaña MD Work Phone: [facility] 05-30-2022 14:28-0400 Respiratory rate 16 /min Claus Magaña MD Work Phone: [facility] 05-30-2022 14:28-0400 Systolic blood pressure 138 mm[Hg] Claus Magaña MD Work Phone: [facility] 04-23-2022 10:26-0400 Body weight 72.58 kg Temitope Older 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 Work Phone: [facility] 04-23-2022 10:26-0400 Diastolic blood pressure 83 mm[Hg] Temitope Older 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 Work Phone: [facility] 04-23-2022 10:26-0400 Heart rate 74 /min Temitope Older 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 Work Phone: [facility] 04-23-2022 10:26-0400 Respiratory rate 14 /min Temitope Older 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 Work Phone: [facility] 04-23-2022 10:26-0400 Systolic blood pressure 134 mm[Hg] Temitope Older 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 Work Phone: [facility] 02-12-2022 10:15-0500 Body temperature 97.3 [degF] Temitope Older 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 Work Phone: [facility] 02-12-2022 10:15-0500 Body weight 70.31 kg Temitope Older 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 Work Phone: [facility] 02-12-2022 10:15-0500 Diastolic blood pressure 74 mm[Hg] Temitope Older 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 Work Phone: [facility] 02-12-2022 10:15-0500 Heart rate 83 /min Temitope Older 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 Work Phone: [facility] 02-12-2022 10:15-0500 Respiratory rate 14 /min Temitope Older 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 Work Phone: [facility] 02-12-2022 10:15-0500 SaO2% (BldA) [Mass fraction] 98 % Temitope Older 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 Work Phone: [facility] 02-12-2022 10:15-0500 Systolic blood pressure 141 mm[Hg] Temitope Older 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 Work Phone: [facility] 10-17-2021 14:03-0400 Body weight 69.85 kg Claus Magaña MD Work Phone: [facility] 10-17-2021 14:03-0400 Diastolic blood pressure 78 mm[Hg] Claus Magaña MD Work Phone: [facility] 10-17-2021 14:03-0400 Heart rate 70 /min Claus Magaña MD Work Phone: [facility] 10-17-2021 14:03-0400 Respiratory rate 12 /min Claus Magaña MD Work Phone: [facility] 10-17-2021 14:03-0400 SaO2% (BldA) [Mass fraction] 99 % Claus Magaña MD Work Phone: [facility] 10-17-2021 14:03-0400 Systolic blood pressure 130 mm[Hg] Claus Magaña MD Work Phone: [facility] 07-17-2021 14:40-0400 Body weight 72.12 kg Temitope Older 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 Work Phone: [facility] 07-17-2021 14:40-0400 Diastolic blood pressure 78 mm[Hg] Temitope Older 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 Work Phone: [facility] 07-17-2021 14:40-0400 Heart rate 64 /min Temitope Older 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 Work Phone: [facility] 07-17-2021 14:40-0400 Respiratory rate 12 /min Temitope Older 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 Work Phone: [facility] 07-17-2021 14:40-0400 Systolic blood pressure 144 mm[Hg] Temitope Older 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 Work Phone: [facility] 06-01-2021 13:18-0400 Body weight 71.22 kg Temitope Older 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 Work Phone: [facility] 06-01-2021 13:18-0400 Diastolic blood pressure 82 mm[Hg] Temitope Older 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 Work Phone: [facility] 06-01-2021 13:18-0400 Heart rate 76 /min Temitope Older 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 Work Phone: [facility] 06-01-2021 13:18-0400 Respiratory rate 16 /min Temitope Older 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 Work Phone: [facility] 06-01-2021 13:18-0400 SaO2% (BldA) [Mass fraction] 97 % Temitope Older 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 Work Phone: [facility] 06-01-2021 13:18-0400 Systolic blood pressure 142 mm[Hg] Temitope Older 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 Work Phone: [facility] 05-27-2021 09:39-0400 Body temperature 97.39 [degF] Tomer Queen 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 Work Phone: [facility] 05-27-2021 09:39-0400 Body weight 73.66 kg Tomer Queen 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 Work Phone: [facility] 05-27-2021 09:39-0400 Diastolic blood pressure 86 mm[Hg] Tomer Queen 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 Work Phone: [facility] 05-27-2021 09:39-0400 Heart rate 88 /min Tomer Queen 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 Work Phone: [facility] 05-27-2021 09:39-0400 Respiratory rate 18 /min Tomer Queen APRN.QUALITY AND RELIABILITY ENGINEER Work Phone: [facility] 05-27-2021 09:39-0400 SaO2% (BldA) [Mass fraction] 97 % Tomer Bret 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 Work Phone: [facility] 05-27-2021 09:39-0400 Systolic blood pressure 154 mm[Hg] Tomer Bret 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 Work Phone: [facility] Encounters Encounter Date Encounter Type Care Provider Facility Start: 04-17-2023 Refill Claus bazan MD Work Phone: [facility] Procedures Date Procedure Procedure Detail Performing Clinician Start: 04-16-2023 Drug tst prsmv instr mnt chem analyzers pr date Claus Magaña MD Work Phone: Start: 10-21-2022 Urnls dip stick/tabl et rgnt auto w/o microscopy Miracle Saeed 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 Work Phone: Start: 10-12-2022 Lipid 1996 panel - S pako or Plasma Claus Magaña MD Work Phone: Start: 08-26-2022 End: 08-26-2022 Arthrocentesis aspir&/inj major jt/bursa w/us Lucio Kitchen MD Work Phone: Start: 05-30-2022 Dup-scan xtr veins unilateral/limited study Claus Magaña MD Work Phone: Start: 05-13-2022 Arthrocentesis aspir &/inj major jt/bursa w/o us Mendy Cuellar PA-C Work Phone: Start: 05-08-2022 Mri any jt lower ext rem w/o contrast sara Rodriguez MD Work Phone: Start: 01-23-2022 Colonoscopy [...] - S pako or Plasma Lipid Screening [facility] Start: 10-13-2027 Lipid panel Lipid Screening [facility] Start: 10-13-2027 LIPID SCREEN LIPID SCREEN [facility] Start: 01-23-2027 Colonoscopy COLONOSCOPY [facility] Start: 01-23-2027 COLORECTAL CANCER SCREENING COLORECTAL CANCER SCREENING [facility] Start: 01-23-2027 Screening for malign ant neoplasm of colon [facility] Start: 10-21-2025 DIABETES SCREEN DIABETES SCREEN [facility] Start: 10-21-2025 Diabetes Screening Diabetes Screenin g [facility] Start: 10-12-2025 DIABETES SCREEN DIABETES SCREEN [facility] Start: 06-24-2025 DIABETES SCREEN DIABETES SCREEN [facility] Start: 10-17-2024 DIABETES SCREEN DIABETES SCREEN [facility] Start: 04-15-2024 Annual PCP Team Malted Milk Supervisor monty Disease Visit Annual PCP Team Chronic Disease Visit [facility] Start: 04-15-2024 BP Controlled (<130/80) BP Controlle d (<130/80) [facility] Start: 04-02-2024 Annual PCP Team Malted Milk Supervisor monty Disease Visit Annual PCP Team Chronic Disease Visit [facility] Start: 12-15-2023 Screening for malign ant neoplasm of colon Sigmoidoscopy [facility] Start: 12-15-2023 SIGMOIDOSCOPY SIGMOIDOSCOPY [facility] Start: 11-21-2023 Mammography Mammogram Screening [facility] Start: 11-21-2023 Screening for malign ant neoplasm of breast Mammogram Screening [facility] Start: 10-22-2023 Complete blood count Hemoglobin/Yariel tocrit [facility] Start: 10-22-2023 Creatinine measurement Serum Creatin ine [facility] Start: 10-22-2023 HEMOGLOBIN/HEMATOCRIT HEMOGLOBIN/HEM ATOCRIT [facility] Start: 10-22-2023 SERUM CREATININE SERUM CREATININE Cl [facility] Start: 10-17-2023 ANNUAL PCP TEAM MEDICAL STAFF CREDENTIALING COORDINATOR MONTY DISEASE VISIT ANNUAL PCP TEAM CHRONIC DISEASE VISIT [facility] Start: 10-17-2023 BP CONTROLLED (<130/80) BP CONTROLLE D (<130/80) [facility] Start: 10-13-2023 HEMOGLOBIN/HEMATOCRIT HEMOGLOBIN/HEM ATOCRIT [facility] Start: 10-13-2023 SERUM CREATININE SERUM CREATININE Cl [facility] Start: 10-08-2023 LIPID SCREEN LIPID SCREEN [facility] Start: 10-05-2023 DIABETES SCREEN DIABETES SCREEN [facility] Start: 07-16-2023 Urine microalbumin profile [facility] Start: 06-25-2023 BP CONTROLLED (<130/80) BP CONTROLLE D (<130/80) [facility] Start: 06-25-2023 SERUM CREATININE SERUM CREATININE [facility] Start: 05-31-2023 ANNUAL PCP TEAM MEDICAL STAFF CREDENTIALING COORDINATOR MONTY DISEASE VISIT ANNUAL PCP TEAM CHRONIC DISEASE VISIT [facility] Start: 04-24-2023 ANNUAL PCP TEAM MEDICAL STAFF CREDENTIALING COORDINATOR MONTY DISEASE VISIT ANNUAL PCP TEAM CHRONIC DISEASE VISIT [facility] Start: 04-22-2023 Shingrix Vaccine (3 of 3) Shingrix V accine (3 of 3) [facility] Start: 04-17-2023 SHINGRIX VACCINE (2 of 3) SHINGRIX V ACCINE (2 of 3) [facility] Immunizations Immunization Date Immunization Notes Care Provider Alhaji styles 02-25-2023 zoster vaccine recombinant Temitope Rose Marie REYES.QUALITY AND RELIABILITY ENGINEER Work Phone: [facility] 01-10-2023 respiratory syncytia l virus (RSV) vaccine, bivalent (ABRYSVO) Miracle Saeed APRN.QUALITY AND RELIABILITY ENGINEER Work Phone: [facility] 12-28-2022 COVID-19 vaccine, ag e 12+ yr, season (MODERNA) Miracle Saeed APRN.QUALITY AND RELIABILITY ENGINEER Work Phone: [facility] 12-28-2022 pneumococcal (PCV20) vaccine, 20 valent (PREVNAR 20) Miracle Saeed APRN.QUALITY AND RELIABILITY ENGINEER Work Phone: [facility] 10-16-2022 influenza (HD-IIV4) vaccine, age 65+ yr, high dose, quadrivalent, PF (FLUZONE HIGH-DOSE) Kamron Hanna DO, DO Work Phone: [facility] 12-17-2021 COVID-19 booster vaccine, age 12+ yr, bivalent (PFIZER-BIONTECH) Claus Magaña MD Work Phone: [facility] 12-17-2021 influenza, high dose seasonal, preservative-free Claus Magaña MD Work Phone: [facility] 12-13-2020 COVID-19 vaccine, ag e 12+ yr (PFIZER-BIONTECH - PURPLE TOP) Claus Magaña MD Work Phone: [facility] Work Phone: 11-12-2020 influenza, high dose seasonal, preservative-free Claus Magaña MD Work Phone: [facility] Work Phone: 05-12-2020 COVID-19 vaccine, ag e 12+ yr (PFIZER-BIONTECH - PURPLE TOP) Claus Magaña MD Work Phone: [facility] Work Phone: 04-21-2020 COVID-19 vaccine, ag e 12+ yr (PFIZER-BIONTECH - PURPLE TOP) Claus Magaña MD Work Phone: [facility] Work Phone: 12-10-2019 influenza, high dose seasonal, preservative-free Claus Magaña MD Work Phone: [facility] Work Phone: 12-10-2019 influenza, high-dose , quadrivalent vaccine (FLUZONE HIGH DOSE QUADRIVALENT) Claus Magaña MD Work Phone: [facility] Work Phone: 12-10-2019 pneumococcal polysaccharide vaccine, 23 valent Claus Magaña MD Work Phone: [facility] Work Phone: 11-17-2018 influenza, high dose seasonal, preservative-free Claus Magaña MD Work Phone: [facility] 10-14-2018 pneumococcal conjuga te vaccine, 13 valent Claus Magaña MD Work Phone: [facility] 10-27-2017 influenza, injectabl e, quadrivalent, contains preservative Claus Magaña MD Work Phone: [facility] Work Phone: 02-22-2016 influenza, seasonal, injectable Claus Magaña MD Work Phone: [facility] 02-22-2016 influenza, seasonal, injectable, preservative free Claus Magaña MD Work Phone: [facility] Work Phone: 12-23-2014 influenza, injectabl e, quadrivalent, contains preservative Claus Magaña MD Work Phone: [facility] 12-23-2014 influenza, seasonal, injectable Claus Magaña MD Work Phone: [facility] Work Phone: 11-03-2013 influenza, seasonal, injectable Claus Magaña MD Work Phone: [facility] 10-20-2013 zoster vaccine, live Claus Magaña MD Work Phone: [facility] 07-15-2013 tetanus toxoid, redu nicko diphtheria toxoid, and acellular pertussis vaccine, adsorbed Claus Magaña MD Work Phone: [facility] 12-06-2011 influenza virus vaccine, unspecified formulation Claus Magaña MD Work Phone: [facility] 11-27-2009 influenza virus vaccine, whole virus Claus Magaña MD Work Phone: [facility] Work Phone: 10-26-2008 influenza virus vaccine, whole virus Claus Magaña MD Work Phone: [facility] Work Phone: 12-07-2007 influenza virus vaccine, whole virus Claus Magaña MD Work Phone: [facility] Work Phone: Payers Date Payer Category Payer Medicare [id number] 2019 Unknown MMO MMO MEDICARE SUPPLEMENT [id number] 2019-Present [phone] [address] [place] [address] Indemnity [id number] 2019 Unknown MMO MMO MEDICARE SUPPLEMENT [id number] 2019-Present [phone] [address] [place] [address] Indemnity [id number] 2018 Medicare MEDICARE MEDICAR E A AND B [id number] 2018-Present [phone] [place] [address] Medicare [id number] 2018 Medicare MEDICARE MEDICAR E A AND B [id number] 2018-Present [phone] [place] [address] Medicare [id number] 2018 Medicare [id number] Social History Date Type Detail Facility Start: 04-17-2012 End: 10-17-2021 Tobacco smoking status NHIS Ex-smoker [facility] End: 02-11-1976 History of tobacco use Current smoker [facility] End: 02-11-1976 History of tobacco use Cigarette Smoker [facility] Start: 04-11-2021 End: 04-16-2023 Alcohol intake Current drinker of alcohol (finding) [facility] Start: 10-04-2020 End: 02-12-2022 History SDOH Alcohol Frequency 4 [facility] Start: 10-04-2020 End: 02-12-2022 History SDOH Alcohol Std Drinks 1 [facility] Start: 04-03-2016 History SDOH Alcohol Comment rarely [facility] Start: 10-04-2020 End: 02-12-2022 History SDOH Social Connections Phone 5 [facility] Start: 10-04-2020 End: 02-12-2022 History SDOH Social Connections Je[employer] 3 [facility] Start: 10-04-2020 History SDOH Physica l Activity MPS 15 [facility] Start: 10-04-2020 End: 02-12-2022 History SDOH Stress 2 [facility] Start: 10-04-2020 Education 21 [facility] Start: 1955 Sex Assigned At Female C [facility] Start: 03-12-2021 End: 05-27-2021 Exposure to SARS-CoV-2 (event) Not sure [facility] Start: 04-17-2012 End: 06-19-2022 Cigarettes smoked current (pack per day) - Reported 1.5 [facility] Start: 04-17-2012 End: 10-17-2021 Tobacco use and exposure Smokeless tobacco non-user [facility] Start: 02-12-2022 History SDOH Physica l Activity MPS 6 [facility] Start: 02-12-2022 End: 06-19-2022 Social connection and isolation panel [facility] Do you belong to any clubs or organizations such as tenriism groups, unions, fraternal or athletic groups, or school groups? Yes [facility] Are you now , , , , never or living with a partner? [facility] How often to you hav e a drink containing alcohol? 2-3 time sa week [facility] How many standard dr inks containing alcohol do you have on a typical day? 1 or 2 [facility] How often do you hav e 6 or more drinks on 1 occasion? Never [facility] How hard is it for y ou to pay for the very basics like food, housing, medical care, and heating Not hard at all [facility] Do you feel stress - tense, restless, nervous, or anxious, or unable to sleep at night because your mind is troubled all the time - these days [OSQ] Not at all [facility] (I/We) worried wheth er (my/our) food would run out before (I/we) got money to buy more. Never true [facility] In the past 12 month s, was there a time when you were not able to pay the mortgage or rent on time? No [facility] Start: 02-05-2020 Gender identity Identifies as female gender (finding) [facility] Start: 02-05-2020 Sexual orientation Heterosexual (fin lianet) [facility] Clinical Notes 10-27-2017 to 04-17-2023 Telephone Encounter - Clara Herrera RN - 04/17/2023 9:28 AM Claus Agarwal MD - 04/16/2023 10:54 AM ESTTelephone Encounter - Rizwana Clarke LPN - 04/10/2023 6:12 PM EST Note Date & Type Note Facility 04-17-2023 Miscellaneous Notes Patient has been identified by name and date of : Yes, Provider Dr Magaña Date 04/17/23 Time 09+31. Pharmacy phones for refill(s): Requested Prescriptions Pending Prescriptions Disp Refills cyclobenzaprine (FLEXERIL) 10 mg tablet 90 tablet 3 Sig: Take 1 tablet by mouth at bedtime as needed. AT BEDTIME. Date of last office visit in primary care: 04/16/2023 Date of next office visit in primary care: 10/17/2023 Please advise. Thank you. Clara Herrera RN. documented in this encounter [facility] 04-16-2023 Note HNO ID: [id number] Author: CLAUS MAGAÑA MD Service: ? Author Type: Physician Type: Progress Notes Filed: 04/16/2023 12:04 Note Text: This note was created using NoteWriter. Subjective Patient presents with: F/U 6 months Lea Barber is a 68 year old female. She had chronic pain of her lower back with left leg neuropathy that had benefited from prison tramadol treatment in conjunction with gabapentin, cyclobenzaprine, and naproxen. For the past several months, her right knee has also been a factor in chronic pain, and she was scheduled for right total knee next week. Adapted from CDC guidelines: Opioids can provide [...] (0=no pain, 10=worst you can imagine) Answer: 7 Q2: What number from 0-10 best describes how, during the past week, pain has interfered with your ENJOYMENT OF LIFE? (0=not at all, 10=complete interference) Answer: 8 Q3: What number from 0-10 best describes how, during the past week, pain has interfered with your GENERAL ACTIVITY? (0=not at all, 10=complete interference) Answer: 5 Total score=20 Previous score= 2. Consider if NON OPIOID therapies are appropriate. (NSAIDs, TCAs, SNRI, anti-convulsants, exercise or physical therapy, cognitive behavioral therapy) Yes. 3. Talk about the TREATMENT PLAN. - Annual OPIOID AGREEMENT current. No. - Realistic goals for pain and function discussed. Yes. Specific goals: activities of daily living, hobbies. - Benefits, side effects, and risks (e.g. Addiction, overdose) discussed. Yes. - Criteria for stopping or continuing opioid discussed. Yes. - Criteria for regular assessment every 2 to <3 months discussed. Yes. - Referral to specialist(s); 50 MED or more. N/A. - 4. Evaluate RISK of HARM or MISUSE. - Risk factors reviewed. Yes - OARRS checked. Yes - UDS ordered. Yes Last reported dose: this AM. - Medication interactions checked. Yes. - Concern for OPIOID USE DISORDER, aberrant behavior. No. Review of Systems Constitutional: Negative. Respiratory: Negative. Cardiovascular: Negative. ACTIVE PROBLEM LIST Irritable Bowel Syndrome Mvp (Mitral Valve Prolapse) Neuropathy Lumbar Disc Herniation With Radiculopathy Adenomatous Colon Polyp Essential Hypertension Palpitations Stage 3a Chronic Kidney Disease (Hcc) Tremor Insufficiency Fracture of Tibia Synovial Cyst of [...] use: No Current Outpatient Medications Medication Sig naproxen (NAPROSYN) 500 mg tablet TAKE 1 TABLET TWICE A DAY WITH MEALS/FOOD traMADol (ULTRAM) 50 mg tablet Take 2 tablets by mouth two times a day for 90 days. gabapentin (NEURONTIN) 300 mg capsule TAKE 2 CAPSULES TWICE A DAY AND 3 CAPSULES AT BEDTIME metoprolol succinate ER (TOPROL XL) 25 mg 24 hr tablet Take 1 tablet by mouth every evening. betamethasone dipropionate, augmented (DIPROLENE) 0.05 % cream [...] facility-administered medications for this visit. Objective BP 128/78 (BP Site: Left Arm, BP Position: Sitting, BP Cuff Size: Large Adult) Pulse 72 Temp 36.9 ?C (98.5 ?F) (Temporal) Resp 18 Wt 75.2 kg (165 lb 12.8 oz) BMI 30.51 kg/m? Physical Exam Constitutional: Appearance: Normal appearance. Pulmonary: Effort: Pulmonary effort is normal. Musculoskeletal: Lumbar back: No spasms, tenderness or bony tenderness. Decreased range of motion. Right lower leg: No edema. Left lower leg: No edema. Neurological: General: No focal deficit present. Mental Status: She is alert. Gait: Gait abnormal. Depression Screening PHQ-2 Score PHQ-9 Score MYNOR-2 Total Score 04/16/2023 1 - - Depression screening tool completed and reviewed. Based on score and interview, patient is not at risk for depression. Screening tool discussed with patient, and I recommended no further intervention at this time. Assessment and Plan 1. Medication monitoring encounter - ICD9: V58.83, ICD10: Z51.81 (primary diagnos (more content not included)... [facility] 04-16-2023 History of Presen t illness Narrative This note was created using MD On-Lineriter. Subjective Patient presents with: F/U 6 months Lea Barber is a 68 year old female. 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 For the past several months, her right knee has also been a factor in chronic pain, and she was scheduled for right total knee next week. Adapted from CDC guidelines: Opioids can provide short term benefits for moderate to severe pain. Scientific evidence is lacking for benefits to treat chronic pain. Before prescribing or adjusting dose 1. Assess PAIN & FUNCTION with validated pain scale. (PEG scale where 30% improvement from baseline is clinically significant) Q1: What number from 0-10 best describes your PAIN in the past week? (0=no pain, 10=worst you can imagine) Answer: 7 Q2: What number from 0-10 best describes how, during the past week, pain has interfered with your ENJOYMENT OF LIFE? (0=not at all, 10=complete interference) Answer: 8 Q3: What number from 0-10 best describes how, during the past week, pain has interfered with your GENERAL ACTIVITY? (0=not at all, 10=complete interference) Answer: 5 Total score=20 Previous score= 2. Consider if NON OPIOID therapies are appropriate. (NSAIDs, TCAs, SNRI, anti-convulsants, exercise or physical therapy, cognitive behavioral therapy) Yes. 3. Talk about the TREATMENT PLAN. - Annual OPIOID AGREEMENT current. No. - Realistic goals for pain and function discussed. Yes. Specific goals: activities of daily living, hobbies. - Benefits, side effects, and risks (e.g. Addiction, overdose) discussed. Yes. - Criteria for stopping or continuing opioid discussed. Yes. - Criteria for regular assessment every 2 to <3 months discussed. Yes. - Referral to specialist(s); 50 MED or more. N/A. - 4. Evaluate RISK of HARM or MISUSE. - Risk factors reviewed. Yes - OARRS checked. Yes - UDS ordered. Yes Last reported dose: this AM. - Medication interactions checked. Yes. - Concern for OPIOID USE DISORDER, aberrant behavior. No. Review of Systems Constitutional: Negative. Respiratory: Negative. Cardiovascular: Negative. ACTIVE PROBLEM LIST Irritable Bowel Syndrome Mvp (Mitral Valve Prolapse) Neuropathy Lumbar Disc Herniation With Radiculopathy Adenomatous Colon Polyp Essential Hypertension Palpitations Stage 3a Chronic Kidney Disease (Hcc) Tremor Insufficiency Fracture of Tibia Synovial Cyst of [...] use: No Current Outpatient Medications Medication Sig naproxen (NAPROSYN) 500 mg tablet TAKE 1 TABLET TWICE A DAY WITH MEALS/FOOD traMADol (ULTRAM) 50 mg tablet Take 2 tablets by mouth two times a day for 90 days. gabapentin (NEURONTIN) 300 mg capsule TAKE 2 CAPSULES TWICE A DAY AND 3 CAPSULES AT BEDTIME metoprolol succinate ER (TOPROL XL) 25 mg 24 hr tablet Take 1 tablet by mouth every evening. betamethasone dipropionate, augmented (DIPROLENE) 0.05 % cream [...] facility-administered medications for this visit. Objective BP 128/78 (BP Site: Left Arm, BP Position: Sitting, BP Cuff Size: Large Adult) Pulse 72 Temp 36.9 C (98.5 F) (Temporal) Resp 18 Wt 75.2 kg (165 lb 12.8 oz) BMI 30.51 kg/m Physical Exam Constitutional: Appearance: Normal appearance. Pulmonary: Effort: Pulmonary effort is normal. Musculoskeletal: Lumbar back: No spasms, tenderness or bony tenderness. Decreased range of motion. Right lower leg: No edema. Left lower leg: No edema. Neurological: General: No focal deficit present. Mental Status: She is alert. Gait: Gait abnormal. Depression Screening PHQ-2 Score PHQ-9 Score MYNOR-2 Total Score 04/16/2023 1 - - Depression screening tool completed and reviewed. Based on score and interview, patient is not at risk for depression. Screening tool discussed with patient, and I recommended no further intervention at this time. Assessment and Plan 1. Medication monitoring encounter - ICD9: V58.83, ICD10: Z51.81 (primary diagnosis) - TOX SCREEN ROUT UR 2. Essential hypertension - ICD9: 401.9, ICD10: I10 - Controlled 3. Palpitations - ICD9: 785.1, ICD10: R00.2 - Controlled. 4. Neuropathy - ICD9: 355.9, ICD10: G62.9 - Controlled. - TOX SCREEN ROUT UR 5. Lumbar disc herniation with radiculopathy - ICD9: 722.10, 724.4, ICD10: M51.16 Chronic low back pain - TOX SCREEN ROUT UR - She already has prescriptions for postoperative pain from orthopedics. Tramadol refill will be postponed in the postoperative setting as reviewed with her. - Pain medication agreement updated. Claus Magaña MD documented in this encounter [facility] 04-10-2023 Miscellaneous Notes Patient has been identified by name and date of : Yes Patient phones for refill(s): Requested Prescriptions Pending Prescriptions Disp Refills naproxen (NAPROSYN) 500 mg tablet 180 tablet 1 Sig: TAKE 1 TABLET TWICE A DAY WITH MEALS/FOOD Date of last office visit in primary care: 04/02/2023 Date of next office visit in primary care: 04/16/2023 Please advise. Thank you. Rizwana Clarke LPN. documented in this encounter [facility] 04-02-2023 Note HNO ID: [id number] Author: TEMITOPE TROTTER APRN.QUALITY AND RELIABILITY ENGINEER Service: ? Author Type: Nurse Practitioner Type: Progress Notes Filed: 04/02/2023 10:15 Note Text: CC: Patient presents with: Pre-Op Exam: Total knee replacement - right HPI Lea Barber is a 68 year old female who presents today for pre-op evaluation. Surgical Procedure: robotic assisted right total knee arthroplasty Date of Procedure: 04/21/23 Surgeon: Dr. Connor DE OLIVEIRA date: 04/11/23 Diabetes No Hypertension requiring medication Yes Medication changes:No Taking all medications as prescribed: Side effects: No Home BP's: No Last 3 Encounter BP Readings: Date: BP: 04/02/2023 136/82 02/21/2023 152/84 10/21/2022 148/80 Congestive Heart Failure No Current Smoker within 1 Year No COPD/asthma No IVETH No Dialysis No Acute renal failure No Steroid use for chronic condition No Disseminated cancer No Review of Systems Constitutional: Negative for chills, diaphoresis, fatigue, fever and unexpected weight change. HENT: Negative for trouble swallowing. Eyes: Negative for visual disturbance. Respiratory: Negative for cough, shortness of breath and wheezing. Cardiovascular: Negative for chest pain, palpitations and leg swelling. Gastrointestinal: Negative for abdominal pain and blood in stool. Genitourinary: Negative for decreased urine volume, difficulty urinating, dysuria and urgency. Neurological: Negative for dizziness, syncope, weakness, light-headedness and headaches. 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 Osteopenia 12/11/2007 Stage 3a chronic kidney disease (HCC) 10/08/2020 Synovial cyst of right popliteal space 06/19/2022 Ulnar neuropathy of left upper extremity 04/18/2016 [...] Cancer Daughter Dx at 21 other ([facility]) Daughter Social History Tobacco Use Smoking status: Former Packs/day: 1.50 Years: 4.00 A (more content not included)... [facility] 04-02-2023 History of Presen t illness Narrative CC: Patient presents with: Pre-Op Exam: Total knee replacement - right HPI Lea Barber is a 68 year old female who presents today for pre-op evaluation. Surgical Procedure: robotic assisted right total knee arthroplasty Date of Procedure: 04/21/23 Surgeon: Dr. Connor DE OLIVEIRA date: 04/11/23 Diabetes No Hypertension requiring medication Yes Medication changes:No Taking all medications as prescribed: Side effects: No Home BP's: No Last 3 Encounter BP Readings: Date: BP: 04/02/2023 136/82 02/21/2023 152/84 10/21/2022 148/80 Congestive Heart Failure No Current Smoker within 1 Year No COPD/asthma No IVETH No Dialysis No Acute renal failure No Steroid use for chronic condition No Disseminated cancer No Review of Systems Constitutional: Negative for chills, diaphoresis, fatigue, fever and unexpected weight change. HENT: Negative for trouble swallowing. Eyes: Negative for visual disturbance. Respiratory: Negative for cough, shortness of breath and wheezing. Cardiovascular: Negative for chest pain, palpitations and leg swelling. Gastrointestinal: Negative for abdominal pain and blood in stool. Genitourinary: Negative for decreased urine volume, difficulty urinating, dysuria and urgency. Neurological: Negative for dizziness, syncope, weakness, light-headedness and headaches. 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 Osteopenia 12/11/2007 Stage 3a chronic kidney disease (HCC) 10/08/2020 Synovial cyst of right popliteal space 06/19/2022 Ulnar neuropathy of left upper extremity 04/18/2016 [...] Colon Cancer Daughter Dx at 21 other ([facility]) Daughter Social History Tobacco Use Smoking status: Former Packs/day: 1.50 Years: 4.00 Additional pack years: 0.00 Total pack years: 6.00 Types: Cigarettes Quit date: 02/11/1976 Years since quittin.1 Smokeless tobacco: Never Vaping Use Vaping Use: Never used Substance Use Topics Alcohol use: Yes Comment: rarely Drug use: No BP 136/82 Pulse 74 Resp 16 Ht 157 cm (5' 1.81 ) Wt 73.5 kg (162 lb) SpO2 99% BMI 29.81 kg/m Physical Exam Vitals reviewed. Constitutional: Appearance: Normal appearance. HENT: Mouth/Throat: Mouth: Mucous membranes are moist. Pharynx: Oropharynx is clear. Eyes: Conjunctiva/sclera: Conjunctivae normal. Cardiovascular: Rate and Rhythm: Normal rate and regular rhythm. Pulses: Normal pulses. Heart sounds: Normal heart sounds. No murmur heard. Pulmonary: Effort: Pulmonary effort is normal. Breath sounds: Normal breath sounds. No wheezing, rhonchi or rales. Abdominal: General: There is no distension. Palpations: Abdomen is soft. There is no mass. Tenderness: There is no abdominal tenderness. Lymphadenopathy: Cervical: No cervical adenopathy. Skin: General: Skin is warm and dry. Neurological: Mental Status: She is alert. Psychiatric: Mood and Affect: Mood normal. Diagnoses/Plan 1. Pre-operative evaluation Reviewed recent labs and EKG done at [facility], no concerning findings There is no known pertinent medical condition which may affect jimy-operative course HAWKINS risk: Patient is scheduled for a intermediate-risk procedure. Risk of 0% calculated using the NSQIP surgical risk calculator ASA class: ASA 2- Mild systemic disease Functional status: Independent The patient is medially optimized for surgery 2. Essential hypertension - ICD9: 401.9, ICD10: I10 - Controlled - Continue current medications - Recommend home blood pressure monitoring, to bring results to next visit - Encouraged sodium restriction, DASH or Mediterranean diet 3. MVP (mitral valve prolapse) - ICD9: 424.0, ICD10: I34.1 stable 4. Palpitations - ICD9: 785.1, ICD10: R00.2 stable 5. Irritable bowel syndrome with both constipation and diarrhea - ICD9: 564.1, ICD10: K58.2 stable 6. Stage 3a chronic kidney disease (HCC) - ICD9: 585.3, ICD10: N18.31 - eGFR: 58 Stable - Counseled on avoiding NSAIDs, adequate hydration - Counseled on low sodium diet 7. Neuropathy - ICD9: 355.9, ICD10: G62.9 Stable Temitope Trotter APRN.QUALITY AND RELIABILITY ENGINEER documented in this encounter [facility] 02-23-2023 Miscellaneous Notes Left detailed message on a secured voicemail. Amber Castillo Please call patient notify her that her urine culture did not grow any significant growth. Please notify her if her symptoms are persistent that she needs to follow-up with primary care thank you documented in this encounter [facility] 02-21-2023 Note HNO ID: [id number] Author: UMANG FRANK PA Service: ? Author Type: Physician Java Project Manager Type: Progress Notes Filed: 02/21/2023 11:56 Note Text: This note was created using MD On-Lineriter. Subjective Lea Barber is a 67 year [...] She states she injured her back around [place] time and has been seeing a chiropractor [...] Cancer Daughter Dx at 21 other ([facility]) Daughter Social History Tobacco Use Smoking status: Former Packs/day: 1.50 Years: 4.00 Additional pack years: 0.00 Total pack years: 6.00 Types: Cigarettes Quit date: 02/11/1976 Years since quittin.0 Smokeless tobacco: Never Vaping Use Vaping Use: Never used Substance Use Topics Alcohol use: Yes Comment: rarely Drug use: No Review of Systems Constitutional: Negative for chills and f (more content not included)... [facility] 02-06-2023 Note HNO ID: [id number] Author: Redd Joseph APRN.CNP Service: ? Author Type: Nurse Practitioner [...] plan of care. [facility] be seen [facility]. Redd Joseph APRN.CNP [facility] 11-27-2022 Miscellaneous Notes Mammogram results reviewed Temitope Castellano APRN.CNP Received fax from [facility] that patients annual screening Mammogram was completed on 11/20/22. Updated in health maintenance and results scanned to patient chart for provider review. Please see at link below. Thank you. DEMETRIA [place] [facility] - 11/20/22 from [facility] [ID [id number]] documented in this encounter [facility] 11-25-2022 Miscellaneous Notes Monty, pharmacist- Agatha Sweeney. Reports gabapentin was received with 2 sets of instructions. Asking Rigoberto Linn, which set do you want them to use. Please advise Agatha pharmacist- [phone] documented in this encounter [facility] 11-25-2022 Miscellaneous Notes See refill request dated 11/23/22 documented in this encounter [facility] 10-30-2022 Miscellaneous Notes Addended by: RIZWANA CLARKE LPN on: 10/30/2022 03:39 PM Modules accepted: Orders She may need a short term supply sent to local [facility] Patient is calling back stating she spoke [...] vm, RX for Gabapentin was sent to [facility] mail-order pharmacy 10/16/2022, 540 capsules, 1 [...] advise. Ayse Nino documented in this encounter [facility] 10-21-2022 Miscellaneous Notes CBC normal CMP with mild abnormality, but better than prior results. Lipase normal Patient aware. She will follow up with PCP documented in this encounter [facility] 10-21-2022 Note HNO ID: [id number] Author: Kelly Velazquez APRN.ASA Service: ? Author Type: Nurse Practitioner Type: Progress Notes Filed: 10/21/2022 3:51 PM Note Text: This note was created using MD On-Lineriter. Subjective Lea Barber is a 67 year [...] history is provided by the patient. No language teacher was used. Abdominal Pain This [...] Hypertension Mother Diabete (more content not included)... [facility] 10-21-2022 Miscellaneous Notes [facility]. Kacie Rush RN If patient calls back I agree that she needs an appointment or go to [facility] Care Temitope Castellano APRN.ASA Patient calling with [...] said never mind and ended call. Kacie Rush, RN documented in this encounter [facility] 10-21-2022 Instructions Kelly Velazquez APRN.ASA - 10/21/2022 3:01 PM EDT ABDOMINAL PAIN [...] short of breath. documented in this encounter [facility] 10-21-2022 History of Presen t illness Narrative This note was created using NoteWriter. Subjective Lea Barber is a 67 year [...] history is provided by the patient. No language teacher was used. Abdominal Pain This [...] Cancer Daughter Dx at 21 other (Ehlizz's Danlos) Daughter Social History Tobacco Use Smoking status: [...] Urine dip negative. Urine culture sent - [place] low residue diet - Follow up in 2 days or sooner if worsening of symptoms - UA DIP, URINE (POC) - URINE CULTURE - CBC + DIFF - COMP METABOLIC PANEL - LIPASE BLD Kelly Velazquez APRN.QUALITY AND RELIABILITY ENGINEER documented in this encounter [facility] 10-21-2022 Miscellaneous Notes [facility] pharmacy calls to state they received 90 day rx of naproxen 500mg but they will not ship out soon enough for pt. Pt will need 14 day rx sent to [facility]. Rx pending. Please review and file. 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 I gave her phone number to call for the [place] lab to get the other us on a disc Dr. Magaña submitter referral to [facility] per patient request. She is in need of the images. Can we have the following images on disc for patient to pickle maker? XR 04/23 US 05/01 MRI 05/08 US 05/30 Call patient when they are available or let me know and I can contact the patient. Thank you, Stormy Concepcion MA documented in this encounter [facility] 10-16-2022 Note HNO ID: [id number] Author: Claus Magaña MD Service: ? Author Type: Physician Type: Progress Notes Filed: 10/16/2022 5:19 PM Note Text: This note was created using MD On-Lineriter. Subjective Lea Barber is a 67 year old female. Chronic [...] is alert. Gait (more content not included)... [facility] 09-06-2022 Note HNO ID: [id number] Author: Mendy Cuellar PA-C Service: ? Author Type: Physician Java Project Manager Type: Progress Notes Filed: 09/06/2022 9:10 AM Note Text: Mendy Cuellar PA-C Department of Orthopaedics Orthopaedics [address] [place] [address] Dept: [phone] Dept September 06, 2022 CHIEF COMPLAINT: Follow Up and Knee Pain of the Right Knee and 2 weeks 4 days post visit with BP Alonso's cyst right knee (Saw Lucio Kitchen @ [facility] 08/26/22 with injection given/). ASSESSMENT: M71.21 Alonso's cyst of knee, right (primary encounter diagnosis) M84.469A Insufficiency fracture of tibia, initial encounter M25.561 Acute pain of right knee SUMMARY/PLAN: Patient presents with continued right knee pain. She is just about 2 weeks out from a right knee arthroscopy. She had a Alonso's cyst drained at [facility] a little over 2 weeks ago, she [...] corticosteroid injection today, she is leaving for [facility] next week on vacation. Large Joint Arthro/Inj: R knee joint Informed Consent Consent Obtained: Verbal Mead Protocol A moment to CARE was completed. [...] [Cimetidine] This note was partially generated using [employer] voice recognition system, and there may be some incorrect words, spellings, and punctuation that were not noted in checking the note before saving. Mendy Cuellar PA-C [facility] 09-06-2022 Note HNO ID: [id number] Author: Tabitha Bardales Ma Service: ? Author Type: ? Type: Progress Notes Filed: 09/06/2022 9:10 AM Note Text: Patient presents with: Right Knee - Follow Up, Knee Pain 2 weeks 4 days post visit with BP Alonso's cyst right knee: Saw Lucio Kitchen @ [facility] 08/26/22 with injection given AMB ROOMING INTAKE FLOWSHEET DATA Pain Pain Level: 4 Pain Location: Knee-Right Description: Sharp Duration Amount of Time: (Ongoing) Frequency: Intermittent Intervention/Comfort measure: Medication Patient states her alonso's cyst was drained last week at [facility]. States she was unable to bend her knee. Taking Tramadol for the pain and only takes the edge off. Injection done in May by Dr. Rodriguez did not help. Patient is asking for an injection today. [facility] 08-26-2022 Note HNO ID: [id number] Author: Lucio Kitchen MD Service: ? Author Type: Physician Type: Progress Notes Filed: 08/26/2022 6:11 PM Note Text: [facility] Office Visit Documentation Note Orthopaedics AND Sports Medicine REASON FOR VISIT / CHIEF COMPLAINT Lea Barber is here today at request of Dr. Josemanuel Rodriguez specifically for consultation of my opinion in regards to the chief complaint listed below. Correspondence will be shared today via the [employer] electronic health record or through regular mail, [...] Sports Medicine Physician Department of Orthopaedic Surgery [facility] I,Lucio Kitchen MD, personally performed the services [...] Alonso Cyst Informed Consent Consent Obtained: Verbal Mead Protocol A moment to CARE was completed. [...] in the usual sterile fashion. Site: R Aolnso Cyst Aspirate: 20 mL serous and blood-tinged [...] equipment, possible retained foreign bodies accounted for. [facility] 08-26-2022 Instructions Nay Montejo - 08/26/2022 [...] take up to two weeks for the nilam to begin working. The following measures can [...] contact the office documented in this encounter [facility] 08-26-2022 History of Presen t illness Narrative Associated Order(s): Large Joint Arthro/Inj: R Alonso Cyst Post-Procedure Diagnose(s): Alonso's cyst of knee, right [facility] Office Visit Documentation Note Orthopaedics & Sports Medicine REASON FOR VISIT / CHIEF COMPLAINT Lea Barber is here today at request of Dr. Josemanuel Rodriguez specifically for consultation of my opinion in regards to the chief complaint listed below. Correspondence will be shared today via the [employer] electronic health record or through regular mail, [...] Sports Medicine Physician Department of Orthopaedic Surgery [facility] I,Lucio Kitchen MD, personally performed the services [...] Alonso Cyst Informed Consent Consent Obtained: Verbal Mead Protocol A moment to CARE was completed. [...] bodies accounted for. documented in this encounter [facility] 08-19-2022 Note HNO ID: [id number] Author: Josemanuel Rodriguez MD Service: ? Author Type: Physician Type: Progress Notes Filed: 09/23/2022 5:03 PM Note Text: Josemanuel Rodriguez MD Department of Orthopaedics Orthopaedics [address] [facility] [address] Dept: [phone] Dept August 19, 2022 CHIEF COMPLAINT: Established [...] Pollen, and Tagamet [Cimetidine] Josemanuel Rodriguez MD [facility] 07-30-2022 Note HNO ID: [id number] Author: Mendy Cuellar PA-C Service: ? Author Type: Physician Java Project Manager Type: Progress Notes Filed: 07/30/2022 4:28 PM Note Text: Mendy Cuellar PA-C Department of Orthopaedics Orthopaedics [address] [place] [address] Dept: [phone] July 30, 2022 CHIEF COMPLAINT: Post Op, [...] [Cimetidine] This note was partially generated using [employer] voice recognition system, and there may be some incorrect words, spellings, and punctuation that were not noted in checking the note before saving. Mendy Cuellar PA-C [facility] 07-30-2022 History of Presen t illness Narrative Mendy Cuellar PA-C Department of Orthopaedics Orthopaedics [address] [address] Dept: [phone] July 30, 2022 CHIEF COMPLAINT: Post Op, [...] [Cimetidine] This note was partially generated using [employer] voice recognition system, and there may be some incorrect words, spellings, and punctuation that were not noted in checking the note before saving. Mendy Cuellar PA-C documented in this encounter [facility] 07-30-2022 Miscellaneous Notes Spoke to pt , she is scheduled for today 07/30/22 at 3:30 documented in this encounter [facility] 07-22-2022 Note HNO ID: [id number] Author: Mendy Cuellar PA-C Service: ? Author Type: Physician Java Project Manager Type: Progress Notes Filed: 07/22/2022 9:20 AM Note Text: Mendy Cuellar PA-C Department of Orthopaedics Orthopaedics [address] [place] [address] Dept: [phone] Dept July 22, 2022 CHIEF COMPLAINT: Post [...] to 130 degrees. Imaging: Deferred today. Ms. Lea Barber was advised as to [...] [Cimetidine] This note was partially generated using [employer] voice recognition system, and there may be some incorrect words, spellings, and punctuation that were not noted in checking the note before saving. Mendy Cuellar PA-C [facility] 07-22-2022 Note HNO ID: [id number] Author: Tabitha Bardales Ma Service: ? Author [...] and only helps take the edge off. [facility] 07-16-2022 Miscellaneous Notes Patient has been [...] advise. Kajal Lynne documented in this encounter [facility] 07-10-2022 Note HNO ID: [id number] Author: Beverly Romero APRN.TACK CUTTER Service: Anesthesiology Author Type: Nurse Sink Maker Type: Anesthesia Procedure Notes Filed: 07/10/2022 9:45 AM Note Text: ANESTHESIOLOGY PROCEDURE NOTE Airway General Information Procedure Start Time/Medication Administration: 07/10/2022 9:35 AM Patient location during procedure: OR Timeout Performed Pre-procedure: timeout performed Consent Obtained: Yes Patient identity confirmed: arm band and patient Staffing TACK CUTTER: Beverly Romero APRN.TACK CUTTER Performed by: DONNIE Indications and Patient Condition [...] no Airway not difficult SIGNATURE: Beverly Romero APRN.CRNA PATIENT NAME: Lea Barber DATE: July 10, 2022 TIME: 9:44 AM CSN: [id number] [facility] 07-10-2022 Surgical operatio n note OPERATIVE/PROCEDURE REPORT LOG ID: [id number] Surgery/Procedure Date: 07/10/2022 Incision/Procedure Start Time: 9:49 AM Incision Close/Procedure End Time: 10:19 AM Surgeon(s)/Proceduralist(s) and Java Project Manager(s): Surgeon(s) and Role: * Josemanuel Rodriguez MD - Primary Physician Java Project Manager: Mendy Cuellar PA-C Registered Nurse Stock Repairer: Lulú Duran RN Procedure(s): right knee arthroscopic [...] AM PAGER/CONTACT #: documented in this encounter [facility] 07-05-2022 Note HNO ID: [id number] Author: Devin Hanna PT Service: ? Author [...] 07/05/2022 and treatment included: Therapeutic exercise and Self-senior care management. Patient has not made progress with therapy and is opting for surgery. Goals updated on 07/04/2022. Goals for Episode of Care: created on 06/19/22 through 07/20/22 Quay in home exercise program. Met Patient will [...] Time Minutes (timed/untimed): 25 Devin Hanna PT [facility] 06-28-2022 Note HNO ID: [id number] Author: Devin Hanna PT Service: ? Author [...] was facilitated with verbal and visual cuing. Self-Mcfp Management: 1: Education on using pillows with sleeping to decrease tension on medial knee Skilled Intervention: Skilled judgment in the selection of proper modification for activity of daily living/home management based on clinical presentation, deficits, and needs. Billing Therapeutic Exercise Treatment Minutes: 38 Self-Care/Home Management Treatment Minutes: 2 Total Treatment Time Minutes (timed/untimed): 40 Felicia Chawla, APPLIANCE SERVICE SUPERVISOR Devin Hanna, PT [facility] 06-26-2022 Note HNO ID: [id number] Author: Devin Hanna PT Service: ? Author [...] facilitated with verbal, visual, and tactile cuing. Self-Mcfp Management: 1: Reviewed imaging and discussed implications [...] Time Minutes (timed/untimed): 45 Devin Hanna PT [facility] documented as of this encounter (statuses as of 10/18/2022) [address]15-2023 History of Past illness Narrative* Problem Noted [...] of this encounter (statuses as of 10/21/2022) [facility]05-15[facility] History of Past illness Narrative* Problem Noted [...] of this encounter (statuses as of 10/22/2022) [facility] History of Past illness Narrative* Problem Noted [...] of this encounter (statuses as of 10/22/2022) [facility] History of Past illness Narrative* Problem Noted [...] of this encounter (statuses as of 10/22/2022) [facility] History of Past illness Narrative* Problem Noted [...] of this encounter (statuses as of 10/30/2022) [facility] History of Past illness Narrative* Problem Noted [...] of this encounter (statuses as of 11/25/2022) [facility] History of Past illness Narrative* Problem Noted [...] of this encounter (statuses as of 11/26/2022) [facility] History of Past illness Narrative* Problem Noted [...] of this encounter (statuses as of 11/27/2022) [facility] History of Past illness Narrative* Problem Noted [...] of this encounter (statuses as of 02/23/2023) [facility] History of Past illness Narrative* Problem Noted [...] reading 10/27/2017 01/17/2020 Kidney insufficiency 04/24/2017 022 Acquired trigger finger 01/30/201703/14 Overview: Added automatically from request for surgery [id number] Ulnar neuropathy of left upper extremity 04/18/2016 [...] as of this encounter (statuses as of 04/02/2023) [facility] History of Past illness Narrative* Problem Noted [...] reading 10/27/2017 01/17/2020 Kidney insufficiency 04/24/2017 022 Acquired trigger finger 01/30/201703/14 Overview: Added automatically from request for surgery [id number] Ulnar neuropathy of left upper extremity 04/18/2016 [...] as of this encounter (statuses as of 04/12/2023) [facility] History of Past illness Narrative* Problem Noted [...] reading 10/27/2017 01/17/2020 Kidney insufficiency 04/24/2017 022 Acquired trigger finger 01/30/201703/14 Overview: Added automatically from request for surgery [id number] Ulnar neuropathy of left upper extremity 04/18/2016 [...] as of this encounter (statuses as of 04/15/2023) [facility] History of Past illness Narrative* Problem Noted [...] reading 10/27/2017 01/17/2020 Kidney insufficiency 04/24/2017 022 Acquired trigger finger 01/30/201703/14 Overview: Added automatically from request for surgery [id number] Ulnar neuropathy of left upper extremity 04/18/2016 [...] as of this encounter (statuses as of 04/16/2023) [facility] History of Past illness Narrative* Problem Noted [...] reading 10/27/2017 01/17/2020 Kidney insufficiency 04/24/2017 022 Acquired trigger finger 01/30/201703/14 Overview: Added automatically from request for surgery [id number] Ulnar neuropathy of left upper extremity 04/18/2016 [...] as of this encounter (statuses as of 04/17/2023) [facility] History and physical note* Aniceto Broderick, 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 - 06/24/2022 10:56 AM EDT HISTORY AND [...] COVID-19 booster vaccine, age 12+ yr, bivalent (PFIZER-BIONTShipzi) 10/17/2021 Postponed until 10/17/2022 by Mode Bolden [...] +essential tremor. No history of TIA's, stroke, FISHERIES TECHNICIAN tumor, impaired sensorium, hemiplegia, paraplegia or quadraplegia. No neurological symptoms or problems. Respiratory: +former smoker. No history of current cough or dyspnea, or pneumonia in the past 6 weeks. No history of respiratory/pulmonary symptoms or problems. Cardiovascular: Positive for: arrhythmia (+palpitations, on rx) and hypertension Negative for: atrial fibrillation, CAD, chest pain, CHF, congenital heart defect, DVT/PE, hyperlipidemia, recent [place], murmur/valvular heart disease, open heart surgery and valve surgery. GI: Positive for: GERD (otc rx as needed), irritable bowel syndrome and history of polyps Negative for: abdominal pain, dysphagia, hepatitis, inflammatory bowel disease, liver disease, nausea, pancreatitis, vomiting and ETOH >2 drinks/day. : Positive for: renal failure. Patient's renal failure is chronic. Negative for: urinary incontinence, nephrolithiasis and urinary tract infection. POWERHOUSE LABORER: Negative for abnormal vaginal bleeding, abnormal vaginal [...] Cancer Daughter Dx at 21 other (Ehler's Danlos) Daughter Social History Tobacco Use Smoking status: [...] 440 QTC Calculation (Bazett) 440 Calculated P [place] -4 Calculated R [place] 9 Calculated T [place] 17 Impression NORMAL SINUS RHYTHM LOW VOLTAGE QRS, CONSIDER PULMONARY DISEASE, PERICARDIAL EFFUSION, OR NORMAL VARIANT , AGE UNDETERMINED ABNORMAL ECG No results found for this or any previous visit (from the past 95193 hour(s)). Assessment Patient has the following medical conditions which may affect jimy-operative course: IRRITABLE COLON Assessment: rx as needed MVP (Mitral Valve Prolapse) Assessment: 2010 Echo on file no mention of [...] large neck Non-male patient STOP-Bang Score: 2 [id number] Score: Age: 65-74 Sex: female CHF history: No Hypertension history: Yes Stroke/TIA/thromboembolism history: No Vascular disease history: No Diabetes history: No [id number] Score: 3 ARISCAT Score: Age: 51-80 Preoperative [...] and consent discussed: yes. Patient / Responsible Green Party agrees to proceed: yes Patient / Surrogate [...] 10:56 AM PAGER/CONTACT #: [facility] Instructions* Patient Instructions* Aniceto Broderick APRN.QUALITY AND RELIABILITY ENGINEER - 06/24/2022 10:55 AM EDT PATIENT PREOPERATIVE INSTRUCTIONS Josemanuel Rodriguez MD has scheduled you for your procedure at this [facility] center[facility]: [phone] -- [address] [facility] [address]. Please read below carefully for your personalized [...] Procedures: - YOU MUST HAVE A RESPONSIBLE CONSTRUCTION CODE ADMINISTRATOR TAKE YOU HOME. A PROJECT SUPERINTENDENT OR GRAINING PRESS OPERATOR CANNOT BE MADE A RESPONSIBLE CONSTRUCTION CODE ADMINISTRATOR. - We recommend that a responsible person [...] Advance Directive, please fax a copy to [phone] or email to for it to be [...] into your chart that day. Aniceto Broderick APRN.ASA documented [facility]23 NoteHNO ID: [id number] Author: Devin Hanna PT Service: ? Author [...] of Care: created on 06/19/22 through 07/20/22 Quay in home exercise program. Patient will decrease [...] Planned: 8 Planned Treatment Interventions: Therapeutic exercise (68639), Neuromuscular re-education (04612), Manual therapy (50452), Therapeutic activities (40873), Self-senior care management (12713), Patient/Family/Caregiver Education, Body Mechanics Training PLAN FOR [...] in selection of approp (more content not included)...[facility]05-11-2023 History of Present illness Narrative* Devin [...] THERAPY EVALUATION PLAN OF CARE: Assessment: Lea Briones Elisabeth presents with chief complaint of R knee [...] of Care: created on 06/19/22 through 07/20/22 Quay in home exercise program. Patient will decrease [...] Planned: 8 Planned Treatment Interventions: Therapeutic exercise (67289), Neuromuscular re- education (88901), Manual therapy (82736), Therapeutic activities (47733), Self- senior care management (18847), Patient/Family/Caregiver Education, Body Mechanics Training PLAN FOR [...] 48 Devin Hanna PT documented [facility]23 NoteHNO ID: [id number] Author: Josemanuel Rodriguez MD Service: ? Author Type: Physician Type: Progress Notes Filed: 07/11/2022 9:30 AM Note Text: Josemanuel Rodriguez MD Department of Orthopaedics Orthopaedics [address] [place] [address] Dept: [phone] Dept June 10, 2022 CHIEF COMPLAINT: Follow [...] 4. Alonso's cyst. 5. Mild quadriceps tendinosis. Psychological Examiner: PSCB Transcribe Date/Time: May 09 2022 7:13A Dictated [...] NRV CARPAL TUNNE Left (more content not included)...[facility]05-01-2023 History of Present illness Narrative* Josemaunel Rodriguez MD - 06/10/2022 8:53 AM EDT Josemanuel Rodriguez MD Department of Orthopaedics Orthopaedics [address] [place] [address] Dept: [phone] Dept June 10, 2022 CHIEF COMPLAINT: Follow [...] 4. Alonso's cyst. 5. Mild quadriceps tendinosis. Psychological Examiner: BRISA Transcribe Date/Time: May 09 2022 7:13A [...] anxiety) Josemanuel Rodriguez MD [facility] Miscellaneous Notes* Telephone Encounter - Mendy Cuellar PA-C - 06/10/2022 8:34 AM EDT Office notes completed. * Telephone Encounter - Tabitha Bardales Ma - 06/06/2022 4:49 PM EDT Please complete and close note. Danae from [employer] completed for billing. documented in [facility] encounterD[facility]04[facility]23 Miscellaneous Notes* Result Encounter Note - Claus Magaña MD - 06/07/2022 9:58 AM EDT Negative for DVT. Patient was notified. documented in this encounterD[facility]04-[facility]-2023 NoteHNO ID: [id number] Author: Claus Magaña MD Service: ? Author Type: Physician Type: Progress Notes Filed: 05/30/2022 4:34 PM Note Text: This note was created using [employer]. Subjective Lea Barber is a 67 year old female. She noted a lump of her right calf this afternoon. She had been dealing with right knee pain and had been applying a brace. She was concerned about a DVT, before she flies to [place] hours, and she had [...] negative. Patient discharged from vascular lab. Claus Magaña, [facility]04-20-2023 History of Present illness Narrative* Claus Magaña MD - 05/30/2022 2:45 PM EDT This note was created using MD On-Lineriter. Subjective Lea Barber is a 67 year old female. She noted a lump of her right calf this afternoon. She had been dealing with right knee pain and had been applying a brace. She was concerned about a DVT, before she flies to [place] in a few hours, and she had [...] lab. Claus Magaña MD documented in [facility] encounter[facility]-2023 NoteHNO ID: [id number] Author: Mendy Cuellar PA-C Service: ? Author Type: Physician Java Project Manager Type: Progress Notes Filed: 05/13/2022 2:51 PM Note Text: Large Joint Arthro/Inj: R knee joint Informed Consent Consent Obtained: Verbal Mead Protocol A moment to CARE was completed. [...] and the patient voiced understanding of these instructions.[facility]04-03-2023 NoteHNO ID: [id number] Author: Amarilys Kraft RN Service: ? Author [...] up on R knee pain. Requesting cortisone injection.[facility]04[facility]03-2023 History of Present illness Narrative* Mendy Cuellar PA-C - 05/13/2022 2:21 PM EDTAssociated Order(s): Large Joint Arthro/Inj: R knee joint Post-Procedure Diagnose(s): Synovial cyst of right popliteal space Large Joint Arthro/Inj: R knee joint Informed Consent Consent Obtained: Verbal Mead Protocol A moment to CARE was completed. [...] pain. Requesting cortisone injection. documented in this encounterDiley [facility] Center03-31-2023 Miscellaneous Notes* Telephone Encounter - Michelle Rodriguez Ma - 05/10/2022 2:15 PM EDT I spoke to patient on the phone. Appointment changed to Friday at 2 pm. documented in this encounterDiley [facility] Center03-31-2023 Miscellaneous Notes* Telephone Encounter - Michelle Rodriguez Ma - 05/10/2022 1:38 PM EDT I called and spoke with patient. Message from Dr. Rodriguez given. Patient wants 1st available appointment. Patient has been scheduled for injection with Mendy Cuellar PA-C on 05/17/2022 at 9 am. * [...] for results of MRI done yesterday at [place]. She is still in a lot of pain. She is tearful. States she has had a trip planned for a long time the week of May 30 and was very hopeful something could be done prior to that due to the pain. Please review and advise. Stormy Concepcion MA documented in this encounterDiley Ridge Medical Center03-29-2023 NoteHNO ID: [id number] Author: RT Sabino(R) Service: ? Author Type: [...] BY: RT Sabino(R) May 08, 2022 4:31 [facility]03-29-2023 History of Present illness Narrative* BOBO GalloR) - 05/08/2022 4:30 PM EDT Radiology Service [...] PERIPHERAL IV DATA: Not applicable SIGNED BY: Tabitha Mabry RT(R) May 08, 2022 4:31 PM documented in this encounterDiley Ridge Medical Center03-28-2023 Miscellaneous Notes* Telephone Encounter - Mode Bolden Ma - 05/07/2022 3:34 PM EDT Patient notified, verbalized understanding. Mode Bolden Ma * Telephone Encounter - Temitope Castellano APRN.CNP - 05/07/2022 3:05 PM EDT PDMP website checked and validated. All prescriptions have been APPROPRIATELY filled. No suspiciousactivity was identified. 05/07/2022 by Temitope Castellano APRN.CNP * Telephone Encounter - Soo Nino - 05/07/2022 9:11 AM EDT Patient is calling in today stating that the knee pain is not getting any better and wanted to see if another prescription for pain medication can be sent to pharmacy; at least a few days until she gets her MRI. [facility] in [place]. Contact patient at [phone]. Ms. alarcon documented in this encounterDiley Ridge Medical Center2023 NoteHNO ID: [id number] Author: Michelle Rodriguez Ma Service: ? Author Type: ? Type: Progress Notes Filed: 06/09/2022 9:27 PM Note Text: PT ASSESSMENT - CASTING ROOM Lea presents for Application of brace. Applied m/l reaction knee brace to Right knee. Patient electronically signed Jose LONG. Patient has been instructed in Care and proper application of brace. Michelle M [facility]2023 NoteHNO ID: [id number] Author: Josemanuel Rodriguez MD Service: ? Author Type: Physician Type: Progress Notes Filed: 06/09/2022 9:27 PM Note Text: Josemanuel Rodriguez MD Department of Orthopaedics Orthopaedics [address] [place] [address] Dept: [phone] Dept May 02, 2022 CHIEF COMPLAINT: New [...] She had x-ray and ultrasound completed at [facility]. 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 Psychological Examiner: PSCCt Transcribe Date/Time: Apr 23 2022 11:32A Dictated [...] tunnel release NEUROPLASTY AN (more content not included)...[facility] 05-02-2022 History of Present illness Narrative* Michelle Rodriguez Ma - 05/02/2022 4:36 PM EDT PT ASSESSMENT - CASTING ROOM [facility] presents for Application of brace. Applied m/l reaction knee brace to Right knee. Patient electronically signed Jose LONG. Patient has been instructed in Care and proper application of brace. Michelle Rodriguez Ma * Josemanuel Rodriguez MD - 05/02/2022 3:32 PM EDT Josemanuel Rodriguez MD Department of Orthopaedics Orthopaedics [address] [place] [id number] Dept: [phone] Dept May 02, 2022 CHIEF COMPLAINT: New [...] She had x-ray and ultrasound completed at [facility]. 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 She has been using crutches when out of her home. ASSESSMENT: M84.463N Insufficiency fracture of tibia, initial encounter (primary [...] radiographic abnormalities seen in the right knee. Psychological Examiner: PSCB Transcribe Date/Time: Apr 23 2022 11:32A [...] to fracture PAST SURGICAL HISTORY OF Bilateral 2013 trigger thumbs REPAIR FIRST ABDOMINAL WALL HERNIA 10/2000 Hernia repair, incisional Family History: FAMILY HISTORY Problem Relation Age of Onset Stroke Mother Hypertension Mother Diabetes Mother Breast Cancer Mother Dx in 40's Heart Father mi Hypertension Father Colon Cancer Daughter Dx at 21 other (Matthew'nixon Garcia) Daughter Social History: Social History Tobacco Use [...] physician via US mail. Temitope Castellano [address] [facility] [id number] Claus Magaña MD [address] [facility] [address] Josemanuel Rodriguez MD documented in this encounterDiley Ridge Medical Center03-22-2023 Miscellaneous Notes* Telephone Encounter - Mode Bolden [...] drive far. Could we fax order to [facility] or what would her other options be? [...] next. Viky Crocker LPN documented in this encounterDiley Ridge Medical Center03-14-2023 NoteHNO ID: [id number] Author: Lanie Joshua RT(R) Service: ? Author Type: Timber Trimmer Type: Progress Notes Filed: 04/23/2022 11:28 AM [...] BY: RT Jam(R) April 23, 2022 11:08 [facility]03-14-2023 NoteHNO ID: [id number] Author: Temitope Castellano APRN.QUALITY AND RELIABILITY ENGINEER Service: ? Author Type: Nurse Practitioner Type: [...] Colon Cancer Daughter Dx at 21 other (Matthew'nixon Garcia) Daughter Social History Tobacco Use Smoking status: [...] Voltaren OTC - cont (more content not included)...[facility]03-14-2023 Miscellaneous Notes* Telephone Encounter - Rizwana [...] tendon or muscle strain. documented in this encounterDiley Ridge Medical Center03-14-2023 Instructions* Patient Instructions* Temitope Castellano APRN.CNP - [...] the next few days. documented in this encounterDiley Ridge Medical Center03-14-2023 History of Present illness Narrative* Temitope Castellano [...] Colon Cancer Daughter Dx at 21 other (Gisell Garcia) Daughter Social History Tobacco Use Smoking status: [...] plan. Temitope Castellano APRN.CNP documented in this encounterDiley Ridge Medical Center01-03-2023 Miscellaneous Notes* Telephone Encounter - Rizwana Clarke [...] you. Rizwana Clarke LPN documented in this encounterDiley Ridge Medical Center01-03-2023 Instructions* Patient Instructions* Temitope Castellano APRN.CNP - [...] or sooner if worsen documented in this encounterDiley Ridge Medical Center01-03-2023 History of Present illness Narrative* Temitope Castellano [...] plan. Temitope Castellano APRN.CNP documented in this encounterDiley Ridge Medical Center01-03-2023 Miscellaneous Notes* Telephone Encounter - Rizwana Clarke [...] calling: self Call patient at: on cell [phone] (home) [phone] (cell) Was an appointment scheduled: No Closing statement: Symptom Call: Thank you for calling [facility], your call is very important. A nurse will call in approximately 2-4 hours during business hours. If this is an emergency, please contact 911. Clarisse Barber documented in this encounterDiley Ridge Medical Center11-30-2022 Miscellaneous Notes* Telephone Encounter - Temitope Castellano [...] and advise. Roxane Ramirez documented in this encounterDiley Ridge Medical Center11-07-2022 Miscellaneous Notes* Telephone Encounter - Esthela Bazan LPN - 12/17/2021 1:01 PM EST PATIENT NOTIFIED OF SAME. * Telephone Encounter - Rizwana Clarke LPN - 12/17/2021 12:29 PM EST Patient has [...] Clarke LPN * Telephone Encounter - Alyce Nino - 12/17/2021 11:34 AM EST Patient has been identified by name and date of : Yes Requested Prescriptions Pending Prescriptions Disp Refills gabapentin (NEURONTIN) 300 mg capsule 30 capsule 0 Sig: TAKE 2 CAPSULES TWICE A DAY AND 3 CAPSULES AT BEDTIME RX INSTRUCTIONS: Per Patient, she only needs a short term supply to [facility] [place]. She requested 30 pills, stated she only takes 6 pills per day. She is out of medication and the mail order pharmacy told her about 5 days to arrive. Patient requesting a call when RX is approved and sent to the pharmacy. Please call patient at: [phone] Alyce Boyd Pss documented in this encounterDiley Ridge Medical Center09-07-2022 Instructions* Patient Instructions* Claus Magaña MD - [...] schedule this for you. documented in this encounterDiley Ridge Medical Center09-07-2022 History of Present illness Narrative* Claus Magaña MD - 10/17/2021 2:45 PM EDT This note was created using MD On-Lineriter. Subjective Patient presents with: F/U 6 months Lea Barber is a 66 year old female. She was doing well. Neuropathy and low back pain were controlled. 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 Tramadol use was consistent, [...] 724.4, ICD10: M51.16 (primary diagnosis) Stable on remote computer terminal operator tramadol. Use consistent. 2. Essential hypertension - [...] updated. Claus Magaña MD documented in this encounterDiley Ridge Medical Center08-29-2022 Miscellaneous Notes* Telephone Encounter - Temitope Castellano [...] in. Rachael Graham Pss documented in this encounterDiley Ridge Medical Center07-12-2022 Miscellaneous Notes* Telephone Encounter - Viky Crocker LPN - 08/21/2021 3:25 PM EDT Pt notified of message below. Pt aware [facility] scheduling will contact her for appt. Viky Crocker LPN * Telephone Encounter - Mode Bolden Ma - 08/21/2021 3:05 PM EDT Unable to reach patient - Left message to call office. 08/21/2021 3:05 PM Spoke with [facility] - they are able to do stress test next week if approved by insurance - order and patient information faxed to [facility] , they will contact patient to schedule. Please notified patient if returns call. * Telephone Encounter - Temitope Castellano APRN.CNP - 08/21/2021 1:50 PM EDT Patient not scheduled for stress test until September, please see if she can have done sooner. If not here than possibly [facility] or Aslhey Castellano APRN.CNP documented in this encounterDiley Ridge Medical Center06-20-2022 History of Past illness Narrative* Problem Noted Date Resolved Date Acute right-sided low back pain without sciatica 07/30/2021 09/11/2021 Elevated blood pressure reading 10/27/2017 01/17/2020 Kidney insufficiency 04/24/2017 04/11/2021 Ulnar neuropathy of left upper extremity 017 10/27/2017 Left carpal tunnel syndrome 04/18/201610/11 Pain of left hip joint 11/17/2015 02/27/201 7 Chronic bilateral low back pain with [...] of this encounter (statuses as of 10/08/2021) [facility]06-20-[facility] of Past illness Narrative* Problem Noted [...] of this encounter (statuses as of 10/18/2021) [facility]06-[facility] of Past illness Narrative* Problem Noted [...] of this encounter (statuses as of 12/17/2021) [facility]06-[facility] of Past illness Narrative* Problem Noted [...] of this encounter (statuses as of 01/09/2022) [facility]06[facility] of Past illness Narrative* Problem Noted Date Resolved Date Acute right-sided low back pain without sciatica 07/30/2021 09/11/2021 Elevated blood pressure reading 10/27/2017 01/17/2020 Kidney insufficiency 04/24/2017 04/11/2021 Ulnar neuropathy of left upper extremity 017 10/27/2017 Left carpal tunnel syndrome 04/18/201610/11 Pain of left hip joint 11/17/2015201 7 Chronic bilateral low back pain with [...] Left leg paresthesias 12/07/2011 04/08/2016 Meralgia paraesthetica 04/24/2010201 7 Diverticulitis of colon (without mention of hemo rrhage) 10/01/2004 04/08/2016 Arthropathy, unspecified, site unspecified 10/0106/07/2015 Neuralgia, neuritis, and radiculitis, unspecifie d 06/07/2015 Family history of malignant neoplasm of gastrointestinal tract 04/08/2016 Overview: daughter Wilver 05/04/2013 documented as of this encounter (statuses as of 02/14/2022) [facility]06-20-[facility] of Past illness Narrative* Problem Noted [...] of this encounter (statuses as of 02/14/2022) [facility]06[facility] of Past illness Narrative* Problem Noted [...] of this encounter (statuses as of 02/16/2022) [facility]06[facility] of Past illness Narrative* Problem Noted [...] of this encounter (statuses as of 04/23/2022) [facility]06-20[facility] of Past illness Narrative* Problem Noted [...] of this encounter (statuses as of 04/23/2022) [facility]06[facility] of Past illness Narrative* Problem Noted [...] of this encounter (statuses as of 05/01/2022) [facility]06[facility] of Past illness Narrative* Problem Noted [...] of this encounter (statuses as of 05/07/2022) [facility] of Past illness Narrative* Problem Noted [...] Left leg paresthesias 12/07/2011 04/08/2016 Meralgia paraesthetica 04/24/2010201 7 Diverticulitis of colon (without mention of hemo rrhage) 10/01/2004 04/08/2016 Arthropathy, unspecified, site unspecified 10/0106/07/2015 Neuralgia, neuritis, and radiculitis, unspecifie d 06/07/2015 Family history of malignant neoplasm of gastrointestinal tract 04/08/2016 Overview: daughter Wilver 05/04/2013 documented as of this encounter (statuses as of 05/09/2022) [facility] of Past [facility] Narrative* Problem Noted [...] of this encounter (statuses as of 05/10/2022) [facility] of Past illness Narrative* Problem Noted Date Resolved Date Acute right-sided low back pain without sciatica 07/30/2021 09/11/2021 Elevated blood pressure reading 10/27/2017 01/17/2020 Kidney insufficiency 04/24/2017 04/11/2021 Ulnar neuropathy of left upper extremity 017 10/27/2017 Left carpal tunnel syndrome 04/18/201610/11 Pain of left hip joint 11/17/2015201 7 Chronic bilateral low back pain with [...] of this encounter (statuses as of 05/14/2022) [facility] Narrative* Problem Noted [...] of this encounter (statuses as of 05/31/2022) [facility] Narrative* Problem Noted [...] of this encounter (statuses as of 06/10/2022) [facility] Narrative* Problem Noted [...] of this encounter (statuses as of 06/10/2022) [facility] Narrative* Problem Noted [...] of this encounter (statuses as of 06/16/2022) [facility] Narrative* Problem Noted [...] of this encounter (statuses as of 06/20/2022) [facility] Narrative* Problem Noted [...] of this encounter (statuses as of 06/24/2022) [facility] Narrative* Problem Noted [...] of this encounter (statuses as of 07/11/2022) [facility] Past illness Narrative* Problem Noted [...] of this encounter (statuses as of 07/11/2022) [facility] Past illness Narrative* Problem Noted [...] of this encounter (statuses as of 07/17/2022) [facility] Narrative* Problem Noted [...] of this encounter (statuses as of 07/30/2022) [facility] Narrative* Problem Noted [...] of this encounter (statuses as of 07/31/2022) [facility] Narrative* Problem Noted [...] of this encounter (statuses as of 08/27/2022) [facility] of Present illness Narrative* Demetrice Gong, [...] Planned: 4 Planned Treatment Interventions: Therapeutic exercise (24047);Manual therapy (38794);Self-care homemanagement (68268);Patient/Family/Caregiver Education;Body Mechanics Training PLAN FOR NEXT VISIT: [...] Function: Independent without limitations Relevant History 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 [...] States/Identifies;Return Demonstration TREATMENT: PT Treatment Interventions: Therapeutic Exercise;Self-Mcfp Management Evaluation Therapeutic Exercise: 1: SKC right [...] and visual cuing. Patient education as noted. Self-Mcfp Management: 1: education on taking frequent breaks [...] 43 Demetrice Gong PT documented in this encounterDiley Ridge Medical Center06-07-2022 History of Present illness Narrative* Temitope Castellano APRN.QUALITY AND RELIABILITY ENGINEER - 07/17/2021 3:01 PM EDT CC: Patient [...] on hormone replacement therapy. Last EKG was 2017 Cardiac testing history: Echo: normal and holter [...] Colon Cancer Daughter Dx at 21 other ([facility]) Daughter Social History Tobacco Use Smoking status: [...] plan. Temitope Castellano APRN.CNP documented in this encounterDiley Ridge Medical Center06-03-2022 Miscellaneous Notes* Telephone Encounter - Temitope Castellano [...] Clarke LPN * Telephone Encounter - Roxane James Pss - 07/11/2021 3:58 PM EDT Patient is nearly out. Did not realize script was . * Telephone Encounter - Roxane James Pss - 07/11/2021 3:58 PM EDT Pharmacy verified in [facility] Patient has been identified by name [...] (162 lb 6.4 oz) Please advise. Roxane James Pss documented in this encounterDiley Ridge Medical Center04-22-2022 History of Present illness Narrative* Temitope Castellano, AMY.ASA - 06/01/2021 1:40 PM EDT CC: Patient [...] Colon Cancer Daughter Dx at 21 other ([facility]) Daughter Social History Tobacco Use [...] plan. Temitope Castellano APRN.ASA documented in this encounterDiley Ridge Medical Center04-22-2022 Nurse Note* Mode Bolden Ma - 06/01/2021 1:20 PM EDT 06/01/2021: Home BP Cuff Validated. Home BP: 160/92 Office BP: 142/82 documented in this encounterDiley Ridge Medical Center04-18-2022 Miscellaneous Notes* Telephone Encounter - Amber Castillo - 05/28/2021 5:32 PM EDT Patient given results and verbalized understanding of instructions given. Amber Castillo * Telephone Encounter - Olga Nickerson PA-C - 05/28/2021 2:35 PM EDT Let patient know her urine culture did not show an infection. Recommend following up with PCP if symptoms are not improving. documented in this encounterDiley Ridge Medical Center04-17-2022 History of Present illness Narrative* Tomer Queen APRN.QUALITY AND RELIABILITY ENGINEER - 05/27/2021 10:18 AM EDT Subjective HPI [...] Colon Cancer Daughter Dx at 21 other ([facility]) Daughter Social History Tobacco Use [...] bp elevated today, will schedule recheck with [facility]. Reports bp normal at home. Advised to bring cuff in to be calibrated. Agrees to plan Tomer Queen APRN.ASA documented in this encounterDiley Ridge Medical Center03-29-2022 Miscellaneous Notes* Telephone Encounter - Claus Magaña [...] notify patient. Tarsha Weaver documented in this encounterDiley Ridge Medical Center09-17-2018 History of Past illness Narrative* Problem Noted [...] of this encounter (statuses as of 05/08/2021) [facility] of [facility] illness Narrative* Problem Noted [...] of this encounter (statuses as of 05/27/2021) [facility] of Past illness Narrative* Problem Noted [...] of this encounter (statuses as of 05/28/2021) [facility] of Past illness Narrative* Problem Noted [...] of this encounter (statuses as of 06/01/2021) [facility] of Past illness Narrative* Problem Noted [...] neoplasm of gastrointestinal tract 04/08/2016 Overview: daughter Yoanaia 05/04/2013 documented as of this encounter (statuses as of 07/13/2021) [facility] of [facility] illness Narrative* Problem Noted [...] of this encounter (statuses as of 07/18/2021) [facility] of [facility] illness Narrative* Problem Noted [...] of this encounter (statuses as of 07/30/2021) [facility] of Past illness Narrative* Problem Noted [...] of this encounter (statuses as of 08/06/2021) [facility] of Past illness Narrative* Problem Noted [...] of this encounter (statuses as of 08/21/2021) [facility] CenterEvaludel[facility]* Diagnosis 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 Neuropathy Mononeuritis of unspecified site documented in this encounter [facility] CenterEvaluation [facility]* Diagnosis Urgency of urination- Primary Back pain, unspecified back location, unspecified back pain laterality, unspecified chronicity documented in this encounter [facility] CenterEvaluation [facility]* Diagnosis Acute right-sided low back pain without sciatica- Primary Dysuria documented in this encounter [facility]Evaluation [facility]* Diagnosis 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 Neuropathy Mononeuritis of unspecified site [facility] Chest pain, unspecified type- Primary Acute right-sided low back pain without sciatica [facility] Diagnosis Acute right-sided low back pain without sciatica [facility] Diagnosis Encounter for screening mammogram for breast cancer [facility] Diagnosis 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 Neuropathy Mononeuritis of unspecified site documented in this encounter [facility]* Diagnosis Lumbar disc herniation with radiculopathy- Primary Displacement of lumbar intervertebral disc without myelopathy Essential hypertension Unspecified essential hypertension Palpitations Neuropathy Mononeuritis of unspecified site documented in this encounter [facility]* Diagnosis Neuropathy Mononeuritis of unspecified site [facility] Viral URI with cough- Primary Acute upper respiratory infections of unspecified site [facility] Diagnosis Acute pain of right knee- Primary [facility] Diagnosis Pain in right lower leg- Primary [facility] Diagnosis Pain in right lower leg [facility] Diagnosis Synovial cyst of right popliteal space- Primary Synovial cyst of popliteal space Acute pain of right knee Insufficiency fracture of tibia, initial encounter [facility] Diagnosis Skin lump of leg, right- Primary [facility] Diagnosis Insufficiency fracture of tibia, initial encounter- Primary Synovial cyst of right popliteal space Synovial cyst of popliteal space Acute pain of right knee [facility] Diagnosis Skin lump of leg, right Insufficiency fracture of fibula, initial encounter Chronic pain of right knee [facility] Diagnosis Acute pain of right knee- Primary Insufficiency fracture of tibia with routine healing, subsequent encounter Synovial cyst of right popliteal space Synovial cyst of popliteal space Insufficiency fracture of fibula, initial encounter Chronic pain of right knee [facility] Diagnosis Pre-operative examination- Primary Preoperative [...] of right knee [facility] Diagnosis Acute medial meniscus tear of right knee, subsequent encounter- Primary [facility] Diagnosis Acute pain of right knee- Primary Insufficiency fracture of tibia, initial encounter Synovial cyst of right popliteal space Synovial cyst of popliteal space [facility] Diagnosis Acute knee pain, unspecified laterality 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 Neuropathy Mononeuritis of unspecified site [facility] Insufficiency fracture of tibia, initial encounter- Primary Synovial cyst of right popliteal space Synovial cyst of popliteal space [facility] Diagnosis Alonso's cyst of knee, right [facility] Diagnosis Lower abdominal pain, unspecified- Primary [facility] Diagnosis Neuropathy Mononeuritis of unspecified site [facility] Diagnosis Neuropathy Mononeuritis of unspecified site [facility] Diagnosis Preop exam for internal medicine- Primary Other specified pre-operative examination Essential hypertension Unspecified essential hypertension MVP (mitral valve prolapse) Mitral valve disorders Palpitations Irritable bowel syndrome with both constipation and diarrhea Stage 3a chronic kidney disease (HCC) Neuropathy Mononeuritis of unspecified site [facility] Diagnosis Medication monitoring encounter- Primary Encounter for therapeutic drug monitoring Essential hypertension Unspecified essential hypertension Palpitations Neuropathy Mononeuritis of unspecified site 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 documented in this encounter [facility] for referral (narrative)* Diagnostic Procedure Only (Routine) - Closed Specialty Diagnoses / Procedures Referred By Javed ramirez Referred To Contact XR IMAGING Diagnoses Acute right-sided low back pain without sciatica Procedures XR LUMBAR GENERAL 3V AP/LAT/L5-S1 RADEX SPINE LUMBOSACRAL 2/3 VIEWS Temitope Castellano APRN.CNP [address] [place] [address] Xr Imaging Referral ID Status Reason Start Date Expiration Date V isits Requested Visits Authorized [id number] Closed Auto-Generate d Referral 06/01/2021 07/01/2022 1 1 [facility] for referral (narrative)* Diagnostic Procedure Only (Routine) - Authorized Specialty Diagnoses / Procedures Referred By Javed ramirez Referred To Contact MOLECULAR & FUNCTIONAL IMAGING Diagnoses Chest pain, unspecified type Procedures NM CARDIAC PERF STRESS/EXERCISE MYOCARDIAL SPECT MULTIPLE STUDIES Temitope Castellano APRN.QUALITY AND RELIABILITY ENGINEER [address] [place] [address] Molecular & Functional Imaging [address] [id number] Referral ID Status Reason Start Date Expiration Date Visits Requested Visits Authorized [id number] Authorized Auto-Generat ed Referral 07/17/2021 08/16/2022 1 1 * Outpatient Procedure (Routine) - Closed Specialty Diagnoses / Procedures Referred By Javed ramirez Referred To [facility] Diagnoses Chest pain, unspecified type Procedures ECG COMPLETE ECG ROUTINE ECG W/LEAST 12 LDS W/I&R Temitope Castellano APRN.CNP [address] [place] [address] [facility] [place] [address] [place] [id number] Referral ID Status Reason Start Date Expiration Date V isits Requested Visits Authorized [id number] Closed Auto-Generate d Referral 07/17/2021 07/17/2022 1 1 * Physical Therapy (Routine) - Authorized Specialty Diagnoses / Procedures Referred By Javed ramirez Referred To Contact [facility] Diagnoses Acute right-sided low back pain without sciatica Procedures CONSULT TO PHYSICAL THERAPY PHYSICAL THERAPY EVALUATION HIGH COMPLEX 45 MINS Temitope Castellano APRN.QUALITY AND RELIABILITY ENGINEER [address] [place] [address] [facility] [address] [address] Referral ID Status Reason Start Date Expiration Date Visits Requested Visits Authorized [id number] Authorized PCP Requested Referral Auto-Generate d Referral 07/17/2021 07/17/2022 99 99 [facility] for referral (narrative)* Diagnostic Procedure Only (Routine) - Pending Review Specialty Diagnoses / Procedures Referred By Javed ramirez Referred To Contact BR IMAGING Diagnoses Encounter for screening mammogram for breast cancer Procedures MINNA SCREENING SCREENING MAMMOGRAPHY BI 2-VIEW BREAST INC CAD Claus Magaña MD [address] [place] [address] [facility] [address] [place] [address] Referral ID Status Reason Start Date Expiration Date Visits Requested Visits Authorized [id number] Pending Review Auto-Generat ed Referral 08/01/2021 08/31/2022 1 1 [facility] for referral (narrative)* Diagnostic Procedure Only (Urgent) - Closed Specialty Diagnoses / Procedures Referred By Contac t Referred To Contact XR IMAGING Diagnoses Acute pain of right knee Procedures XR KNEE GENERAL 4V AP BOTH/PA BOTH/LAT/MERC RIGHT RADIOLOGIC EXAM KNEE COMPLETE 4/MORE VIEWS Temitope Castellano APRN.QUALITY AND RELIABILITY ENGINEER [address] [place] [address] Xr Imaging Referral ID Status Reason Start Date Expiration Date V isits Requested Visits Authorized [id number] Closed Auto-Generate d Referral 04/23/2022 05/23/2023 1 1 [facility] for referral (narrative)* Outpatient Procedure (Urgent) - Authorized Specialty Diagnoses / Procedures Referred By Manpreetac t Referred To [facility] Diagnoses Pain in right lower leg Procedures US LEG VEIN DVT UNL VAS LAB DUP-SCAN XTR VEINS UNILATERAL/LIMITED STUDY Temitope Castellano APRN.QUALITY AND RELIABILITY ENGINEER [address] [place] [address] [facility] [place] [address] [place] [address] Referral ID Status Reason Start Date Expiration Date Visits Requested Visits Authorized [id number] Authorized Auto-Generat ed Referral 04/30/2022 04/30/2023 1 1 [facility] for referral (narrative)* Outpatient Procedure (Urgent) - Closed Specialty Diagnoses / Procedures Referred By Contac t Referred To [facility] Diagnoses Skin lump of leg, right Procedures US LEG VEIN DVT UNL VAS LAB DUP-SCAN XTR VEINS UNILATERAL/LIMITED STUDY Claus Magaña MD [address] [place] [address] [facility] [address] [place] [id number] Referral ID Status Reason Start Date Expiration Date V isits Requested Visits Authorized [id number] Closed Auto-Generate d Referral 05/30/2022 05/30/2023 1 1 [facility] for visit Narrative* Outpatient Procedure (Urgent) - Closed Specialty Diagnoses / Procedures Referred By Javed ramirez Referred To Contact [facility] Diagnoses Skin lump of leg, right Procedures US LEG VEIN DVT UNL VAS LAB DUP-SCAN XTR VEINS UNILATERAL/LIMITED STUDY Claus Magaña MD [address] [place] [address] [address] [place] [address] Referral ID Status Reason Start Date Expiration Date V isits Requested Visits Authorized [id number] Closed Auto-Generate d Referral 05/30/2022 05/30/2023 1 1 [facility] Summary Purpose Family History No Family History Records FoundNo Family History Records FoundNo Family History Records FoundNo Family History Records Found Advance Directives Documents on File Type Date Recorded Patient Claim Trainee Expl anation Advance Directive(s) 12/14/2018 7:28 AM Advance Directive(s) 01/23/2017 10:25 AM Documents on File Type Date Recorded Patient Claim Trainee Expl anation Advance Directive(s) 12/14/2018 7:28 AM [...] Referral Specialty Diagnoses / Procedures [facility] To Contact [facility] IM[facility] Diagnoses Synovial cyst of right popliteal space Acute pain of right knee Insufficiency fracture of tibia, initial encounter Procedures MRI KNEE WO IVCON RIGHT MRI ANY JT LOWER EXTREM W/O CONTRAST MATRL Josemanuel Rodriguez MD [address] [place] [address] Mr Imaging Referral ID Status Reason Start Date Expiration Date V isits Requested Visits Authorized [id number] Closed Auto-Generate d Referral 05/02/2022 06/01/2023 1 1 Specialty Diagnoses / Procedures Referred By [facility] Referred To Contact [facility] Diagnoses Acute pain of right knee Insufficiency fracture of tibia with routine healing, subsequent encounter Synovial cyst of right popliteal space Procedures PT REHAB FOLLOW UP ORDER THERAPEUTIC EXERCISES RE, EA 15 MIN. Devin Hanna, PT [facility] [address] [address] Referral ID Status Reason Start Date Expiration Date Visits Requested Visits Authorized [id number] Pending Review PCP Requested Referral Auto-Generate d Referral 06/19/2022 09/17/2022 1 1 Specialty Diagnoses / Procedures Referred By [facility] Referred To Contact [facility] Diagnoses Acute pain of right knee Insufficiency fracture of tibia, initial encounter Synovial cyst of right popliteal space Procedures CONSULT TO PHYSICAL THERAPY PHYSICAL THERAPY EVALUATION HIGH COMPLEX 45 MINS Josemanuel Rodriguez MD [address] [place] [address] [facility] [address] [address] Referral ID Status Reason Start Date Expiration Date Visits Requested Visits Authorized [id number] Authorized PCP Requested Referral Auto-Generate d Referral 06/10/2022 06/10/2023 99 99 Additional Source Comments INFORMATION SOURCE (unrecogn ized section and content) DATE CREATED AUTHOR AUTHOR'S ORGANIZ ATION 05/13/2022 [facility] DATE CREATED AUTHOR AUTHOR'S ORGANIZ ATION 07/19/2022 [facility] DATE CREATED AUTHOR AUTHOR'S ORGANIZ ATION 04/17/2023 [facility] Source Comments (unrecognize d section and content) In the event this informatio n is protected by the Federal Confidentiality of Alcohol and Drug Abuse Patient Records regulations: The Federal rules restrict any use of the information to criminally investigate or prosecute any alcohol or drug abuse patient.[facility] the event this information is protected by the Federal Confidentiality of Alcohol and Drug Abuse Patient Records regulations: The Federal rules restrict any use of the information to criminally investigate or prosecute any alcohol or drug abuse patient.[facility] CenterIn the event this information is protected by the Federal Confidentiality of Alcohol and Drug Abuse Patient Records regulations: The Federal rules restrict any use of the information to criminally investigate or prosecute any alcohol or drug abuse patient.[facility] CenterIn the event this information is protected by the Federal Confidentiality of Alcohol and Drug Abuse Patient Records regulations: The Federal rules restrict any use of the information to criminally investigate or prosecute any alcohol or drug abuse patient.[facility] CenterIn the event this information is protected by the Federal Confidentiality of Alcohol and Drug Abuse Patient Records regulations: The Federal rules restrict any use of the information to criminally investigate or prosecute any alcohol or drug abuse patient.[facility] CenterIn the event this information is protected by the Federal Confidentiality of Alcohol and Drug Abuse Patient Records regulations: The Federal rules restrict any use of the information to criminally investigate or prosecute any alcohol or drug abuse patient.[facility] CenterIn the event this information is protected by the Federal Confidentiality of Alcohol and Drug Abuse Patient Records regulations: The Federal rules restrict any use of the information to criminally investigate or prosecute any alcohol or drug abuse patient.[facility] CenterIn the event this information is protected by the Federal Confidentiality of Alcohol and Drug Abuse Patient Records regulations: The Federal rules restrict any use of the information to criminally investigate or prosecute any alcohol or drug abuse patient.[facility] CenterIn the event this information is protected by the Federal Confidentiality of Alcohol and Drug Abuse Patient Records regulations: The Federal rules restrict any use of the information to criminally investigate or prosecute any alcohol or drug abuse patient.[facility] CenterIn the event this information is protected by the Federal Confidentiality of Alcohol and Drug Abuse Patient Records regulations: The Federal rules restrict any use of the information to criminally investigate or prosecute any alcohol or drug abuse patient.[facility] CenterIn the event this information is protected by the Federal Confidentiality of Alcohol and Drug Abuse Patient Records regulations: The Federal rules restrict any use of the information to criminally investigate or prosecute any alcohol or drug abuse patient.[facility] CenterIn the event this information is protected by the Federal Confidentiality of Alcohol and Drug Abuse Patient Records regulations: The Federal rules restrict any use of the information to criminally investigate or prosecute any alcohol or drug abuse patient.[facility] CenterIn the event this information is protected by the Federal Confidentiality of Alcohol and Drug Abuse Patient Records regulations: The Federal rules restrict any use of the information to criminally investigate or prosecute any alcohol or drug abuse patient.[facility] CenterIn the event this information is protected by the Federal Confidentiality of Alcohol and Drug Abuse Patient Records regulations: The Federal rules restrict any use of the information to criminally investigate or prosecute any alcohol or drug abuse patient.[facility] CenterIn the event this information is protected by the Federal Confidentiality of Alcohol and Drug Abuse Patient Records regulations: The Federal rules restrict any use of the information to criminally investigate or prosecute any alcohol or drug abuse patient.[facility] CenterIn the event this information is protected by the Federal Confidentiality of Alcohol and Drug Abuse Patient Records regulations: The Federal rules restrict any use of the information to criminally investigate or prosecute any alcohol or drug abuse patient.[facility] CenterIn the event this information is protected by the Federal Confidentiality of Alcohol and Drug Abuse Patient Records regulations: The Federal rules restrict any use of the information to criminally investigate or prosecute any alcohol or drug abuse patient.[facility] CenterIn the event this information is protected by the Federal Confidentiality of Alcohol and Drug Abuse Patient Records regulations: The Federal rules restrict any use of the information to criminally investigate or prosecute any alcohol or drug abuse patient.[facility] CenterIn the event this information is protected by the Federal Confidentiality of Alcohol and Drug Abuse Patient Records regulations: The Federal rules restrict any use of the information to criminally investigate or prosecute any alcohol or drug abuse patient.[facility] CenterIn the event this information is protected by the Federal Confidentiality of Alcohol and Drug Abuse Patient Records regulations: The Federal rules restrict any use of the information to criminally investigate or prosecute any alcohol or drug abuse patient.[facility] CenterIn the event this information is protected by the Federal Confidentiality of Alcohol and Drug Abuse Patient Records regulations: The Federal rules restrict any use of the information to criminally investigate or prosecute any alcohol or drug abuse patient.[facility] CenterIn the event this information is protected by the Federal Confidentiality of Alcohol and Drug Abuse Patient Records regulations: The Federal rules restrict any use of the information to criminally investigate or prosecute any alcohol or drug abuse patient.[facility] CenterIn the event this information is protected by the Federal Confidentiality of Alcohol and Drug Abuse Patient Records regulations: The Federal rules restrict any use of the information to criminally investigate or prosecute any alcohol or drug abuse patient.[facility] CenterIn the event this information is protected by the Federal Confidentiality of Alcohol and Drug Abuse Patient Records regulations: The Federal rules restrict any use of the information to criminally investigate or prosecute any alcohol or drug abuse patient.[facility] CenterIn the event this information is protected by the Federal Confidentiality of Alcohol and Drug Abuse Patient Records regulations: The Federal rules restrict any use of the information to criminally investigate or prosecute any alcohol or drug abuse patient.[facility] CenterIn the event this information is protected by the Federal Confidentiality of Alcohol and Drug Abuse Patient Records regulations: The Federal rules restrict any use of the information to criminally investigate or prosecute any alcohol or drug abuse patient.[facility] CenterIn the event this information is protected by the Federal Confidentiality of Alcohol and Drug Abuse Patient Records regulations: The Federal rules restrict any use of the information to criminally investigate or prosecute any alcohol or drug abuse patient.[facility] CenterIn the event this information is protected by the Federal Confidentiality of Alcohol and Drug Abuse Patient Records regulations: The Federal rules restrict any use of the information to criminally investigate or prosecute any alcohol or drug abuse patient.[facility] CenterIn the event this information is protected by the Federal Confidentiality of Alcohol and Drug Abuse Patient Records regulations: The Federal rules restrict any use of the information to criminally investigate or prosecute any alcohol or drug abuse patient.[facility] CenterIn the event this information is protected by the Federal Confidentiality of Alcohol and Drug Abuse Patient Records regulations: The Federal rules restrict any use of the information to criminally investigate or prosecute any alcohol or drug abuse patient.[facility] CenterIn the event this information is protected by the Federal Confidentiality of Alcohol and Drug Abuse Patient Records regulations: The Federal rules restrict any use of the information to criminally investigate or prosecute any alcohol or drug abuse patient.[facility] CenterIn the event this information is protected by the Federal Confidentiality of Alcohol and Drug Abuse Patient Records regulations: The Federal rules restrict any use of the information to criminally investigate or prosecute any alcohol or drug abuse patient.[facility] CenterIn the event this information is protected by the Federal Confidentiality of Alcohol and Drug Abuse Patient Records regulations: The Federal rules restrict any use of the information to criminally investigate or prosecute any alcohol or drug abuse patient.[facility] CenterIn the event this information is protected by the Federal Confidentiality of Alcohol and Drug Abuse Patient Records regulations: The Federal rules restrict any use of the information to criminally investigate or prosecute any alcohol or drug abuse patient.[facility] CenterIn the event this information is protected by the Federal Confidentiality of Alcohol and Drug Abuse Patient Records regulations: The Federal rules restrict any use of the information to criminally investigate or prosecute any alcohol or drug abuse patient.[facility] CenterIn the event this information is protected by the Federal Confidentiality of Alcohol and Drug Abuse Patient Records regulations: The Federal rules restrict any use of the information to criminally investigate or prosecute any alcohol or drug abuse patient.[facility] CenterIn the event this information is protected by the Federal Confidentiality of Alcohol and Drug Abuse Patient Records regulations: The Federal rules restrict any use of the information to criminally investigate or prosecute any alcohol or drug abuse patient.[facility] CenterIn the event this information is protected by the Federal Confidentiality of Alcohol and Drug Abuse Patient Records regulations: The Federal rules restrict any use of the information to criminally investigate or prosecute any alcohol or drug abuse patient.[facility] CenterIn the event this information is protected by the Federal Confidentiality of Alcohol and Drug Abuse Patient Records regulations: The Federal rules restrict any use of the information to criminally investigate or prosecute any alcohol or drug abuse patient.[facility] CenterIn the event this information is protected by the Federal Confidentiality of Alcohol and Drug Abuse Patient Records regulations: The Federal rules restrict any use of the information to criminally investigate or prosecute any alcohol or drug abuse patient.[facility] CenterIn the event this information is protected by the Federal Confidentiality of Alcohol and Drug Abuse Patient Records regulations: The Federal rules restrict any use of the information to criminally investigate or prosecute any alcohol or drug abuse patient.[facility] CenterIn the event this information is protected by the Federal Confidentiality of Alcohol and Drug Abuse Patient Records regulations: The Federal rules restrict any use of the information to criminally investigate or prosecute any alcohol or drug abuse patient.[facility] CenterIn the event this information is protected by the Federal Confidentiality of Alcohol and Drug Abuse Patient Records regulations: The Federal rules restrict any use of the information to criminally investigate or prosecute any alcohol or drug abuse patient.[facility] CenterIn the event this information is protected by the Federal Confidentiality of Alcohol and Drug Abuse Patient Records regulations: The Federal rules restrict any use of the information to criminally investigate or prosecute any alcohol or drug abuse patient.[facility] CenterIn the event this information is protected by the Federal Confidentiality of Alcohol and Drug Abuse Patient Records regulations: The Federal rules restrict any use of the information to criminally investigate or prosecute any alcohol or drug abuse patient.[facility] CenterIn the event this information is protected by the Federal Confidentiality of Alcohol and Drug Abuse Patient Records regulations: The Federal rules restrict any use of the information to criminally investigate or prosecute any alcohol or drug abuse patient.[facility] CenterIn the event this information is protected by the Federal Confidentiality of Alcohol and Drug Abuse Patient Records regulations: The Federal rules restrict any use of the information to criminally investigate or prosecute any alcohol or drug abuse patient.[facility] CenterIn the event this information is protected by the Federal Confidentiality of Alcohol and Drug Abuse Patient Records regulations: The Federal rules restrict any use of the information to criminally investigate or prosecute any alcohol or drug abuse patient.[facility] CenterIn the event this information is protected by the Federal Confidentiality of Alcohol and Drug Abuse Patient Records regulations: The Federal rules restrict any use of the information to criminally investigate or prosecute any alcohol or drug abuse patient.[facility] CenterIn the event this information is protected by the Federal Confidentiality of Alcohol and Drug Abuse Patient Records regulations: The Federal rules restrict any use of the information to criminally investigate or prosecute any alcohol or drug abuse patient.[facility] CenterIn the event this information is protected by the Federal Confidentiality of Alcohol and Drug Abuse Patient Records regulations: The Federal rules restrict any use of the information to criminally investigate or prosecute any alcohol or drug abuse patient.[facility] Reason for Visit (unrecogniz ed section and content) Reason Comments Urinary Frequency lower back pain onse t x1 week prior x2 AZO AM Reason Comments Results Reason Comments UC follow up Reason Onset Date Comments Refill Request 07/11/2021 Reason Comments follow up - back pain Reason Comments PT Eval Patient Education Specialty Diagnoses / Procedures Referred By Javed ramirez Referred To Contact [facility] Diagnoses Acute right-sided low back pain without sciatica Procedures CONSULT TO PHYSICAL THERAPY PHYSICAL THERAPY EVALUATION HIGH COMPLEX 45 MINS Older, 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, 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 [address] [place] [address] [facility] [address] [place] [address] Referral ID Status Reason Start Date Expiration Date Visits Requested Visits Authorized [id number] Authorized PCP Requested Referral Auto-Generate d Referral [...] Josemanuel Rodriguez MD [address] [place] [address] Mr Imaging Referral ID Status Reason Start Date Expiration Date V isits Requested Visits Authorized [id number] Closed Auto-Generate d Referral 05/02/2022 06/01/2023 1 1 Reason Comments Follow Up Knee Pain Reason Comments Mass Reason Comments New Pain Specialty Diagnoses / Procedures Referred By Contac t Referred To Contact Orthopedics Diagnoses Synovial cyst of right popliteal space Acute pain of right knee Procedures CONSULT TO ORTHOPAEDICS OFFICE/OUTPATIENT NEW HIGH MDM 60-74 MINUTES Older, 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, 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 [address] [place] [address] Referral ID Status Reason Start Date Expiration Date V isits Requested Visits Authorized [id number] Closed PCP Requested Referral 05/01/2022 05/01/2023 1 [...] MINS Josemanuel Rodriguez MD [address] [place] [address] [facility] [place] [address] [place] [address] Referral ID Status Reason Start Date Expiration Date Visits Requested Visits Authorized [id number] Authorized PCP Requested Referral Auto-Generate d Referral [...] Refill Request 10/30/2022 Reason Comments Medication Problem Reason Comments Pre-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 Reason Onset Date Comments Refill Request 04/10/2023 Reason Onset Date Comments Refill Request 04/17/2023 Care Teams (unrecognized sec tion and content) Cargo Service Supervisor Relationship Specialty Start Date End Date Claus Magaña MD [address] [facility] [place] [address] PCP - General Internal Medicine 04/18/16 Cargo Service Supervisor Relationship Specialty Start Date End Date Claus Magaña MD [address] [facility] [place] [address] PCP - General Internal Medicine 04/18/16 Cargo Service Supervisor Relationship Specialty Start Date End Date Claus Magaña MD [address] [facility] [place] [address] PCP - General Internal Medicine 04/18/16 Cargo Service Supervisor Relationship Specialty Start Date End Date Claus Magaña MD [address] [facility] [place] [address] PCP - General Internal Medicine 04/18/16 Cargo Service Supervisor Relationship Specialty Start Date End Date Claus Magaña MD [address] [facility] [place] [address] PCP - General Internal Medicine 04/18/16 Cargo Service Supervisor Relationship Specialty Start Date End Date Claus Magaña MD [address] [facility] [place] [address] PCP - General Internal Medicine 04/18/16 Cargo Service Supervisor Relationship Specialty Start Date End Date Claus Magaña MD [address] [facility] [place] [address] PCP - General Internal Medicine 04/18/16 Cargo Service Supervisor Relationship Specialty Start Date End Date Claus Magaña MD [address] [facility] [place] [address] PCP - General Internal Medicine 04/18/16 Cargo Service Supervisor Relationship Specialty Start Date End Date Claus Magaña MD [address] [facility] [place] [address] PCP - General Internal Medicine 04/18/16 Cargo Service Supervisor Relationship Specialty Start Date End Date Claus Magaña MD [address] [facility] [place] [address] PCP - General Internal Medicine 04/18/16 Cargo Service Supervisor Relationship Specialty Start Date End Date Claus Magaña MD [address] [facility] [place] [address] PCP - General Internal Medicine 04/18/16 Cargo Service Supervisor Relationship Specialty Start Date End Date Claus Magaña MD [address] [facility] [place] [address] PCP - General Internal Medicine 04/18/16 Cargo Service Supervisor Relationship Specialty Start Date End Date Claus Magaña MD [address] [facility] [place] [address] PCP - General Internal Medicine 04/18/16 Cargo Service Supervisor Relationship Specialty Start Date End Date Claus Magaña MD [address] [facility] [place] [address] PCP - General Internal Medicine 04/18/16 Cargo Service Supervisor Relationship Specialty Start Date End Date Claus Magaña MD [address] [facility] [place] [address] PCP - General Internal Medicine 04/18/16 Cargo Service Supervisor Relationship Specialty Start Date End Date Claus Magaña MD [address] [facility] [place] [address] PCP - General Internal Medicine 04/18/16 Cargo Service Supervisor Relationship Specialty Start Date End Date Claus Magaña MD [address] [facility] [place] [address] PCP - General Internal Medicine 04/18/16 Cargo Service Supervisor Relationship Specialty Start Date End Date Claus Magaña MD [address] [facility] [place] [address] PCP - General Internal Medicine 04/18/16 Cargo Service Supervisor Relationship Specialty Start Date End Date Claus Magaña MD [address] [facility] [place] [address] PCP - General Internal Medicine 04/18/16 Cargo Service Supervisor Relationship Specialty Start Date End Date Claus Magaña MD [address] [facility] [place] [address] PCP - General Internal Medicine 04/18/16 Cargo Service Supervisor Relationship Specialty Start Date End Date Claus Magaña MD [address] [facility] [place] [address] PCP - General Internal Medicine 04/18/16 Cargo Service Supervisor Relationship Specialty Start Date End Date Claus Magaña MD [address] [facility] [place] [address] PCP - General Internal Medicine 04/18/16 Cargo Service Supervisor Relationship Specialty Start Date End Date Claus Magaña MD [address] [facility] [place] [address] PCP - General Internal Medicine 04/18/16 Cargo Service Supervisor Relationship Specialty Start Date End Date Claus Magaña MD [address] [facility] [place] [address] PCP - General Internal Medicine 04/18/16 Cargo Service Supervisor Relationship Specialty Start Date End Date Claus Magaña MD [address] [facility] [place] [address] PCP - General Internal Medicine 04/18/16 Cargo Service Supervisor Relationship Specialty Start Date End Date Claus Magaña MD [address] [facility] [place] [address] PCP - General Internal Medicine 04/18/16 Cargo Service Supervisor Relationship Specialty Start Date End Date Claus Magaña MD [address] [facility] [place] [address] PCP - General Internal Medicine 04/18/16 Cargo Service Supervisor Relationship Specialty Start Date End Date Claus Magaña MD [address] [facility] [place] [address] PCP - General Internal Medicine 04/18/16 Cargo Service Supervisor Relationship Specialty Start Date End Date Claus Magaña MD [address] [facility] [place] [address] PCP - General Internal Medicine 04/18/16 Cargo Service Supervisor Relationship Specialty Start Date End Date Claus Magaña MD [address] [facility] [place] [address] PCP - General Internal Medicine 04/18/16 Cargo Service Supervisor Relationship Specialty Start Date End Date Claus Magaña MD [address] [facility] [place] [address] PCP - General Internal Medicine 04/18/16 Cargo Service Supervisor Relationship Specialty Start Date End Date Claus Magaña MD [address] [facility] [place] [address] PCP - General Internal Medicine 04/18/16 Cargo Service Supervisor Relationship Specialty Start Date End Date Claus Magaña MD [address] [place] [address] PCP - General Internal Medicine 04/18/16 Cargo Service Supervisor Relationship Specialty Start Date End Date Claus Magaña MD [address] [place] [address] PCP - General Internal Medicine 04/18/16 Scheduled Active and Recently Administ ered Medications (unrecognized section and content) Continuous Medication Order 07/08/2022 07/09/2022 07/10/2022 lactated ringers iv infusion (CANCELED) 5-30 mL/hr, INTRAVENOUS, CONTINUOUS, Starting on Fri07/10/22 at 0800, Until Fri07/10/22 at 1033, Preprocedure 0804 (New Bag/Syring e/Bottle - Provider: Sommer Martinez RN)0927 (Stopped - Provider: Beverly Romero APRN.CRNA - [...] NEEDED, Starting on Fri07/10/22 at 1038, Until Ojcelynn 07/11/22 at 0303, Nausea/Vomiting - First Line [...] BE BASED ON THE PRIMARY CLINICAL RECORDS. [employer] [facility]. provides no warranty or guarantee of the accuracy or completeness of information in this document.
[2023-04-21] MEDS: Magnesium 1 GM over 15 mins IV (06:16)
[2023-04-21] MEDS: Lactated Ringers 1,000 ML 15 ML IV ×2 (06:16→09:56)
[2023-04-21] MEDS: Acetaminophen 500 MG Tablet 1000 MG PO ×3 (06:35→20:24)
[2023-04-21] MEDS: Gabapentin 600 MG Tablet PO ×2 (06:35→20:24)
[2023-04-21 06:52] LABS: Bedside Glucose 69 mg/dL (74-106)
--- NOTE | 2023-04-21 07:30 | KNEE_PTH ---
PATHOLOGY RESULTS PATIENT: LUIGI PRINCE LOC: MS3 U#:[id number] AGE/SX: 68/F ROOM: [facility] RE04/21/[address]: Dr. Connor Adorno DO : 1955 BED: 1 DIS: 04/22/2023 SPEC #: [id number] RECD: 04/21/23 10:13 STATUS: NYDIA MARLA #: [id number] DIAN: 04/21/23 07:[address]: Connor Adorno DEPT: SURGICAL PATHOLOGY RECD BY: Vee Giang ENTERED: 04/21/23 11:51 SP TYPE: TOTAL KNEE OTHR DR: Dr. Claus Magaña MD Tissues: Knee, NOS Procedures: Decalcification bone/plaque Surgery Specimen Level IV HEADER OPERATION: Cata, Robotic assisted right total knee arthroplasty PRE-OP DIAGNOSIS: Osteoarthritis right knee TISSUE SUBMITTED: Right knee debrided bone and tissue MICROSCOPIC DIAGNOSIS Bone and tissue of right knee, total knee resection; Severe degenerative joint disease. MICROSCOPIC DESCRIPTION Slides are reviewed. GROSS DESCRIPTION Received is one container designated bone and soft tissue right knee. The specimen consists of multiple fragments of hidalgo-yellow bone measuring in aggregate 15.0 x 10.0 x 2.0 cm. Also in the specimen container are multiple fragments of yellow-white soft tissue measuring in aggregate 2.0 x 1.0 x 1.0 cm. A number of bony fragments contain articular surfaces consistent with tibial plateau and femoral condyle and displaying prominent osteophyte formation, eburnation and bone erosion. Help Desk Consultant sections are submitted in two cassettes as follows: 1 - soft tissue, 2 - bone after decalcification. AM/mr 04/21/23 TC:5 [facility]: [id number], [id number]
--- NOTE | 2023-04-21 07:53 | RAD_ITS ---
STUDY: X-RAY - RIGHT KNEE REASON FOR EXAM: Female, 68 years old. Post op -- AP and Lateral xray of operative knee in PACU. TECHNIQUE: 2 views of the right knee. COMPARISON: None. FINDINGS: There are new postoperative changes related to right total knee arthroplasty with patellar resurfacing. There is a vertical staple line along the anterior aspect of the knee. There is gas in the patellofemoral joint recess and anterior soft tissues, compatible with recent surgery. The orthopedic hardware components are intact. There is no periprosthetic fracture. Normal proximal tibiofibular articulation. RAD/Knee 1 or 2 Views IMPRESSION: New postoperative changes related to right total knee arthroplasty. Electronically Signed: Osvaldo Ramachandran MD at 10:41 EDT ,
[2023-04-21] MEDS: Cefazolin 2 GM in 0.9% Normal Saline (100mL Bag) 100 ML IV (07:54)
[2023-04-21] MEDS: TXA 1000mg in NS100 100ml (IVPB at Incision) 660 MG IV (08:02)
[2023-04-21] MEDS: JPS (Morphine 10mg/ml) OPERA.SITE (09:02)
[2023-04-21] MEDS: TXA 1000mg in NS100 100ml (IVPB at Closure) 660 MG IV (09:09)
--- NOTE | 2023-04-21 09:22 | OP.PCM_ITS ---
Report of Operation Date of Procedure: 04/21/23 Pre-Operative Diagnosis: OA right knee Post-Operative Diagnosis: same Surgery/Procedure Performed:: Right TKR Description of Surgical Findings:: Report of Operation Date of Procedure: 04/21/2023 Preoperative Diagnosis: [right ] knee primary osteoarthritis Postoperative Diagnosis: [right ] knee primary osteoarthritis Operation: Robotic Assisted Knee Total Arthroplasty, [right ] knee Surgeon: Dr Connor Adorno DO Lockstitch Lining Setter: FERNANDO Cui Anesthesia: spinal Anesthesiologist: Ritchie Barrientos M.D. Findings: Stable knee with good patella tracking Specimen(s): Bony cuts Complications: No intraoperative complications Estimated Blood Loss: 20 ccc IV Fluids: 1000 cc crystalloid Implants Used: 1. [place] Triathlon press-fit CR size 3 femur 2. [place] [employer]lon size 4 tibia 3. 32 mm patella 4. 9 mm CS polyethylene Brief History Operative Indications: [ (68 y/o female) ] with history of [ right ] knee osteoarthrosis with radiographic findings with loss of joint space, osteophyte formation and subchondral sclerosis. Failed conservative measures as mentioned in the H&P. Discussion of total knee arthroplasty as well as risk and benefits were discussed with the patient including but not limited to blood loss, DVTs, PEs, neurovascular damage, general risk of anesthesia including loss of life, and stiffness or instability were also discussed with the patient. Patient demonstrated understanding and was able to sign informed consent. Procedure: On the date of procedure, patient's [ right ] lower extremity was marked in the preoperative area. The patient was then taken back to the operating room where that patient was placed on the table in the supine position. All bony prom inences were identified and well-padded. Anesthesia assumed control of the C- spine and airway throughout the remainder of the procedure. A tourniquet was placed on the [ ] upper thigh and the leg was prepped in a sterile fashion. The surgeon then scrubbed at this time. Upon reentering the room, the [ right ] lower extremity was draped in a standard orthopedic fashion. A timeout was then called and everyone agreed upon the side, the site, the procedure to be performed, patient's identity and antibiotics given. Esmarch bandage was used to exsanguinate the extremity and the tourniquet was placed up to 250 mmHg with the knee in flexion. A midline skin incision was made and a sharp dissection was taken down through skin, subcutaneous tissue and fat. The standard medial parapatellar incision was made and the patella was subluxed laterally. An appropriate deep MCL release was done and the fat pad was resected. Our attention was then directed to the patella. The patella was everted and a flat resection was made. The knee was then flexed up and 2 femoral pins were placed inside the incision and 2 tibial pins were placed outside the incision in the medial tibia bicortically. Once this was completed, the 2 checkpoints in the femur and tibia were placed. Knee was then flexed up and the bony landmarks were registered. Once the was completed, the knee taken through range of motion and manually stressed allowing us to plan for an appropriate tibial cut. The robotic arm was brought into the field sterilely and checkpoint and saw were registered. Based on the patient's deformity, the tibial cut was made in [ 2 degrees varus ]. At this time, the tensioner was then placed in the joint and ligament tension was checked at 90 degrees and full extension. Based on the patient's ligamentous tension, appropriate adjustments were made to the operative plan and ligament releases were done. Once we were happy with our operative plan with balanced flexion and extension gaps, our attention was directed to the femur. The robot was brought into the field sterilely and registered. Posterior condylar cuts, anterior chamfer cuts and anterior cuts were appropriately made for a [ size 3 ] femur. When these were completed, the saws were switched out in the distal femoral and posterior chamfer cuts were made. Protecting the soft tissue throughout this time. A [ size 4 ] base plate was selected. The knee was flexed to 90 degrees and soft tissues and posterior osteophytes were removed from the joint. 40 cc of the periarticular injection was injected into the posterior medial corner of the joint. The appropriate trials were then placed on the femur and tibia. A trial polyethylene was trialed to ensure proper balancing and stability of the knee. The appropriate tibial internal rotation was then marked with a bovie. Our attention was then directed to the patella. The lug holes were drilled and the patella trial was placed. Patellar tracking was checked and deemed appropr iate. Once we were happy, lug holes were drilled for the femur and trial components were removed. The tibia was subluxed and pinned into place and the keel was punched and drilled appropriately. Final components were verified and opened. The wound was copiously irrigated with normal saline. The components were impacted into place with the tibia, femur and finally the patella. The trial poly component was placed and the knee was placed in full extension. The tracking, alignment and balance were verified and a [ 9 mm CS ] polyethylene component was placed. Once the final components were placed an Irrisept lavage was performed and the wound was copiously irrigated with normal saline solution and the periarticular injection was given. the wound was closed in a layer-moser fashion using #1 v icryl interrupted sutures for the arthrotomy, 2-0 interrupted vicryl suture for the subcuticular layer and kaitlin for final skin closure. A sterile compressive dressing was then placed. The patient was then awakened from anesthesia, transferred to the [place] and transferred to the PACU for recovery. My physician pier master assistant was a vital part of this case. He was important in appropriate retraction during the case, and protection of soft tissues during bony cuts. His intimate knowledge of the case and my steps aided in safe and expedient completion of the procedure as well as appropriate position of the leg during the case. He was also vital in assisting with closure under my direct supervision. Due to the complexity of this case, robotic arm was used to assist in the surgery to improve accuracy and clinical outcomes. Post-op Plan: DVT ppx; ASA 81 mg BID, thigh high compression stockings Follow up: in office in 2 weeks for wound check PT: to start POD #0 at hospital, outpatient PT should be arranged. Preoperative antibiotic: Ancef 2 grams IV Connor Adorno DO Surgeon: Connor Adorno process improvement consultant: Sue Vanessa Type of Anesthesia: Spinal Anesthesiologist: Ritchie Barrientos Specimen's removed: bone Estimated Blood Loss (mL): 20 cc Fluids Replaced: 1000 cc crystalloid Admit VTE Documentation VTE Present on Admission: No VTE Mechan Device Prophylaxis: SCD's VTE Pharm Prophylaxis ordered?: Yes
[2023-04-21] MEDS: Gabapentin 300 MG Capsule 600 MG PO (13:55)
[2023-04-21] MEDS: oxyCODONE 5 MG Tablet PO ×2 (13:55→22:38)
[2023-04-21] MEDS: 0.9% Normal Saline (250mL Bag) 250 ML 15 ML IV (18:13)
[2023-04-21] MEDS: Cefazolin 1 GM/50 ML BAG IV ×2 (18:13→22:40)
[2023-04-21] MEDS: 0.9% Saline Lock 10 ML Syringe IV (18:15)
[2023-04-21] MEDS: Aspirin 81 MG TAB.CHEW PO (18:18)
[2023-04-21] MEDS: cycloBENZAPRine HCl 10 MG Tablet PO (20:23)
[2023-04-21] MEDS: traMADol 50 MG Tablet PO (20:24)
[2023-04-21] MEDS: Senna/Docusate Sodium 1 Tablet 2 TABLET PO (20:24)
[2023-04-21] MEDS: Metoprolol(XL)Succ 25 MG Tablet PO (20:24)
[2023-04-22 00:37] VITALS: BMI 29.3
[2023-04-22 04:00] VITALS: BP 134/67; PULSE 67; RESP 18; TEMP 36.6; O2SAT 96
[2023-04-22 04:37] VITALS: BMI 29.3
[2023-04-22] MEDS: Acetaminophen 500 MG Tablet 1000 MG PO ×2 (05:19→14:10)
[2023-04-22] MEDS: oxyCODONE 5 MG Tablet PO ×4 (05:22→15:32)
[2023-04-22 06:37] LABS: Hematocrit 34.9 % (37-47); Hemoglobin 11.4 g/dL (12.0-15.0); Mean Corp Hgb Conc 32.7 g/dL (32-36); Mean Corpuscular Hgb 31.5 pg (27.0-32.0); Mean Corpuscular Volume 96.4 fL (81-99); Mean Platelet Vol. 9.9 fl (6.2-12.0); Platelet Count 195 K/mm3 (150-450); RBC Distribution Width CV 12.8 % (11.6-14.6); RBC Distribution Width SD 44.8 fl (35.1-43.9); Red Blood Count 3.62 M/mm3 (4.2-5.4); White Blood Count 6.6 K/mm3 (4.4-11.0)
[2023-04-22 07:34] VITALS: BP 110/59; PULSE 68; RESP 16; TEMP 36.9; O2SAT 95
[2023-04-22 07:41] LABS: Anion Gap 2 (5-15); BUN 12 mg/dL (7-18); BUN/Creat Ratio 12.4 RATIO (10-20); Calcium,Total 8.3 mg/dL (8.5-10.1); Chloride 109 mmol/L (98-107); Creatinine, Serum 0.97 mg/dL (0.55-1.02); EST Glomerular Filtration Rate 60 mL/min (>60); Est Glom Filt Rate - Afr Amer 73 mL/min (>60); Estimated Creatinine Clearance 52.34 ml/min; Glucose 128 mg/dL (74-106); Potassium 3.8 mmol/L (3.5-5.1); Sodium Level 142 mmol/L (136-145)
[2023-04-22 08:05] VITALS: BMI 29.3
[2023-04-22] MEDS: Aspirin 81 MG TAB.CHEW PO (08:24)
[2023-04-22] MEDS: Senna/Docusate Sodium 1 Tablet 2 TABLET PO (08:24)
[2023-04-22 08:33] VITALS: RESP 16
--- NOTE | 2023-04-22 10:55 | CASEMGMT ---
HENNY VAUGHAN Assessment: Face to Face with pt for initial transition planning/care coordination assessment. HENNY VAUGHAN introduced self and role at [facility], pt voices understanding and consents to assessment. Pt is A&O x4 and answers all questions appropriately at this time. Pt sitting up in bed in no distress with dtr at bedside. Care providers, pharmacy, and demographics verified/updated. Admitting Dx: robotic assisted R total knee PCP:Gómez Specialists:kristine Adorno Preferred Pharmacy: [facility] Insurance: [facility], [place] Prescription Benefit: yes LNOK: Cheryl Rivers, dtr Living Arrangements: Pt lives alone in a single story home with 2 steps to enter. Pt reports she is I in ADL's and denies concerns at home. Pt dtr is staying the night with her tonight. Pt has family and neighbors who can assist her as needed. Transportation: Pt drives self and denies concerns with transportation. Pt neighbor to transport her until she is able to drive again. DME:polar care, toilet riser, FWW, wedge cushion HHC/SNF: Denies hx of Pt states no concerns with going home at time of dc. Pt has outpt therapy set up tomorrow at [facility]. Pt states no further concerns/needs. CM to follow. Advised pt to ask CM if any further question/concerns/needs arise, voices understanding. Pt Goal: Home with outpt therapy already set up Plan: Home with outpt therapy already set up Daniel INMAN CM
[2023-04-22 12:15] VITALS: BMI 29.3
[2023-04-22] MEDS: traMADol 50 MG Tablet PO (12:15)
[2023-04-22 12:30] VITALS: BP 143/71; PULSE 80; RESP 16; TEMP 36.7; O2SAT 97
[2023-04-22 14:00] VITALS: BMI 29.3
[2023-04-22] MEDS: Gabapentin 600 MG Tablet PO (14:10)
--- NOTE | 2023-04-22 15:44 | PCM.PN.ORT ---
Subjective Subjective Patient is s/p right total knee arthroplasty with Dr. Adorno on 04/21/2023. patient resting comfortably in bed. Rates pain 7/ 10 at rest. With movement 7/10. States taking Tylenol tramadol and oxycodone as needed and ice help to relieve pain. Patient has been up with therapy. Walking with the assit of a walker. Afebrile, no chest pain, shortness of breath, negative calf pain/ erythema, and no other signs of DVT. Patient's dressing had to be changed today. drainage has slowed down since. Objective Data Objective Data Vital Signs: Vital Signs Temp Pulse Resp BP Pulse Ox O2 Del Method O2 Flow Rate 98.1 F 80 16 143/71 H 97 Room Air 4 04/22/23 12:30 04/22/23 12:30 04/22/23 12:30 04/22/23 12:30 04/22/23 12:30 04/22/23 12:30 04/21/23 10:45 Oxygen Flow Rate (L/min) 4 Oxygen Delivery Method Room Air Weight: 75 kg Body Mass Index (BMI) 29.2 Intake & Output: Intake and Output for Last 24 Hours 04/20/23 04/21/23 04/22/23 23:59 23:59 23:59 Intake Total 2051.00 / 2051.00 Output Total 300 / 300 Balance 1751.00 / 1751.00 Lab / Micro Data 04/22/23 06:06 04/22/23 06:06 Labs: Laboratory Results - last 24 hr 04/22/23 06:06: WBC 6.6, RBC 3.62 L, Hgb 11.4 L, Hct 34.9 L, MCV 96.4, MCH 31.5, MCHC 32.7, RDW Std Deviation 44.8 H, RDW Coeff of Yu 12.8, Plt Count 195, MPV 9.9, Sodium 142, Potassium 3.8, Chloride 109 H, Carbon Dioxide 31.0, Anion Gap 2 L, BUN 12, Creatinine 0.97, Estim Creat Clear Calc 52.34, Est GFR (MDRD) Af Amer 73, Est GFR (MDRD) Non-Af 60, BUN/Creatinine Ratio 12.4, Glucose 128 H, Calcium 8.3 L Micro: Microbiology 03/27/23 08:08 Swab (Method) Nasal Screen MRSA/MSSA - Final Physical Exam Narrative Patient resting comfortably in bed No signs of acute distress Satting well on room air Limb is warm to touch, Sensation intact throughout entire lower extremity, including saphenous, sural, superficial and deep peroneal, and tibial distribution. DP/PT pulses bounding. Dorsiflexion plantarflexion strength 5/5 Dressing small dime- sized amount of sanguinous drainage in the distal portion. Calf nontender to palpation, no erythema, no edema. Negative Homans Assessment & Plan Assessment/Plan (1) S/P total knee arthroplasty: PLAN: Patient is postop day 1 status post right total knee arthroplasty with Dr. Adorno 04/21/2023. 1. Will continue PT today. Weightbearing as tolerated 2. plan for discharge this afternoon following PT 3. Patient will follow up for post op appointment on as previously scheduled 2 weeks after surgery 4. Patient has outpatient PT appointment on as previously scheduled 5. WBC 6.6 no acute reactive leukocytosis 6. H/H 11.4/34.9: post operavtive anemia secondary to acute blood loss intraoperatively. Patient is asymptomatic at this time. No intraoperative complications. will continue to monitor. no acute interventions. 7. DVT prophylaxis : Aspirin 81 mg twice daily x 4 weeks 8. Pain control: patient instructed to take tylenol 500mg 2 tablets TID. and oxycodone 1-2 tablets every 4-6 hours only as needed for pain control. 9. ok to remove post op dressing. post op day 5
--- NOTE | 2023-04-22 15:49 | DCINST_ITS ---
Discharge Instructions Diet Discharge Diet: No restrictions Activity Discharge Activity: Return to Normal Activity and May Shower Weight Bearing Status: Weight bearing as tolerated Dressing / Incision Call your doctor if your incision/area has: Continuous Slow Oozing, Sudden Increased Bleeding, Increased Pain/ Swelling, Increased Redness and Foul Smelling Discharge Call your doctor if you observe: Fever of 101 or Higher, Inability to have a bowel movement, Shortness of breath, Dizziness, Chest pain, Increased palpitations (irregular heartbeat), Calf discomfort and Uncontrolled pain Remove Dressing in: 5 days Cleanse incision/area with: Soap & Water and Keep Dressing Clean & Dry Follow Up Care When: With most orthopedics as previously scheduled 2 weeks postoperatively. Test Results: Test results from this visit will be discussed in further detail at your follow- up appointment, if applicable. Discharge Plan Admission Admit Date/Time: 04/21/23 15:35 Attending Provider: Connor Adorno Primary Care Provider: Claus Magaña Discharge Orders/Prescriptions Prescriptions: New acetaminophen 500 mg Tablet 1,000 mg PO Q8 Qty: 180 0RF aspirin 81 mg Tablet,Chewable 81 mg PO BIDCM Qty: 60 0RF sennosides-docusate sodium [Stool Softener-Stimulant Laxat] 8.6-50 mg Tablet 2 tab PO BID Qty: 10 0RF Continued naproxen 500 mg tablet 500 mg PO BID dicyclomine 10 mg capsule 10 mg PO .PRN PRN (Reason: Diarrhea) cyclobenzaprine 10 mg tablet 10 mg PO HS gabapentin 300 mg capsule 600 mg PO TID metoprolol succinate 25 mg tablet extended release 24 hr 25 mg PO QHS Tremfya 100 mg/mL auto-injector 100 mg subcut .QMO diphenhydramine HCl [Benadryl Allergy] 25 mg tablet 25 mg PO Q8H PRN (Reason: allergy symptoms) Held tramadol 50 mg tablet 50 mg PO BID Hold Instructions: Resume on 05/23/23. hold while taking oxycodone Referrals / Follow Up: Claus Magaña MD [Primary Care Provider] - Disposition Disposition (needs filled in before D/C Order can be placed): Home, Self Care
[2023-04-22 16:41] VITALS: BP 131/71; PULSE 103; RESP 18; TEMP 37.2; O2SAT 97
== END 2023-04-22 17:12 | disposition home or self-care (01) ==
LOC: SDC 15:44 → MS3 15:44
PROVIDERS: Anesthesiology; Admitting Provider Orthopaedic Surgery; PCP Internal Medicine; Referring Provider Orthopaedic Surgery; Visit Provider Orthopaedic Surgery
PROC: 0SRC0JZ Replacement of Right Knee Joint with Synthetic Substitute, Open Approach (ICD-10-PCS; CPT 27447; principal; 2023-04-21 07:00)
DX: M17.10 Unilateral primary osteoarthritis, unspecified knee (principal); I10 Essential (primary) hypertension; Z79.899 Other long term (current) drug therapy; Q79.60 Ehlers-Danlos syndrome, unspecified; M25.461 Effusion, right knee; L40.9 Psoriasis, unspecified; Z86.2 Personal history of diseases of the blood and blood-forming organs and certain disorders involving the immune mechanism
CPT/HCPCS: 27447; S2900; 01402; 36415; 73560; 80048; 80076; 82962; 83036; 83735; 85025; 85027; 85610; 85730; 87081; 88305; 88311; 94668; 96365; 96366; 97162; 97166; 97530; 97535; 99221; C1776; J7050; J7120; A4216; G0378; J3475

== ENCOUNTER → 2023-11-24 | Outpatient (CLI) | payer MEDICARE, OTHER, SELFPAY ==
--- NOTE | 2023-11-24 13:47 | BI_ITS ---
MAMMOGRAPHY - BILATERAL SCREENING 3-D TOMOSYNTHESIS REASON FOR EXAM: Female, 68 years old. screen PERTINENT HISTORY: No significant family history. TECHNIQUE: 2-D mammograms and 3-D Tomosynthesis of the breast (s) were performed. CAD was performed. COMPARISON: 11/20/2022 FINDINGS: The breast composition is composed of scattered fibroglandular density. Scattered benign calcifications are seen. No dense spiculated masses or suspicious microcalcifications are identified. No architectural distortion is identified. There is no skin thickening or retraction. There has been no significant change since the prior study. BI/SCRN MAMM (CAD)W/APRIL BILAT IMPRESSION: No mammographic signs of malignancy. Routine yearly mammograms recommended. ASSESSMENT CATEGORY: BIRADS Category 1: Negative. A letter regarding these results will be sent to the patient by the facility within 30 days. FOLLOW UP RECOMMENDATION: Yearly follow up mammogram recommended. (A) Approximately 10% of breast cancers are not detected by mammography. A normal mammogram should not delay biopsy of a clinically suspicious abnormality. Electronically Signed: Carlos Melgar MD at 14:41 EDT ,
== END | disposition home or self-care (01) ==
LOC: OPBI 13:47
PROVIDERS: PCP Internal Medicine; Referring Provider Nurse Practitioner Women's Health; Visit Provider Nurse Practitioner Women's Health
DX: Z12.31 Encounter for screening mammogram for malignant neoplasm of breast (principal)
CPT/HCPCS: 77063; 77067

== ENCOUNTER → 2024-12-02 | Outpatient (CLI) | payer MEDICARE, OTHER, SELFPAY ==
--- NOTE | 2024-12-02 10:15 | BI_ITS ---
EXAM: SCRN MAMM (CAD)W/APRIL BILAT DATE: 12/02/2024 CLINICAL HISTORY: F, Age 69 y/o , SCREEN FOR BREAST CANCER No family history. TECHNIQUE: Procedure Code: [id number] Modality: MG Procedure: SCRN MAMM (CAD)W/APRIL BILAT COMPARISON: Prior exam(s) dated November 24, 2023. FINDINGS: TISSUE DENSITY: The breasts are almost entirely fatty. Bilateral Breast Mammographic Findings: No significant masses, calcifications or other abnormalities are identified. No suspicious masses, areas of developing architectural distortion, or suspicious calcifications. There has been no significant interval change. BI/SCRN MAMM (CAD)W/APRIL BILAT IMPRESSION: Stable bilateral screening mammogram. OVERALL FINAL ASSESSMENT BI-RADS 1: NEGATIVE. RECOMMENDATION: Routine annual follow-up in 1 Year Additional Recommendation none A letter with findings and recommendations will be mailed to the patient. Reading Location: [place] [id number]
--- NOTE | 2024-12-02 10:15 | BI_ITS ---
EXAM: SCRN MAMM (CAD)W/APRIL BILAT DATE: 12/02/2024 CLINICAL HISTORY: F, Age 69 y/o , SCREEN FOR BREAST CANCER No family history. TECHNIQUE: Procedure Code: [id number] Modality: MG Procedure: SCRN MAMM (CAD)W/APRIL BILAT COMPARISON: Prior exam(s) dated November 24, 2023. FINDINGS: TISSUE DENSITY: The breasts are almost entirely fatty. Bilateral Breast Mammographic Findings: No significant masses, calcifications or other abnormalities are identified. No suspicious masses, areas of developing architectural distortion, or suspicious calcifications. There has been no significant interval change. BI/SCRN MAMM (CAD)W/APRIL BILAT IMPRESSION: Stable bilateral screening mammogram. OVERALL FINAL ASSESSMENT BI-RADS 1: NEGATIVE. RECOMMENDATION: Routine annual follow-up in 1 Year Additional Recommendation none A letter with findings and recommendations will be mailed to the patient. Reading Location: [place] [id number]
== END | disposition home or self-care (01) ==
LOC: OPBI 09:52
PROVIDERS: PCP Internal Medicine; Referring Provider Nurse Practitioner Women's Health; Visit Provider Nurse Practitioner Women's Health
DX: Z12.31 Encounter for screening mammogram for malignant neoplasm of breast (principal)
CPT/HCPCS: 77063; 77067